=== PATIENT | male | born 1940 | race Caucasian/White ===

== ENCOUNTER → 2020-07-08 10:33 | Outpatient (BNVA) | payer MEDICARE, OTHER, SELFPAY | PROVIDERS: PCP Internal Medicine; Visit Provider Internal Medicine | DX: Z86.718 Personal history of other venous thrombosis and embolism (principal); Z51.81 Encounter for therapeutic drug level monitoring; Z79.01 Long term (current) use of anticoagulants | CPT/HCPCS: 85610 ==

== ENCOUNTER → 2020-08-05 10:26 | Outpatient (BNVA) | payer MEDICARE, OTHER, SELFPAY | PROVIDERS: PCP Internal Medicine; Visit Provider Internal Medicine | DX: Z86.718 Personal history of other venous thrombosis and embolism (principal); Z51.81 Encounter for therapeutic drug level monitoring; Z79.01 Long term (current) use of anticoagulants | CPT/HCPCS: 85610; 99211 ==

== ENCOUNTER → 2020-09-02 10:24 | Outpatient (BNVA) | payer MEDICARE, OTHER, SELFPAY | PROVIDERS: PCP Internal Medicine; Visit Provider Internal Medicine | DX: Z86.718 Personal history of other venous thrombosis and embolism (principal); Z51.81 Encounter for therapeutic drug level monitoring; Z79.01 Long term (current) use of anticoagulants | CPT/HCPCS: 85610; 99211 ==

== ENCOUNTER 2020-09-03 13:51 | Outpatient (REF) | payer SELFPAY ==
--- NOTE | 2020-09-03 16:05 | MHC.AU.P13 ---
Hearing Instrument Follow-Up- Binaural Date of Visit: 09/03/20 Right Ear: Us Marketing Director: Phonak Model: Williamseo V70-312 Serial Number: [id number] Warranty: 10/19/2017 Battery Size: 312 Agricultural Equipment Salesperson: 1xS Type of Dome: Blaine Large Occluded Dome Type of Wax Guard: CeruStop Dispensed By: [facility] Date of Fittin08/02/2014 Left Ear: Us Marketing Director: Phonak Model: Williamseo V70-312 Serial Number: [id number] Warranty: 10/19/2017 Battery Size: 312 Agricultural Equipment Salesperson: 1xS Type of Dome: Blaine Large Occluded Dome Type of Wax Guard: CeruStop Dispensed By: [facility] Date of Fittin08/02/2014 Follow-Up Summary: Patient brought in his right hearing aid. He reports that after wearing it for about an hour, he will hear the low battery chimes. The hearing aid will then turn itself off. This has been happening even with new batteries, and is only on the right instrument. Hearing aid was inspected. There was debris on the battery contacts. Cleaned debris off. Replaced wax trap and mold. The pitting machine operator was recently replaced on 02/26/2020. There does not seem to be intermittency in the sound. Hearing aid is amplifying clearly. The hearing aid did not turn off while in the office. Discussed with the patient that it is possible there could be an internal issue. We will see if there is improvement after cleaning the battery contacts. If not, patient will need to consider sending the hearing aid out for repair (over 5 years old- may need Blaine all-make) or thinking about new hearing aids. Recommendations: Patient will call if problems persist. Diagnosis Code(s): Primary Diagnosis: H90.3 Bilateral Sensorineural Hearing Loss Signature: Provider: Williams Bowman, ZEINA-A
== END 2020-09-03 13:52 | disposition home or self-care (01) ==
LOC: HO.HAP 13:51
PROVIDERS: Visit Provider Internal Medicine
DX: Z46.1 Encounter for fitting and adjustment of hearing aid (principal); H90.3 Sensorineural hearing loss, bilateral
CPT/HCPCS: 99499

== ENCOUNTER → 2020-09-16 11:24 | Outpatient (BNVA) | payer MEDICARE, OTHER, SELFPAY | PROVIDERS: PCP Internal Medicine; Visit Provider Internal Medicine | DX: Z86.718 Personal history of other venous thrombosis and embolism (principal); Z51.81 Encounter for therapeutic drug level monitoring; Z79.01 Long term (current) use of anticoagulants | CPT/HCPCS: 85610; 99211 ==

== ENCOUNTER → 2020-10-07 10:39 | Outpatient (BNVA) | payer MEDICARE, OTHER, SELFPAY | PROVIDERS: PCP Internal Medicine; Visit Provider Internal Medicine | DX: Z86.718 Personal history of other venous thrombosis and embolism (principal); Z51.81 Encounter for therapeutic drug level monitoring; Z79.01 Long term (current) use of anticoagulants | CPT/HCPCS: 85610; 99211 ==

== ENCOUNTER 2020-10-28 09:31 | Outpatient (REF) | payer MEDICARE, OTHER, SELFPAY ==
--- NOTE | 2020-10-28 13:46 | MHC.AU.P13 ---
Adult Audiological Evaluation Date of Visit: 10/28/20 Reason for Appointment: Audiological evaluation to monitor the status of Mr. Mehta's hearing loss. He denies any significant changes to his hearing. Change in medical history includes shoulder replacement in April 2020. Previous Hearing Test Results: [facility] [place]- Normal hearing at 250 Hz, sloping to a moderate to moderately severe sensorineural hearing loss bilaterally. Medical History: Medical History: Diabetes Medical History: renal insufficiency, DVT Hearing Instrument History- Right Ear: Community Artist: Phonak Model: Audeo V70-312 Serial Number: [id number] Battery Size: 312 Repair Warranty: 10/19/2017 Loss and Damage Warranty: 10/19/2017 Dispensed By: [facility] Date of Fittin08/02/2014 Hearing Instrument History- Left Ear: Community Artist: Phonak Model: Audeo V70-312 Serial Number: [id number] Battery Size: 312 Warranty: 10/19/2017 Loss and Damage Warranty: 10/19/2017 Dispensed By: [facility] Date of Fittin08/02/2014 Otoscopy: Right Ear: Unremarkable Left Ear: Unremarkable Tympanometry: Tympanometry performed due to: To assess integrity of the middle ear system Right Ear: Normal Middle Ear System (Type A) Left Ear: Normal Middle Ear System (Type A) Hearing Evaluation: Transducer(s) Used: Insert Earphones, Bone Conduction Method: Conventional Audiometry Stimuli Used: Pure Tones Right Ear: Description of Hearing: Normal hearing at 250 Hz, sloping to a moderate to moderately severe sensorineural hearing loss from 500-8000 Hz. Left Ear: Description of Hearing: Normal hearing at 250 Hz, sloping to a moderate to moderately severe sensorineural hearing loss from 500-8000 Hz. Speech Recognition Threshold (SRT): Method Used: Monitored Live Voice Stimuli Used: Spondee Words Right Ear: 40 dBHL Left Ear: 35 dBHL Word Discrimination: Method: Recorded Lists Word Lists Used: NU-6 Right Ear: 92% at 80 dBHL Left Ear: 92% at 80 dBHL Comparison: Compared to the most recent evaluation: Hearing is stable. Recommendations: Audiological re-evaluation in one year. Hearing aid maintenance performed today. Diagnosis: Primary Diagnosis: H90.3 Bilateral Sensorineural Hearing Loss Services Performed: Comprehensive Audiological Evaluation (CPT 11633) Tympanometry (CPT 34067) Signature: Provider: Williams Guillen, CCC-A
== END 2020-10-28 09:32 | disposition home or self-care (01) ==
LOC: HO.SH 09:31
PROVIDERS: Visit Provider Internal Medicine
DX: H90.3 Sensorineural hearing loss, bilateral (principal)
CPT/HCPCS: 92557; 92567

== ENCOUNTER → 2020-11-04 10:03 | Outpatient (BNVA) | payer MEDICARE, OTHER, SELFPAY | PROVIDERS: PCP Internal Medicine; Visit Provider Internal Medicine | DX: Z86.718 Personal history of other venous thrombosis and embolism (principal); Z51.81 Encounter for therapeutic drug level monitoring; Z79.01 Long term (current) use of anticoagulants | CPT/HCPCS: 85610; 99211 ==

== ENCOUNTER → 2020-11-28 10:04 | Outpatient (BNVA) | payer MEDICARE, OTHER, SELFPAY | PROVIDERS: PCP Internal Medicine; Visit Provider Internal Medicine | DX: Z86.718 Personal history of other venous thrombosis and embolism (principal); Z51.81 Encounter for therapeutic drug level monitoring; Z79.01 Long term (current) use of anticoagulants | CPT/HCPCS: 85610; 99211 ==

== ENCOUNTER → 2020-12-23 10:27 | Outpatient (BNVA) | payer MEDICARE, OTHER, SELFPAY | PROVIDERS: PCP Internal Medicine; Visit Provider Internal Medicine | DX: Z86.718 Personal history of other venous thrombosis and embolism (principal); Z51.81 Encounter for therapeutic drug level monitoring; Z79.01 Long term (current) use of anticoagulants | CPT/HCPCS: 85610; 99211 ==

== ENCOUNTER → 2021-01-20 10:09 | Outpatient (BNVA) | payer MEDICARE, OTHER, SELFPAY | PROVIDERS: PCP Internal Medicine; Visit Provider Internal Medicine | DX: Z86.718 Personal history of other venous thrombosis and embolism (principal); Z51.81 Encounter for therapeutic drug level monitoring; Z79.01 Long term (current) use of anticoagulants | CPT/HCPCS: 85610; 99211 ==

== ENCOUNTER → 2021-02-10 10:03 | Outpatient (BNVA) | payer MEDICARE, OTHER, SELFPAY | PROVIDERS: PCP Internal Medicine; Visit Provider Internal Medicine | DX: Z86.718 Personal history of other venous thrombosis and embolism (principal); Z51.81 Encounter for therapeutic drug level monitoring; Z79.01 Long term (current) use of anticoagulants | CPT/HCPCS: 85610; 99211 ==

== ENCOUNTER → 2021-03-03 09:51 | Outpatient (BNVA) | payer MEDICARE, OTHER, SELFPAY | PROVIDERS: PCP Internal Medicine; Visit Provider Internal Medicine | DX: Z86.718 Personal history of other venous thrombosis and embolism (principal); Z51.81 Encounter for therapeutic drug level monitoring; Z79.01 Long term (current) use of anticoagulants | CPT/HCPCS: 85610; 99211 ==

== ENCOUNTER → 2021-03-06 08:47 | Outpatient (BNVA) | payer MEDICARE, OTHER, SELFPAY | PROVIDERS: PCP Internal Medicine; Visit Provider Internal Medicine | DX: Z86.718 Personal history of other venous thrombosis and embolism (principal); Z51.81 Encounter for therapeutic drug level monitoring; Z79.01 Long term (current) use of anticoagulants | CPT/HCPCS: 85610; 99211 ==

== ENCOUNTER → 2021-03-13 09:32 | Outpatient (BNVA) | payer MEDICARE, OTHER, SELFPAY | PROVIDERS: PCP Internal Medicine; Visit Provider Internal Medicine | DX: Z86.718 Personal history of other venous thrombosis and embolism (principal); Z51.81 Encounter for therapeutic drug level monitoring; Z79.01 Long term (current) use of anticoagulants | CPT/HCPCS: 85610; 99211 ==

== ENCOUNTER → 2021-04-23 10:16 | Outpatient (BNVA) | payer MEDICARE, OTHER, SELFPAY | PROVIDERS: PCP Internal Medicine; Visit Provider Internal Medicine | DX: Z86.718 Personal history of other venous thrombosis and embolism (principal); Z51.81 Encounter for therapeutic drug level monitoring; Z79.01 Long term (current) use of anticoagulants | CPT/HCPCS: 85610; 99211 ==

== ENCOUNTER → 2021-05-21 10:12 | Outpatient (BNVA) | payer MEDICARE, OTHER, SELFPAY | PROVIDERS: PCP Internal Medicine; Visit Provider Internal Medicine | DX: Z86.718 Personal history of other venous thrombosis and embolism (principal); Z51.81 Encounter for therapeutic drug level monitoring; Z79.01 Long term (current) use of anticoagulants | CPT/HCPCS: 85610; 99211 ==

== ENCOUNTER → 2021-06-23 10:11 | Outpatient (BNVA) | payer MEDICARE, OTHER, SELFPAY | PROVIDERS: PCP Internal Medicine; Visit Provider Internal Medicine | DX: Z86.718 Personal history of other venous thrombosis and embolism (principal); Z51.81 Encounter for therapeutic drug level monitoring; Z79.01 Long term (current) use of anticoagulants | CPT/HCPCS: 85610; 99211 ==

== ENCOUNTER 2021-07-14 09:43 | Outpatient (REF) | payer MEDICARE, OTHER, SELFPAY ==
[2021-07-14 09:54] LABS: MANUAL DIFF FLAG NO
[2021-07-14 10:46] LABS: Basophils Absolute Auto 0.1 X10*3/uL (0.0-0.2); Basophils Percent Auto 0.9 % (0-2); Eosinophils Absolute Auto 0.2 X10*3/uL (0.0-0.4); Eosinophils Percent Auto 2.8 % (0-4); Hematocrit 42.7 % (42-52); Hemoglobin 13.7 g/dl (14.0-18.0); Imm Gran Abs Auto 0.02 X10*3/uL (0.00-0.03); Imm Gran Pct Auto 0.3 % (0.0-0.4); Lymphocytes Absolute Auto 2.9 X10*3/uL (1.2-4.9); Lymphocytes Percent Auto 37.5 % (20-40); Mean Corpuscular HGB Conc 32.1 g/dl (31.0-36.0); Mean Corpuscular Hemoglobin 29.2 pg (27.0-33.0); Mean Platelet Volume 9.4 fL (9.4-12.4); Monocytes Absolute Auto 0.8 X10*3/uL (0.1-1.2); Monocytes Percent Auto 9.7 % (2-11); Neutrophils Absolute Auto 3.8 X10*3/uL (2.0-8.3); Neutrophils Percent Auto 48.8 % (45-73); Platelet Count 215 X10*3/uL (160-400); Red Blood Count 4.69 X10*6/uL (4.60-5.80); Red Cell Distribution Width 13.2 % (11.0-16.0); White Blood Count 7.8 X10*3/uL (4.8-10.8)
[2021-07-14 10:48] LABS: Appearance Urine CLEAR; Color Urine YELLOW; Glucose Urine UA NEG (NEG); Leukocyte Esterase Urine NEG (NEG); Nitrite Urine NEG (NEG); Urine Blood TRACE (NEG); Urine Ketones NEG (NEG); Urine Protein NEG (NEG-TRACE)
[2021-07-14 11:04] LABS: RBC Urine 0-2 /HPF (0); Squamous Epithelial Cell Urine 1+ /LPF; WBC Urine 0 /HPF (0-4)
[2021-07-14 11:22] LABS: Anion Gap 9 (12-20); Blood Urea Nitrogen 40 mg/dL (9-16); Calcium 9.4 mg/dL (8.4-10.2); Carbon Dioxide 26 mmol/L (22-29); Chloride 109 mmol/L (96-108); Estimated Glomerular Filt Rate 39; Iron 74 mcg/dL (45-160); Magnesium 2.2 mg/dL (1.6-2.6); Percent Iron Saturation 24 % (15-50); Phosphorus 3.1 mg/dL (2.7-4.5); Potassium 5.1 mmol/L (3.3-5.1); Sodium 139 mmol/L (135-145); Total Iron Binding Capacity 308 mcg/dL (228-428); Unsaturated Iron Binding 234 ug/dL
[2021-07-14 11:39] LABS: Vitamin D 25-OH Total 37.9 ng/mL (>30)
[2021-07-14 11:41] LABS: Creatinine Urine 99.17 mg/dL; Microalbum/Creatinine Ratio Ur 12.1 ug/mg cr; Total Protein Urine Random < 7 mg/dL (<12)
[2021-07-14 13:19] LABS: Renal w Reflex Lab Use Only Order verified
[2021-07-14 13:52] LABS: Ferritin 74 ng/mL (20-250)
[2021-07-16 01:33] LABS: Calcium (PTHI) 9.2 mg/dL (8.6-10.3); PTHI 81 pg/mL (14-64)
== END 2021-07-14 09:44 | disposition home or self-care (01) ==
LOC: HO.LAB 09:43
PROVIDERS: PCP Internal Medicine; Referring Provider Internal Medicine; Visit Provider Internal Medicine Nephrology
DX: I12.9 Hypertensive chronic kidney disease with stage 1 through stage 4 chronic kidney disease, or unspecified chronic kidney disease (principal); N18.30 Chronic kidney disease, stage 3 unspecified; E11.22 Type 2 diabetes mellitus with diabetic chronic kidney disease; D64.9 Anemia, unspecified
CPT/HCPCS: 36415; 80051; 81001; 82040; 82043; 82306; 82310; 82565; 82728; 83540; 83735; 83970; 84100; 84156; 84520; 85025

== ENCOUNTER → 2021-07-21 10:21 | Outpatient (BNVA) | payer MEDICARE, OTHER, SELFPAY | PROVIDERS: PCP Internal Medicine; Visit Provider Internal Medicine | DX: Z86.718 Personal history of other venous thrombosis and embolism (principal); Z51.81 Encounter for therapeutic drug level monitoring; Z79.01 Long term (current) use of anticoagulants | CPT/HCPCS: 85610; 99211 ==

== ENCOUNTER → 2021-08-18 10:29 | Outpatient (BNVA) | payer MEDICARE, OTHER, SELFPAY | PROVIDERS: PCP Internal Medicine; Visit Provider Internal Medicine | DX: Z86.718 Personal history of other venous thrombosis and embolism (principal); Z51.81 Encounter for therapeutic drug level monitoring; Z79.01 Long term (current) use of anticoagulants | CPT/HCPCS: 85610; 99211 ==

== ENCOUNTER → 2021-09-15 09:31 | Outpatient (BNVA) | payer MEDICARE, OTHER, SELFPAY | PROVIDERS: PCP Internal Medicine; Visit Provider Internal Medicine | DX: Z86.718 Personal history of other venous thrombosis and embolism (principal); Z51.81 Encounter for therapeutic drug level monitoring; Z79.01 Long term (current) use of anticoagulants | CPT/HCPCS: 85610; 99211 ==

== ENCOUNTER → 2021-10-15 09:58 | Outpatient (BNVA) | payer MEDICARE, OTHER, SELFPAY | PROVIDERS: PCP Internal Medicine; Visit Provider Internal Medicine | DX: Z86.718 Personal history of other venous thrombosis and embolism (principal); Z51.81 Encounter for therapeutic drug level monitoring; Z79.01 Long term (current) use of anticoagulants | CPT/HCPCS: 85610; 99211 ==

== ENCOUNTER → 2021-12-18 11:55 | Outpatient (BNVA) | payer MEDICARE, OTHER, SELFPAY | PROVIDERS: PCP Internal Medicine; Visit Provider Internal Medicine | DX: Z13.89 Encounter for screening for other disorder (principal) ==

== ENCOUNTER → 2022-01-13 10:37 | Outpatient (BNVA) | payer MEDICARE, OTHER, SELFPAY | PROVIDERS: PCP Internal Medicine; Visit Provider Internal Medicine | DX: Z86.718 Personal history of other venous thrombosis and embolism (principal); Z79.01 Long term (current) use of anticoagulants; Z51.81 Encounter for therapeutic drug level monitoring | CPT/HCPCS: 85610; 99211 ==

== ENCOUNTER → 2022-02-09 10:04 | Outpatient (BNVA) | payer MEDICARE, OTHER, SELFPAY | PROVIDERS: PCP Internal Medicine; Visit Provider Internal Medicine | DX: Z86.718 Personal history of other venous thrombosis and embolism (principal); Z79.01 Long term (current) use of anticoagulants; Z51.81 Encounter for therapeutic drug level monitoring | CPT/HCPCS: 85610; 99211 ==

== ENCOUNTER → 2022-03-16 13:03 | Outpatient (BNVA) | payer MEDICARE, OTHER, SELFPAY | PROVIDERS: PCP Internal Medicine; Visit Provider Internal Medicine | DX: Z86.718 Personal history of other venous thrombosis and embolism (principal); Z79.01 Long term (current) use of anticoagulants; Z51.81 Encounter for therapeutic drug level monitoring | CPT/HCPCS: 85610; 99211 ==

== ENCOUNTER → 2022-04-14 14:47 | Outpatient (BNVA) | payer MEDICARE, OTHER, SELFPAY | PROVIDERS: PCP Internal Medicine; Visit Provider Internal Medicine | DX: Z86.718 Personal history of other venous thrombosis and embolism (principal); Z79.01 Long term (current) use of anticoagulants; Z51.81 Encounter for therapeutic drug level monitoring | CPT/HCPCS: 85610; 99211 ==

== ENCOUNTER → 2022-05-13 09:50 | Outpatient (BNVA) | payer MEDICARE, OTHER, SELFPAY | PROVIDERS: PCP Internal Medicine; Visit Provider Internal Medicine | DX: Z86.718 Personal history of other venous thrombosis and embolism (principal); Z79.01 Long term (current) use of anticoagulants; Z51.81 Encounter for therapeutic drug level monitoring | CPT/HCPCS: 85610; 99211 ==

== ENCOUNTER → 2022-06-15 10:04 | Outpatient (BNVA) | payer MEDICARE, OTHER, SELFPAY | PROVIDERS: PCP Internal Medicine; Visit Provider Internal Medicine | DX: Z86.718 Personal history of other venous thrombosis and embolism (principal); Z79.01 Long term (current) use of anticoagulants; Z51.81 Encounter for therapeutic drug level monitoring | CPT/HCPCS: 85610; 99211 ==

== ENCOUNTER → 2022-07-13 09:46 | Outpatient (BNVA) | payer MEDICARE, OTHER, SELFPAY | PROVIDERS: PCP Internal Medicine; Visit Provider Internal Medicine | DX: Z86.718 Personal history of other venous thrombosis and embolism (principal); Z79.01 Long term (current) use of anticoagulants; Z51.81 Encounter for therapeutic drug level monitoring | CPT/HCPCS: 85610; 99211 ==

== ENCOUNTER → 2022-08-10 10:05 | Outpatient (BNVA) | payer MEDICARE, OTHER, SELFPAY | PROVIDERS: PCP Internal Medicine; Visit Provider Internal Medicine | DX: Z86.718 Personal history of other venous thrombosis and embolism (principal); Z79.01 Long term (current) use of anticoagulants; Z51.81 Encounter for therapeutic drug level monitoring | CPT/HCPCS: 85610; 99211 ==

== ENCOUNTER → 2022-09-07 09:58 | Outpatient (BNVA) | payer MEDICARE, OTHER, SELFPAY | PROVIDERS: PCP Internal Medicine; Visit Provider Internal Medicine | DX: Z86.718 Personal history of other venous thrombosis and embolism (principal); Z79.01 Long term (current) use of anticoagulants; Z51.81 Encounter for therapeutic drug level monitoring | CPT/HCPCS: 85610; 99211 ==

== ENCOUNTER → 2022-10-12 10:00 | Outpatient (BNVA) | payer MEDICARE, OTHER, SELFPAY | PROVIDERS: PCP Internal Medicine; Visit Provider Internal Medicine | DX: Z86.718 Personal history of other venous thrombosis and embolism (principal); Z79.01 Long term (current) use of anticoagulants; Z51.81 Encounter for therapeutic drug level monitoring | CPT/HCPCS: 85610; 99211 ==

== ENCOUNTER → 2022-11-12 10:11 | Outpatient (BNVA) | payer MEDICARE, OTHER, SELFPAY | PROVIDERS: PCP Internal Medicine; Visit Provider Internal Medicine | DX: Z79.01 Long term (current) use of anticoagulants (principal) ==

== ENCOUNTER → 2022-12-20 12:57 | Outpatient (BNVA) | payer MEDICARE, OTHER, SELFPAY | PROVIDERS: PCP Internal Medicine; Visit Provider Internal Medicine | DX: Z79.01 Long term (current) use of anticoagulants (principal) ==

== ENCOUNTER 2023-01-18 10:00 | Outpatient (REF) | payer MEDICARE, OTHER, SELFPAY ==
--- NOTE | ~2023-01-18 | XR_ITS ---
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 COMPARISON: Chest 07/05/2019 TECHNIQUE: 2 views of the chest were obtained. FINDINGS: The lungs are well-expanded with focal elevated right hemidiaphragm. The heart size and pulmonary vascularity is normal. There are bilateral shoulder prosthesis. No other bony lesion seen. There is moderate spondylosis of dorsal spine. XR/XR chest 2V IMPRESSION: 1. No acute cardiopulmonary process seen. 2. Moderate spondylosis dorsal spine. 3. Bilateral shoulder prosthesis.
== END 2023-01-18 10:01 | disposition home or self-care (01) ==
LOC: HO.LAB 10:00
PROVIDERS: Absent Provider Internal Medicine; PCP Internal Medicine; Visit Provider Internal Medicine
DX: R06.09 Other forms of dyspnea (principal); Z86.718 Personal history of other venous thrombosis and embolism; Z51.81 Encounter for therapeutic drug level monitoring; Z79.01 Long term (current) use of anticoagulants
CPT/HCPCS: 71046; 85610; 99211

== ENCOUNTER → 2023-02-15 10:14 | Outpatient (BNVA) | payer MEDICARE, OTHER, SELFPAY | PROVIDERS: PCP Internal Medicine; Visit Provider Internal Medicine | DX: I82.501 Chronic embolism and thrombosis of unspecified deep veins of right lower extremity (principal); Z79.01 Long term (current) use of anticoagulants; Z51.81 Encounter for therapeutic drug level monitoring | CPT/HCPCS: 85610; 99211 ==

== ENCOUNTER → 2023-03-15 10:17 | Outpatient (BNVA) | payer MEDICARE, OTHER, SELFPAY | PROVIDERS: PCP Internal Medicine; Visit Provider Internal Medicine | DX: Z86.718 Personal history of other venous thrombosis and embolism (principal); Z51.81 Encounter for therapeutic drug level monitoring; Z79.01 Long term (current) use of anticoagulants | CPT/HCPCS: 85610; 99211 ==

== ENCOUNTER 2023-04-12 10:17 | Outpatient (AMB) | payer MEDICARE, OTHER, SELFPAY ==
[2023-04-12 10:28] LABS: Prothrombin Time Whole Bld POC 29.3 sec (11.1-13.5); ~PT, ~INR - Anti Coag Clinic 2.4 (0.9-1.1)
--- NOTE | 2023-04-12 10:31 | MHC.OFFVISCO ---
Intake Intake Visit Reasons: Anticoagulation Allergies No Known Allergies Allergy (Mild, Verified 04/12/23 10:20) NOT APPLICABLE Medication List - Last Reconciled 04/12/23 by Zainab Cheung RN amoxicillin 2,000 mg PO coenzyme Q10 (CoQ-10) 200 mg PO DAILY magnesium 200 mg PO DAILY shmjxnkjlhrc-limqggsf-yewqfp 1 tab PO DAILY omega-3 fatty acids (Fish Oil Concentrate) 1,000 mg PO DAILY sildenafil 50 mg PO DAILY PRN simvastatin 20 mg PO BEDTIME sitagliptin phosphate 25 mg PO DAILY warfarin 5 mg See Protocol PO DAILY Nursing Note Amb to [facility] feeling well Medications and supplements reviewed No changes in health, diet, medications, or supplements Denies any unusual signs and symptoms of bruising, bleeding Denies any new Chest pain, SOB, or clotting INR: 2.4 in therapeutic range Nutritional guidance given: balance greens and reds in diet, be consistent Dose: continue usual dosing; 7.5mg x 2 days and 5mg x 5 days F/U INR: 4 weeks Patient verbalizes understanding of instructions given with accurate read back/ teach back of dosing Coding Level of Care Code Est Patient Level 1 Diagnoses Current use of anticoagulant therapy Z79.01 Time Spent (min) 15 Assessment & Plan Assessment & Plan (1) Current use of anticoagulant therapy: Code(s): Z79.01 - disc 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
== END 2023-04-12 10:43 | disposition home or self-care (01) ==
LOC: HO.ACS 10:17
PROVIDERS: PCP Internal Medicine; Visit Provider Internal Medicine
DX: Z79.01 Long term (current) use of anticoagulants (principal)

== ENCOUNTER → 2023-04-12 10:17 | Outpatient (BNVA) | payer MEDICARE, OTHER, SELFPAY | PROVIDERS: PCP Internal Medicine; Visit Provider Internal Medicine | DX: I82.4Z1 Acute embolism and thrombosis of unspecified deep veins of right distal lower extremity (principal); Z51.81 Encounter for therapeutic drug level monitoring; Z79.01 Long term (current) use of anticoagulants | CPT/HCPCS: 85610; 99211 ==

== ENCOUNTER 2023-05-12 10:03 | Outpatient (AMB) | payer MEDICARE, OTHER, SELFPAY ==
--- NOTE | 2023-05-12 10:10 | MHC.OFFVISCO ---
Intake Intake Visit Reasons: Anticoagulation Allergies No Known Allergies Allergy (Mild, Verified 05/12/23 10:05) NOT APPLICABLE Medication List - Last Reconciled 05/12/23 by Anay Rodriguez RN amoxicillin 2,000 mg PO coenzyme Q10 (CoQ-10) 200 mg PO DAILY magnesium 200 mg PO DAILY xqnsogilvbdg-xwpkuwmq-halnim 1 tab PO DAILY omega-3 fatty acids (Fish Oil Concentrate) 1,000 mg PO DAILY sildenafil 50 mg PO DAILY PRN simvastatin 20 mg PO BEDTIME sitagliptin phosphate 25 mg PO DAILY warfarin 5 mg See Protocol PO DAILY Nursing Note INR 3.2-? out of therapeutic range Medications and supplements reviewed Patient status: recent vacation in [place] Medications or supplements: no changes Diet: same Denies any signs and symptoms of bleeding or clotting or unusual bruising Bleeding, bruising, clotting discussed Nutritional guidance given: eat greens for 2 days to lower, no reds for 2 days Dose: same 7.5mg x 2, 5mg x 5 F/U INR Date : pt req 4 weeks?? Patient verbalizing understanding of instructions given. 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
[2023-05-12 10:20] LABS: Prothrombin Time Whole Bld POC 37.9 sec (11.1-13.5); ~PT, ~INR - Anti Coag Clinic 3.2 (0.9-1.1)
== END 2023-05-12 10:16 | disposition home or self-care (01) ==
LOC: HO.ACS 10:03
PROVIDERS: PCP Internal Medicine; Visit Provider Internal Medicine
DX: Z79.01 Long term (current) use of anticoagulants (principal)

== ENCOUNTER → 2023-05-12 10:03 | Outpatient (BNVA) | payer MEDICARE, OTHER, SELFPAY | PROVIDERS: PCP Internal Medicine; Visit Provider Internal Medicine | DX: Z86.718 Personal history of other venous thrombosis and embolism (principal); Z79.01 Long term (current) use of anticoagulants; Z51.81 Encounter for therapeutic drug level monitoring | CPT/HCPCS: 85610; 99211 ==

== ENCOUNTER 2023-06-07 10:10 | Outpatient (AMB) | payer MEDICARE, OTHER, SELFPAY ==
[2023-06-07 10:20] LABS: Prothrombin Time Whole Bld POC 29.6 sec (11.1-13.5); ~PT, ~INR - Anti Coag Clinic 2.5 (0.9-1.1)
--- NOTE | 2023-06-07 10:25 | MHC.OFFVISCO ---
Intake Intake Visit Reasons: Anticoagulation Allergies No Known Allergies Allergy (Mild, Verified 06/07/23 10:12) NOT APPLICABLE Medication List - Last Reconciled 06/07/23 by Zainab Cheung RN amoxicillin 2,000 mg PO coenzyme Q10 (CoQ-10) 200 mg PO DAILY magnesium 200 mg PO DAILY dpojbljiqken-wcejeucn-qolcpy 1 tab PO DAILY omega-3 fatty acids (Fish Oil Concentrate) 1,000 mg PO DAILY sildenafil 50 mg PO DAILY PRN simvastatin 20 mg PO BEDTIME sitagliptin phosphate 25 mg PO DAILY warfarin 5 mg See Protocol PO DAILY Nursing Note Amb to [facility] feeling well Medications and supplements reviewed No changes in health, diet, medications, or supplements Denies any unusual signs and symptoms of bruising, bleeding Denies any new Chest pain, SOB, or clotting INR: 2.5 in therapeutic range Nutritional guidance given: balance greens and reds in diet Dose: continue usual dosing; 7.5mg x 2 days and 5mg x 5 days F/U INR: 1 month, pt going to [facility] 07/14 INR F/U booked for 07/12 Patient verbalizes understanding of instructions given with accurate read back/ teach back of dosing Coding Level of Care Code Est Patient Level 1 Diagnoses Current use of anticoagulant therapy Z79.01 Time Spent (min) 15 Assessment & Plan Assessment & Plan (1) Current use of anticoagulant therapy: Code(s): 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
== END 2023-06-07 10:30 | disposition home or self-care (01) ==
LOC: HO.ACS 10:10
PROVIDERS: PCP Internal Medicine; Visit Provider Internal Medicine
DX: Z79.01 Long term (current) use of anticoagulants (principal)

== ENCOUNTER → 2023-06-07 10:10 | Outpatient (BNVA) | payer MEDICARE, OTHER, SELFPAY | PROVIDERS: PCP Internal Medicine; Visit Provider Internal Medicine | DX: Z86.718 Personal history of other venous thrombosis and embolism (principal); Z79.01 Long term (current) use of anticoagulants; Z51.81 Encounter for therapeutic drug level monitoring | CPT/HCPCS: 85610; 99211 ==

== ENCOUNTER 2023-07-12 10:02 | Outpatient (AMB) | payer MEDICARE, OTHER, SELFPAY ==
[2023-07-12 10:09] LABS: Prothrombin Time Whole Bld POC 35.2 sec (11.1-13.5); ~PT, ~INR - Anti Coag Clinic 2.9 (0.9-1.1)
--- NOTE | 2023-07-12 10:14 | MHC.OFFVISCO ---
Intake Intake Visit Reasons: Anticoagulation Allergies No Known Allergies Allergy (Mild, Verified 07/12/23 10:03) NOT APPLICABLE Medication List - Last Reconciled 07/12/23 by Roshni Honeycutt RN amoxicillin 2,000 mg PO coenzyme Q10 (CoQ-10) 200 mg PO DAILY magnesium 200 mg PO DAILY acrsphbhohzs-brbyzdpz-exopjn 1 tab PO DAILY omega-3 fatty acids (Fish Oil Concentrate) 1,000 mg PO DAILY sildenafil 50 mg PO DAILY PRN simvastatin 20 mg PO BEDTIME sitagliptin phosphate 25 mg PO DAILY warfarin 5 mg See Protocol PO DAILY Nursing Note Pt not going to [place] due to war INR: 2.9 in therapeutic range Medications and supplements reviewed No changes in health, diet, medications, or supplements, Denies any signs and symptoms of bleeding or bruising or clotting. Bleeding, bruising, clotting discussed Nutritional guidance given - EAT AMIX OF FRUITS AND VEGETABLES Dose: KEEP SAME 7.5MG X 2 DAYS/ 5MG X 5 DAYS F/U INR: 1 MONTH Patient verbalizes understanding of instructions given Coding Level of Care Code Est Patient Level 1 Diagnoses Current use of anticoagulant therapy Z79.01 Assessment & Plan Assessment & Plan (1) Current use of anticoagulant therapy: Code(s): Z79.01 - long term acute care registered nurse (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
== END 2023-07-12 10:19 | disposition home or self-care (01) ==
LOC: HO.ACS 10:02
PROVIDERS: PCP Internal Medicine; Visit Provider Internal Medicine
DX: Z79.01 Long term (current) use of anticoagulants (principal)

== ENCOUNTER → 2023-07-12 10:02 | Outpatient (BNVA) | payer MEDICARE, OTHER, SELFPAY | PROVIDERS: PCP Internal Medicine; Visit Provider Internal Medicine | DX: Z86.718 Personal history of other venous thrombosis and embolism (principal); Z79.01 Long term (current) use of anticoagulants; Z51.81 Encounter for therapeutic drug level monitoring | CPT/HCPCS: 85610; 99211 ==

== ENCOUNTER 2023-08-09 09:55 | Outpatient (AMB) | payer MEDICARE, OTHER, SELFPAY ==
[2023-08-09 10:10] LABS: Prothrombin Time Whole Bld POC 29.3 sec (11.1-13.5); ~PT, ~INR - Anti Coag Clinic 2.4 (0.9-1.1)
--- NOTE | 2023-08-09 10:16 | MHC.OFFVISCO ---
Intake Intake Visit Reasons: Anticoagulation Allergies No Known Allergies Allergy (Mild, Verified 08/09/23 10:02) NOT APPLICABLE Medication List - Last Reconciled 08/09/23 by Roshni Honeycutt RN amoxicillin 2,000 mg PO coenzyme Q10 (CoQ-10) 200 mg PO DAILY magnesium 200 mg PO DAILY dmhcjfpviiby-covrmydz-byciit 1 tab PO DAILY omega-3 fatty acids (Fish Oil Concentrate) 1,000 mg PO DAILY sildenafil 50 mg PO DAILY PRN simvastatin 20 mg PO BEDTIME sitagliptin phosphate 25 mg PO DAILY warfarin 5 mg See Protocol PO DAILY Nursing Note INR: 2.4 in therapeutic range Medications and supplements reviewed No changes in health, diet, medications, or supplements, Denies any signs and symptoms of bleeding or bruising or clotting. Bleeding, bruising, clotting discussed Nutritional guidance given Dose: 7.5MG X 2 DAYS/ 5MG X 5 DAYS F/U INR: 1 MONTH Patient verbalizes understanding of instructions given Coding Level of Care Code Est Patient Level 1
== END 2023-08-09 10:53 | disposition home or self-care (01) ==
LOC: HO.ACS 09:55
PROVIDERS: PCP Internal Medicine; Visit Provider Internal Medicine
DX: Z79.01 Long term (current) use of anticoagulants (principal)

== ENCOUNTER → 2023-08-09 09:55 | Outpatient (BNVA) | payer MEDICARE, OTHER, SELFPAY | PROVIDERS: PCP Internal Medicine; Visit Provider Internal Medicine | DX: Z86.718 Personal history of other venous thrombosis and embolism (principal); Z79.01 Long term (current) use of anticoagulants; Z51.81 Encounter for therapeutic drug level monitoring | CPT/HCPCS: 85610; 99211 ==

== ENCOUNTER 2023-09-06 10:01 | Outpatient (AMB) | payer MEDICARE, OTHER, SELFPAY ==
[2023-09-06 10:11] LABS: ~PT, ~INR - Anti Coag Clinic 3.1 (0.9-1.1)
--- NOTE | 2023-09-06 10:18 | MHC.OFFVISCO ---
Intake Intake Visit Reasons: Anticoagulation Allergies No Known Allergies Allergy (Mild, Verified 09/06/23 10:04) NOT APPLICABLE Medication List - Last Reconciled 09/06/23 by Roshni Honeycutt RN amoxicillin 2,000 mg PO coenzyme Q10 (CoQ-10) 200 mg PO DAILY magnesium 200 mg PO DAILY igzqibvbzzwf-prtsynly-wgspir 1 tab PO DAILY omega-3 fatty acids (Fish Oil Concentrate) 1,000 mg PO DAILY sildenafil 50 mg PO DAILY PRN simvastatin 20 mg PO BEDTIME sitagliptin phosphate 25 mg PO DAILY warfarin 5 mg See Protocol PO DAILY Nursing Note INR: 3.1 ALMOST IN therapeutic range Medications and supplements reviewed RECOVERING FROM URI TOOK MUSINEX AND TYELNOL FOR A FEW DAYS- AND IS BETTER NOW -TYELNOL MAY HAVE RAUSE THE INR Denies any signs and symptoms of bleeding or bruising or clotting. 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
== END 2023-09-06 10:26 | disposition home or self-care (01) ==
LOC: HO.ACS 10:01
PROVIDERS: PCP Internal Medicine; Visit Provider Internal Medicine
DX: Z79.01 Long term (current) use of anticoagulants (principal)

== ENCOUNTER → 2023-09-06 10:01 | Outpatient (BNVA) | payer MEDICARE, OTHER, SELFPAY | PROVIDERS: PCP Internal Medicine; Visit Provider Internal Medicine | DX: Z86.718 Personal history of other venous thrombosis and embolism (principal); Z79.01 Long term (current) use of anticoagulants; Z51.81 Encounter for therapeutic drug level monitoring | CPT/HCPCS: 85610; 99211 ==

== ENCOUNTER 2023-10-10 09:51 | Outpatient (AMB) | payer MEDICARE, OTHER, SELFPAY ==
[2023-10-10 09:58] LABS: Prothrombin Time Whole Bld POC 27.7 sec (11.1-13.5); ~PT, ~INR - Anti Coag Clinic 2.3 (0.9-1.1)
--- NOTE | 2023-10-10 10:08 | MHC.OFFVISCO ---
Intake Intake Visit Reasons: Anticoagulation Allergies No Known Allergies Allergy (Mild, Verified 10/10/23 09:51) NOT APPLICABLE Medication List - Last Reconciled 10/10/23 by Zainab Alaniz RN amoxicillin 2,000 mg PO coenzyme Q10 (CoQ-10) 200 mg PO DAILY magnesium 200 mg PO DAILY djfpgsulilrp-ukeblnbn-rpevgt 1 tab PO DAILY omega-3 fatty acids (Fish Oil Concentrate) 1,000 mg PO DAILY sildenafil 50 mg PO DAILY PRN simvastatin 20 mg PO BEDTIME sitagliptin phosphate 25 mg PO DAILY warfarin 5 mg See Protocol PO DAILY Nursing Note INR 2.3. IN RANGE. MEDICATIONS REVIEWED, NO CHANGES. DENIES S/S OF BLEEDING, BRUISING, CLOTTING, CHEST PAINS. TO CONTINUE SAME DOSING, 7.5MG X 2 DAYS AND 5MG X 5 DAYS. BALANCE GREENS AND REDS IN DIET. PLANNING [place] TRIP IN NOVEMBER FOR 1 MONTH. VERBALIZES UNDERSTANDING OF INSTRUCTIONS. Questionnaires HAS-BLED Does the patient had uncontrolled Hypertension?: No Does the patient have renal disease?: No Does the patient have liver disease?: No Does the patient have a history of stroke?: No Has the patient had major bleeding or predisposition to bleeding?: No Does the patient have labile INRs?: No Is the patient over 65 years of age?: Yes Is the patient on medications that gives them a predisposition to bleeding?: Yes Does the patient use alcohol?: Yes HAS-BLED Score: 3 CHADSVASC Age: 75 or over Gender: Male Does the patient have a history of CHF?: No Does the patient have a history of Hypertension?: No Does the patient have a history of Stroke/TIA/Thromboembolism?: Yes Does the patient have a history of Vascular Disease (prior [place], PAD or aortic plaque)?: No Does the patient have a history of Diabetes?: No CHADS VACS Score: 4 Shari Prediction Score Rsk VTE Active Cancer: No Previous VTE, excluding superficial vein thrombosis: Yes Reduced mobility: No Already known Thrombophilic Condition: Yes With-in last month Trauma and/or Surgery: No Elderly 70 year or older: Yes Heart and/or Respiratory Failure: No Acute Myocardial infarction and/or Ischemic Stroke: No Acute Infection and/or Rheumatologic Disorder: No Obesity (BMI 30 or greater): No Ongoing Hormonal Treatment: No Score: 7 Shari Score less than 4; Low Risk of VTE Shari Score 4 or greater; High Risk of VTE Coding Level of Care Code Est Patient Level 1 Diagnoses Current use of anticoagulant therapy Z79.01 Time Spent (min) 15 Assessment & Plan Assessment & Plan (1) Current use of anticoagulant therapy: Code(s): 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
== END 2023-10-10 10:20 | disposition home or self-care (01) ==
LOC: HO.ACS 09:51
PROVIDERS: PCP Internal Medicine; Visit Provider Internal Medicine
DX: Z79.01 Long term (current) use of anticoagulants (principal)

== ENCOUNTER → 2023-10-10 09:51 | Outpatient (BNVA) | payer MEDICARE, OTHER, SELFPAY | PROVIDERS: PCP Internal Medicine; Visit Provider Internal Medicine | DX: Z86.718 Personal history of other venous thrombosis and embolism (principal); Z79.01 Long term (current) use of anticoagulants; Z51.81 Encounter for therapeutic drug level monitoring | CPT/HCPCS: 85610; 99211 ==

== ENCOUNTER 2023-11-08 09:49 | Outpatient (AMB) | payer MEDICARE, OTHER, SELFPAY ==
[2023-11-08 09:56] LABS: Prothrombin Time Whole Bld POC 46.4 sec (11.1-13.5); ~PT, ~INR - Anti Coag Clinic 3.9 (0.9-1.1)
--- NOTE | 2023-11-08 10:03 | MHC.OFFVISCO ---
Intake Intake Visit Reasons: Anticoagulation Allergies No Known Allergies Allergy (Mild, Verified 11/08/23 09:50) NOT APPLICABLE Medication List - Last Reconciled 11/08/23 by Anay Rodriguez RN amoxicillin 2,000 mg PO coenzyme Q10 (CoQ-10) 200 mg PO DAILY magnesium 200 mg PO DAILY nolqkhlscoud-vuawgzmv-vcwtpb 1 tab PO DAILY omega-3 fatty acids (Fish Oil Concentrate) 1,000 mg PO DAILY sildenafil 50 mg PO DAILY PRN simvastatin 20 mg PO BEDTIME sitagliptin phosphate 25 mg PO DAILY warfarin 5 mg See Protocol PO DAILY Questionnaires HAS-BLED Does the patient had uncontrolled Hypertension?: No Does the patient have renal disease?: Yes Does the patient have liver disease?: No Does the patient have a history of stroke?: No Has the patient had major bleeding or predisposition to bleeding?: No Does the patient have labile INRs?: No Is the patient over 65 years of age?: Yes Is the patient on medications that gives them a predisposition to bleeding?: Yes Does the patient use alcohol?: Yes HAS-BLED Score: 4 CHADSVASC Age: 75 or over Gender: Male Does the patient have a history of CHF?: No Does the patient have a history of Hypertension?: No Does the patient have a history of Stroke/TIA/Thromboembolism?: Yes Does the patient have a history of Vascular Disease (prior [place], PAD or aortic plaque)?: No Does the patient have a history of Diabetes?: Yes CHADS VACS Score: 5 Shari Prediction Score Rsk VTE Active Cancer: No Previous VTE, excluding superficial vein thrombosis: Yes Reduced mobility: No Already known Thrombophilic Condition: No With-in last month Trauma and/or Surgery: No Elderly 70 year or older: Yes Heart and/or Respiratory Failure: No Acute Myocardial infarction and/or Ischemic Stroke: No Acute Infection and/or Rheumatologic Disorder: No Obesity (BMI 30 or greater): No Ongoing Hormonal Treatment: No Score: 4 Shari Score less than 4; Low Risk of VTE Shari Score 4 or greater; High Risk of VTE Coding Diagnoses Current use of anticoagulant therapy Z79.01 Results AMB INR Fingerstick AMB INR Fingerstick 3.9 Last Edit by Anay Rodriguez RN on 11/08/23 09:59 Assessment & Plan Assessment & Plan (1) Current use of anticoagulant therapy: Code(s): Z79.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
--- NOTE | 2023-11-08 15:04 | MHC.OFFVISCO ---
Intake Intake Visit Reasons: Anticoagulation Allergies No Known Allergies Allergy (Mild, Verified 11/08/23 09:50) NOT APPLICABLE Medication List - Last Reconciled 11/08/23 by Anay Rodriguez RN amoxicillin 2,000 mg PO coenzyme Q10 (CoQ-10) 200 mg PO DAILY magnesium 200 mg PO DAILY xwujmzhnimdy-djpynarn-fynlgz 1 tab PO DAILY omega-3 fatty acids (Fish Oil Concentrate) 1,000 mg PO DAILY sildenafil 50 mg PO DAILY PRN simvastatin 20 mg PO BEDTIME sitagliptin phosphate 25 mg PO DAILY warfarin 5 mg See Protocol PO DAILY Nursing Note INR 3.9-? out of therapeutic range of 2-3 pt denies change in diet, tylenol, etoh or change in medications- did have a vaccine last week Medications and supplements reviewed Patient status: no c.o Medications or supplements: no changes, had rsv vaccine last week Diet: same Denies any signs and symptoms of bleeding or clotting or unusual bruising Bleeding, bruising, clotting discussed Nutritional guidance given: eat greens to lower Dose: hold dose today then cont reg dosing- 5mg x 5, 7.5mg x 2 F/U INR Date : pt req 2 weeks? Patient verbalizing understanding of instructions given. Questionnaires HAS-BLED Does the patient had uncontrolled Hypertension?: No Does the patient have renal disease?: Yes Does the patient have liver disease?: No Does the patient have a history of stroke?: No Has the patient had major bleeding or predisposition to bleeding?: No Does the patient have labile INRs?: No Is the patient over 65 years of age?: Yes Is the patient on medications that gives them a predisposition to bleeding?: Yes Does the patient use alcohol?: Yes HAS-BLED Score: 4 CHADSVASC Age: 75 or over Gender: Male Does the patient have a history of CHF?: No Does the patient have a history of Hypertension?: No Does the patient have a history of Stroke/TIA/Thromboembolism?: Yes Does the patient have a history of Vascular Disease (prior [place], PAD or aortic plaque)?: No Does the patient have a history of Diabetes?: Yes CHADS VACS Score: 5 Shari Prediction Score Rsk VTE Active Cancer: No Previous VTE, excluding superficial vein thrombosis: Yes Reduced mobility: No Already known Thrombophilic Condition: No With-in last month Trauma and/or Surgery: No Elderly 70 year or older: Yes Heart and/or Respiratory Failure: No Acute Myocardial infarction and/or Ischemic Stroke: No Acute Infection and/or Rheumatologic Disorder: Yes (IBS) Obesity (BMI 30 or greater): No Ongoing Hormonal Treatment: No Score: 5 Shari Score less than 4; Low Risk of VTE Shari Score 4 or greater; High Risk of VTE Coding Level of Care Code Est Patient Level 1 Diagnoses Current use of anticoagulant therapy Z79.01 Results AMB INR Fingerstick AMB INR Fingerstick 3.9 Last Edit by Anay Rodriguez RN on 11/08/23 09:59 Assessment & Plan Assessment & Plan (1) Current use of anticoagulant therapy: Code(s): 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
== END 2023-11-08 10:07 | disposition home or self-care (01) ==
LOC: HO.ACS 09:49
PROVIDERS: PCP Internal Medicine; Visit Provider Internal Medicine
DX: Z79.01 Long term (current) use of anticoagulants (principal)

== ENCOUNTER → 2023-11-08 09:49 | Outpatient (BNVA) | payer MEDICARE, OTHER, SELFPAY | PROVIDERS: PCP Internal Medicine; Visit Provider Internal Medicine | DX: Z86.718 Personal history of other venous thrombosis and embolism (principal); Z79.01 Long term (current) use of anticoagulants; Z51.81 Encounter for therapeutic drug level monitoring | CPT/HCPCS: 85610; 99211 ==

== ENCOUNTER 2023-11-22 09:54 | Outpatient (AMB) | payer MEDICARE, OTHER, SELFPAY ==
--- NOTE | 2023-11-22 10:06 | MHC.OFFVISCO ---
Intake Intake Visit Reasons: Anticoagulation Allergies No Known Allergies Allergy (Mild, Verified 11/22/23 10:03) NOT APPLICABLE Medication List - Last Reconciled 11/22/23 by Anay Rodriguez RN amoxicillin 2,000 mg PO coenzyme Q10 (CoQ-10) 200 mg PO DAILY magnesium 200 mg PO DAILY nqmpcxiwtmyz-xwhrsltx-imoklg 1 tab PO DAILY omega-3 fatty acids (Fish Oil Concentrate) 1,000 mg PO DAILY sildenafil 50 mg PO DAILY PRN simvastatin 20 mg PO BEDTIME sitagliptin phosphate 25 mg PO DAILY warfarin 5 mg See Protocol PO DAILY Nursing Note INR: 2.3-in therapeutic range of 2-3 Medications and supplements reviewed No changes in health, diet, medications, or supplements, Denies any signs and symptoms of bleeding or bruising or clotting. 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
[2023-11-22 10:07] LABS: Prothrombin Time Whole Bld POC 27.7 sec (11.1-13.5); ~PT, ~INR - Anti Coag Clinic 2.3 (0.9-1.1)
== END 2023-11-22 10:16 | disposition home or self-care (01) ==
LOC: HO.ACS 09:54
PROVIDERS: PCP Internal Medicine; Visit Provider Internal Medicine
DX: Z79.01 Long term (current) use of anticoagulants (principal)

== ENCOUNTER → 2023-11-22 09:54 | Outpatient (BNVA) | payer MEDICARE, OTHER, SELFPAY | PROVIDERS: PCP Internal Medicine; Visit Provider Internal Medicine | DX: Z86.718 Personal history of other venous thrombosis and embolism (principal); Z79.01 Long term (current) use of anticoagulants; Z51.81 Encounter for therapeutic drug level monitoring | CPT/HCPCS: 85610; 99211 ==

== ENCOUNTER 2023-12-05 10:11 | Outpatient (AMB) | payer MEDICARE, OTHER, SELFPAY ==
--- NOTE | 2023-12-05 10:21 | MHC.OFFVISCO ---
Intake Intake Visit Reasons: Anticoagulation Allergies No Known Allergies Allergy (Mild, Verified 12/05/23 10:14) NOT APPLICABLE Medication List - Last Reconciled 12/05/23 by Anay Rodriguez RN amoxicillin 2,000 mg PO coenzyme Q10 (CoQ-10) 200 mg PO DAILY magnesium 200 mg PO DAILY wbcwbdhcszpm-hlfdpnnm-jaurhz 1 tab PO DAILY omega-3 fatty acids (Fish Oil Concentrate) 1,000 mg PO DAILY sildenafil 50 mg PO DAILY PRN simvastatin 20 mg PO BEDTIME sitagliptin phosphate 25 mg PO DAILY warfarin 5 mg See Protocol PO DAILY Nursing Note INR: 2.8- in therapeutic range of 2-3 Medications and supplements reviewed No changes in health, diet, medications, or supplements, Denies any signs and symptoms of bleeding or bruising or clotting. Bleeding, bruising, clotting discussed Nutritional guidance given Dose: 5mg x 5, 7.5mg x 2 F/U INR: 4 weeks Patient verbalizes understanding of instructions given pt to [place] for approx 4 weeks- leaving 12/06/23 Coding Level of Care Code Est Patient Level 1 Diagnoses Current use of anticoagulant therapy Z79.01 Assessment & Plan Assessment & Plan (1) Current use of anticoagulant therapy: Code(s): Z79.01 - retirement (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
[2023-12-05 10:22] LABS: Prothrombin Time Whole Bld POC 34.1 sec (11.1-13.5); ~PT, ~INR - Anti Coag Clinic 2.8 (0.9-1.1)
== END 2023-12-05 10:28 | disposition home or self-care (01) ==
LOC: HO.ACS 10:11
PROVIDERS: PCP Internal Medicine; Visit Provider Internal Medicine
DX: Z79.01 Long term (current) use of anticoagulants (principal)

== ENCOUNTER → 2023-12-05 10:11 | Outpatient (BNVA) | payer MEDICARE, OTHER, SELFPAY | PROVIDERS: PCP Internal Medicine; Visit Provider Internal Medicine | DX: Z86.718 Personal history of other venous thrombosis and embolism (principal); Z79.01 Long term (current) use of anticoagulants; Z51.81 Encounter for therapeutic drug level monitoring | CPT/HCPCS: 85610; 99211 ==

== ENCOUNTER 2024-01-03 09:57 | Outpatient (AMB) | payer MEDICARE, OTHER, SELFPAY ==
[2024-01-03 10:14] LABS: ~PT, ~INR - Anti Coag Clinic 3.6 (0.9-1.1)
--- NOTE | 2024-01-03 10:27 | MHC.OFFVISCO ---
Intake Intake Visit Reasons: Anticoagulation Allergies No Known Allergies Allergy (Mild, Verified 01/03/24 10:08) NOT APPLICABLE Medication List - Last Reconciled 01/03/24 by Zainab Alaniz RN amoxicillin 2,000 mg PO coenzyme Q10 (CoQ-10) 200 mg PO DAILY magnesium 200 mg PO DAILY oemvpfijmfvg-sljqfijm-ggfbiv 1 tab PO DAILY omega-3 fatty acids (Fish Oil Concentrate) 1,000 mg PO DAILY sildenafil 50 mg PO DAILY PRN simvastatin 20 mg PO BEDTIME sitagliptin phosphate 25 mg PO DAILY warfarin 5 mg See Protocol PO DAILY Nursing Note INR 3.6?out of therapeutic rangeof 2-3 Medications and supplements reviewed: no changes Patient status: feels well, just returned from a 1 month trip to [place]. Had plantar fasciatis while there and has taken tylenol daily but improved now. Medications or supplements: no changes Diet: no changes Denies any signs and symptoms of bleeding or clotting or unusual bruising Bleeding, bruising, clotting discussed Nutritional guidance given: to have greens today and tomorrow Dose: hold todays dose and then balance reds and greens F/U INR Date : 1 month at pt request?? Patient verbalizing understanding of instructions given. 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
== END 2024-01-03 10:33 | disposition home or self-care (01) ==
LOC: HO.ACS 09:57
PROVIDERS: PCP Internal Medicine; Visit Provider Internal Medicine
DX: Z79.01 Long term (current) use of anticoagulants (principal)

== ENCOUNTER → 2024-01-03 09:57 | Outpatient (BNVA) | payer MEDICARE, OTHER, SELFPAY | PROVIDERS: PCP Internal Medicine; Visit Provider Internal Medicine | DX: I82.401 Acute embolism and thrombosis of unspecified deep veins of right lower extremity (principal); Z79.01 Long term (current) use of anticoagulants; Z51.81 Encounter for therapeutic drug level monitoring | CPT/HCPCS: 85610; 99211 ==

== ENCOUNTER 2024-01-31 09:59 | Outpatient (AMB) | payer MEDICARE, OTHER, SELFPAY ==
[2024-01-31 10:08] LABS: Prothrombin Time Whole Bld POC 25.4 sec (11.1-13.5); ~PT, ~INR - Anti Coag Clinic 2.1 (0.9-1.1)
--- NOTE | 2024-01-31 10:14 | MHC.OFFVISCO ---
Intake Intake Visit Reasons: Anticoagulation Allergies No Known Allergies Allergy (Mild, Verified 01/31/24 10:00) NOT APPLICABLE Medication List - Last Reconciled 01/31/24 by Roshni Honeycutt RN amoxicillin 2,000 mg PO coenzyme Q10 (CoQ-10) 200 mg PO DAILY magnesium 200 mg PO DAILY dbbkjytyzowq-lrqgqvqn-cnpqpq 1 tab PO DAILY omega-3 fatty acids (Fish Oil Concentrate) 1,000 mg PO DAILY sildenafil 50 mg PO DAILY PRN simvastatin 20 mg PO BEDTIME sitagliptin phosphate 25 mg PO DAILY warfarin 5 mg See Protocol PO DAILY Nursing Note INR: 2.1 in therapeutic range Medications and supplements reviewed No changes in health, diet, medications, or supplements, Denies any signs and symptoms of bleeding or bruising or clotting. 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
== END 2024-01-31 10:18 | disposition home or self-care (01) ==
LOC: HO.ACS 09:59
PROVIDERS: PCP Internal Medicine; Visit Provider Internal Medicine
DX: Z79.01 Long term (current) use of anticoagulants (principal)

== ENCOUNTER → 2024-01-31 09:59 | Outpatient (BNVA) | payer MEDICARE, OTHER, SELFPAY | PROVIDERS: PCP Internal Medicine; Visit Provider Internal Medicine | DX: Z86.718 Personal history of other venous thrombosis and embolism (principal); Z51.81 Encounter for therapeutic drug level monitoring; Z79.01 Long term (current) use of anticoagulants | CPT/HCPCS: 85610; 99211 ==

== ENCOUNTER 2024-03-06 09:58 | Outpatient (AMB) | payer MEDICARE, OTHER, SELFPAY ==
[2024-03-06 10:10] LABS: Prothrombin Time Whole Bld POC 36.2 sec (11.1-13.5)
--- NOTE | 2024-03-06 10:12 | MHC.OFFVISCO ---
Intake Intake Visit Reasons: Anticoagulation Allergies No Known Allergies Allergy (Mild, Verified 03/06/24 10:00) NOT APPLICABLE Medication List - Last Reconciled 03/06/24 by Zainab Alaniz RN amoxicillin 2,000 mg PO coenzyme Q10 (CoQ-10) 200 mg PO DAILY magnesium 200 mg PO DAILY xztherfyzlqn-toebwptd-npxilb 1 tab PO DAILY omega-3 fatty acids (Fish Oil Concentrate) 1,000 mg PO DAILY sildenafil 50 mg PO DAILY PRN sitagliptin phosphate 25 mg PO DAILY warfarin 5 mg See Protocol PO DAILY Nursing Note INR: 3.0 in therapeutic range of 2-3 Medications and supplements reviewed: per pt, simvastatin was d/c'd on 01/19/24 and atorvastatin early February. Pt informed he needs to call [facility] when starting or stopping any meds. No changes in health, diet, medications, or supplements, Denies any signs and symptoms of bleeding or bruising or clotting. Bleeding, bruising, clotting discussed: no unusual bruising or s/s of bleeding Nutritional guidance given: to have a serving of greens today Dose: 5mg X 4days and 7.5mg X 2 days F/U INR: 4 weeks Patient verbalizes understanding of instructions given Coding Level of Care Code Est Patient Level 1 Diagnoses Current use of anticoagulant therapy Z79.01 Assessment & Plan Assessment & Plan (1) Current use of anticoagulant therapy: Code(s): Z79.01 - [facility] (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
== END 2024-03-06 10:17 | disposition home or self-care (01) ==
LOC: HO.ACS 09:58
PROVIDERS: PCP Internal Medicine; Visit Provider Internal Medicine
DX: Z79.01 Long term (current) use of anticoagulants (principal)

== ENCOUNTER → 2024-03-06 09:58 | Outpatient (BNVA) | payer MEDICARE, OTHER, SELFPAY | PROVIDERS: PCP Internal Medicine; Visit Provider Internal Medicine | DX: Z86.718 Personal history of other venous thrombosis and embolism (principal); Z79.01 Long term (current) use of anticoagulants; Z51.81 Encounter for therapeutic drug level monitoring | CPT/HCPCS: 85610; 99211 ==

== ENCOUNTER 2024-04-03 09:57 | Outpatient (AMB) | payer MEDICARE, OTHER, SELFPAY ==
[2024-04-03 10:18] LABS: Prothrombin Time Whole Bld POC 31.1 sec (11.1-13.5); ~PT, ~INR - Anti Coag Clinic 2.6 (0.9-1.1)
--- NOTE | 2024-04-03 10:23 | MHC.OFFVISCO ---
Intake Intake Visit Reasons: Anticoagulation Allergies No Known Allergies Allergy (Mild, Verified 04/03/24 10:11) NOT APPLICABLE Medication List - Last Reconciled 04/03/24 by Roshni Honeycutt RN amoxicillin 2,000 mg PO atorvastatin 10 mg PO DAILY magnesium 200 mg PO DAILY zxvibcueqxqs-vikhhhtp-njsnms 1 tab PO DAILY omega-3 fatty acids (Fish Oil Concentrate) 1,000 mg PO DAILY sildenafil 50 mg PO DAILY PRN sitagliptin phosphate 25 mg PO DAILY warfarin 5 mg See Protocol PO DAILY Nursing Note INR: 2.6 in therapeutic range Medications and supplements reviewed No changes in health, diet, medications, or supplements, Denies any signs and symptoms of bleeding or bruising or clotting. 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
== END 2024-04-03 10:26 | disposition home or self-care (01) ==
LOC: HO.ACS 09:57
PROVIDERS: PCP Internal Medicine; Visit Provider Internal Medicine
DX: Z79.01 Long term (current) use of anticoagulants (principal)

== ENCOUNTER → 2024-04-03 09:57 | Outpatient (BNVA) | payer MEDICARE, OTHER, SELFPAY | PROVIDERS: PCP Internal Medicine; Visit Provider Internal Medicine | DX: Z86.718 Personal history of other venous thrombosis and embolism (principal); Z79.01 Long term (current) use of anticoagulants; Z51.81 Encounter for therapeutic drug level monitoring | CPT/HCPCS: 85610; 99211 ==

== ENCOUNTER 2024-05-07 10:21 | Outpatient (AMB) | payer MEDICARE, OTHER, SELFPAY ==
--- NOTE | 2024-05-07 10:31 | MHC.OFFVISCO ---
Intake Intake Visit Reasons: Anticoagulation Allergies No Known Allergies Allergy (Mild, Verified 05/07/24 10:25) NOT APPLICABLE Medication List - Last Reconciled 05/07/24 by Anay Rodriguez RN amoxicillin 2,000 mg PO atorvastatin 10 mg PO DAILY magnesium 200 mg PO DAILY iuugvmicvdnq-etbtagsc-zhywiv 1 tab PO DAILY omega-3 fatty acids (Fish Oil Concentrate) 1,000 mg PO DAILY sildenafil 50 mg PO DAILY PRN sitagliptin phosphate 25 mg PO DAILY warfarin 5 mg See Protocol PO DAILY Nursing Note INR 4.1-?? out of therapeutic range of 2-3 Medications and supplements reviewed Patient status: pt vacationed in [facility] [place] Medications or supplements: no changes Diet: appetite good Denies any signs and symptoms of bleeding or clotting or unusual bruising Bleeding, bruising, clotting discussed Nutritional guidance given: eat greens to lower Dose: no warfarin today, then cont 7.5mg x 2, 5mg x 5 F/U INR Date : 10 days? Patient verbalizing understanding of instructions given. 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
[2024-05-07 10:32] LABS: Prothrombin Time Whole Bld POC 49.2 sec (11.1-13.5); ~PT, ~INR - Anti Coag Clinic 4.1 (0.9-1.1)
== END 2024-05-07 10:38 | disposition home or self-care (01) ==
LOC: HO.ACS 10:21
PROVIDERS: PCP Internal Medicine; Visit Provider Internal Medicine
DX: Z79.01 Long term (current) use of anticoagulants (principal)

== ENCOUNTER → 2024-05-07 10:21 | Outpatient (BNVA) | payer MEDICARE, OTHER, SELFPAY | PROVIDERS: PCP Internal Medicine; Visit Provider Internal Medicine | DX: Z86.718 Personal history of other venous thrombosis and embolism (principal); Z79.01 Long term (current) use of anticoagulants; Z51.81 Encounter for therapeutic drug level monitoring | CPT/HCPCS: 85610; 99211 ==

== ENCOUNTER 2024-05-18 10:02 | Outpatient (AMB) | payer MEDICARE, OTHER, SELFPAY ==
[2024-05-18 10:27] LABS: Prothrombin Time Whole Bld POC 27.5 sec (11.1-13.5); ~PT, ~INR - Anti Coag Clinic 2.3 (0.9-1.1)
--- NOTE | 2024-05-18 10:32 | MHC.OFFVISCO ---
Intake Intake Visit Reasons: Anticoagulation Allergies No Known Allergies Allergy (Mild, Verified 05/18/24 10:21) NOT APPLICABLE Medication List - Last Reconciled 05/18/24 by Roshni Honeycutt RN amoxicillin 2,000 mg PO atorvastatin 10 mg PO DAILY magnesium 200 mg PO DAILY gevnyevmdxsf-vbdkbdle-iyfeky 1 tab PO DAILY omega-3 fatty acids (Fish Oil Concentrate) 1,000 mg PO DAILY sildenafil 50 mg PO DAILY PRN sitagliptin phosphate 25 mg PO DAILY warfarin 5 mg See Protocol PO DAILY Nursing Note INR: 2.3 in therapeutic range Medications and supplements reviewed No changes in health, diet, medications, or supplements, Denies any signs and symptoms of bleeding or bruising or clotting. Bleeding, bruising, clotting discussed Nutritional guidance given- REVIEW FOOD LIST WEEKLY, EAT A MIX OF FRUITS AND VEGETABLES Dose: RESUME USUAL DOSE 7.5MG X 2 DAYS/ 5MG X 5 DAYS F/U INR: 1 MONTH Patient verbalizes understanding of instructions given Coding Level of Care Code Est Patient Level 1 Diagnoses Current use of anticoagulant therapy Z79.01 Assessment & Plan Assessment & Plan (1) Current use of anticoagulant therapy: Code(s): Z79.01 - [facility] (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
== END 2024-05-18 10:33 | disposition home or self-care (01) ==
LOC: HO.ACS 10:02
PROVIDERS: PCP Internal Medicine; Visit Provider Internal Medicine
DX: Z79.01 Long term (current) use of anticoagulants (principal)

== ENCOUNTER → 2024-05-18 10:02 | Outpatient (BNVA) | payer MEDICARE, OTHER, SELFPAY | PROVIDERS: PCP Internal Medicine; Visit Provider Internal Medicine | DX: Z86.718 Personal history of other venous thrombosis and embolism (principal); Z79.01 Long term (current) use of anticoagulants; Z51.81 Encounter for therapeutic drug level monitoring | CPT/HCPCS: 85610; 99211 ==

== ENCOUNTER 2024-06-12 09:59 | Outpatient (AMB) | payer MEDICARE, OTHER, SELFPAY ==
--- NOTE | 2024-06-12 10:06 | MHC.OFFVISCO ---
Intake Intake Visit Reasons: Anticoagulation Allergies No Known Allergies Allergy (Mild, Verified 06/12/24 10:01) NOT APPLICABLE Medication List - Last Reconciled 06/12/24 by Anay Rodriguez RN amoxicillin 2,000 mg PO atorvastatin 10 mg PO DAILY magnesium 200 mg PO DAILY enykommcgvap-dwxikutg-mmjehz 1 tab PO DAILY omega-3 fatty acids (Fish Oil Concentrate) 1,000 mg PO DAILY sildenafil 50 mg PO DAILY PRN sitagliptin phosphate 25 mg PO DAILY warfarin 5 mg See Protocol PO DAILY Nursing Note INR: 2.9- in therapeutic range of 2-3 Medications and supplements reviewed No changes in health, diet, medications, or supplements, Denies any signs and symptoms of bleeding or bruising or clotting. Bleeding, bruising, clotting discussed Nutritional guidance given Dose: 5mg x 5, 7.5mg x 2 F/U INR: 4 weeks Patient verbalizes understanding of instructions given Coding Level of Care Code Est Patient Level 1 Diagnoses Current use of anticoagulant therapy Z79.01 Assessment & Plan Assessment & Plan (1) Current use of anticoagulant therapy: Code(s): Z79.01 - longterm (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
[2024-06-12 10:07] LABS: Prothrombin Time Whole Bld POC 35.4 sec (11.1-13.5); ~PT, ~INR - Anti Coag Clinic 2.9 (0.9-1.1)
== END 2024-06-12 10:13 | disposition home or self-care (01) ==
LOC: HO.ACS 09:59
PROVIDERS: PCP Internal Medicine; Visit Provider Internal Medicine
DX: Z79.01 Long term (current) use of anticoagulants (principal)

== ENCOUNTER → 2024-06-12 09:59 | Outpatient (BNVA) | payer MEDICARE, OTHER, SELFPAY | PROVIDERS: PCP Internal Medicine; Visit Provider Internal Medicine | DX: Z86.718 Personal history of other venous thrombosis and embolism (principal); Z79.01 Long term (current) use of anticoagulants; Z51.81 Encounter for therapeutic drug level monitoring | CPT/HCPCS: 85610; 99211 ==

== ENCOUNTER 2024-07-26 09:51 | Outpatient (AMB) | payer MEDICARE, OTHER, SELFPAY ==
[2024-07-26 10:02] LABS: Prothrombin Time Whole Bld POC 40.7 sec (11.1-13.5); ~PT, ~INR - Anti Coag Clinic 3.4 (0.9-1.1)
--- NOTE | 2024-07-26 10:13 | MHC.OFFVISCO ---
Intake Intake Visit Reasons: Anticoagulation Allergies No Known Allergies Allergy (Mild, Verified 07/26/24 09:57) NOT APPLICABLE Medication List - Last Reconciled 07/26/24 by Roshni Honeycutt RN amoxicillin 2,000 mg PO atorvastatin 10 mg PO DAILY magnesium 200 mg PO DAILY lnwcmehlkklq-rwymhbwm-nxejwy 1 tab PO DAILY omega-3 fatty acids (Fish Oil Concentrate) 1,000 mg PO DAILY sildenafil 50 mg PO DAILY PRN sitagliptin phosphate 25 mg PO DAILY warfarin 5 mg See Protocol PO DAILY Nursing Note INR: 3.4 NOT IN therapeutic range Medications and supplements reviewed Pt was had treatment for what sounds to be pertussis he was on antbx and cough med Denies any signs and symptoms of bleeding or bruising or clotting. Bleeding, bruising, clotting discussed Nutritional guidance given- GREENS TONIGHT and weekly Dose: 7.5mg x 2 days/ 5mg x 5 days F/U INR: 1 month Patient verbalizes understanding of instructions given Coding Level of Care Code Est Patient Level 1 Diagnoses Current use of anticoagulant therapy Z79.01 Results AMB INR Fingerstick AMB INR Fingerstick 3.4 Last Edit by Roshni Honeycutt RN on 07/26/24 10:02 MANUAL ENTRY Assessment & Plan Assessment & Plan (1) Current use of anticoagulant therapy: Code(s): Z79.01 - intermediate (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
== END 2024-07-26 10:26 | disposition home or self-care (01) ==
LOC: HO.ACS 09:51
PROVIDERS: PCP Internal Medicine; Visit Provider Internal Medicine
DX: Z79.01 Long term (current) use of anticoagulants (principal)

== ENCOUNTER → 2024-07-26 09:51 | Outpatient (BNVA) | payer MEDICARE, OTHER, SELFPAY | PROVIDERS: PCP Internal Medicine; Visit Provider Internal Medicine | DX: Z86.718 Personal history of other venous thrombosis and embolism (principal); Z79.01 Long term (current) use of anticoagulants; Z51.81 Encounter for therapeutic drug level monitoring | CPT/HCPCS: 85610; 99211 ==

== ENCOUNTER 2024-08-28 09:51 | Outpatient (AMB) | payer MEDICARE, OTHER, SELFPAY ==
[2024-08-28 10:03] LABS: Prothrombin Time Whole Bld POC 39.1 sec (11.1-13.5); ~PT, ~INR - Anti Coag Clinic 3.3 (0.9-1.1)
--- NOTE | 2024-08-28 10:10 | MHC.OFFVISCO ---
Intake Intake Visit Reasons: Anticoagulation Allergies No Known Allergies Allergy (Mild, Verified 08/28/24 09:58) NOT APPLICABLE Medication List - Last Reconciled 08/28/24 by Zainab Alaniz RN amoxicillin 2,000 mg PO atorvastatin 10 mg PO DAILY magnesium 200 mg PO DAILY aiebyqhkybfh-eriqtofq-bgdvdn 1 tab PO DAILY omega-3 fatty acids (Fish Oil Concentrate) 1,000 mg PO DAILY sildenafil 50 mg PO DAILY PRN sitagliptin phosphate 25 mg PO DAILY warfarin 5 mg See Protocol PO DAILY Nursing Note INR 3.4?out of therapeutic range of 2-3 Medications and supplements reviewed Patient status: well Medications or supplements: no changes Diet: usual diet for pt Denies any signs and symptoms of bleeding or clotting or unusual bruising Bleeding, bruising, clotting discussed Nutritional guidance given: to have a serving of greens today Dose: today's dose decreased to 2.5mg (5mg) and then resume usual dose of 5mg X 5 days and 7.5mg X 2 days F/U INR Date : 4 weeks?? Patient verbalizing understanding of instructions given. 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
== END 2024-08-28 10:13 | disposition home or self-care (01) ==
LOC: HO.ACS 09:51
PROVIDERS: PCP Internal Medicine; Visit Provider Internal Medicine
DX: Z79.01 Long term (current) use of anticoagulants (principal)

== ENCOUNTER → 2024-08-28 09:51 | Outpatient (BNVA) | payer MEDICARE, OTHER, SELFPAY | PROVIDERS: PCP Internal Medicine; Visit Provider Internal Medicine | DX: Z86.718 Personal history of other venous thrombosis and embolism (principal); Z79.01 Long term (current) use of anticoagulants; Z51.81 Encounter for therapeutic drug level monitoring | CPT/HCPCS: 85610; 99211 ==

== ENCOUNTER 2024-09-25 10:01 | Outpatient (AMB) | payer MEDICARE, OTHER, SELFPAY ==
[2024-09-25 10:09] LABS: Prothrombin Time Whole Bld POC 40.5 sec (11.1-13.5); ~PT, ~INR - Anti Coag Clinic 3.4 (0.9-1.1)
--- NOTE | 2024-09-25 10:17 | MHC.OFFVISCO ---
Intake Intake Visit Reasons: Anticoagulation Allergies No Known Allergies Allergy (Mild, Verified 09/25/24 10:01) NOT APPLICABLE Nursing Note INR: 3.4?out of therapeutic range of 2-3 Medications and supplements reviewed Patient status: well Medications or supplements: no changes Diet: usual diet for pt Denies any signs and symptoms of bleeding or clotting or unusual bruising Bleeding, bruising, clotting discussed Nutritional guidance given: to have a serving of greens today Dose: decrease today's dose to 2.5mg then decrease weekly dose to 5mg X 6 days and 7.5mg X 1 day (decrease of 2.5mg/week) F/U INR Date : 4 weeks Patient verbalizing understanding of instructions given. 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
== END 2024-09-25 10:21 | disposition home or self-care (01) ==
LOC: HO.ACS 10:01
PROVIDERS: PCP Internal Medicine; Visit Provider Internal Medicine
DX: Z79.01 Long term (current) use of anticoagulants (principal)

== ENCOUNTER → 2024-09-25 10:01 | Outpatient (BNVA) | payer MEDICARE, OTHER, SELFPAY | PROVIDERS: PCP Internal Medicine; Visit Provider Internal Medicine | DX: Z86.718 Personal history of other venous thrombosis and embolism (principal); Z79.01 Long term (current) use of anticoagulants; Z51.81 Encounter for therapeutic drug level monitoring | CPT/HCPCS: 85610; 99211 ==

== ENCOUNTER → 2024-10-24 10:01 | Outpatient (BNVA) | payer MEDICARE, OTHER, SELFPAY | PROVIDERS: PCP Internal Medicine; Visit Provider Internal Medicine | DX: Z86.718 Personal history of other venous thrombosis and embolism (principal); Z79.01 Long term (current) use of anticoagulants; Z51.81 Encounter for therapeutic drug level monitoring | CPT/HCPCS: 85610; 99211 ==

== ENCOUNTER 2024-11-13 10:18 | Outpatient (AMB) | payer MEDICARE, OTHER, SELFPAY ==
--- NOTE | 2024-11-13 10:40 | MHC.OFFVISCO ---
Intake Intake Visit Reasons: Anticoagulation Allergies No Known Allergies Allergy (Mild, Verified 11/13/24 10:30) NOT APPLICABLE Medication List - Last Reconciled 11/13/24 by Zainab Alaniz RN amoxicillin 2,000 mg PO atorvastatin 10 mg PO DAILY magnesium 200 mg PO DAILY fkiplxahuisg-bhzjmlxa-gmvagb 1 tab PO DAILY omega-3 fatty acids (Fish Oil Concentrate) 1,000 mg PO DAILY sildenafil 50 mg PO DAILY PRN sitagliptin phosphate 25 mg PO DAILY warfarin 5 mg See Protocol PO DAILY Nursing Note INR: 2.5 in therapeutic range of 2-3 Medications and supplements reviewed No changes in health, diet, medications, or supplements, Denies any signs and symptoms of bleeding or bruising or clotting. Bleeding, bruising, clotting discussed Nutritional guidance given Dose: 5mg X 6 days and 7.5mg X 1 day F/U INR: 4 weeks Patient verbalizes understanding of instructions given Coding Level of Care Code Est Patient Level 1 Diagnoses Current use of anticoagulant therapy Z79.01 Results AMB INR Fingerstick AMB INR Fingerstick 2.5 Last Edit by Zainab Alaniz RN on 11/13/24 10:37 interface delay Assessment & Plan Assessment & Plan (1) Current use of anticoagulant therapy: Code(s): Z79.01 - [facility] (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
[2024-11-13 10:43] LABS: Prothrombin Time Whole Bld POC 29.9 sec (11.1-13.5); ~PT, ~INR - Anti Coag Clinic 2.5 (0.9-1.1)
--- OUTSIDE RECORDS SUMMARY | 2024-11-13 12:07 | XMS_ITS | Clinical Summary ---
Author Organization [facility] Facility Address [address] [address] Care Team Providers Care Jewel Hole Gauger Name Role Phone Kennedy Monroy MD Primary Care Provider [phone] Allergies Active Allergy Reactions Criticality Noted Date Comments Amlodipine 03/29/2017 Other reaction(s): Cough Aspirin-Dipyridamole Er Other (see comments) 03/29/2017 Lisinopril 03/29/2017 Other reaction(s): Cough Metformin Diarrhea 10/10/2017 Valsartan 03/29/2017 Other reaction(s): Chest pain Medications warfarin (COUMADIN) 5 MG tablet as directed Active SITagliptin (JANUVIA) 25 MG tablet Take 1 tablet by mouth 1 (one) time each day Active simvastatin (ZOCOR) 20 MG tablet Take 1 tablet by mouth 1 (one) time each day 12/25/2019 Active omega-3 (FISH OIL) 1000 MG capsule Take 1 capsule by mouth every other day Active Magnesium Oxide 400 MG capsule Take 1 capsule by mouth 1 (one) time each day Active coenzyme Q-10 10 MG capsule Take 1 capsule by mouth 1 (one) time each day Active Active Problems Problem Noted Date Diagnosed Date Stage 3a chronic kidney disease 07/20/2022 Renal osteodystrophy 07/20/2022 Osteoarthritis of glenohumeral joint 07/19/2022 Stage 3b chronic kidney disease 07/21/2021 Type 2 diabetes mellitus wit h diabetic chronic kidney disease 07/21/2021 Anemia 07/20/2021 Hypertensive chronic kidney disease, unspecified, with chronic kidney disease stage I through stage IV, or unspecified 07/20/2021 Contusion of lower limb 03/30/2021 Bounding pulse 03/30/2021 Overview (07/19/2022): Last Assessment & Plan: 5-day history of right-sided postauricular pulse detection by the patient. If the patient feels thunderclap worsening of her headache and neck stiffness he is to call 911 I instructed him. But today I have no evidence that there is an aneurysm and 5-day history of it makes it seem unlikely. Nonetheless if this persists we should investigate the possibility. Primary osteoarthritis of left shoulder 04/21/20 Overview (07/20/2021): Last Assessment & Plan: From the standpoint of his exam his past medical history his social history and his family history the patient is a very good candidate for the upcoming shoulder surgery we do not anticipate any risks that would exclude him from this elective surgery. As such the patient is cleared for said surgery however he will have to be bridged with enoxaparin coming off the Coumadin and going back on Coumadin after the procedure. We will therefore obtain labs today CBC Chem-7 and INR and use the creatinine to determine the level of enoxaparin necessary to keep him anticoagulated. 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 A Chem-7 will be used to determine how much Lovenox to give the patient prior to the surgery to bridge him to the surgery. We are anticipating less than 75 mg every 12 hours given his creatinine clearance of about 40-45. We will therefore take the labs now and then call the pharmacy tomorrow to figure out the dosing. He should take the aspirin up until the and then stop it 7 days before the procedure. He should stop the Coumadin on 02 May and starting on the start the Lovenox at a determined dose. 7 days prior can stop the fish oil and the folic acid complex. At the night of the surgery he can restart the Coumadin at his usual scheduling dose and retake the enoxaparin with the INR to be done approximately 3 days after the surgery. We will give the patient 20 doses of enoxaparin to have enough for the surgery. On the day before the surgery the patient will only have 1 dose of enoxaparin and that will be around noon time given his history of chronic renal failure. Hyperlipidemia 10/11/2017 Mixed hyperlipidemia 10/11/2017 Nocturia 10/11/2017 Renal insufficiency 10/11/2017 Type 2 diabetes mellitus without complication Encounters Date Type Department Care Team Description 08/13/2024 2:45 PM EST Office Visit [facility] [address] [place] [address] Song Bloom MD Stage 3b chronic kidney disease (HCC) (Primary Dx); Type 2 diabetes mellitus without complication (HCC); Renal osteodystrophy from Last 3 Months Immunizations Name Administration Dates Next Due Influenza Split High Dose Pr eservative Free IM 05/26/2019,05/25/2018,06/26/2017,05/31,06/27/2015,06/07/2014,06/19/2013 Influenza TIV (IM) 07/26/2011 Influenza, Quadrivalent, Pre servative Free 06/11/2020 Influenza, Unspecified 05/27/2021,2019,07/02/2010,06/26 Pfizer SARS-COV-2 11/12/2020,10/21/2020 Pneumococcal Conjugate 13-Valent 08/23/2015 Pneumococcal Polysaccharide 08/31/2012, 1,07/20/2006 Shingrix 10/07/2021,06/22/2021 TD Preservative Free 10/25/2011 Zoster 09/15/2007 Family History Medical History Relation Comments Diabetes Father Hypertension Sibling 1 older brother Diabetes Sibling 2 older brother Relation Status Comments Father Mother Sibling 1 Sibling 2 Social History Tobacco Use Types Packs/Day Years Used Date Smoking Tobacco: Never Alcohol Use Standard Drinks/Week Comments Yes 0 (1 standard drink = 0.6 oz pure alcohol) Alcoholic Drinks/day: Occasional social drink Sex and Gender Information Value Date Recorded Sex Assigned at Not on file Legal Sex Male 5:12 PM EST Gender Identity Not on file Sexual Orientation Not on file Last Filed Vital Signs Vital Sign Reading Time Taken Comments Blood Pressure 120/74 08/13/2024 2:54 PM EST Pulse 100 08/13/2024 2:54 PM EST Temperature - - Respiratory Rate - - Oxygen Saturation 96% 08/13/2024 2:54 PM EST Inhaled Oxygen Concentration - - Weight 78 kg (172 lb) 08/13/2024 2:54 PM EST Height 167.6 cm (5' 6 ) 07/22/2020 12:00 PM EST Body Mass Index 27.76 07/22/2020 12:00 PM EST Plan of Treatment Upcoming Encounters Date Type Department Care Team (Late st Contact Info) Description 08/19/2025 1:15 PM EST Office Visit [facility] [address] [place] [address] Song Bloom MD [address] [facility] [address] [place] [address] Health Maintenance Due Date Last Done Comments Diabetes: Hemoglobin A1C 10/17/2020 06/26/2020, 04/2020 Diabetes: Ophthalmology Exam 10/17/2020 Diabetes: Pedal Pulse Checked 10/17/2020 Diabetes: Sensory Foot Exam 10/17/2020 Diabetes: Visual Foot Exam 10/17/2020 Pneumococcal Vaccine: 65+ Years Completed 08/23/2015, 08/31/2012, 04/02/2011, Additional history exists Influenza Vaccine Completed 06/23/2024, , 05/27/2021, Additional history exists Hepatitis B Vaccine Aged Out No longe r eligible based on patient's age to complete this topic Procedures Procedure Name Priority Date/Time Associated Diagnosis Comments BLOOD PANEL (HC) Routine 06/26/2020 12:0 0 AM EDT from Last 3 Months or Most Recently Relevant to Health Maintenance Results * (ABNORMAL) Blood Panel (06/26/2020 12:00 AM EDT) Creatinine 1.70(H) 0.70 - 1.30 mg/dl [facility] eGFR Non- 38(L) >60 ml/min [facility] Hgb 12.3(L) 13.0 - 16.5 g/dl [facility] Hemoglobin A1C 6.6(H) <5 % [facility] Potassium 5.1 3.5 - 5.1 mmol/L [facility] BUN 31(H) 9 - 20 mg/dl [facility] Calcium 9.5 8.4 - 10.2 mg/dl [facility] Platelets 244 140 - 440 k/uL [facility] Sodium 140 137 - 145 mmol/L [facility] Carbon Dioxide (CO2) 22 22 - 30 mmol/L [facility] Hematocrit 36.1(L) 38 - 50 % [facility] 06/26/2020 us [facility] [id number] LICITED RESULTS Final Result [facility] from Last 3 Months or Most Recently Relevant to Health Maintenance Insurance [facility] MEDICARE [facility] MEDICARE Care Teams Jewel Hole Gauger Relationship Specialty Start Date End Date Kennedy Monroy MD [address] [place] [address] PCP - General 09/29/20
--- OUTSIDE RECORDS SUMMARY | 2024-11-13 12:07 | XMS_ITS ---
Author Organization [facility] [place] Address [address] [place] [address] Care Team Providers Care Make Up Operator Helper Name Role Phone Kennedy Monroy MD Primary Care Provider Unavaila ble Black, Jodie Unavailable [phone] Allergies Allergen (clinical drug ingredient) Drug/Non Drug Allergy documented on EMR Reaction Allergy Type Onset Date Status ibuprofen Advil Unknown Drug Allergy Active naproxen aleve Unknown Drug Allergy Active aspirin aspirin Unknown Drug Allergy Active motrin Unknown Drug Allergy Active REASON FOR VISIT Toe Pain, Emergency Appointment, Same Day Appointment Medications Medication SIG (Take, Route, Frequency, Duration) Notes Start Date End Date Status Centrum Silver Activ e Aspirin Not-Taking Coenzyme Q-10 100 MG as directed Orally Active FaBB Not-Taking Cephalexin 500 MG 1 tablet Orally Twic e a day for 10 day(s) Not-Taking Januvia 25 MG as directed Orally Active Simvastatin 20 MG as directed Orally Active Fish Oil 1000 MG 1 capsule Orally Once a day Active Warfarin Sodium 5 MG as directed Orally Active Social History Tobacco Use: Social History Observation Description Date Details (start date - stop date) Never Smoker NA - NA Tobacco Use/Smoking Question Answer Notes Are you a: nonsmoker Alcohol Screen Question Answer Notes Did you have a drink contain ing alcohol in the past year? Yes How often did you have a dri nk containing alcohol in the past year? 2 to 3 times a week (3 points) Points 3 Interpretation Negative Tobacco use other than smoking: Question Answer Notes Are you an other tobacco user? No Problems Problem Type SNOMED Code ICD Code Onset Dates Problem Status W/U Status Risk Notes Problem Ulcer of toe of right foot (disorder) ([id number]) Skin ulcer of toe of right foot, limited to breakdown of skin (L97.511) Active confirmed Vital Signs Height 5 ft 6 in in 07/04/2023 Weight 165 lbs 07/04/2023 BMI 26.63 kg/m2 07/04/2023 Procedures Procedure Date Ordered Date Performed Result Body Sit e 99686- Debride <25 sq cm 07/04/2023 N/A Encounters Encounter Location Date Provider Diagnosis [facility] [address] [address] 07/04/2023 Jodie Black Other hammer toe(s) (acquired), right foot M20.41 ; Pain in right toe(s) M79.674 ; Hypertrophy of bone, right ankle and foot M89.371 ; Type 2 diabetes mellitus without complications E11.9 and Skin ulcer of toe of right foot, limited to breakdown of skin L97.511 Assessments Encounter Date Diagnosis (ICD Code) Assessment Notes Treatment Notes Treatment Clinical Notes Section Notes 07/04/2023 Other hammer toe(s) (acquired), right foot (ICD-10 - M20.41) 07/04/2023 Pain in right toe(s) (ICD-10 - M79.674) 07/04/2023 Hypertrophy of bone, right ankle and foot (ICD-10 - M89.371) 07/04/2023 Type 2 diabetes mellitus without complications (ICD-10 - E11.9) 07/04/2023 Skin ulcer of toe of right foot, limited to breakdown of skin (ICD-10 - L97.511) Plan Of Treatment Pending Test Test Name Order Date 32575- Debride <25 sq cm 07/04/2023 Next Appt Details Follow Up: prn, Reason: Procedure Notes * Category Sub-Category Detail Notes Debride skin< 25 sq cm Open wound Physician of record performed open wound selective debridement of first 25 sq cm or less, of devitilized necrotic/nonviable soft tissue, fibrin, and exudate extending from the epidermis through the dermis, utilizing sharp dissection with sterile 15 blade, and/or tissue nippers. Hemostasis was controlled through direct pressure. Sterile antibiotic dressing applied, ANESTHESIA was not required due to presence of NEUROPATHY. Post debridement measurements: 3mm x 3mm x 1-2mm. Character of the wound post debridement is stable (22509) Progress Notes * Margarito WHITE ADOB:[birth year] (82 yo M)Acc No.[id number]:07/04/2023 Progress Note Patient:Margarito Granda Provider:?Jodie Duran DPM :1940???Age:82 Y???Sex:Male Félix e:07/04/2023 Address:[address] [place] [id number] Pcp:Kennedy Monroy MD Subjective: * Chief Complaints: * ???Toe PainEmergency Appoint mentSame Day Appointment * HPI: ???Toe pain:?Location:?5th toe , Right foot.?Duration:?several weeks.?Course:?recurrent, worse.?Aggrevated by:?shoes, any pressure.?Treatments:?change in shoes and toe sleeves (however only when in pain).? * ROS:?General/Constitutional:?Nausea?denies, denies.?Vomiting?denies, denies.?Hunger Thirst?denies, denies.?Loss appetite?denies, denies.?Chills?denies, denies.?Fatigue?denies, denies.?Fever?denies, denies.?Night Sweats denies, denies.?Unexplained weight loss?denies, denies.?Unexplained weight gain?denies, denies.?HEENTM:?Dentures?denies, denies.?Dizziness?denies, denies.?Glasses/contacts?admits, admits.?Retinopathy?denies, denies.?Blurred/double vision?denies, denies.?TMJ?denies, denies.?Discharge/drainage?denies, denies.?Implants?denies, denies.?Sore throat?denies, denies.?Dental implants?admits, admits.?Hard of hearing ?admits, admits.?Difficulty chewing/swallowing/speaking?denies, denies.?Nose bleeds?denies, denies.?Sore mouth?denies, denies.?Respiratory:?On Oxygen?denies, denies.?Pneumonia/pleurisy?denies, denies.?Bronchitis?denies, denies.?Emphysema?denies, denies.?Coughing?denies, denies.?Cough blood?denies, denies.?Shortness of breath?denies, denies.?Wheezing?denies, denies.?Cardiovascular:?Pacemaker?denies, denies.?MVP?denies, denies.?WPW?denies, denies.?CHF?denies, denies.?Heart attack?denies, denies.?Septal defect?denies, denies.?Rapid beat?denies, denies.?Chest pain ?denies, denies.?Atrial Fib.?denies, denies.?Murmur/Palpitations?denies, denies.?Gastrointestinal:?Hemorrhoids?denies, denies.?Stomach/Abdominal pain?denies, denies.?Dark blood stool?denies, denies.?Irritable bowel ?admits, admits.?Constipation?denies, denies.?Diarrhea?denies, denies.?Hematology:?Swelling?denies, denies.?Clots?Admits, Admits.?Varicose Veins?denies, denies.?Bruising?denies, denies.?Bleeding problem?denies, denies.?Genitourinary:?Blood urine?denies, denies.?Frequent/Painfu/urination/bladder control?denies, denies.?Kidney stones?denies, denies.?Infection (UTI)?denies, denies.?Nephropathy?denies, denies.?sex trans dis (STD)?denies, denies.?Prostate?denies, denies.?Musculoskeletal:?Hammertoes?denies, denies.?Bunions?denies, denies.?Back Pain?denies, denies.?Muscle Cramps/ Resting?denies, denies.?Muscle cramps / walking?denies, denies.?Generalized aches and pains?denies, denies.?Weakness?denies, denies.?Integ.:?Armstrong?denies, denies.?Scars?denies, denies.?Corns/calluses?denies, denies.?Ingrown nails?admits, admits.?Painful nails?denies, denies.?Open Sores?denies, denies.?Rashes?denies, denies.?Neurologic:?Difficulty sleeping?denies, denies.?Brain disorder?denies, denies.?Numbness?denies, denies.?Balance trouble?denies, denies.?Confusion?denies, denies.?Fainting/blackouts?denies, denies.?Tingling?denies, denies.?Tremors?denies, denies.? * Medical History:? * Surgical History:?appendecto my 1960gall bladder 2000bowel resection 2002right shoulder surgery 1999left shoulder surgery 2019 * Hospitalization/Major Diagno stic Procedure:?Denies Past Hospitalization * Family History:?Mother: dece ased.?Father: , diagnosed with Diabetic - NIDDM.?Siblings: diagnosed with Diabetic - NIDDM.?Spouse: diagnosed with Diabetic - NIDDM, Other malignant neoplasm of unspecified site.? * Social History:?Tobacco Use:?Tobacco Use/Smoking?Are you a:?nonsmoker ?Tobacco use other than smoking?Are you an other tobacco user??No ???Drugs/Alcohol:?Drugs?Have you used drugs other than those for medical reasons in the past 12 months??No ?Alcohol Screen?Did you have a drink containing alcohol in the past year??Yes ?How often did you have a drink containing alcohol in the past year??2 to 3 times a week (3 points) ?Points?3 ?Interpretation?Negative * Medications:?TakingFish Oil 1000 MG Capsule 1 capsule Orally Once a dayJanuvia 25 MG Tablet as directed Orally Simvastatin 20 MG Tablet as directed Orally Warfarin Sodium 5 MG Tablet as directed Orally Coenzyme Q-10 100 MG Capsule as directed Orally Centrum Silver Taking Fish Oil 1000 MG Capsule 1 capsule Orally Once a dayTaking Januvia 25 MG Tablet as directed Orally Taking Simvastatin 20 MG Tablet as directed Orally Taking Warfarin Sodium 5 MG Tablet as directed Orally Taking Coenzyme Q- 10 100 MG Capsule as directed Orally Taking Centrum Silver Not-Taking/PRNAspirin FaBB Cephalexin 500 MG Tablet 1 tablet Orally Twice a dayMedication List reviewed and reconciled with the patientNot-Taking/PRN Aspirin Not-Taking/PRN FaBB Not- Taking/PRN Cephalexin 500 MG Tablet 1 tablet Orally Twice a dayMedication List reviewed and reconciled with the patient * Allergies:?aspirinAdvilaleve ben[Allergies Verified] Objective: * Vitals:?Ht: 5 ft 6 in, Wt: 1 65, BMI: 26.63, Shoe size: 7.5-8, BS: not taken, Ht- cm: 167.64 cm, Wt-k.84 kg. * ???Past Orders: ???Lab:HEMOGLOBIN A1C (GLYCO HEMOGLOBIN) (Order Date - 03/14/2023) (Collection Date - 01/17/2023) ? Value Reference Range ?HEMOGLOBIN A1C (HH) 6.1 * Examination: ???Ophthalmology Referral: ?DIABETES EYE EXAM?Orthopedic: ?GAIT ABNORMALITY:?Pronated.?DIGITAL DEFORMITIES:?Digital contracture, PIPJ,T9,T8, incompl-reducible to push-up test, no over, nor underlapping, Reveals swelling/redness/enlargement of PIPJ 4th? andD IPJ 5th right??with evidence of shoe producing skin irritation.?FOOTWEAR:?worn, non-supportive, shoe gear properties exacerbate patient's foot/toe deformity .?General Examination: ?GENERAL APPEARANCE:?Reveals a pleasant, alert, well nourished, well- developed, well hydrated individual, who demonstrates proper attention to hygiene/body habitus, and is in no acute distress.?Vascular: ?DP PULSES:?2/4, B/L.?PT PULSES:?2/4, B/L.?Neurological: ?SENSORY:?Neurological exam reveals intact sensorium, pain sensation normal, vibration sensation intact, pinprick sensation is normal in the lower extremities, Pt denies, anesthesia, burning, paresthesia, tingling, B/L.?Dermatologic: ?ULCER:?Medial DIPJ T9 , LOCATION, SIZE, 5mm X 5mm X 2mm, BASE, granular, RIM, hyperkeratotic, UNDERMINING, absent, TRACKING, Full thickness breakdown of skin, DRAINAGE, serosanguineous, mild, NECROTIC TISSUE, loosely-adherent, yellow slough, MALODOR, absent, CALOR, absent, ERYTHEMA, present PAIN ON PALPATION, present.? Assessment: * Assessment: 1.?Other hammer toe(s) (acqu ired), right foot - M20.41 (Primary)?2.?Pain in right toe(s) - M79.674?3.?Hypertrophy of bone, right ankle and foot - M89.371?4.?Type 2 diabetes mellitus without complications - E11.9?5.?Skin ulcer of toe of right foot, limited to breakdown of skin - L97.511? Plan: * Treatment: * Procedures:?Debride skin< 25 sq cm:?Open wound?Physician of record performed open wound selective debridement of first 25 sq cm or less, of devitilized necrotic/nonviable soft tissue, fibrin, and exudate extending from the epidermis through the dermis, utilizing sharp dissection with sterile 15 blade, and/or tissue nippers. Hemostasis was controlled through direct pressure. Sterile antibiotic dressing applied, ANESTHESIA was not required due to presence of NEUROPATHY. Post debridement measurements: 3mm x 3mm x 1-2mm. Character of the wound post debridement is stable (06198).? * Procedure Codes:?77045 ACTIV E WOUND CARE/20 CM OR <, Modifiers: XS * Preventive Medicine:? ??Counseling:?Discussion:?-13: Office or other outpatient visit for the evaluation and management of an established patient, which required a medically appropriate history and/or examination and LOW level of DECISION MAKING for: 1 STABLE ACUTE UNCOMPLICATED PROBLEM, 2 OR MORE MINOR PROBLEMS, OR 1 STABLE CHRONIC PROBLEM, THAT POSE(S) A LOW RISK FOR MORBIDITY/MORTALITY. The visit on the day of the encounter encompassed interpreting the data and educating the patient as to the nature of their condition, treatment options available according to their individual PMH, meds, allergies, and overall health/living conditions, as well as any potential risks or complications that may occur from a failure to adhere to, and participate in, the recommended course of therapy. The discussion included a complete verbal, and/or written explanation of the examination results, any x-rays taken, the proposed diagnosis, and outline of the treatment plan. A schedule for future care needs was also explained. The patient verbalized an understanding of the instructions at this time and agreed to be an active participant in their treatment. If the patient should think of any questions or concerns after the visit, I have encouraged the patient to call the office.?Digital Treatment:?HT- I explained to the patient the possible etiologies of Hammertoes, including genetics/foot type/shoegear/activity level/exercise routine and the risks/benefits of all the different treatment options for their pain including: No treatment at all, Rest, Ice, New/supportive/wider/deeper Shoegear, Digital Padding/Strapping/Taping/Bracing/Gel protective sleeves, Foot/Ankle AFO Bracing, Stretching exercises, Deep Tissue Massage, Arch support/shoe inserts with splay metatarsal padding, and Custom orthoses. I insisted that any digital devices be removed daily and not worn overnight for safety. The patient is to carefully examine the toes daily for any skin irritation while using any splinting or padding device. The advantages and disadvantages of each option were discussed and the patients questions re: shoegear, padding, custom vs prefabricated inserts, activity level, and consistency in home treatment regimens for optimal success were answered to their verbally confirmed satisfaction- Pt is footed with a different gel toe sleeve and it is recomm. that pt wear it all the time when shoes are on..?Ulcer:?A detailed plan of care was reviewed with the patient. We emphasized the fact that the patient takes on an active participating role in the treatment process and emphasized to them that they are an included, valued, and important member of the wound healing team in order to reach an expedient successful outcome. The patient agreed to follow their medically recommended diet while increasing their protein intake if safely able to do so, maintain proper bodily hydaration, abide by weight-bearing restrictions at all times, quit all current smoking habits if any, and diligently follow any/all dressing change instructions. It was clearly made known to the patient that if they fail to do their part, they will likely extend their course of treatment as well as possibly increase their risk of adverse events including amputation. The patient was instructed on importance of proper wound care consisting of pressure reduction, and proper maintainance of a moist wound environment. The patient is to cleanse the wound with warm soapy water/peroxide/saline, or betadine BID based on product availability. The patient is to apply ( _Triple ) Antibiotic to the wound and cover with a DSD as directed. The patient was instructed to change dressings according to orders, or PRN saturation, leaks. The patient was instructed to monitor and report any signs or symptoms of infection or any untoward reactions. Precautions Taken: Offloading/Pressure reduction via rest/ limited activity to essential to daily life only, cane/ crutches/ walker/ knee scooter/ wheel chair, shoe modification, accommodative padding, sharp debridement, and take/apply medication as directed, Debridement frequency as indicated, The patient is to cont the local wound care as directed till completely healed.? * Follow Up:?prn * Images: * Sign off status: Completed true * Provider:Sara Duran DPM Date:?2022 Generated for Robbin willett/Janis/Kj on:?11/13/2024 12:06 PM EST History and Physical Notes * HPI (History of Present Illness) Category Sub-Category Detail Notes Category Not es Toe pain Location: 5th toe , Right foot Duration: several weeks Course: recurrent, worse Aggravated by: shoes, any pressure Treatments: change in shoes and toe sleeves (however only when in pain) Examination Category Sub-Category Detail Notes Category Not es Neurological SENSORY: Neurological exa m reveals intact sensorium, pain sensation normal, vibration sensation intact, pinprick sensation is normal in the lower extremities, Pt denies, anesthesia, burning, paresthesia, tingling, B/L Dermatologic ULCER: Medial DIPJ T9 , LOCATION, SIZE, 5mm X 5mm X 2mm, BASE, granular, RIM, hyperkeratotic, UNDERMINING, absent, TRACKING, Full thickness breakdown of skin, DRAINAGE, serosanguineous, mild, NECROTIC TISSUE, loosely-adherent, yellow slough, MALODOR, absent, CALOR, absent, ERYTHEMA, present PAIN ON PALPATION, present Orthopedic GAIT ABNORMALITY: Pronated FOOTWEAR: worn, non-supportive , shoe gear properties exacerbate patient's foot/toe deformity DIGITAL DEFORMITIES: Digital contracture , PIPJ,T9,T8, incompl-reducible to push- up test, no over, nor underlapping, Reveals swelling/redness/enlargement of PIPJ 4th andD IPJ 5th right with evidence of shoe producing skin irritation General Examination GENERAL APPEARANCE: Reveals a pleasant, alert, well nourished, well-developed, well hydrated individual, who demonstrates proper attention to hygiene/body habitus, and is in no acute distress ORIENTED: Ophthalmology Referral DIABETES EYE EXAM Diabetic Retinopa thy Screening:: No Findings of Diabetic Eye Exam:: no retin opathy Vascular DP PULSES (B): 2/4, B/L PT PULSES (B): 2/4, B/L
--- OUTSIDE RECORDS SUMMARY | 2024-11-13 12:07 | XMS_ITS ---
Author Organization [facility] [place] Address [address] [facility] [place] [address] Care Team Providers Care Weaving Inspector Name Role Phone Kennedy Monroy MD Primary Care Provider Unavaila ble Black, Jodie Unavailable [phone] REASON FOR VISIT cx appt 10/17/23 Encounters Encounter Location Date Provider Diagnosis [facility] [address] [facility] [place] [address] 10/12/2023 Jodie Black Plan Of Treatment No Information Progress Notes * Margarito WHITE ADOB:[birth year] (83 yo M)Acc No.[id number]:10/12/2023 Patient:?Margarito White :1940???Age:83 Y???Sex:Male [facility] [address] [place], [address] * true * Date:? Generated for Soni tamie/Janis/eTransmitting on:?11/13/2024 12:07 PM EST
--- OUTSIDE RECORDS SUMMARY | 2024-11-13 12:07 | XMS_ITS | Encounter Summary ---
Author Organization [facility] Address [address] [facility] [address] [place] [address] Phone Care Team Providers Care Process Improvement Consultant Name Role Phone Kennedy Monroy MD Primary Care Provider [phone] Encounter Details Date Type Department Care Team (Late Contact Info) Description 07/12/2022 Telephone [facility] [address] [facility] [address] [place] [address] Song Bloom MD [address] [facility] [address] [place] [address] Social History Tobacco Use Types Packs/Day Years Used Date Smoking Tobacco: Never Alcohol Use Standard Drinks/Week Comments Yes 0 (1 standard drink = 0.6 oz pure alcohol) Alcoholic Drinks/day: Occasional social drink Sex and Gender Information Value Date Recorded Sex Assigned at Not on file Legal Sex Male 5:12 PM EST Gender Identity Not on file Sexual Orientation Not on file documented as of this encounter Miscellaneous Notes * Telephone Encounter - Latasha Tavera - 07/12/2022 2:07 PM EDT Pt called, he had his labs done at [facility] on 06/29/22. He is having trouble getting them to send us over the results because he has called them 3 times and we still haven't received them. Please advise Thank you documented in this encounter Plan of Treatment Upcoming Encounters Date Type Department Care Team (Late Contact Info) Description 08/19/2025 1:15 PM EST Office Visit [facility] [address] [place] [address] Song Bloom MD [address] [facility] [address] [place] [address] documented as of this encounter Visit Diagnoses Not on filedocumented in this encounter Care Teams Process Improvement Consultant Relationship Specialty Start Date End Date Kennedy Monroy MD [address] [place] [address] PCP - General 09/29/20 documented as of this encounter
--- OUTSIDE RECORDS SUMMARY | 2024-11-13 12:07 | XMS_ITS | Patient Health Record ---
Author Organization [facility] [place] Address [address] [facility] [place] [address] Care Team Providers Care Prototyper Name Role Phone Kennedy Monroy MD Primary Care Provider Unavaila Joey Ignaciomie Unavailable [phone] Allergies Allergen (clinical drug ingredient) Drug/Non Drug Allergy documented on EMR Reaction Allergy Type Onset Date Status ibuprofen Advil Unknown Drug Allergy Active naproxen aleve Unknown Drug Allergy Active aspirin aspirin Unknown Drug Allergy Active motrin Unknown Drug Allergy Active Reason For Referral No Information Medications Medication SIG (Take, Route, Frequency, Duration) Notes Start Date End Date Status Januvia 25 MG as directed Orally Active Simvastatin 20 MG as directed Orally Active Fish Oil 1000 MG 1 capsule Orally Once a day Active Centrum Silver Activ e Aspirin Not-Taking Warfarin Sodium 5 MG as directed Orally Active Coenzyme Q-10 100 MG as directed Orally Active FaBB Not-Taking Cephalexin 500 MG 1 tablet Orally Twic e a day for 10 day(s) Not-Taking Immunizations Vaccine Route Administration Date Status Comme nts Influenza Unknown 05/20/2022 Administered Social History Tobacco Use: Social History Observation [...] Problem Status W/U Status Risk Notes Problem Acquired hammer toe of right foot (662334216458385 5) Other hammer toe(s) (acquired), right foot (M20.41) Active confirmed Problem Acquired hammer toe of left foot (307748360871074 3) Other hammer toe(s) (acquired), left foot (M20.42) Active confirmed Problem Type II diabetes mellitus without complication (025009909) Type 2 diabetes mellitus without complications (E11.9) Active confirmed Problem Ulcer of toe of right foot (disorder) (413843493923689 01) Skin ulcer of toe of right foot, limited to breakdown of skin (L97.511) Active confirmed Plan Of Treatment Pending Test Test Name Order Date 70172-Azykohtd Plate 10/29/2015 60091- Debride <25 sq cm 07/04/2023 20366-YLLM SKIN LESION 03/14/2023 Insurance Providers Payer Name Payer Address Payer Phone Subscriber Number Group Number Insured Name Patient Relationship to Insured Coverage Start Date Coverage End Date [employer] [address] [facility] [place] [address] [id number] Margarito Mehta Self - patient is the insured [facility] [address] [place] [address] [id number] Margarito Mehta Self - patient is the insured Medical (General) History Medical History History ICD Code Diabetic Kidney disease Chicken pox Transfusions Diverticulitis Cholesterol Hx DVT Right Leg Cataracts Gall bladder problems Measles Joint implants/screws Surgical History Surgery Date(Month/Year) appendectomy 1960 gall bladder 2000 bowel resection 2001 right shoulder surgery 1999 left shoulder surgery 2019
--- OUTSIDE RECORDS SUMMARY | 2024-11-13 12:07 | XMS_ITS ---
Author Organization [facility] berenice Vega Address [address] [place] [address] Care Team Providers Care Community Health Advisor Name Role Phone Porfirio SALEEM, Kennedy Primary Care Provider UnavailJodie Smith [phone] Encounters Encounter Location Date Provider Diagnosis [facility] [address] [place] [address] 10/17/2023 Jodie Duran Plan Of Treatment No Information Progress Notes * Margarito WHITE ADOB:[birth year] (84 yo M)Acc No.[id number]:10/17/2023 Progress Note Patient:JoeMargarito WHITE Provider:?Jodie Duran DPM :1940???Age:83 Y???Sex:Male Félix e:10/17/2023 Address:[address] [place] [address] [place] Pcp:Kennedy Monroy MD Subjective: * Chief Complaints: * ??? * Medical History:? Objective: * Vitals:? Assessment: Plan: * Treatment: * Images: * The named appointment provid er may or may not be the originator of this progress note, and it is not deemed complete until electronically signed by the appointment provider. Sign off status: Pending * Provider:?Jodie Duran DPM Date:?2023 Generated for Robbin willett/Janis/eTransmitting on:?11/13/2024 12:07 PM EST
== END 2024-11-13 10:43 | disposition home or self-care (01) ==
LOC: HO.ACS 10:18
PROVIDERS: PCP Internal Medicine; Visit Provider Internal Medicine
DX: Z79.01 Long term (current) use of anticoagulants (principal)

== ENCOUNTER → 2024-11-13 10:18 | Outpatient (BNVA) | payer MEDICARE, OTHER, SELFPAY | PROVIDERS: PCP Internal Medicine; Visit Provider Internal Medicine | DX: Z86.718 Personal history of other venous thrombosis and embolism (principal); Z79.01 Long term (current) use of anticoagulants; Z51.81 Encounter for therapeutic drug level monitoring | CPT/HCPCS: 85610; 99211 ==

== ENCOUNTER → 2024-11-16 14:09 | Outpatient (BNVA) | payer MEDICARE, OTHER, SELFPAY | PROVIDERS: PCP Internal Medicine; Visit Provider Internal Medicine ==

== ENCOUNTER 2024-11-19 10:32 | Outpatient (AMB) | payer MEDICARE, OTHER, SELFPAY ==
--- NOTE | 2024-11-19 10:18 | MHC.OFFVISCO ---
Intake Intake Visit Reasons: Anticoagulation Allergies No Known Allergies Allergy (Mild, Verified 11/19/24 10:02) NOT APPLICABLE Medication List - Last Reconciled 11/19/24 by Roshni Honeycutt RN amoxicillin 2,000 mg PO atorvastatin 10 mg PO DAILY cefpodoxime 200 mg PO BID magnesium 200 mg PO DAILY sogeaxtzgjuz-webedrqv-ziqpyy 1 tab PO DAILY omega-3 fatty acids (Fish Oil Concentrate) 1,000 mg PO DAILY sildenafil 50 mg PO DAILY PRN sitagliptin phosphate 25 mg PO DAILY warfarin 5 mg See Protocol PO DAILY Nursing Note Has influenza A and onset pneumonia being treated with antbx Cefpodixine x 7 days by PCP - states started feeling better after taking just one dose of antbx Leaving for [place] tomorrow morning INR: 2.3 in therapeutic range Medications and supplements reviewed states just mild GI upset from antbx - feeling much better Denies any signs and symptoms of bleeding or bruising or clotting. Bleeding, bruising, clotting discussed Nutritional guidance given Dose: dose decreased last week by 2.5mg and pt ate an extra greens over the weekend , keep same dose this week 7.5mg x 1 day /5mg x 6 days 2.5mg this tuesday and f/u after return from [place] F/U INR: 12/18/2024 Patient verbalizes understanding of instructions given PCP called regarding pt status - left msg onn nurse triage line Questionnaires HAS-BLED Does the patient had uncontrolled Hypertension?: No Does the patient have renal disease?: Yes Does the patient have liver disease?: No Does the patient have a history of stroke?: No Has the patient had major bleeding or predisposition to bleeding?: No Does the patient have labile INRs?: No Is the patient over 65 years of age?: Yes Is the patient on medications that gives them a predisposition to bleeding?: Yes Does the patient use alcohol?: Yes HAS-BLED Score: 4 CHADSVASC Age: 75 or over Gender: Male Does the patient have a history of CHF?: No Does the patient have a history of Hypertension?: No Does the patient have a history of Stroke/TIA/Thromboembolism?: Yes Does the patient have a history of Vascular Disease (prior NE, PAD or aortic plaque)?: No Does the patient have a history of Diabetes?: Yes CHADS VACS Score: 5 Shari Prediction Score Rsk VTE Active Cancer: No Previous VTE, excluding superficial vein thrombosis: Yes Reduced mobility: No Already known Thrombophilic Condition: No With-in last month Trauma and/or Surgery: No Elderly 70 year or older: Yes Heart and/or Respiratory Failure: No Acute Myocardial infarction and/or Ischemic Stroke: No Acute Infection and/or Rheumatologic Disorder: Yes (IBS) Obesity (BMI 30 or greater): No Ongoing Hormonal Treatment: No Score: 5 Shari Score less than 4; Low Risk of VTE Shari Score 4 or greater; High Risk of VTE Coding Level of Care Code Est Patient Level 1 Diagnoses Current use of anticoagulant therapy Z79.01 Results AMB INR Fingerstick AMB INR Fingerstick 2.3 Last Edit by Roshni Honeycutt RN on 11/19/24 10:08 manual entry Assessment & Plan Assessment & Plan (1) Current use of anticoagulant therapy: Code(s): Z79.01 - rodent exterminator (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 Orders: Orders Prothrombin Time INR 11/29/24 Z79.01 - residential (current) use of anticoagulants
--- OUTSIDE RECORDS SUMMARY | 2024-11-19 12:15 | XMS_ITS | Encounter Summary ---
Author Organization [facility] Address [address] [facility] [address] [place] [address] Phone Care Team Providers Care Spinning Bath Person Name Role Phone Kennedy Monroy MD Primary Care Provider [phone] Encounter Details Date Type Department Care Team (Late Contact Info) Description 07/12/2022 Telephone [facility] [address] [facility] [address] [place] [address] Song Bloom MD [address] [facility] [address] [place] [address] Social History Tobacco Use Types [...] he had his labs done at [facility] on 06/29/22. He is having trouble getting them to send us over the results because he has called them 3 times and we still haven't received them. Please advise Thank you documented in this encounter Plan of Treatment Upcoming Encounters Date Type Department Care Team (Late Contact Info) Description 08/19/2025 1:15 PM EST Office Visit [facility] [address] [place] [address] Song Bloom MD [address] [facility] [address] [place] [address] documented as of this encounter Visit Diagnoses Not on filedocumented in this encounter Care Teams Spinning Bath Person Relationship Specialty Start Date End Date Kennedy Monroy MD [address] [place] [address] PCP - General 09/29/20 documented as of this encounter
--- OUTSIDE RECORDS SUMMARY | 2024-11-19 12:15 | XMS_ITS ---
Author Organization [facility] Nereida berenice Aime Address [address] [place] [address] Care Team Providers Care Manager Background Name Role Phone Kennedy Monroy MD Primary Care Provider Unavaila ble Black, Jodie Unavailable [phone] Allergies Allergen (clinical drug ingredient) Drug/Non Drug [...] Ulcer of toe of right foot (disorder) (58580785738 070517) Skin ulcer of toe of right foot, limited to breakdown of skin (L97.511) Active confirmed Vital Signs Height 5 ft 6 in in 07/04/2023 Weight 165 lbs 07/04/2023 BMI 26.63 kg/m2 07/04/2023 Procedures Procedure Date Ordered Date Performed Result Body Sit e 49417- Debride <25 sq cm 07/04/2023 N/A Encounters Encounter Location Date Provider Diagnosis [facility] [address] [address] 07/04/2023 Jodie Black Other hammer toe(s) (acquired), [...] Treatment Pending Test Test Name Order Date 58852- Debride <25 sq cm 07/04/2023 Next Appt [...] of the wound post debridement is stable (30094) Progress Notes * Margarito WHITE ADOB:[birth year] (82 yo M)Acc No.[id number]:07/04/2023 Progress Note Patient:Margarito Granda Provider:?Jodie Duran DPM :1940???Age:82 Y???Sex:Male Félix e:07/04/2023 Address:[address] [place] [address] Pcp:Kennedy Monroy MD Subjective: * Chief Complaints: [...] 6.1 * Examination: ???Ophthalmology Referral: ?DIABETES EYE EXAM?Diabetic Retinopathy Screening:?No ?Findings of Diabetic Eye Exam:?no retinopathy?Orthopedic: ?GAIT ABNORMALITY:?Pronated.?DIGITAL DEFORMITIES:?Digital contracture, PIPJ,T9,T8, incompl-reducible to [...] and is in no acute distress.?Vascular: ?DP PULSES:?2, B/L.?PT PULSES:?10/23, B/L.?Neurological: ?SENSORY:?Neurological exam reveals intact sensorium, pain [...] of the wound post debridement is stable (78034).? * Procedure Codes:?38806 ACTIV E WOUND CARE/20 CM OR <, [...] Provider:Sara Duran DPM Date:?2022 Generated for Robbin willett/Janis/Jenniferitting on:?11/19/2024 12:15 PM EST History and Physical Notes * [...]
--- OUTSIDE RECORDS SUMMARY | 2024-11-19 12:16 | XMS_ITS | Clinical Summary ---
Author Organization [facility] Facility Address [address] [address] Care Team Providers Care Folded Cloth Taper Name Role Phone Kennedy Monroy MD Primary Care Provider [phone] Allergies Active Allergy Reactions Criticality Noted Date [...] 10/11/2017 Type 2 diabetes mellitus without complication Immunizations Name Administration Dates Next Due Influenza [...] Visit [facility] [address] [place] [address] Song Bloom MD [address] [facility] [address] [place] [address] Health Maintenance Due Date Last Done Comments Diabetes: Hemoglobin A1C 10/17/2020 06/26/2020, 1004/2020 Diabetes: Ophthalmology Exam 10/17/2020 Diabetes: Pedal Pulse [...] % PVNMA 06/26/2020 us Rtama Conversion LAB [id number] LICITED RESULTS Final Result PVNMA from Last 3 Months or Most Recently Relevant to Health Maintenance Insurance [place] [address] MEDICARE [facility] MEDICARE Care Teams Folded Cloth Taper Relationship Specialty Start Date End Date Kennedy Monroy MD [address] [place] [address] PCP - General 09/29/20
--- OUTSIDE RECORDS SUMMARY | 2024-11-19 12:16 | XMS_ITS ---
Author Organization [facility] berenice [place] Address [address] [facility] [place] [address] Care Team Providers Care Band Saw Runner Name Role Phone Kennedy Monroy MD Primary Care Provider Unavaila ble Black, Jodie Unavailable [phone] REASON FOR VISIT cx appt 10/17/23 Encounters Encounter Location Date Provider Diagnosis [facility] [address] [place] [address] 10/12/2023 Jodie Black Plan Of Treatment No Information Progress Notes * Margarito WHITE ADOB:[birth year] (83 yo M)Acc No.[id number]:10/12/2023 Patient:?Margarito White :1940???Age:83 Y???Sex:Male [address] [place], [address] * true * Date:? Generated for Soni tamie/Janis/eTransmitting on:?11/19/2024 12:15 PM EST
--- OUTSIDE RECORDS SUMMARY | 2024-11-19 12:16 | XMS_ITS | Patient Health Record ---
Author Organization [facility] Nereida Salomon Address [address] [facility] [place] [address] Care Team Providers Care Production Assembler Name Role Phone Kennedy Monroy MD Primary Care Provider Unavaila Joey Ignaciomie Unavailable [phone] Allergies Allergen (clinical drug ingredient) Drug/Non Drug [...] Problem Acquired hammer toe of right foot (156652345055898 5) Other hammer toe(s) (acquired), right foot (M20.41) Active confirmed Problem Acquired hammer toe of left foot (934683747252490 3) Other hammer toe(s) (acquired), left foot (M20.42) Active confirmed Problem Type II diabetes mellitus without complication (504742380) Type 2 diabetes mellitus without complications (E11.9) Active confirmed Problem Ulcer of toe of right foot (disorder) (760009633052819 01) Skin ulcer of toe of right foot, limited to breakdown of skin (L97.511) Active confirmed Plan Of Treatment Pending Test Test Name Order Date 27332-Tqegsgda Plate 10/29/2015 19583- Debride <25 sq cm 07/04/2023 80560-AVKJ SKIN LESION 03/14/2023 Insurance Providers Payer Name Payer Address Payer Phone Subscriber Number Group Number Insured Name Patient Relationship to Insured Coverage Start Date Coverage End Date Medicare National Govt Sv[employer] [address] [facility] [address] [id number] Margarito Mehta Self - patient is the insured [facility] [address] [place] [address] [id number] Margarito Mehta Self - patient is the insured Medical (General) History Medical History History ICD Code Diabetic Kidney disease Chicken pox Transfusions Diverticulitis Cholesterol Hx DVT Right Leg Cataracts Gall bladder problems Measles Joint implants/screws Surgical History Surgery Date(Month/Year) appendectomy 1960 gall bladder 2000 bowel resection 2001 right shoulder surgery 1999 left shoulder surgery 2019
--- OUTSIDE RECORDS SUMMARY | 2024-11-19 12:16 | XMS_ITS ---
Author Organization [facility] berenice Marlin Address [address] [place] [address] Care Team Providers Care Healthcare Manager Name Role Phone Porfirio SALEEM, Kennedy Primary Care Provider UnavailJodie Smith [phone] Encounters Encounter Location Date Provider Diagnosis [facility] [address] [place] [address] 10/17/2023 Jodie Duran Plan Of Treatment No Information Progress Notes * Margarito WHITE ADOB:[birth year] (84 yo M)Acc No.[id number]:10/17/2023 Progress Note Patient:JoeMargarito WHITE Provider:?Jodie Duran DPM :1940???Age:83 Y???Sex:Male Félix e:10/17/2023 Address:[address] [place] [address] [place] Pcp:Kennedy Monroy MD Subjective: * Chief [...] Duran DPM Date:?2023 Generated for Robbin willett/Janis/eTransmitting on:?11/19/2024 12:16 PM EST
[2024-11-19 14:59] LABS: Prothrombin Time Whole Bld POC 27.4 sec (11.1-13.5); ~PT, ~INR - Anti Coag Clinic 2.3 (0.9-1.1)
== END 2024-11-19 11:05 | disposition home or self-care (01) ==
LOC: HO.ACS 10:32
PROVIDERS: PCP Internal Medicine; Visit Provider Internal Medicine
DX: Z79.01 Long term (current) use of anticoagulants (principal)

== ENCOUNTER → 2024-11-19 10:32 | Outpatient (BNVA) | payer MEDICARE, OTHER, SELFPAY | PROVIDERS: PCP Internal Medicine; Visit Provider Internal Medicine | DX: Z86.718 Personal history of other venous thrombosis and embolism (principal); Z79.01 Long term (current) use of anticoagulants; Z51.81 Encounter for therapeutic drug level monitoring | CPT/HCPCS: 85610; 99211 ==

== ENCOUNTER 2024-12-18 10:20 | Outpatient (AMB) | payer MEDICARE, OTHER, SELFPAY ==
--- NOTE | 2024-12-18 10:37 | MHC.OFFVISCO ---
Intake Intake Visit Reasons: Anticoagulation Allergies No Known Allergies Allergy (Mild, Verified 11/19/24 10:02) NOT APPLICABLE Nursing Note INR: 2.8 in therapeutic range Medications and supplements reviewed No changes in health, diet, medications, or supplements, Denies any signs and symptoms of bleeding or bruising or clotting. Bleeding, bruising, clotting discussed Nutritional guidance given Dose: 7.5mg x 1 day/ 5mg x 6 days F/U INR: 1 month Patient verbalizes understanding of instructions given with read back Coding Level of Care Code Est Patient Level 1 Diagnoses Current use of anticoagulant therapy Z79.01 Results AMB INR Fingerstick AMB INR Fingerstick 2.8 Last Edit by Roshni Honeycutt RN on 12/18/24 10:32 manual entry Assessment & Plan Assessment & Plan (1) Current use of anticoagulant therapy: Code(s): Z79.01 - half-way (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
[2024-12-18 11:21] LABS: Prothrombin Time Whole Bld POC 33.8 sec (11.1-13.5); ~PT, ~INR - Anti Coag Clinic 2.8 (0.9-1.1)
--- OUTSIDE RECORDS SUMMARY | 2024-12-18 12:06 | XMS_ITS ---
Author Organization [facility] berenice Walker Address [address] [place] [address] Care Team Providers Care Dairy Frozen Manager Name Role Phone Porfirio SALEEM, Kennedy Primary Care Provider UnavailJodie Smith [phone] Encounters Encounter Location Date Provider Diagnosis [facility] [address] [place] [address] 10/17/2023 Jodie Duran Plan Of Treatment No Information Progress Notes * Margarito WHITE ADOB:[birth year] (84 yo M)Acc No.[id number]:10/17/2023 Progress Note Patient:JoeMargarito WHITE Provider:?Jodie Duran DPM :1940???Age:83 Y???Sex:Male Félix e:10/17/2023 Address:[address] [place] [address] [address] [place] Pcp:Kennedy Monroy MD Subjective: * Chief [...] Duran DPM Date:?2023 Generated for Robbin willett/Janis/eTransmitting on:?12/18/2024 11:16 AM EDT
--- OUTSIDE RECORDS SUMMARY | 2024-12-18 12:06 | XMS_ITS | Patient Health Record ---
Author Organization [facility] Nereida Salomon Address [address] [facility] [place] [address] Care Team Providers Care Warehouse Shipping Associate Name Role Phone Kennedy Monroy MD Primary Care Provider Unavaila Joey Ignaciomie Unavailable [phone] Allergies Allergen (clinical drug ingredient) Drug/Non Drug [...] Problem Acquired hammer toe of right foot (082188359962950 5) Other hammer toe(s) (acquired), right foot (M20.41) Active confirmed Problem Acquired hammer toe of left foot (275453641285135 3) Other hammer toe(s) (acquired), left foot (M20.42) Active confirmed Problem Type II diabetes mellitus without complication (231324614) Type 2 diabetes mellitus without complications (E11.9) Active confirmed Problem Ulcer of toe of right foot (disorder) (296762898858129 01) Skin ulcer of toe of right foot, limited to breakdown of skin (L97.511) Active confirmed Plan Of Treatment Pending Test Test Name Order Date 85294-Fnlqowgm Plate 10/29/2015 71319- Debride <25 sq cm 07/04/2023 24025-BTEN SKIN LESION 03/14/2023 Insurance Providers Payer Name Payer Address Payer Phone Subscriber Number Group Number Insured Name Patient Relationship to Insured Coverage Start Date Coverage End Date Medicare National Govt Svcs Inc [address] [place] [address] [id number] Margarito Mehta Self - patient is the insured [facility] [address] [place] [address] [id number] Margarito Mehta Self - patient is the insured Medical (General) History Medical History History ICD Code Diabetic Kidney disease Chicken pox Transfusions Diverticulitis Cholesterol Hx DVT Right Leg Cataracts Gall bladder problems Measles Joint implants/screws Surgical History Surgery Date(Month/Year) appendectomy 1960 gall bladder 2000 bowel resection 2001 right shoulder surgery 1999 left shoulder surgery 2019
--- OUTSIDE RECORDS SUMMARY | 2024-12-18 12:06 | XMS_ITS | Encounter Summary ---
Author Organization [facility] Address [address] [facility] [address] [place] [address] Phone Care Team Providers Care Iron Miner Blasting Name Role Phone Kennedy Monroy MD Primary Care Provider [phone] Encounter Details Date Type Department Care Team (Late Contact Info) Description 07/12/2022 Telephone [facility] [address] [facility] [address] [place] [address] Song Bloom MD [address] [facility] [address] [place] [address] Social History Tobacco Use Types [...] he had his labs done at [facility] on 06/29/22. He is having trouble getting them to send us over the results because he has called them 3 times and we still haven't received them. Please advise Thank you documented in this encounter Plan of Treatment Upcoming Encounters Date Type Department Care Team (Late Contact Info) Description 08/19/2025 1:15 PM EST Office Visit [facility] [address] [place] [address] Song Bloom MD [address] [facility] [address] [place] [address] documented as of this encounter Visit Diagnoses Not on filedocumented in this encounter Care Teams Iron Miner Blasting Relationship Specialty Start Date End Date Kennedy Monroy MD [address] [place] [address] PCP - General 09/29/20 documented as of this encounter
--- OUTSIDE RECORDS SUMMARY | 2024-12-18 12:06 | XMS_ITS ---
Author Organization [facility] Address [address] [place] [address] Care Team Providers Care Pharmacy Informatics Manager Name Role Phone Kennedy Monroy MD Primary Care Provider Unavaila ble Black, Jodie Unavailable [phone] REASON FOR VISIT cx appt 10/17/23 Encounters Encounter Location Date Provider Diagnosis [facility] [address] [place] [address] 10/12/2023 Jodie Black Plan Of Treatment No Information Progress Notes * Margarito WHITE ADOB:[birth year] (83 yo M)Acc No.[id number]:10/12/2023 Patient:?Margarito White :1940???Age:83 Y???Sex:Male [facility] [place], [address] * true * Date:? Generated for Printi tamie/Janis/eTransmitting on:?12/18/2024 12:06 PM EDT
--- OUTSIDE RECORDS SUMMARY | 2024-12-18 12:06 | XMS_ITS | Clinical Summary ---
Author Organization [facility] Facility Address [address] [address] Care Team Providers Care Stave Mill Hand Name Role Phone Kennedy Monroy MD Primary Care Provider [phone] Allergies Active Allergy Reactions Criticality Noted Date [...] Visit [facility] [address] [place] [address] Song Bloom MD [address] [facility] [address] [place] [address] Health Maintenance Due Date Last [...] % PVNMA 06/26/2020 us Rtama Conversion LAB [id number] LICITED RESULTS Final Result PVNMA from Last 3 Months or Most Recently Relevant to Health Maintenance Insurance [address] [address] MEDICARE [facility] MEDICARE Care Teams Stave Mill Hand Relationship Specialty Start Date End Date Kennedy Monroy MD [address] [facility] [place] [address] PCP - General 09/29/20
--- OUTSIDE RECORDS SUMMARY | 2024-12-18 12:06 | XMS_ITS ---
Author Organization [facility] Nereida berenice Aime Address [address] [place] [address] Care Team Providers Care Housekeeping Assistant Name Role Phone Kennedy Monroy MD Primary Care Provider Unavaila ble Black, Jodie Unavailable [phone] Allergies Allergen (clinical drug ingredient) Drug/Non Drug [...] Ulcer of toe of right foot (disorder) (59814966424 539097) Skin ulcer of toe of right foot, limited to breakdown of skin (L97.511) Active confirmed Vital Signs Height 5 ft 6 in in 07/04/2023 Weight 165 lbs 07/04/2023 BMI 26.63 kg/m2 07/04/2023 Procedures Procedure Date Ordered Date Performed Result Body Sit e 81713- Debride <25 sq cm 07/04/2023 N/A Encounters Encounter Location Date Provider Diagnosis [facility] [address] [address] 07/04/2023 Jodie Black Other hammer toe(s) (acquired), [...] Treatment Pending Test Test Name Order Date 06237- Debride <25 sq cm 07/04/2023 Next Appt [...] of the wound post debridement is stable (89917) Progress Notes * Margarito WHITE ADOB:[birth year] (82 yo M)Acc No.[id number]:07/04/2023 Progress Note Patient:Margarito Granda Provider:?Jodie Duran DPM :1940???Age:82 Y???Sex:Male Félix e:07/04/2023 Address:[address] [place] [address] Pcp:Kennedy Monroy MD Subjective: * Chief Complaints: [...] of the wound post debridement is stable (44908).? * Procedure Codes:?31864 ACTIV E WOUND CARE/20 CM OR <, [...] Duran DPM Date:?2022 Generated for Robbin willett/Janis/Jenniferitting on:?12/18/2024 11:16 AM EDT History and Physical Notes * HPI (History [...] ON PALPATION, present Orthopedic GAIT ABNORMALITY: Pronated FOOTWEAR EVALUATION: worn, non-supportiv e, shoe gear properties exacerbate patient's foot/toe deformity [...]
== END 2024-12-18 10:40 | disposition home or self-care (01) ==
LOC: HO.ACS 10:20
PROVIDERS: PCP Internal Medicine; Visit Provider Internal Medicine Medical Oncology
DX: Z79.01 Long term (current) use of anticoagulants (principal)

== ENCOUNTER → 2024-12-18 10:20 | Outpatient (BNVA) | payer MEDICARE, OTHER, SELFPAY | PROVIDERS: PCP Internal Medicine; Visit Provider Internal Medicine Medical Oncology | DX: Z86.718 Personal history of other venous thrombosis and embolism (principal); Z79.01 Long term (current) use of anticoagulants; Z51.81 Encounter for therapeutic drug level monitoring | CPT/HCPCS: 85610; 99211 ==

== ENCOUNTER 2025-01-29 09:52 | Outpatient (AMB) | payer MEDICARE, OTHER, SELFPAY ==
[2025-01-29 09:59] LABS: ~PT, ~INR - Anti Coag Clinic 3.4 (0.9-1.1)
--- NOTE | 2025-01-29 10:19 | MHC.OFFVISCO ---
Intake Intake Visit Reasons: Anticoagulation Allergies No Known Allergies Allergy (Mild, Verified 01/29/25 09:53) NOT APPLICABLE Medication List - Last Reconciled 01/29/25 by Clarisse Dodge RN amoxicillin 2,000 mg PO atorvastatin 10 mg PO DAILY cefpodoxime 200 mg PO BID magnesium 200 mg PO DAILY urumkyosualh-bwmpavzz-zmvbte 1 tab PO DAILY omega-3 fatty acids (Fish Oil Concentrate) 1,000 mg PO DAILY sildenafil 50 mg PO DAILY PRN sitagliptin phosphate 25 mg PO DAILY warfarin 5 mg See Protocol PO DAILY Nursing Note NO CP,SOB,DIET/MED CHANGES,FALLS OR SX OF BLEEDING. CONTINUE PRESENT DOSE AND FOLLOW-UP IN 4 WEEKS. GOOD UNDERSTANDING OF DOSING INSTR. Coding Level of Care Code Est Patient Level 1 Diagnoses Current use of anticoagulant therapy Z79.01 Assessment & Plan Assessment & Plan (1) Current use of anticoagulant therapy: Code(s): Z79.01 - longterm (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
--- OUTSIDE RECORDS SUMMARY | 2025-01-29 10:41 | XMS_ITS | Patient Health Record ---
Author Organization [facility] Nereida [place]omon Address [address] [place] [address] Care Team Providers Care Plastic Printer Name Role Phone Kennedy Monroy MD Primary Care Provider Unavaila Joey Ignaciomie Unavailable [phone] Allergies Allergen (clinical drug ingredient) Drug/Non Drug [...] Problem Acquired hammer toe of right foot (343912640409740 5) Other hammer toe(s) (acquired), right foot (M20.41) Active confirmed Problem Acquired hammer toe of left foot (161501395857057 3) Other hammer toe(s) (acquired), left foot (M20.42) Active confirmed Problem Type II diabetes mellitus without complication (167521439) Type 2 diabetes mellitus without complications (E11.9) Active confirmed Problem Ulcer of toe of right foot (disorder) (710961176655342 01) Skin ulcer of toe of right foot, limited to breakdown of skin (L97.511) Active confirmed Plan Of Treatment Pending Test Test Name Order Date 29937-Ycdifxsd Plate 10/29/2015 53998- Debride <25 sq cm 07/04/2023 85184-LZFH SKIN LESION 03/14/2023 Insurance Providers Payer Name Payer Address Payer Phone Subscriber Number Group Number Insured Name Patient Relationship to Insured Coverage Start Date Coverage End Date Medicare National [employer] [address] [place] [address] [id number] Margarito Mehta Self - patient is the insured [facility] [address] [facility] [address] [place] [address] [id number] Margarito Mehta Self - patient is the insured Medical (General) History Medical History History ICD Code Diabetic Kidney disease Chicken pox Transfusions Diverticulitis Cholesterol Hx DVT Right Leg Cataracts Gall bladder problems Measles Joint implants/screws Surgical History Surgery Date(Month/Year) appendectomy 1960 gall bladder 2000 bowel resection 2001 right shoulder surgery 1999 left shoulder surgery 2019
--- OUTSIDE RECORDS SUMMARY | 2025-01-29 10:41 | XMS_ITS ---
Author Organization [facility] Address [address] [place] [address] Care Team Providers Care Panel Instrument Repairer Name Role Phone Kennedy Monroy MD Primary Care Provider Unavaila ble Black, Jodie Unavailable [phone] REASON FOR VISIT cx appt 10/17/23 Encounters Encounter Location Date Provider Diagnosis [facility] [address] [place] [address] 10/12/2023 Jodie Black Plan Of Treatment No Information Progress Notes * Margarito WHITE ADOB:[birth year] (83 yo M)Acc No.[id number]:10/12/2023 Patient:?Margarito White :1940???Age:83 Y???Sex:Male [facility] [place], [address] * true * Date:? Generated for Printi tamie/Janis/eTransmitting on:?01/29/2025 10:41 AM EDT
--- OUTSIDE RECORDS SUMMARY | 2025-01-29 10:41 | XMS_ITS | Clinical Summary ---
Author Organization [facility] Facility Address [address] [address] Care Team Providers Care Assembly Line Inspector Name Role Phone Kennedy Monroy MD Primary Care Provider [phone] Allergies Active Allergy Reactions Criticality Noted Date [...] Type 2 diabetes mellitus without complication Immunizations Immunization Administration Dates Next Due Influenza Split High [...] Visit [facility] [address] [place] [address] Song Bloom MD [address] [facility] [address] [place] [address] Health Maintenance Due Date Last Done Comments Diabetes: Hemoglobin A1C 10/17/2020 06/26/2020, 04/2020 Diabetes: Ophthalmology Exam 10/17/2020 Diabetes: Pedal Pulse Checked 10/17/2020 Diabetes: Sensory Foot Exam 10/17/2020 Diabetes: Visual Foot Exam 10/17/2020 Pneumococcal Vaccine: 50+ Years Completed 08/23/2015, 08/31/2012, 04/02/2011, Additional history exists Pneumococcal Vaccine: Peds (0 to 5 Years) and At-Risk Patients (6 to 49 Years) Discontinued 08/23/2015, 08/31/2012, 04/02/2011, Additional history exists Influenza [...] % PVNMA 06/26/2020 us Rtama Conversion LAB OBEFJOINOC-CUGSEKPSHBG-BUTI LICITED RESULTS Final Result PVNMA from Last 3 Months or Most Recently Relevant to Health Maintenance Insurance [facility] Medicare [facility] Medicare Care Teams Assembly Line Inspector Relationship Specialty Start Date End Date Kennedy Monroy MD [address] [place] [address] PCP - General 09/29/20
--- OUTSIDE RECORDS SUMMARY | 2025-01-29 10:41 | XMS_ITS | Encounter Summary ---
Author Organization [facility] Address [address] [facility] [address] [place] [address] Phone Care Team Providers Care Research Chef Name Role Phone Kennedy Monroy MD Primary Care Provider [phone] Encounter Details Date Type Department Care Team (Late Contact Info) Description 07/12/2022 Telephone [facility] [address] [facility] [address] [place] [address] Song Bloom MD [address] [facility] [address] [place] [address] Social History Tobacco Use Types [...] he had his labs done at [facility] on 06/29/22. He is having trouble getting them to send us over the results because he has called them 3 times and we still haven't received them. Please advise Thank you documented in this encounter Plan of Treatment Upcoming Encounters Date Type Department Care Team (Late Contact Info) Description 08/19/2025 1:15 PM EST Office Visit [facility] [address] [place] [address] Song Bloom MD [address] [facility] [address] [place] [address] documented as of this encounter Visit Diagnoses Not on filedocumented in this encounter Care Teams Research Chef Relationship Specialty Start Date End Date Kennedy Monroy MD [address] [place] [address] PCP - General 09/29/20 documented as of this encounter
--- OUTSIDE RECORDS SUMMARY | 2025-01-29 10:41 | XMS_ITS ---
Author Organization [facility] berenice Van Voorhis Address [address] [place] [address] Care Team Providers Care Memorial Adviser Name Role Phone Porfirio SALEEM, Kennedy Primary Care Provider UnavailJodie Smith [phone] Encounters Encounter Location Date Provider Diagnosis [facility] [address] [place] [address] 10/17/2023 Jodie Duran Plan Of Treatment No Information Progress Notes * Margarito WHITE ADOB:[birth year] (84 yo M)Acc No.[id number]:10/17/2023 Progress Note Patient:JoeMargarito WHITE Provider:?Jodie Duran DPM :1940???Age:83 Y???Sex:Male Félix e:10/17/2023 Address:[address] [place] [address] [address] [place], [place]-[phone] Pcp:Kennedy Monroy MD Subjective: * Chief Complaints: * ??? * Medical History:? Objective: * Vitals:? Assessment: Plan: * Treatment: * Images: * The named appointment provid er may or may not be the originator of this progress note, and it is not deemed complete until electronically signed by the appointment provider. Sign off status: Pending * Provider:?Jodie Duran DPM Date:?2023 Generated for oRbbin willett/Janis/eTransmitting on:?01/29/2025 10:41 AM EDT
== END 2025-01-29 10:21 | disposition home or self-care (01) ==
LOC: HO.ACS 09:52
PROVIDERS: PCP Internal Medicine; Visit Provider Internal Medicine Medical Oncology
DX: Z79.01 Long term (current) use of anticoagulants (principal)

== ENCOUNTER → 2025-01-29 09:52 | Outpatient (BNVA) | payer MEDICARE, OTHER, SELFPAY | PROVIDERS: PCP Internal Medicine; Visit Provider Internal Medicine Medical Oncology | DX: Z86.718 Personal history of other venous thrombosis and embolism (principal); Z79.01 Long term (current) use of anticoagulants; Z51.81 Encounter for therapeutic drug level monitoring | CPT/HCPCS: 85610; 99211 ==

== ENCOUNTER 2025-02-26 10:00 | Outpatient (AMB) | payer MEDICARE, OTHER, SELFPAY ==
[2025-02-26 10:14] LABS: ~PT, ~INR - Anti Coag Clinic 2.8 (0.9-1.1)
--- NOTE | 2025-02-26 10:20 | MHC.OFFVISCO ---
Intake Intake Visit Reasons: Anticoagulation Allergies No Known Allergies Allergy (Mild, Verified 02/26/25 10:07) NOT APPLICABLE Medication List - Last Reconciled 02/26/25 by Roshni Honeycutt RN amoxicillin 2,000 mg PO atorvastatin 10 mg PO DAILY magnesium 200 mg PO DAILY cqgfaslwehia-bvqbzisj-mslmgj 1 tab PO DAILY omega-3 fatty acids (Fish Oil Concentrate) 1,000 mg PO DAILY sildenafil 50 mg PO DAILY PRN sitagliptin phosphate 25 mg PO DAILY warfarin 5 mg See Protocol PO DAILY Nursing Note INR: 2.8 in therapeutic range Medications and supplements reviewed No changes in health, diet, medications, or supplements, Denies any signs and symptoms of bleeding or bruising or clotting. Bleeding, bruising, clotting discussed Nutritional guidance given Dose: 7.5MG X 1 DAY/ 5MG X 6 DAYS F/U INR: 1 MONTH Patient verbalizes understanding of instructions given Coding Level of Care Code Est Patient Level 1 Diagnoses Current use of anticoagulant therapy Z79.01 Assessment & Plan Assessment & Plan (1) Current use of anticoagulant therapy: Code(s): Z79.01 - nursing home (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
--- OUTSIDE RECORDS SUMMARY | 2025-02-26 11:25 | XMS_ITS | Encounter Summary ---
Author Organization [facility] Address [address] [facility] [address] [place] [address] Phone Care Team Providers Care Disposition Clerk Name Role Phone Kennedy Monroy MD Primary Care Provider [phone] Encounter Details Date Type Department Care Team (Late Contact Info) Description 07/12/2022 Telephone [facility] [address] [facility] [address] [place] [address] Song Bloom MD [address] [facility] [address] [place] [address] Social History Tobacco Use Types [...] he had his labs done at [facility] on 06/29/22. He is having trouble getting them to send us over the results because he has called them 3 times and we still haven't received them. Please advise Thank you documented in this encounter Plan of Treatment Upcoming Encounters Date Type Department Care Team (Late Contact Info) Description 08/19/2025 1:15 PM EST Office Visit [facility] [address] [place] [place] [address] Song Bloom MD [address] [facility] [address] [place] [address] documented as of this encounter Visit Diagnoses Not on filedocumented in this encounter Care Teams Disposition Clerk Relationship Specialty Start Date End Date Kennedy Monroy MD [address] [place] [id number] PCP - General 09/29/20 documented as of this encounter
== END 2025-02-26 10:25 | disposition home or self-care (01) ==
LOC: HO.ACS 10:00
PROVIDERS: PCP Internal Medicine; Visit Provider Internal Medicine Medical Oncology
DX: Z79.01 Long term (current) use of anticoagulants (principal)

== ENCOUNTER → 2025-02-26 10:00 | Outpatient (BNVA) | payer MEDICARE, OTHER, SELFPAY | PROVIDERS: PCP Internal Medicine; Visit Provider Internal Medicine Medical Oncology | DX: Z86.718 Personal history of other venous thrombosis and embolism (principal); Z79.01 Long term (current) use of anticoagulants; Z51.81 Encounter for therapeutic drug level monitoring | CPT/HCPCS: 85610; 99211 ==

== ENCOUNTER 2025-03-26 09:52 | Outpatient (AMB) | payer MEDICARE, OTHER, SELFPAY ==
--- NOTE | 2025-03-26 10:06 | MHC.OFFVISCO ---
Intake Intake Visit Reasons: Anticoagulation Allergies No Known Allergies Allergy (Mild, Verified 03/26/25 09:53) NOT APPLICABLE Medication List - Last Reconciled 03/26/25 by Roshni Honeycutt RN amoxicillin 2,000 mg PO atorvastatin 10 mg PO DAILY magnesium 200 mg PO DAILY mkaupvgtvpxg-svcwtieh-tgksoc 1 tab PO DAILY omega-3 fatty acids (Fish Oil Concentrate) 1,000 mg PO DAILY sildenafil 50 mg PO DAILY PRN sitagliptin phosphate 25 mg PO DAILY warfarin 5 mg See Protocol PO DAILY Nursing Note INR: 2.4 in therapeutic range Medications and supplements reviewed No changes in health, diet, medications, or supplements, Denies any signs and symptoms of bleeding or bruising or clotting. Bleeding, bruising, clotting discussed Nutritional guidance given Dose: 7.5MG X 1 DAY/ 5MG X 6 DAYS F/U INR: 1MONTH Patient verbalizes understanding of instructions given Coding Level of Care Code Est Patient Level 1 Diagnoses Current use of anticoagulant therapy Z79.01 Results AMB INR Fingerstick AMB INR Fingerstick 2.4 Last Edit by Roshni Honeycutt RN on 03/26/25 09:59 MANUAL ENTRY Assessment & Plan Assessment & Plan (1) Current use of anticoagulant therapy: Code(s): Z79.01 - custodial (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
--- OUTSIDE RECORDS SUMMARY | 2025-03-26 10:30 | XMS_ITS | Encounter Summary ---
Author Organization [facility] Address [address] [facility] [address] [place] [address] Phone Care Team Providers Care Semiconductor Packages Tester Name Role Phone Kennedy Monroy MD Primary Care Provider Encounter Details Date Type Department Care Team (Late Contact Info) Description 07/12/2022 Telephone [facility] [address] [facility] [address] [place] [address] Song Bloom MD [address] [facility] [address] [place] [address] Social History Tobacco Use Types [...] he had his labs done at [facility] on 06/29/22. He is having trouble getting them to send us over the results because he has called them 3 times and we still haven't received them. Please advise Thank you documented in this encounter Plan of Treatment Upcoming Encounters Date Type Department Care Team (Late Contact Info) Description 08/19/2025 1:15 PM EST Office Visit [facility] [address] [place] [address] Song Bloom MD [address] [facility] [address] [place] [address] documented as of this encounter Visit Diagnoses Not on filedocumented in this encounter Care Teams Semiconductor Packages Tester Relationship Specialty Start Date End Date Kennedy Monroy MD [address] [place] [address] PCP - General 09/29/20 documented as of this encounter
--- OUTSIDE RECORDS SUMMARY | 2025-03-26 10:30 | XMS_ITS | Patient Health Record ---
Author Organization [facility] Nereida [place] Address [address] [place] [address] Care Team Providers Care Logistics Operations Director Name Role Phone Kennedy Monroy MD Primary Care Provider Unavaila Jodie Ignacio Unavailable [phone] Allergies Allergen (clinical drug ingredient) Drug/Non Drug [...] MG 1 tablet Orally Twic e a day; Duration: 10 day(s) Not-Boni ing Immunizations Vaccine Route Administration Date Status Comme [...] Problem Acquired hammer toe of right foot (860695467698559 5) Other hammer toe(s) (acquired), right foot (M20.41) Active confirmed Problem Acquired hammer toe of left foot (170891864496338 3) Other hammer toe(s) (acquired), left foot (M20.42) Active confirmed Problem Type II diabetes mellitus without complication (984950602) Type 2 diabetes mellitus without complications (E11.9) Active confirmed Problem Ulcer of toe of right foot (disorder) (677675796758491 01) Skin ulcer of toe of right foot, limited to breakdown of skin (L97.511) Active confirmed Plan Of Treatment Pending Test Test Name Order Date 24700-Aeizvhqt Plate 10/29/2015 62315- Debride <25 sq cm 07/04/2023 52592-YOTZ SKIN LESION 03/14/2023 Insurance Providers Payer Name Payer Address Payer Phone Subscriber Number Group Number Insured Name Patient Relationship to Insured Coverage Start Date Coverage End Date Medicare National Govt Svcs Inc [address] [facility] [place] [address] [id number] Margarito Mehta Self - patient is the insured [employer] [address] [place] [address] [phone] [id number] Margarito Mehta Self - patient is the insured Medical (General) History Medical History History ICD Code Diabetic Kidney disease Chicken pox Transfusions Diverticulitis Cholesterol Hx DVT Right Leg Cataracts Gall bladder problems Measles Joint implants/screws Surgical History Surgery Date(Month/Year) appendectomy 1960 gall bladder 2000 bowel resection 2001 right shoulder surgery 1999 left shoulder surgery 2019
--- OUTSIDE RECORDS SUMMARY | 2025-03-26 10:30 | XMS_ITS | Patient Health Record ---
Author Organization [facility] Address [address] [place] [address] Care Team Providers Care Flavorings Compounder Name Role Phone Daniel Jackson Unavailable [phone] Reason For Referral No Information Plan Of Treatment No Information
[2025-03-26 10:38] LABS: Prothrombin Time Whole Bld POC 29.1 sec (11.1-13.5); ~PT, ~INR - Anti Coag Clinic 2.4 (0.9-1.1)
== END 2025-03-26 10:08 | disposition home or self-care (01) ==
LOC: HO.ACS 09:52
PROVIDERS: PCP Internal Medicine; Visit Provider Internal Medicine Medical Oncology
DX: Z79.01 Long term (current) use of anticoagulants (principal)

== ENCOUNTER → 2025-03-26 09:52 | Outpatient (BNVA) | payer MEDICARE, OTHER, SELFPAY | PROVIDERS: PCP Internal Medicine; Visit Provider Internal Medicine Medical Oncology | DX: Z86.718 Personal history of other venous thrombosis and embolism (principal); Z79.01 Long term (current) use of anticoagulants; Z51.81 Encounter for therapeutic drug level monitoring | CPT/HCPCS: 85610; 99211 ==

== ENCOUNTER 2025-04-23 09:55 | Outpatient (AMB) | payer MEDICARE, OTHER, SELFPAY ==
--- OUTSIDE RECORDS SUMMARY | 2025-04-21 17:00 | XMS_ITS | Encounter Summary ---
Author Organization [facility] Address [address] [place] [address] Phone Care Team Providers Care Cds Sales Advisor Name Role Phone Kennedy Monroy MD Primary Care Provider Kennedy Monroy MD Unavailable Yury Whyte MD Unavailable [phone] Song Bloom MD Unavailable [phone] Kumar Nunez MD Unavailable [phone] Reason for Visit * Reason Comments After Hours Call Virtual Visit - Poison Mallory Encounter Details Date Type Department Care Team (Late st Contact Info) Description 04/21/2025 5:00 PM EDT Telemedicine [facility] [address] [place] [address] [address] [place] [address] Poison mallory dermatitis (Primary Dx) Social History Tobacco Use Types Packs/Day Years Used Date Smoking Tobacco: Never Smokeless Tobacco: Never Alcohol Use Standard Drinks/Week Comments Yes 0 (1 standard drink = 0.6 oz pur e alcohol) beer, wine and Rum Child or Family Care Answer Date Record ed Do you have problems with on e of the following making it difficult for you to work, study, or receive health care? No 02/23/2021 Education Answer Date Recorded Are you interested in more education? Not on ramos e 03/01/2023 Are you concerned about learning? Not on file 03/01/2023 No 03/01/2023 No 03/01/2023 Food Answer Date Recorded Within the past 6 months we worried whether our food would run out before we got money to buy more. Never True 02/23/2021 Within the past 6 months the food we bought just didn't last and we didn't have enough money to get more. Never True Residential Stability Answer Date Recor ded What is your housing situation today? I have lex[employer] levin 02/23/2021 How many times have you move d in the past 12 months? Zero (I did not move) 02/23/2021 06 Are you worried that in t he next 2 months, you may not have your own housing to live in? No 02/23/2021 Paying for Meds Answer Date Recorded Do you have trouble paying for medicines? No 02/23/2021 Paying Utility Bills Answer Date Record ed Do you have trouble paying your heating or elect ricity bill? No 02/23/2021 Transportation Answer Date Recorded Has the lack of transportati on kept you from medical appointments or from getting medications? No 02/23/2021 Unemployment Answer Date Recorded Are you currently unemployed or working on a part-time or temporary basis, and looking for work? No 02/23/2021 Digital Access Answer Date Recorded No 02/08/2023 No 02/08/2023 Reliable internet access at home? Not on file 02/08/2023 Device with a working camera? Not on file Intimate Partner Violence Answer Date R ecorded Denied Basic Needs Not on file 09/04/2024 In the past 12 months have y ou been in a relationship with a person who hurts, threatens, or tries to control you? No 09/04/2024 Worried food would run out Not on file 09/04 In the past 12 months have y ou been in a relationship with a person who hurts, threatens, or tries to control you? No 09/04/2024 Sex and Gender Information Value Date Recorded Sex Assigned at Not on file Legal Sex Male 10:12 PM EDT Gender Identity Not on file Sexual Orientation Not on file documented as of this encounter Patient Instructions * Patient Instructions* Lashaun Holly NP - 04/21/2025 5:00 PM EDT Baldev Angel! As we discussed please remember: -magnesium can decrease the concentration of prednisone. Do not take within at least 2 hours of each other or you could consider decreasing magnesium dose while on prednisone. (Given the dose of prednisone you're on, you can likely take it in 1 dose after breakfast, or in 2 divided doses-one with breakfast and one with lunch. -prednisone can increase the effects of warfarin. We recommend increased INR monitoring and you mayneed to reduce your warfarin dose. I recommend you keep INR appt on 04/23/25, and that you do a repeat check on Tuesday04/26/25, and the day after you finish the prednisone. -prednisone will make januvia less effective which has the potential to increase you glucose levels. I strongly encouraged sticking to protein and vegetable intake, good hydration, and increased exercise while on prednisone. Prednisone can be activating-do not take before bed. Prednisone can irritate the stomach, please take with a full meal. A rare and serious potential adverse effect is that prednisone can cause bone . If you developjoint pain, please call the office. * Attachments The following attachments cannot be sent through Care Everywhere. * Prednisone (Ugandan) * Corticosteroids: Oral (Ugandan) * Poison Mallory Alma and Sumac (Ugandan) * Poison Mallory Alma or Sumac: What to Do First: Video (Ugandan) * Poison Mallory (PCOI) documented in this encounter Progress Notes * Lashaun Holly NP - 04/21/2025 5:00 PM EDT Date of Visit: 04/21/2025 Reason for Visit (Summary/Chief Complaint): Poison Mallory x 1 week 84 y.o. male presents for VIRTUAL VIDEO VISIT for the following medical conditions. History, Assessment, and Plans by Problem: Pt reports worsening poison mallory rash x1 week. Rash has spread to arms, legs, and torso. He has beenusing oct calamine and hydrocortisone creams without improvement. Denies fevers or purulent drainage. Would use [facility] in [place]. Pt has used prednisone in the past with good effect, queries Rx. Pt confirms that he is on warfarin, januvia, and magnesium. Pt reports he is scheduled to check INR on 04/23/25, he goes once monthly, and has a standing order for testing. 1. Poison mallory dermatitis (Primary) Other orders - predniSONE (DELTASONE) 10 MG tablet Dispense: 26 tablet; Refill: 0 E-Prescribing Status: Receipt confirmed by pharmacy (04/21/2025 5:28 PM EDT) Informed pt of potential medication interactions: -magnesium can decrease the concentration of prednisone-do not take within at least 2 hours of eachother or could consider decreasing magnesium dose while on prednisone. -prednisone can increase the effects of warfarin, recommend increased INR monitoring and you may need to reduce warfarin dose. Recommend keep appt 04/23/25, and do repeat check on Tuesday, on 04/26/25 andwhen finished with prednisone. -prednisone will make januvia less effective. Strongly encouraged sticking to protein and vegetableintake, good hydration, and increased exercise while on prednisone. Informed pt that prednisone can be activating-do not take before bed. It can irritate the stomach, please take with a full meal. Prednisone can cause bone . If develop joint pain, please call the office. Pt indicates understanding and agreement with the plan. Review of Systems: ROS was obtained as per above and HPI and all other systems reviewed otherwise negative. Reported vitals: There were no vitals taken for this visit. Visual Exam: [Const]: No acute distress. [HENT]: Normal appearance and symmetry. [Eyes]: Extraocular movements intact, sclerae anicteric without injection. [Resp]: Respiratory rate is regular, speaking in full sentences. No observed coughing, wheezing or distress. [Neuro]: Awake and oriented, grossly normal and symmetric motor function and coordination, normal speech. [Psych]: Behavior appropriate. Normal mood, affect, thought and cognition. Some aspects of the physical examination were deferred due to the nature of the virtual visit, which was completed during the [address] emergency. See care plans and review of systems above for further history details. See associated Encounter Report for reported vitals, allergies, medications, and orders that were reviewed and associated with this visit. Relevant past medical and surgical history, social history, family history were reviewedand updated as a part of today's visit. Recent relevant labs and past chart notes were reviewed. Virtual Visit Attestation Modality: video Provider Location, state disclosed to patient: home / other Patient Location: home Patient State or Country: [place] NSP AFTER HOURS ON-CALL PROVIDER documented in this encounter Plan of Treatment Upcoming Encounters Date Type Department Care Team (Late st Contact Info) Description 09/06/2025 1:30 PM EST Office Visit [facility] Internal Medicine [address] [place] [address] Kennedy Monroy MD [address] [place] [address] [email or web address] documented as of this encounter Visit Diagnoses Diagnosis Poison mallory dermatitis- Primary documented in this encounter Additional Health Concerns Assessment Noted Time PHQ-2 Depression Total Score: 0 09/04/20 24 1:00 PM EST documented as of this encounter Care Teams Cds Sales Advisor Relationship Specialty Start Date End Date Kennedy Monroy MD [address] [place] [address] [email or web address] PCP - General 07/07/17 Kennedy Monroy MD [address] [place] [address] [email or web address] Insurance Assigned Provider 12/24/23 Yury Whyte MD [address] [facility] [address] [place] [address] Orthopedic Surgery 06/30/20 Song Bloom MD [address] [place] [address] [email or web address] Air Defense Specialist Nephrology 09/20/23 Kumar Nunez MD [address] [place] [address], [address] [place], [place] [id number] [email or web address] Ophthalmology 07/11/24 documented as of this encounter Additional Source Comments The information contained in this document represents components of the legal health record. It is not the complete legal health record.[facility]
[2025-04-23 10:05] LABS: Prothrombin Time Whole Bld POC 42.5 sec (11.1-13.5); ~PT, ~INR - Anti Coag Clinic 3.5 (0.9-1.1)
--- NOTE | 2025-04-23 10:20 | MHC.OFFVISCO ---
Intake Intake Visit Reasons: Anticoagulation Allergies No Known Allergies Allergy (Mild, Verified 04/23/25 09:57) NOT APPLICABLE Medication List - Last Reconciled 04/23/25 by Roshni Honeycutt RN amoxicillin 2,000 mg PO atorvastatin 10 mg PO DAILY magnesium 200 mg PO DAILY jtwiujjzfaij-iiyhxfas-gbrmfb 1 tab PO DAILY omega-3 fatty acids (Fish Oil Concentrate) 1,000 mg PO DAILY prednisone mg PO sildenafil 50 mg PO DAILY PRN sitagliptin phosphate 25 mg PO DAILY warfarin 5 mg See Protocol PO DAILY Nursing Note INR 3.5 out of therapeutic range Medications and supplements reviewed Patient status: being treated for topical dermatitis of some kind - possible poison KALANI Medications or supplements: prednisone oral and cortisone topical Diet: good Denies any signs and symptoms of bleeding or clotting or unusual bruising Bleeding, bruising, clotting discussed Nutritional guidance given: greens today Dose: decrease to 2.5mg today then resume usual dose and eat greens today F/U INR Date : 1 week ?? Patient verbalizing understanding of instructions given. 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
--- OUTSIDE RECORDS SUMMARY | 2025-04-23 10:23 | XMS_ITS | Patient Health Record ---
Author Organization [facility] Address [address] [place] [address] Care Team Providers Care Legal Support Specialist Name Role Phone Daniel Jackson Unavailable [phone] Reason For Referral No Information Plan Of Treatment No Information
--- OUTSIDE RECORDS SUMMARY | 2025-04-23 10:23 | XMS_ITS | Patient Health Record ---
Author Organization [facility] [place] Address [address] [place] [address] Care Team Providers Care Metallurgical Specialist Name Role Phone Kennedy Monroy MD Primary Care Provider Unavaila Joey Ignaciomie Unavailable [phone] Allergies Allergen (clinical drug ingredient) Drug/Non Drug Allergy documented on EMR Reaction Allergy Type Onset Date Status ibuprofen Advil Unknown Drug Allergy Active naproxen aleve Unknown Drug Allergy Active aspirin Unknown Drug Allergy Active motrin Unknown [...] Problem Acquired hammer toe of right foot (112066232289718 5) Other hammer toe(s) (acquired), right foot (M20.41) Active confirmed Problem Acquired hammer toe of left foot (626276898732582 3) Other hammer toe(s) (acquired), left foot (M20.42) Active confirmed Problem Type II diabetes mellitus without complication (275567633) Type 2 diabetes mellitus without complications (E11.9) Active confirmed Problem Ulcer of toe of right foot (disorder) (067426064529839 01) Skin ulcer of toe of right foot, limited to breakdown of skin (L97.511) Active confirmed Plan Of Treatment Pending Test Test Name Order Date 56793-Avgkvbci Plate 10/29/2015 32283- Debride <25 sq cm 07/04/2023 45191-VCWH SKIN LESION 03/14/2023 Insurance Providers Payer Name Payer Address Payer Phone Subscriber Number Group Number Insured Name Patient Relationship to Insured Coverage Start Date Coverage End Date Medicare National Govt Svcs Inc [address] [place] [address] [id number] Margarito Mehta Self - patient is the insured [facility] [employer] [facility] [address] [place] [address] [phone] [id number] Margarito Mehta Self - patient is the insured Medical (General) History Medical History History ICD Code Diabetic Kidney disease Chicken pox Transfusions Diverticulitis Cholesterol Hx DVT Right Leg Cataracts Gall bladder problems Measles Joint implants/screws Surgical History Surgery Date(Month/Year) appendectomy 1960 gall bladder 2000 bowel resection 2001 right shoulder surgery 1999 left shoulder surgery 2019
--- OUTSIDE RECORDS SUMMARY | 2025-04-23 10:23 | XMS_ITS | Encounter Summary ---
Author Organization [facility] Address [address] [facility] [facility] 200 [place] [address] Phone Care Team Providers Care Garment Sewer Hand Name Role Phone Kennedy Monroy MD Primary Care Provider [phone] Encounter Details Date Type Department Care Team (Late Contact Info) Description 07/12/2022 Telephone [facility] [address] [facility] 200 [place] [address] Song Bloom MD [address] [facility] [address] [place] [address] Social History Tobacco Use Types [...] he had his labs done at [facility] on 06/29/22. He is having trouble getting them to send us over the results because he has called them 3 times and we still haven't received them. Please advise Thank you documented in this encounter Plan of Treatment Upcoming Encounters Date Type Department Care Team (Late Contact Info) Description 08/19/2025 1:15 PM EST Office Visit [facility] [address] [place] [address] Song Bloom MD [address] [facility] [address] [place] [address] documented as of this encounter Visit Diagnoses Not on filedocumented in this encounter Care Teams Garment Sewer Hand Relationship Specialty Start Date End Date Kennedy Monroy MD [address] [place] [address] PCP - General 09/29/20 documented as of this encounter
== END 2025-04-23 10:23 | disposition home or self-care (01) ==
LOC: HO.ACS 09:55
PROVIDERS: PCP Internal Medicine; Visit Provider Student in an Organized Health Care Education/Training Program
DX: Z79.01 Long term (current) use of anticoagulants (principal)

== ENCOUNTER → 2025-04-23 09:55 | Outpatient (BNVA) | payer MEDICARE, OTHER, SELFPAY | PROVIDERS: PCP Internal Medicine; Visit Provider Student in an Organized Health Care Education/Training Program | DX: Z51.81 Encounter for therapeutic drug level monitoring (principal); Z79.01 Long term (current) use of anticoagulants | CPT/HCPCS: 85610; 99211 ==

== ENCOUNTER 2025-04-30 10:08 | Outpatient (AMB) | payer MEDICARE, OTHER, SELFPAY ==
[2025-04-30 10:19] LABS: Prothrombin Time Whole Bld POC 43.3 sec (11.1-13.5); ~PT, ~INR - Anti Coag Clinic 3.6 (0.9-1.1)
--- NOTE | 2025-04-30 10:30 | MHC.OFFVISCO ---
Intake Intake Visit Reasons: Anticoagulation Allergies No Known Allergies Allergy (Mild, Verified 04/30/25 10:14) NOT APPLICABLE Medication List - Last Reconciled 04/30/25 by Roshni Honeycutt RN amoxicillin 2,000 mg PO atorvastatin 10 mg PO DAILY magnesium 200 mg PO DAILY ofnsgozdxgay-hmroesze-fzmysa 1 tab PO DAILY omega-3 fatty acids (Fish Oil Concentrate) 1,000 mg PO DAILY sildenafil 50 mg PO DAILY PRN sitagliptin phosphate 25 mg PO DAILY warfarin 5 mg See Protocol PO DAILY Nursing Note INR 3.6 out of therapeutic range Medications and supplements reviewed Patient status: Recovering from bad case of poison KALANI completing prednisone today , had 2 ETOH over the weekend Medications or supplements: no other changes Diet: good Denies any signs and symptoms of bleeding or clotting or unusual bruising Bleeding, bruising, clotting discussed Nutritional guidance given: eat greens today and tomorrow , avoid the reds today and tomorrow Dose: decrease today's dose to 2.5mg today - greens today and tomorrow, then resume usual dose 7.5mg tuesday/ 5mg x 6 days F/U INR Date: 4 weeks per pt request ?? Patient verbalizing understanding of instructions given. Coding Level of Care Code Est Patient Level 1 Diagnoses Current use of anticoagulant therapy Z79.01 Results AMB INR Fingerstick AMB INR Fingerstick 3.6 Last Edit by Roshni Honeycutt RN on 04/30/25 10:23 MANUAL ENTRY Assessment & Plan Assessment & Plan (1) Current use of anticoagulant therapy: Code(s): Z79.01 - retirement (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
--- OUTSIDE RECORDS SUMMARY | 2025-04-30 11:08 | XMS_ITS | Patient Health Record ---
Author Organization [facility] Address [address] [place] [address] Care Team Providers Care Architecture Instructor Name Role Phone Daniel Jackson Unavailable [phone] Reason For Referral No Information Plan Of Treatment No Information
--- OUTSIDE RECORDS SUMMARY | 2025-04-30 11:08 | XMS_ITS | Patient Health Record ---
Author Organization [facility] [place] Address [address] [place] [address] Care Team Providers Care Emerging Technologies Director Name Role Phone Kennedy Monroy MD Primary Care Provider Unavaila Jodie Ignacio Unavailable [phone] Allergies Allergen (clinical drug ingredient) Drug/Non Drug [...] Problem Acquired hammer toe of right foot (249398890473 9105) Other hammer toe(s) (acquired), right foot (M20.41) Active confirmed Problem Acquired hammer toe of left foot (300369495634 9103) Other hammer toe(s) (acquired), left foot (M20.42) Active confirmed Problem Type 2 diabetes mellitus without complications (E11.9) Active confirmed Problem Ulcer of toe of right foot (disorder) (174922122545 46978) Skin ulcer of toe of right foot, limited to breakdown of skin (L97.511) Active confirmed Plan Of Treatment Pending Test Test Name Order Date [id number]-Dchjzmpy Plate 10/29/2015 24676- Debride <25 sq cm 07/04/2023 46385-ARNE SKIN LESION 03/14/2023 Insurance Providers Payer Name Payer Address Payer Phone Subscriber Number Group Number Insured Name Patient Relationship to Insured Coverage Start Date Coverage End Date Medicare National Govt Svcs Inc [address] [place] [address] [id number] Margarito Mehta Self - patient is the insured [email or web address]) [address] [place] [address] [id number] Margarito Mehta Self - patient is the insured Medical (General) History Medical History History ICD Code Diabetic Kidney disease Chicken pox Transfusions Diverticulitis Cholesterol Hx DVT Right Leg Cataracts Gall bladder problems Measles Joint implants/screws Surgical History Surgery Date(Month/Year) appendectomy 1960 gall bladder 1999 bowel resection 2001 right shoulder surgery 1999 left shoulder surgery 2019
--- OUTSIDE RECORDS SUMMARY | 2025-04-30 11:08 | XMS_ITS | Encounter Summary ---
Author Organization [facility] Address [address] [facility] [address] [place] [address] Phone Care Team Providers Care Design Supervisor Name Role Phone Kennedy Monroy MD Primary Care Provider Encounter Details Date Type Department Care Team (Late Contact Info) Description 07/12/2022 Telephone [facility] [address] [facility] 200 [place] [address] Song Bloom MD [address] [facility] [address] [place] [address] Social History Tobacco Use Types [...] he had his labs done at [facility] on 06/29/22. He is having trouble getting them to send us over the results because he has called them 3 times and we still haven't received them. Please advise Thank you documented in this encounter Plan of Treatment Upcoming Encounters Date Type Department Care Team (Late Contact Info) Description 08/19/2025 1:15 PM EST Office Visit [facility] [address] [place] [address] Song Bloom MD [address] [facility] [address] [place] [address] documented as of this encounter Visit Diagnoses Not on filedocumented in this encounter Care Teams Design Supervisor Relationship Specialty Start Date End Date Kennedy Monroy MD [address] [place] [address] PCP - General 09/29/20 documented as of this encounter
--- OUTSIDE RECORDS SUMMARY | 2025-04-30 11:08 | XMS_ITS | Encounter Summary ---
Author Organization [facility] Address [address] [place] [address] Phone Care Team Providers Care Sow Farm Technician Name Role Phone Kennedy Monroy MD Primary Care Provider Kennedy Monroy MD Unavailable [phone] Kennedy Monroy MD Unavailable [phone] Yury Whyte MD Unavailable [phone] Song Bloom MD Unavailable [phone] Kumar Nunez MD Unavailable [phone] Encounter Details Date Type Department Care Team (Late st Contact Info) Description 02/21/2024 Procedure [facility], Ct Scan - [address] [address] Social History Tobacco Use Types Packs/Day Years Used Date Smoking Tobacco: Never Smokeless Tobacco: Never Alcohol Use Standard Drinks/Week Comments Yes 4 (1 standard drink = 0.6 oz pur [...] ecorded Denied Basic Needs Not on file 08/19/2023 In the past 12 months have y ou been in a relationship with a person who hurts, threatens, or tries to control you? No 08/19/2023 Worried food would run out Not on file 08/19 In the past 12 months have y ou been in a relationship with a person who hurts, threatens, or tries to control you? No 08/19/2023 Sex and Gender Information Value Date Recorded Sex Assigned at Not on file Legal Sex Male 10:12 PM EDT Gender Identity Not on file Sexual Orientation Not on file documented as of this encounter Plan of Treatment Upcoming Encounters Date Type Department Care Team (Late st Contact Info) Description 09/06/2025 1:30 PM EST Office Visit [facility] Internal Medicine [address] [facility] [address] Kennedy Monroy MD [address] [place] [address] [email or web address] documented as of this encounter Visit Diagnoses Not on filedocumented in this encounter Additional Health Concerns Infection Onset Date Last Indicated Resolved Time CoV-Risk 07/11/2024 07/11/2024 07/22/2024 1:22 AM EDT CoV-Risk 11/15/2024 11/15/2024 11/26/2024 1:22 AM EDT Influenza A 11/15/2024 11/15/2024 11/22/2024 1:22 AM EST Assessment Noted Time PHQ-2 Depression Total Score: 0 08/19/20 12:55 PM EST documented as of this encounter Care Teams Sow Farm Technician Relationship Specialty Start Date End Date Kennedy Monroy MD [address] [place] [address] [email or web address] PCP - General 07/07/17 Kennedy Monroy MD [address] [place] [address] [email or web address] Historical LMR Provider 07/09/17 07/10/24 Kennedy Monroy MD [address] [place] [address] [email or web address] Insurance Assigned Provider 12/24/23 Yury Whyte MD [address] [place] [address] Orthopedic Surgery 06/30/20 Song Bloom MD [address] [place] [address] [email or web address] Pharmacist Helper Nephrology 09/20/23 Kumar Nunez MD [address] [place] [address], [address] [place], [place] [id number] [email or web address] Ophthalmology 07/11/24 documented as of this encounter Additional Source Comments The information contained in this document represents components of the legal health record. It is not the complete legal health record.[facility]
== END 2025-04-30 10:33 | disposition home or self-care (01) ==
LOC: HO.ACS 10:08
PROVIDERS: PCP Internal Medicine; Visit Provider Internal Medicine Medical Oncology
DX: Z79.01 Long term (current) use of anticoagulants (principal)

== ENCOUNTER → 2025-04-30 10:08 | Outpatient (BNVA) | payer MEDICARE, OTHER, SELFPAY | PROVIDERS: PCP Internal Medicine; Visit Provider Internal Medicine Medical Oncology | DX: Z51.81 Encounter for therapeutic drug level monitoring (principal); Z79.01 Long term (current) use of anticoagulants | CPT/HCPCS: 85610; 99211 ==

== ENCOUNTER 2025-05-28 09:53 | Outpatient (AMB) | payer MEDICARE, OTHER, SELFPAY ==
[2025-05-28 10:03] LABS: Prothrombin Time Whole Bld POC 33.2 sec (11.1-13.5); ~PT, ~INR - Anti Coag Clinic 2.8 (0.9-1.1)
--- NOTE | 2025-05-28 10:13 | MHC.OFFVISCO ---
Intake Intake Visit Reasons: Anticoagulation Allergies No Known Allergies Allergy (Mild, Verified 05/28/25 09:55) NOT APPLICABLE Medication List - Last Reconciled 05/28/25 by Roshni Honeycutt RN amoxicillin 2,000 mg PO atorvastatin 10 mg PO DAILY magnesium 200 mg PO DAILY [id number] 1 tab PO DAILY omega-3 fatty acids (Fish Oil Concentrate) 1,000 mg PO DAILY sildenafil 50 mg PO DAILY PRN sitagliptin phosphate 25 mg PO DAILY warfarin 5 mg See Protocol PO DAILY Nursing Note INR: 2.8 in therapeutic range Medications and supplements reviewed No changes in health, diet, medications, or supplements, Denies any signs and symptoms of bleeding or bruising or clotting. Bleeding, bruising, clotting discussed Nutritional guidance given Dose: 7.5MG X 1 DAY/ 5MG X 6 DAYS F/U INR: 1 MONTH Patient verbalizes understanding of instructions given Coding Level of Care Code Est Patient Level 1 Diagnoses Current use of anticoagulant therapy Z79.01 Results AMB INR Fingerstick AMB INR Fingerstick 2.8 Last Edit by Roshni Honeycutt RN on 05/28/25 10:04 MANUAL ENTRY Assessment & Plan Assessment & Plan (1) Current use of anticoagulant therapy: Code(s): Z79.01 - intermediate accountant (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
--- OUTSIDE RECORDS SUMMARY | 2025-05-28 11:37 | XMS_ITS | Clinical Summary ---
Author Organization [facility] Address [address] [place] [address] Phone Care Team Providers Care Client Technical Specialist Name Role Phone Kennedy Monroy MD Primary Care Provider [phone] Kennedy Monroy MD Unavailable [phone] Yury Whyte MD Unavailable Song Bloom MD Unavailable Kumar Nunez MD Unavailable [phone] Allergies Active Allergy Reactions Criticality Noted Date Comments Amlodipine 03/29/2017 Other reaction(s): Cough Aspirin-Dipyridamole Headaches 03/29/2017 Lisinopril 03/29/2017 Other reaction(s): Cough Metformin Diarrhea 10/10/2017 Valsartan 03/29/2017 Other reaction(s): Chest pain Medications magnesium oxide (MAG-OX) 400 mg (240 mg elemental) tablet Take 400 mg by mouth every other day. Active amoxicillin (AMOXIL) 500 MG capsule TAKE 4 CAPSULES BY MOUTH 1 HOUR PRIOR TO DENTAL PROCEDURE 07/07/20 20 Active mv-min/folic/K1 /lycopen/lutein (CENTRUM SILVER MEN ORAL) Take 1 capsule by mouth daily. Active warfarin (COUMADIN) 5 MG tabletIndicatio ns:History of DVT (deep vein thrombosis) TAKE 1-2 TABLETS BY MOUTH DAILY DIRECTED 180 tablet 3 09/26/19 25 Active atorvastatin (LIPITOR) 10 MG tabletIndicatio ns:Type 2 diabetes mellitus with stage 3b chronic kidney disease, without long-term current use of insulin TAKE 1 TABLET BY MOUTH EVERY DAY 90 tablet 3 02/06/20 25 Active JANUVIA 25 mg tabletIndicatio ns:Type 2 diabetes mellitus with stage 3 chronic kidney disease, without long-term current use of insulin, unspecified whether stage 3a or 3b CKD TAKE 1 TABLET BY MOUTH EVERY DAY 90 tablet 3 04/30/20 25 Active sildenafiL (VIAGRA) 100 mg tabletIndicatio ns:Erectile dysfunction, unspecified erectile dysfunction type Take 1 tablet (100 mg total) by mouth daily as needed. 6 tablet 4 02/17/20 22 025 Discontinued(No longer taking) JANUVIA 25 mg tabletIndicatio ns:Type 2 diabetes mellitus with stage 3 chronic kidney disease, without long-term current use of insulin, unspecified whether stage 3a or 3b CKD take 1 tablet by mouth every day 90 tablet 3 04/25/20 24 025 Discontinued predniSONE (DELTASONE) 10 MG tablet Take 4 tablets (40 mg total) by mouth daily for 5 days, THEN 3 tablets (30 mg total) daily for 1 day, THEN 2 tablets (20 mg total) daily for 1 day, THEN 1 tablet (10 mg total) daily for 1 day. 26 tablet 04/21/20 25 025 Active Problems Problem Noted Date Diagnosed Date Acute cough 07/11/2024 Assessment & Plan (07/11/2024 4:33 PM EDT): Abrupt cough, nasal discharge, and sore throat that started on Tuesday after he ended a golf tournament on Tuesday. 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 Primary osteoarthritis of left shoulder 04/21/20 Assessment & Plan (04/21/2020 2:33 PM EDT): From the standpoint of his exam his [...] anticoagulated. Stage 3 chronic kidney disease 06/15/2018 Exposure to asbestos 10/11/2017 Benign non-nodular prostatic hyperplasia with lower urinary tract symptoms 10/11/2017 History of asbestos exposure 10/11/2017 History of thromboembolism of vein 10/11/2017 Assessment & Plan (03/30/2021 4:16 PM EDT): With the presence of the spontaneous contusion 1 would like to believe that there is a connection with the abductor muscle tear presumed from the golf incident. But the whole history does not seem to fit together from the standpoint of when the accident occurred 10 days ago and this morning waking up with the contusion. Certainly want rule out any Coumadin toxicity so today we will obtain an INR. Either way I want him to hold the Coumadin just in case and then tomorrow he can restart it if the INR comes back low or normal. Since is not a hematoma there is not much to do and even if it were hematoma we will put perhaps ice on it but I have him draw the border of the contusion and then will see if it widens out beyond it. It seems to be an incident that happened and now has ceased. 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, without long-term current use of insulin 10/11/2017 Encounters Date Type Department Care Team Description 05/16/2025 9:54 AM EDT - 05/16/2025 11:59 PM EDT Hospital Encounter [facility] [address] [place] [address] Kennedy Monroy MD Discharge Disposition: Home or Self Care 05/15/2025 3:20 PM EDT Office Visit [facility] [address] [place] [address] Ollie Escobedo PA-C Abdominal pain, RLQ (Primary Dx) 05/15/2025 Telephone [facility] [address] [place] [address] Ivania Lobo RN Abdominal Pain 04/30/2025 Refill [facility] [address] [place] [address] Kennedy Monroy MD Medication Refill 04/21/2025 5:00 PM EDT Telemedicine [facility] [address] [address] Poison mallory dermatitis (Primary Dx) 04/21/2025 Nurse Triage [address] [address] Ranjana Barnett PA-C Poison Mallory (After hours call) 02/28/2025 1:00 PM EDT Office Visit [facility] [address] [place] [address] Kennedy Monroy MD Type 2 diabetes mellitus with stage 3b chronic kidney disease, without long-term current use of insulin (Primary Dx); Chronic renal failure, stage 3b; Nocturia 02/25/2025 10:20 AM EDT - 02/25/2025 11:59 PM EDT Hospital Encounter [facility] [address] [place] [address] Kennedy Monroy MD Discharge Disposition: Home or Self Care from Last 3 Months Immunizations Immunization Administration Dates Next Due COVID-19 (Pre-07/11) Pfizer Vaccine, mRNA, PF 11/12/2020,10/21/2020 INFLUENZA, SPLIT VIRUS, TRIV ALENT W/ PRESERVATIVE IM 07/26/2011 Influenza High-Dose Quadriva lent Preservative Free IM 06/21/2022,05/27/2021 Influenza High-Dose Trivalen t Preservative Free IM 06/23/2024,05/26/2019,05/25/2018,06/26,05/31/2016,06/27/2015,06/07/2014 ,06/19/2013 Influenza Quadrivalent Adjuv anted Preservative Free IM 06/01/2023,06/10/2020 Influenza Quadrivalent Prese rvative Free IM 06/11/2020 Influenza, Unspecified Formulation 05/27/2021,,06/26/2009 Pneumococcal conjugate PCV13 08/23/2015 Pneumococcal polysaccharide PPSV23 08/31/2012,,07/20/2006 RSV Vaccine (bivalent) 10/31/2023 Td (adult) 5 Lf Tetanus Toxo id, PF, Adsorbed 10/25/2011 Tdap 06/23/2024 Zoster live 09/15/2007 Zoster recombinant 10/07/2021,06/22/2021 Family History Medical History Relation Comments Diabetes Father Relation Status Comments Brother 1 Alive Brother 2 Alive Father 84 Mother (Age 103) 103 Social History Tobacco Use Types Packs/Day Years Used Date Smoking Tobacco: Never Smokeless Tobacco: Never Tobacco Cessation:Counseling Given: Not Answered Alcohol Use Standard Drinks/Week Comments Yes 0 [...] your housing situation today? I have lexus sing 02/23/2021 How many times have you move [...] Sign Reading Time Taken Comments Blood Pressure 118/66 05/15/2025 3:20 PM EDT Pulse 99 05/15/2025 3:20 PM EDT Temperature 36.7 C (98 F) 02/28/2025 12:57 PM EDT Respiratory Rate 20 05/15/2025 3:20 PM EDT Oxygen Saturation 96% 05/15/2025 3:20 PM EDT Inhaled Oxygen Concentration - - Weight 77 kg (169 lb 12.8 oz) 05/15/2025 3:20 PM EDT Height 164.8 cm (5' 4.88 ) 05/15/2025 3:20 PM ED T Body Mass Index 28.36 05/15/2025 3:20 PM EDT Plan of Treatment Upcoming Encounters Date Type Department Care Team (Late st Contact Info) Description 05/15/2025 Procedure Pass [facility] Scan - [address] [address] 05/29/2025 3:00 PM EDT Appointment [facility] - [address] [address] Ollie Escobedo PA-C [address] [place], [place] [phone] [email or web address] 09/06/2025 1:30 PM EST [facility] [address] [place], [place] [phone] Kennedy Monroy MD [address] [place] [address] [email or web address] Health Maintenance Due Date Last Done Comments DIABETIC EYE EXAM 11/14/2024 11/14/2023, , 04/09/2021, Additional history exists INFLUENZA VACCINE (#1) 2025 , 06/02/2023, 06/01/2023, Additional history exists COVID-19 VACCINE ( season) 2025 06/17/2023, 06/21/2022, 07/09/2021, Additional history exists DEPRESSION SCREENING 09/04/2025 09/04/2024 BLOOD PRESSURE 11/15/2025 05/15/2025 HEMOGLOBIN A1C 11/16/2025 05/16/2025, 05/2025, 08/31/2024, Additional history exists Adult Td,Tdap Booster 06/23/2034 06/23/2024, 012 PNEUMOCOCCAL VACCINES (50+ years) Completed 08/23/2015, 08/31/2012, 04/02/2011, Additional history exists ZOSTER VACCINES Completed 10/07/2021, 12/2020, 09/15/2007 RSV VACCINE Completed 10/31/2023 HEPATITIS A VACCINES Aged Out No long er eligible based on patient's age to complete this topic HIB VACCINES Aged Out No longer eligi ble based on patient's age to complete this topic MENINGOCOCCAL VACCINES (ACWY) Aged Out No longer eligible based on patient's age to complete this topic MENINGOCOCCAL VACCINES (B) Aged Out N o longer eligible based on patient's age to complete this topic Medical Devices Not on file Procedures Procedure Name Priority Date/Time Associated Diagnosis Comments HEMOGLOBIN A1C Routine 05/16/2025 9:59 AM EDT Type 2 diabetes mellitus with stage 3b chronic kidney disease, without long-term current use of insulin MAGNESIUM Routine 05/16/2025 9:59 AM EDT Type 2 diabetes mellitus with stage 3b chronic kidney disease, without long-term current use of insulin Chronic renal failure, stage 3b BASIC METABOLIC PANEL Routine 05/16/2025 9:59 AM EDT Type 2 diabetes mellitus with stage 3b chronic kidney disease, without long-term current use of insulin Chronic renal failure, stage 3b MICROALBUMIN/CREATI NINE RATIO, RANDOM URINE Routine 02/28/2025 1:42 PM EDT Type 2 diabetes mellitus with stage 3b chronic kidney disease, without long-term current use of insulin URINALYSIS W/REFLEX URINE CULTURE Routine 02/28/2025 1:42 PM EDT Nocturia HEMOGLOBIN A1C Routine 02/25/2025 10:38 AM EDT Type 2 diabetes mellitus with stage 3b chronic kidney disease, without long-term current use of insulin TSH Routine 02/25/2025 10:38 AM EDT Type 2 diabetes mellitus with stage 3b chronic kidney disease, without long-term current use of insulin Chronic renal failure, stage 3b LIPID PANEL Routine 02/25/2025 10:38 AM EDT Pure hypercholesterolemia CBC AND DIFFERENTIAL Routine 02/25/2025 10:38 AM EDT Type 2 diabetes mellitus with stage 3b chronic kidney disease, without long-term current use of insulin Chronic renal failure, stage 3b COMPREHENSIVE METABOLIC PANEL Routine 02/25/2025 10:38 AM EDT Pure hypercholesterolemia Type 2 diabetes mellitus with stage 3b chronic kidney disease, without long-term current use of insulin Nocturia Chronic renal failure, stage 3b HM DIABETES EYE EXAM FOR RESULT ENTRY ONLY Routine 11/14/2023 12:50 PM EST from Last 3 Months or Most Recently Relevant to Health Maintenance Results * Magnesium (05/16/2025 9:59 AM EDT) MAGNESIUM 2.2 1.6 - 2.6 mg/dL [facility] Blood 05/16/2025 9:59 AM EDT 05/16/2025 10:06 AM EDT us Kennedy Monroy MD LAB BLOOD ORDERABLES Final Re sult Performing Organization Address [facility]/ZIP Co de Phone Number [address] [address] * (ABNORMAL) Hemoglobin A1c (05/16/2025 9:59 AM EDT) Only the most recent of2 resultswithin the time period is included. Pathologist [facility] HEMOGLOBIN A1C 6.8(H) 4.3 - 5.8 % [facility] Blood 05/16/2025 9:59 AM EDT 05/16/2025 10:07 AM EDT us Kennedy Monroy MD LAB BLOOD ORDERABLES Final Re sult Performing Organization Address [facility] Co de Phone Number [address] [address] * (ABNORMAL) Basic metabolic panel (05/16/2025 9:59 AM EDT) Pathologist [facility] SODIUM 140 133 - 146 mmol/L [facility] CHLORIDE 108 96 - 108 mmol/L [facility] POTASSIUM 5.5(H) 3.3 - 5.1 mmol/L [facility] CO2 21 21 - 35 mmol/L [facility] BUN 36(H) 6 - 19 mg/dL [facility] CREATININE 1.60(H) 0.5 - 1.5 mg/dL [facility] GLUCOSE 132(H) 70 - 99 mg/dL [facility] CALCIUM 9.6 8.4 - 10.3 mg/dL [facility] EGFR 42(L) >59 mL/min/1.7 3m2 [facility] Comment:Estimated glomerular filtration rate calculated using the CKD-EPI refit equation. ANION GAP 17 10 - 20 mmol/L [facility] Blood 05/16/2025 9:59 AM EDT 05/16/2025 10:06 AM EDT us Kennedy Monroy MD LAB BLOOD ORDERABLES Final Re sult Performing Organization Address [facility] Co de Phone Number [address] [address] * (ABNORMAL) Urinalysis w/reflex Urine Culture (02/28/2025 1:42 PM EDT) COLOR Yellow Yellow [facility] CLARITY Clear [facility] GLUCOSE Negative Negative [facility] BILI Negative Negative [facility] KETONES Negative Negative [facility] SPECIFIC GRAVITY 1.025 1.005 - 1.030 [facility] BLOOD Trace(A) Negative [facility] PH 6.0 5.0 - 8.0 [facility] Protein-UA Negative Negative [facility] NITRITE Negative Negative [facility] Leukocyte esterase, ur Negative Negative [facility] Urine (Urine) 02/28/2025 1:4 2 PM EDT 02/28/2025 8:16 PM EDT us Kennedy Monroy MD URINE ORDERABLES Final Result Performing Organization Address [facility] Co de Phone Number [address] [address] * Microalbumin/creatinine ratio, random urine (02/28/2025 1:42 PM EDT) URINE MICROALBUMIN 1.7 0 - 2.3 mg/dL [facility] URINE CREATININE 116 mg/dL [employer]ICKING [employer]ACHINE [employer]PER[employer] [facility] MICROALB/CRE RATIO 14.7 0 - 20 mg/g Cre [facility] Urine (Urine) 02/28/2025 1:4 2 PM EDT 02/28/2025 9:00 PM EDT us Kennedy Monroy MD URINE ORDERABLES Final Result [address] [address] * (ABNORMAL) Comprehensive metabolic panel (02/25/2025 10:38 AM EDT) SODIUM 138 133 - 146 mmol/L [facility] POTASSIUM 5.1 3.3 - 5.1 mmol/L [facility] CHLORIDE 106 96 - 108 mmol/L [facility] CO2 20(L) 21 - 35 mmol/L [facility] BUN 40(H) 6 - 19 mg/dL [facility] CREATININE 1.70(H) 0.5 - 1.5 mg/dL [facility] GLUCOSE 134(H) 70 - 99 mg/dL [facility] ALBUMIN 4.1 3.9 - 4.8 g/dL [facility] TOTAL PROTEIN 7.7 6.5 - 8.0 g/dL [facility] CALCIUM 9.5 8.4 - 10.3 mg/dL [facility] ALKALINE PHOSPHATASE 58 39 - 117 U/L [facility] TOTAL BILIRUBIN 0.6 0.0 - 1.2 mg/dL [facility] AST 20 0 - 37 U/L [facility] ALT 16 0 - 40 U/L [facility] GLOBULIN 3.6 1 - 4.8 g/dL [facility] EGFR 39(L) >59 mL/min/1.7 3m2 [facility] Comment:Estimated glomerular filtration rate calculated using the CKD-EPI refit equation. ANION GAP 17 10 - 20 mmol/L [facility] Blood 02/25/2025 10:3 8 AM EDT 02/25/2025 10:45 AM EDT us Kennedy Monroy MD LAB BLOOD ORDERABLES Final Re sult Performing Organization Address City/[facility]/ZIP Co de Phone Number [address] [address] * (ABNORMAL) CBC and differential (02/25/2025 10:38 AM EDT) WBC 7.46 4.00 - 11.00 K/uL [facility] RBC 4.43(L) 4.50 - 5.90 M/uL [facility] HGB 13.5 13.5 - 17.5 g/dL [facility] HCT 41.3 41.0 - 53.0 % [facility] PLT 240 150 - 450 K/uL [facility] MCV 93.2 80.0 - 100.0 fL [facility] MCH 30.5 27.0 - 31.0 pg [facility] MCHC 32.7 32.0 - 36.0 g/dL [facility] RDW 12.9 11.5 - 14.5 % [facility] MPV 9.8 8.4 - 12.0 fL [facility] NRBC 0.00 0.00 /100 WBCs [facility] ABSOLUTE NRBC 0.00 0.00 K/uL [facility] DIFF METHOD Auto [facility] NEUTS 55.9 48.0 - 76.0 % [facility] LYMPHS 31.2 18.0 - 41.0 % [facility] MONOS 9.8 4.0 - 11.0 % [facility] EOS 1.9 0.0 - 5.0 % [facility] BASOS 0.8 0.0 - 1.5 % [facility] Granulocytes, immature (%) 0.4 0.0 - 0.9 % [facility] ABSOLUTE NEUTS 4.17 1.92 - 7.60 K/uL [facility] ABSOLUTE LYMPHS 2.33 0.72 - 4.10 K/uL [facility] ABSOLUTE MONOS 0.73 0.16 - 1.10 K/uL [facility] ABSOLUTE EOS 0.14 0.00 - 0.50 K/uL [facility] ABSOLUTE BASOS 0.06 0.00 - 0.15 K/uL [facility] Granulocytes, immature 0.03 0.00 - 0.09 K/uL [facility] Blood 02/25/2025 10:3 8 AM EDT 02/25/2025 10:45 AM EDT us Kennedy Monroy MD LAB BLOOD ORDERABLES Final Re sult [facility] [address] [place] [address] * TSH (02/25/2025 10:38 AM EDT) TSH 2.53 0.27 - 4.20 uIU/mL [facility] Blood 02/25/2025 10:3 8 AM EDT 02/25/2025 10:45 AM EDT us Kennedy Monroy MD LAB BLOOD ORDERABLES Final Re sult [facility] [address] [place] [address] * (ABNORMAL) Lipid panel (02/25/2025 10:38 AM EDT) HDL 43 mg/dL [facility] Comment: Interpretation <40 mg/dL: Low HDL cholesterol (major risk factor for CHD) Greater than or equal to 60 mg/dL: High HDL cholesterol ( negative risk factor for CHD) HDL - cholesterol is affected by a number of factors, e.g. smoking, excerise, hormones, sex and age. CHOLESTEROL 160 0 - 240 mg/dL [facility] TRIGLYCERIDES 188(H) 30 - 160 mg/dL [facility] LDL 79 50 - 129 mg/dL [facility] Comment: LDL levels in terms of risk for coronary heart disease: <100 mg/dL: Optimal 100-129 mg/dL: Near or above optimal 130-159 mg/dL: Borderline high 160-189 mg/dL: High >190 mg/dL: Very High CARDIAC RISK RATIO 3.7 3.4 - 5.0 [facility] Blood 02/25/2025 10:3 8 AM EDT 02/25/2025 10:45 AM EDT us Kennedy Monroy MD LAB BLOOD ORDERABLES Final Re sult [facility] [address] [place] [address] * DIABETES EYE EXAM FOR RESULT ENTRY ONLY (11/14/2023 12:50 PM EST) us Historical Provider HEALTH MAINTENANCE Final Result from Last 3 Months or Most Recently Relevant to Health Maintenance Insurance MEDICARE PART A & B [employer] MEDICARE SUPPLEMENT MEDICARE PART A & B [employer] MEDICARE SUPPLEMENT MEDICARE PART A & B [facility] MEDICARE SUPPLEMENT MEDICARE PART A & B [facility] [employer] MEDICARE SUPPLEMENT MEDICARE PART A & B [facility] [employer] MEDICARE SUPPLEMENT MEDICARE PART A & B Member Subscriber Plan / Payer (Ef fective 2005-Present) Name:Margarito Mehta Member ID:[id number] Relation to Subscriber:Self Name:Margarito Mehta Subscriber ID:[id number] Payer ID:[id number] Group ID:Not on file Type:Medicare Address: [employer] [address] [place] [id number] [place] [address] [employer] MEDICARE SUPPLEMENT MEDICARE PART A & B [facility] [employer] MEDICARE SUPPLEMENT MEDICARE PART A & B Member Subscriber Plan / Payer ( fective 2005-Present) Name:Margarito Mehta Member ID:[id number] Relation to Subscriber:Self Name:Margarito Mehta Subscriber ID:[id number] Payer ID:[id number] Group ID:Not on file Type:Medicare Address: [employer] [address] [place] [id number] [employer] MEDICARE SUPPLEMENT MEDICARE PART A & B [employer] MEDICARE SUPPLEMENT Care Teams Client Technical Specialist Relationship Specialty Start Date End Date Kennedy Monroy MD [address] [place] [address] [email or web address] PCP - General 07/07/17 Kennedy Monroy MD [address] [place] [address] Insurance Assigned Provider 12/24/23 Yury Whyte MD [address] [place] [address] Orthopedic Surgery 06/30/20 Song Bloom MD [address] [place] [address] [email or web address] Nephrology 09/20/23 Kumar Nunez MD [address] [place] [address], [address] [place] [address] [email or web address] 07/11/24 Additional Source Comments The information contained in this document represents components of the legal health record. It is not the complete legal health record.[facility]
--- OUTSIDE RECORDS SUMMARY | 2025-05-28 11:37 | XMS_ITS | Clinical Summary ---
Author Organization [facility] Facility Address [address] [address] Care Team Providers Care Livestock Laborer Name Role Phone Kennedy Monroy MD Primary Care Provider [phone] Allergies Active Allergy Reactions Criticality Noted Date [...] Visit [facility] [address] [place] [address] Song Bloom MD [address] [facility] [address] [place] [address] Health Maintenance Due Date Last Done Comments Diabetes: Hemoglobin A1C 10/17/2020 06/26/2020, 04/2020 Diabetes: Ophthalmology Exam 10/17/2020 Diabetes: Pedal Pulse Checked 10/17/2020 Diabetes: Sensory Foot Exam 10/17/2020 Diabetes: Visual Foot Exam 10/17/2020 Influenza Vaccine (#1) 2025 4, 06/01/2023, 05/27/2021, Additional history exists Pneumococcal Vaccine: 50+ Years Completed 08/23/2015, 08/31/2012, 04/02/2011, Additional history exists Pneumococcal Vaccine: Peds (0 to 5 Years) and At-Risk Patients (6 to 49 Years) Discontinued 08/23/2015, 08/31/2012, 04/02/2011, Additional history exists Hepatitis B Vaccine Aged [...] % PVNMA 06/26/2020 us [facility] [id number] LICITED RESULTS Final Result PVNMA from Last 3 Months or Most Recently Relevant to Health Maintenance Insurance [facility] Medicare [facility] Medicare Care Teams Livestock Laborer Relationship Specialty Start Date End Date Kennedy Monroy MD [address] [place] [id number] PCP - General 09/29/20
--- OUTSIDE RECORDS SUMMARY | 2025-05-28 11:37 | XMS_ITS | Patient Health Record ---
Author Organization [facility] Nereida Salomon Address [address] [facility] [place] [address] Care Team Providers Care Data Analyst Etl Developer Name Role Phone Kennedy Monroy MD Primary Care Provider Unavaila Jodie Ignacio Unavailable [phone] Allergies Allergen (clinical drug ingredient) Drug/Non Drug [...] Problem Acquired hammer toe of right foot (170965149773259 5) Other hammer toe(s) (acquired), right foot (M20.41) Active confirmed Problem Acquired hammer toe of left foot (101098413495761 3) Other hammer toe(s) (acquired), left foot (M20.42) Active confirmed Problem Type II diabetes mellitus without complication (925711152) Type 2 diabetes mellitus without complications (E11.9) Active confirmed Problem Ulcer of toe of right foot (disorder) (125400143996592 01) Skin ulcer of toe of right foot, limited to breakdown of skin (L97.511) Active confirmed Plan Of Treatment Pending Test Test Name Order Date 26453-Arzpjmmd Plate 10/29/2015 67229- Debride <25 sq cm 07/04/2023 63721-IUNC SKIN LESION 03/14/2023 Insurance Providers Payer Name Payer Address Payer Phone Subscriber Number Group Number Insured Name Patient Relationship to Insured Coverage Start Date Coverage End Date Medicare National Govt Sv[employer] [address] [place] [address] [id number] Margarito Mehta Self - patient is the insured [employer] ([employer]) [address] [place] [address] [phone] [id number] Margarito Mehta Self - patient is the insured Medical (General) History Medical History History ICD Code Diabetic Kidney disease Chicken pox Transfusions Diverticulitis Cholesterol Hx DVT Right Leg Cataracts Gall bladder problems Measles Joint implants/screws Surgical History Surgery Date(Month/Year) appendectomy 1960 gall bladder 2000 bowel resection 2001 right shoulder surgery 1999 left shoulder surgery 2019
--- OUTSIDE RECORDS SUMMARY | 2025-05-28 11:37 | XMS_ITS | Encounter Summary ---
Author Organization [facility] Address [address] [facility] [address] [place] [address] Phone Care Team Providers Care Health Unit Clerk Name Role Phone Kennedy Monroy MD Primary Care Provider [phone] Encounter Details Date Type Department Care Team (Late Contact Info) Description 07/12/2022 Telephone [facility] [address] [facility] [address] [place] [address] Song Bloom MD [address] [facility] [address] [place] [address] Social History Tobacco Use Types [...] he had his labs done at [facility] on 06/29/22. He is having trouble getting them to send us over the results because he has called them 3 times and we still haven't received them. Please advise Thank you documented in this encounter Plan of Treatment Upcoming Encounters Date Type Department Care Team (Late Contact Info) Description 08/19/2025 1:15 PM EST Office Visit [facility] [address] [place] [address] Song Bloom MD [address] [facility] [address] [place] [address] documented as of this encounter Visit Diagnoses Not on filedocumented in this encounter Care Teams Health Unit Clerk Relationship Specialty Start Date End Date Kennedy Monroy MD [address] [place] [address] PCP - General 09/29/20 documented as of this encounter
--- OUTSIDE RECORDS SUMMARY | 2025-05-28 11:37 | XMS_ITS | Encounter Summary ---
Author Organization [facility] Address [address] [place] [address] [place] [address] Phone Care Team Providers Care Engineering Aide Name Role Phone Kennedy Monroy MD Primary Care Provider Kennedy Monroy MD Unavailable [phone] Kennedy Monroy MD Unavailable [phone] Yury Whyte MD Unavailable [phone] Song Bloom MD Unavailable [phone] Kumar Nunez MD Unavailable [phone] Encounter Details Date Type Department Care Team (Late st Contact Info) Description 02/21/2024 Procedure [facility], Ct Scan - [address] [address] Social History Tobacco Use Types Packs/Day Years [...] st Contact Info) Description 05/15/2025 Procedure [facility] Scan - [address] [address] 05/29/2025 3:00 PM EDT Appointment [facility], [facility] Scan - [facility] [address] [place] [address] Ollie Escobedo PA-C [address] [place], [place] [phone] 09/06/2025 1:30 PM EST Office Visit [facility] Internal Medicine [address] [place], [place] [phone] Kennedy Monroy MD [address] [place] [address] documented as of this encounter Visit Diagnoses [...] documented as of this encounter Care Teams Engineering Aide Relationship Specialty Start Date End Date Kennedy Monroy MD [address] [place], [place] PCP - General 07/07/17 Kennedy Monroy MD [address] [place] [address] Historical LMR Provider 07/09/17 07/10/24 Kennedy Monroy MD [address] [place] [address] [email or web address] Insurance Assigned Provider 12/24/23 Yury Whyte MD [address] [place] [address] Orthopedic Surgery 06/30/20 Song Bloom MD [address] [place] [address] [email or web address] [email or web address] Molder Nephrology 09/20/23 Kumar Nunez MD [address] [place] [address], [address] [place], [place] [id number] [email or web address] Ophthalmology 07/11/24 documented as of this encounter Additional Source Comments The information contained in this document represents components of the legal health record. It is not the complete legal health record.[facility]
--- OUTSIDE RECORDS SUMMARY | 2025-05-28 11:37 | XMS_ITS | Patient Health Record ---
Author Organization [facility] Address [address] [place] [address] Care Team Providers Care Industrial Furnace Fabricator Name Role Phone Daniel Jackson Unavailable [phone] Reason For Referral No Information Plan Of Treatment No Information
== END 2025-05-28 10:15 | disposition home or self-care (01) ==
LOC: HO.ACS 09:53
PROVIDERS: PCP Internal Medicine; Visit Provider Internal Medicine Medical Oncology
DX: Z79.01 Long term (current) use of anticoagulants (principal)

== ENCOUNTER → 2025-05-28 09:53 | Outpatient (BNVA) | payer MEDICARE, OTHER, SELFPAY | PROVIDERS: PCP Internal Medicine; Visit Provider Internal Medicine Medical Oncology | DX: Z51.81 Encounter for therapeutic drug level monitoring (principal); Z79.01 Long term (current) use of anticoagulants | CPT/HCPCS: 85610; 99211 ==

== ENCOUNTER 2025-06-25 09:55 | Outpatient (AMB) | payer MEDICARE, OTHER, SELFPAY ==
[2025-06-25 10:04] LABS: Prothrombin Time Whole Bld POC 30.4 sec (11.1-13.5); ~PT, ~INR - Anti Coag Clinic 2.5 (0.9-1.1)
--- NOTE | 2025-06-25 10:15 | MHC.OFFVISCO ---
Intake Intake Visit Reasons: Anticoagulation Allergies No Known Allergies Allergy (Mild, Verified 06/25/25 10:00) NOT APPLICABLE Medication List - Last Reconciled 06/25/25 by Zainab Alaniz RN amoxicillin 2,000 mg PO atorvastatin 10 mg PO DAILY magnesium 200 mg PO DAILY yimdypeihqgd-cutbgvqk-lajzqz 1 tab PO DAILY omega-3 fatty acids (Fish Oil Concentrate) 1,000 mg PO DAILY sildenafil 50 mg PO DAILY PRN sitagliptin phosphate 25 mg PO DAILY warfarin 5 mg See Protocol PO DAILY Nursing Note INR: 2.5 in therapeutic range of 2-3 Medications and supplements reviewed No changes in health, diet, medications, or supplements, Denies any signs and symptoms of bleeding or bruising or clotting. Bleeding, bruising, clotting discussed Nutritional guidance given Dose: 5mg X 6 days and 7.5mg X 1 day (Mon) F/U INR: 1 month Patient verbalizes understanding of instructions given Coding Level of Care Code Est Patient Level 1 Diagnoses Current use of anticoagulant therapy Z79.01 Assessment & Plan Assessment & Plan (1) Current use of anticoagulant therapy: Code(s): Z79.01 - oil heaterman (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
--- OUTSIDE RECORDS SUMMARY | 2025-06-25 11:31 | XMS_ITS | Encounter Summary ---
Author Organization [facility] Address [address] [place] [address] Phone Care Team Providers Care Stage Rigger Name Role Phone Kennedy Monroy MD Primary Care Provider [phone] Kennedy Monroy MD Unavailable [phone] Yury Whyte MD Unavailable [phone] Song Bloom MD Unavailable [phone] Kumar Nunez MD Unavailable [phone] Reason for Referral * MRI/CAT Scan - Closed Specialty Diagnoses / Procedures Referred By Xenia edwards Referred To Contact Radiology Diagnoses Abnormal finding on imaging Procedures MRI Cholangiopancreatography (MRCP) MRI Abdomen Ollie Escobedo PA-C [address] [place] [address] Phone: tel: fax: [email or web address] Referral ID Status Reason Start Date Expiration Date Visits Re quested Visits Authorized [id number] Closed 05/29/2025 05/29/2026 1 1 Encounter Details Date Type Department Care Team (Late st Contact Info) Description 05/29/2025 Orders Only [facility] Internal Medicine [address] [place] [address] Ollie Escobedo PA-C [address] [place] [address] [email or web address] Abnormal finding on imaging (Primary Dx) Social History Tobacco Use Types [...] with a working camera? Not on file 05 / Intimate Partner Violence Answer Date R ecorded [...] Description 09/06/2025 1:30 PM EST Office Visit [facility] Internal Medicine [address] [place] [address] Kennedy Monroy MD [address] [place] [address] [email or web address] documented as of this encounter Results * MRI CHOLANGIOPANCREATOGRAPHY (MRCP) WITH AND WITHOUT CONTRAST (06/13/2025 6:03 PM EDT) Anatomical Region Laterality Modality Pancreas, Biliary Magnetic Reson ance 06/15/2025 2:03 PM EDT Impressions 06/15/2025 2:32 PM EDT 1. The indeterminate lesion identified within the left kidney, corresponds to a hemorrhagic and/or proteinaceous cyst. There are additional hemorrhagic and/or proteinaceous cysts identified within the left kidney. 2. Multiple cystic lesions are identified within the pancreas, likely to represent intraductal papillary mucinous neoplasms. No nodular enhancement. Consider 12 month follow-up. 3. Hepatic cysts. 4. Cholecystectomy. 5. Colonic diverticulosis. Narrative 06/15/2025 2:32 PM EDT MRI CHOLANGIOPANCREATOGRAPHY (MRCP) WITH AND WITHOUT CONTRAST Referring clinician's provided indication for this examination in [facility]: *Abnormal imaging TECHNIQUE: Multiplanar MR imaging of the abdomen was performed using T1, T2, fat saturated, and diffusion weighted techniques. 2D and 3D MRCP sequences were performed. Dynamic multiphase imaging was also performed after administration of an intravenous gadolinium contrast agent. COMPARISON: CT abdomen/pelvis dated May 29, 2025. FINDINGS: Devices/Tubes/Lines: None. Lower thorax: The heart size is normal without pericardial effusion. No esophageal or paraspinal abnormality. Dependent areas of atelectasis are identified within both lungs. Liver: Normal size liver with smooth surface contour. Cerebral hepatic cysts are present, nonenhancing, including a prominent cyst involving the left hepatic lobe measuring 39 x 45 mm (image 21, series 4). No solid masses. No loss of signal is identified on opposed phase images. No intrahepatic biliary ductal dilatation. Biliary: Surgically absent gallbladder. No extrahepatic biliary ductal dilatation. Spleen: No splenomegaly or focal splenic lesions. Pancreas: Classic pancreas ductal morphology. No main duct dilatation is present. There are multiple cystic lesions identified within the pancreatic parenchyma. One within the uncinate process measures 6 x 9 mm (image 28, series 4), nonenhancing. There is a mid body cysts, abutting the main pancreas duct measuring 5 x 8 mm (image 23, series 4), nonenhancing. There are adjacent small cyst measuring 3 x 5 mm and 2 mm respectively within the mid body (image 23, series 4). There is a cyst involving the pancreas tail measuring 5 x 9 mm (image 19, series 4). Several additional 2 and 3 mm cyst involving the tail are present. Cannot demonstrate nodularity or significant intrinsic enhancement. No peripancreatic inflammatory changes. Adrenal Glands: No nodules or thickening. Kidneys/Ureters: No hydronephrosis, masses or perinephric collections. Multiple renal cysts. Many of the cysts are simple. There is however a T2 hypointense, T1 hyperintense nonenhancing hemorrhagic and/or proteinaceous cyst present within the posterior interpolar region on the left measuring 11 x 13 mm (image 81, series 1000). This corresponds to the indeterminate lesion on prior CT. An additional hemorrhagic and/or proteinaceous cyst is identified within the lower left renal pole measuring 10 x 13 mm (image 38, series 4). No ureteral dilation or focal lesion. Bowel: No mechanical bowel obstruction is present. No acute gastric or small bowel abnormality. Colonic diverticulosis. No adjacent inflammatory changes are present. The terminal ileum is normal. The appendix is nonvisualized. Peritoneum/Retroperitoneum: No masses, pneumoperitoneum, or fluid. Lymph Nodes: No lymphadenopathy. Vessels: No abdominal aortic aneurysm. Bones/Soft Tissues: No abdominal wall hernia. No masses or collections. Minor degenerative changes, no suspicious lesions. Procedure Note Nine, Osiel Ocampo MD - 06/15/2025 MRI CHOLANGIOPANCREATOGRAPHY (MRCP) WITH AND WITHOUT CONTRAST Referring clinician's provided indication for this examination in Epic:*Abnormal imaging TECHNIQUE: Multiplanar MR imaging of the abdomen was performed using T1,T2, fat saturated, and diffusion weighted techniques. 2D and 3D MRCPsequences were performed. Dynamic multiphase imaging was also performedafter administration of an intravenous gadolinium contrast agent. COMPARISON: CT abdomen/pelvis dated May 29, 2025. FINDINGS: Devices/Tubes/Lines: None. Lower thorax: The heart size is normal without pericardial effusion. Noesophageal or paraspinal abnormality. Dependent areas of atelectasis areidentified within both lungs. Liver: Normal size liver with smooth surface contour. Cerebral hepaticcysts are present, nonenhancing, including a prominent cyst involving theleft hepatic lobe measuring 39 x 45 mm (image 21, series 4). No solidmasses. No loss of signal is identified on opposed phase images. Nointrahepatic biliary ductal dilatation. Biliary: Surgically absent gallbladder. No extrahepatic biliary ductaldilatation. Spleen: No splenomegaly or focal splenic lesions. Pancreas: Classic pancreas ductal morphology. No main duct dilatation ispresent. There are multiple cystic lesions identified within thepancreatic parenchyma. One within the uncinate process measures 6 x 9 mm(image 28, series 4), nonenhancing. There is a mid body cysts, abuttingthe main pancreas duct measuring 5 x 8 mm (image 23, series 4),nonenhancing. There are adjacent small cyst measuring 3 x 5 mm and 2 mmrespectively within the mid body (image 23, series 4). There is a cystinvolving the pancreas tail measuring 5 x 9 mm (image 19, series 4).Several additional 2 and 3 mm cyst involving the tail are present. Cannotdemonstrate nodularity or significant intrinsic enhancement. Noperipancreatic inflammatory changes. Adrenal Glands: No nodules or thickening. Kidneys/Ureters: No hydronephrosis, masses or perinephric collections.Multiple renal cysts. Many of the cysts are simple. There is however a S9rwovhlstepz, T1 hyperintense nonenhancing hemorrhagic and/or proteinaceouscyst present within the posterior interpolar region on the left tammswksb52 x 13 mm (image 81, series 1000). This corresponds to the indeterminatelesion on prior CT. An additional hemorrhagic and/or proteinaceous cyst isidentified within the lower left renal pole measuring 10 x 13 mm (image38, series 4). No ureteral dilation or focal lesion. Bowel: No mechanical bowel obstruction is present. No acute gastric orsmall bowel abnormality. Colonic diverticulosis. No adjacent inflammatorychanges are present. The terminal ileum is normal. The appendix isnonvisualized. Peritoneum/Retroperitoneum: No masses, pneumoperitoneum, or fluid. Lymph Nodes: No lymphadenopathy. Vessels: No abdominal aortic aneurysm. Bones/Soft Tissues: No abdominal wall hernia. No masses or collections.Minor degenerative changes, no suspicious lesions. IMPRESSION: 1. The indeterminate lesion identified within the left kidney,corresponds to a hemorrhagic and/or proteinaceous cyst. There areadditional hemorrhagic and/or proteinaceous cysts identified within theleft kidney. 2. Multiple cystic lesions are identified within the pancreas, likely torepresent intraductal papillary mucinous neoplasms. No nodularenhancement. Consider 12 month follow-up. 3. Hepatic cysts. 4. Cholecystectomy. 5. Colonic diverticulosis. Ollie Escobedo PA-C IMG MR ABDOMEN Final Result documented in this encounter Visit Diagnoses Diagnosis Abnormal finding on imaging- Primary Other nonspecific (abnormal) findings on radiological and other examinations of body structure Abnormal finding on imaging Other nonspecific (abnormal) findings on radiological and other examinations of body structure documented in this encounter Additional Health Concerns Assessment Noted Time PHQ-2 Depression Total Score: 0 09/04/20 24 1:00 PM EST documented as of this encounter Care Teams Stage Rigger Relationship Specialty Start Date End Date Kennedy Monroy MD [address] [place] [address] PCP - General 07/07/17 Kennedy Monroy MD [address] [place] [address] [email or web address] Insurance Assigned Provider 12/24/23 Yury Whyte MD [address] [place] [address] Orthopedic Surgery 06/30/20 Song Bloom MD [address] [place] [address] [email or web address] Scagliola Mechanic Nephrology 09/20/23 Kumar Nunez MD [address] [place] [address], [address] [place] [address] [email or web address] Ophthalmology 07/11/24 documented as of this encounter Additional Source Comments The information contained in this document represents components of the legal health record. It is not the complete legal health record.[facility]
--- OUTSIDE RECORDS SUMMARY | 2025-06-25 11:31 | XMS_ITS | Patient Health Record ---
Author Organization [facility] Address [address] [place] [address] Care Team Providers Care Group Therapist Name Role Phone Daniel Jackson Unavailable [phone] Reason For Referral No Information Plan Of Treatment No Information
--- OUTSIDE RECORDS SUMMARY | 2025-06-25 11:31 | XMS_ITS | Clinical Summary ---
Author Organization [facility] Address [address] [place] [address] Phone Care Team Providers Care Ticket Worker Name Role Phone Kennedy Monroy MD Primary Care Provider Kennedy Monroy MD Unavailable Yury Whyte MD Unavailable Song Bloom MD Unavailable [phone] Kumar Nunez MD Unavailable [phone] Allergies Active Allergy Reactions Criticality Noted [...] MOUTH 1 HOUR PRIOR TO DENTAL PROCEDURE 0 Active mv-min/folic/K1/ lycopen/lutein (CENTRUM SILVER MEN ORAL) Take 1 capsule by mouth daily. Active warfarin (COUMADIN) 5 MG tabletIndication s:History of DVT (deep vein thrombosis) TAKE 1-2 TABLETS BY MOUTH DAILY DIRECTED 180 tablet 3 5 Active atorvastatin (LIPITOR) 10 MG tabletIndication s:Type 2 diabetes mellitus with stage 3b chronic kidney disease, without long-term current use of insulin TAKE 1 TABLET BY MOUTH EVERY DAY 90 tablet 3 5 Active JANUVIA 25 mg tabletIndication s:Type 2 diabetes mellitus with stage 3 chronic kidney disease, without long-term current use of insulin, unspecified whether stage 3a or 3b CKD TAKE 1 TABLET BY MOUTH EVERY DAY 90 tablet 3 5 Active Active Problems Problem Noted Date Diagnosed [...] Encounters Date Type Department Care Team Description 06/13/2025 4:25 PM EDT - 06/13/2025 11:59 PM EDT Hospital Encounter [address] [address] Ollie Escobedo PA-C Discharge Disposition: Home or Self Care 05/29/2025 2:04 PM EDT - 05/29/2025 11:59 PM EDT Hospital Encounter [address] [address] Ollie Escobedo PA-C Discharge Disposition: Home or Self Care 05/29/2025 Procedure Pass [address] [address] 05/29/2025 Orders Only [facility] [address] [place] [address] Ollie Escobedo PA-C Abnormal finding on imaging (Primary Dx) 05/16/2025 9:54 AM EDT - 05/16/2025 11:59 PM EDT Hospital Encounter [facility] [address] [place] [address] Kennedy Monroy MD Discharge Disposition: Home or Self Care 05/15/2025 3:20 PM EDT Office Visit [facility] [address] [place] [address] Ollie Escobedo PA-C Abdominal pain, RLQ (Primary Dx) 05/15/2025 Procedure Pass [address] [address] 05/15/2025 Telephone [facility] 40 [facility] [place] [address] Ivania Lobo RN Abdominal Pain 04/30/2025 Refill [facility] [address] [place] [address] Kennedy Monroy MD Medication Refill 04/21/2025 5:00 PM EDT Telemedicine [facility] 2 [facility] [address] [place] [address] Poison mallory dermatitis (Primary Dx) 04/21/2025 Nurse Triage [address] [place] [address] Ranjana Barnett, RISHI Poison Mallory (After hours call) from Last 3 Months Immunizations Immunization Administration [...] EDT Inhaled Oxygen Concentration - - Weight 74.8 kg (165 lb) 06/07/2025 12:49 PM EDT Height 167.6 cm (5' 6 ) 06/07/2025 12:49 PM EDT Body Mass Index 26.63 06/07/2025 12:49 PM EDT Plan of Treatment Upcoming Encounters Date Type Department Care Team (Late st Contact Info) Description 09/06/2025 1:30 PM EST Office Visit [facility] [address] [place] [address] Kennedy Monroy MD [address] [place] [address] [email or web address] Health Maintenance Due Date Last Done Comments [...] Procedure Name Priority Date/Time Associated Diagnosis Comments MRI CHOLANGIOPANCREATOGRAPHY (MRCP) WITH AND WITHOUT CONTRAST Routine 06/13/2025 6:03 PM EDT Abnormal finding on imaging CT ABDOMEN/PELVIS WITH CONTRAST Urgent/patien t waiting 05/29/2025 2:54 PM EDT Abdominal pain, RLQ HEMOGLOBIN A1C Routine 05/16/2025 9:59 AM EDT [...] of insulin Chronic renal failure, stage 3b HM DIABETES EYE EXAM FOR RESULT ENTRY ONLY Routine 11/14/2023 12:50 PM EST from Last 3 Months or Most Recently Relevant to Health Maintenance Results * MRI CHOLANGIOPANCREATOGRAPHY (MRCP) WITH AND [...] clinician's provided indication for this examination in Epic: *Abnormal imaging TECHNIQUE: Multiplanar MR imaging of [...] cysts are simple. There is however a V1tadtaxkmcbm, T1 hyperintense nonenhancing hemorrhagic and/or proteinaceouscyst present within the posterior interpolar region on the left x 13 mm (image 81, series 1000). [...] Escobedo PA-C IMG MR ABDOMEN Final Result * CT ABDOMEN/PELVIS WITH CONTRAST (05/29/2025 2:54 PM EDT) [facility] [place]OMMENDATION COMMENT Postsurgical changes; ventral hernias; mild dilation small bowel proximal; small bowel proximal ventral hernia; Differential: small bowel element of incomplete obstruction; Fat-containing left lateral abdominal wall hernia; Indeterminate density left renal lesion; Peripherally calcified hypoattenuating lesion proximal transverse duodenum [facility] IMG RECOMMENDATION COMMENT Postsurgical changes; ventral hernias; mild dilation small bowel proximal; small bowel proximal ventral hernia; Differential: small bowel element of incomplete obstruction; Fat-containing left lateral abdominal wall hernia; Indeterminate density left renal lesion; Peripherally calcified hypoattenuating lesion proximal transverse duodenum [facility] Anatomical Region Laterality Modality Abdomen, Pelvis Computed Tomogra phy 05/29/2025 2:56 PM EDT Impressions 05/29/2025 3:08 PM EDT 1. Postsurgical changes status post ventral hernia repair. There are 3 ventral hernias, 2 of which contain small bowel with no evidence of acute complication. There is mild dilation of small bowel proximal to a ventral hernia which may suggest an element of incomplete obstruction. 2. Fat-containing left lateral abdominal wall hernia. 3. Indeterminate density left renal lesion and probable sidebranch I PMN. Abdomen MRI is advised. 4. Peripherally calcified hypoattenuating lesion within the proximal transverse duodenum. Correlation with endoscopy should be considered. Narrative 05/29/2025 3:[address] ABDOMEN/PELVIS WITH CONTRAST Referring clinician's provided indication for this examination in Epic: * Abdominal pain, hernia suspected TECHNIQUE: Multidetector-row CT of the abdomen and pelvis was performed after administration of intravenous contrast using tailored dose modulation techniques. Images were reconstructed in the axial, coronal, and sagittal planes. COMPARISON: Chest CT 03/02/2024 FINDINGS: Lower Chest: Bilateral calcified pleural plaques. Linear opacities, favored to represent atelectasis versus scarring. No focal consolidation or pleural effusion. Liver: Well-circumscribed cyst within the anterior left hepatic lobe measuring 3.6 x 3.9 cm (series 5, image 89). There is a venous venous shunt within the posterior right hepatic lobe with additional shots within segments 5 and 6. Scattered subcentimeter hypoattenuating foci, too small to accurately characterize and statistically representing cysts. Biliary: No biliary ductal dilatation. The gallbladder is surgically absent. Spleen: No splenomegaly or focal lesions. Pancreas: No main pancreatic ductal dilation or peripancreatic inflammatory change. There is a hypodense lesion within the uncinate process of the pancreas measuring 1.1 x 0.4 cm (series 5, image 154), statistically a 5 Kuwaiti recommended. Adrenal Glands: No nodules. Kidneys/Ureters: No hydronephrosis or nephrolithiasis. Bilateral renal cysts and subcentimeter hypoattenuating foci, too small to accurately characterize and statistically representing cysts. Indeterminate density exophytic lesion from the left posterior mid kidney measuring 1.3 cm (series 5, image 149). Bowel: There is no evidence of intestinal obstruction. There is a peripherally calcified hypoattenuating lesion in the proximal transverse duodenum measuring 1.1 x 0.9 cm (series 5, image 181). Mild small bowel dilation proximal to a ventral hernia. Patent anastomosis status post left hemicolectomy. Colonic diverticulosis. No diverticulitis. Peritoneum/Retroperitoneum: No masses, pneumoperitoneum, or fluid. Lymph Nodes: Scattered abdominopelvic lymph nodes which do not meet pathologic criteria by size. Pelvic Organs/Bladder: No mass. Vessels: Negative moderate atherosclerotic vascular calcification. Patent main portal vein. Bones/Soft Tissues: Heterogeneous appearance the osseous structures. Multilevel degenerative changes of the thoracolumbar spine. Degenerative changes of the hips and symphysis pubis. No destructive bony lytic or blastic lesions. There is a fat-containing left lateral abdominal wall hernia with the aperture measuring 3.9 cm. Postsurgical changes of the anterior abdominal wall. Just lateral to the mesh, there is a 1.6 cm defect (series 5, image 195) containing small bowel with no evidence of complication. Inferior and to the right of the mesh, there are 2 adjacent defects, the more superior defect measuring 0.9 cm (series 5, image 253) and the more inferior defect measuring 1.2 cm (image 265), containing small bowel with no evidence of complication. Prominent fat along the left spermatic cord. Procedure Note Ingrid Pena MD - 05/29/2025 CT ABDOMEN/PELVIS WITH CONTRAST Referring clinician's provided indication for this examination in Epic: *Abdominal pain, hernia suspected TECHNIQUE: Multidetector-row CT of the abdomen and pelvis was performedafter administration of intravenous contrast using tailored dosemodulation techniques. Images were reconstructed in the axial, coronal,and sagittal planes. COMPARISON: Chest CT 03/02/2024 FINDINGS: Lower Chest: Bilateral calcified pleural plaques. Linear opacities,favored to represent atelectasis versus scarring. No focal consolidationor pleural effusion. Liver: Well-circumscribed cyst within the anterior left hepatic lobemeasuring 3.6 x 3.9 cm (series 5, image 89). There is a venous venousshunt within the posterior right hepatic lobe with additional shots withinsegments 5 and 6. Scattered subcentimeter hypoattenuating foci, too smallto accurately characterize and statistically representing cysts. Biliary: No biliary ductal dilatation. The gallbladder is surgicallyabsent. Spleen: No splenomegaly or focal lesions. Pancreas: No main pancreatic ductal dilation or peripancreaticinflammatory change. There is a hypodense lesion within the uncinateprocess of the pancreas measuring 1.1 x 0.4 cm (series 5, image 154),statistically a 5 Kuwaiti recommended. Adrenal Glands: No nodules. Kidneys/Ureters: No hydronephrosis or nephrolithiasis. Bilateral renalcysts and subcentimeter hypoattenuating foci, too small to accuratelycharacterize and statistically representing cysts. Indeterminate densityexophytic lesion from the left posterior mid kidney measuring 1.3 cm(series 5, image 149). Bowel: There is no evidence of intestinal obstruction. There is aperipherally calcified hypoattenuating lesion in the proximal transverseduodenum measuring 1.1 x 0.9 cm (series 5, image 181). Mild small boweldilation proximal to a ventral hernia. Patent anastomosis status post lefthemicolectomy. Colonic diverticulosis. No diverticulitis. Peritoneum/Retroperitoneum: No masses, pneumoperitoneum, or fluid. Lymph Nodes: Scattered abdominopelvic lymph nodes which do not meetpathologic criteria by size. Pelvic Organs/Bladder: No mass. Vessels: Negative moderate atherosclerotic vascular calcification. Patentmain portal vein. Bones/Soft Tissues: Heterogeneous appearance the osseous structures.Multilevel degenerative changes of the thoracolumbar spine. Degenerativechanges of the hips and symphysis pubis. No destructive bony lytic orblastic lesions. There is a fat-containing left lateral abdominal wallhernia with the aperture measuring 3.9 cm. Postsurgical changes of theanterior abdominal wall. Just lateral to the mesh, there is a 1.6 cmdefect (series 5, image 195) containing small bowel with no evidence ofcomplication. Inferior and to the right of the mesh, there are 2 adjacentdefects, the more superior defect measuring 0.9 cm (series 5, image 253)and the more inferior defect measuring 1.2 cm (image 265), containingsmall bowel with no evidence of complication. Prominent fat along the leftspermatic cord. IMPRESSION: 1. Postsurgical changes status post ventral hernia repair. There are 3ventral hernias, 2 of which contain small bowel with no evidence of acutecomplication. There is mild dilation of small bowel proximal to a ventralhernia which may suggest an element of incomplete obstruction. 2. Fat-containing left lateral abdominal wall hernia. 3. Indeterminate density left renal lesion and probable sidebranch I PMN.Abdomen MRI is advised. 4. Peripherally calcified hypoattenuating lesion within the proximaltransverse duodenum. Correlation with endoscopy should be considered. us Ollie Escobedo PA-C IMG CT ABD/PELVIS Final Resul t * Magnesium (05/16/2025 9:59 AM EDT) MAGNESIUM 2.2 1.6 - 2.6 mg/dL [facility] Blood 05/16/2025 9:59 AM EDT 05/16/2025 10:06 AM EDT us Kennedy Monroy MD LAB BLOOD ORDERABLES Final Re sult Performing Organization Address City/[facility]/ZIP Co de Phone Number [address] [address] * (ABNORMAL) Hemoglobin A1c (05/16/2025 9:59 AM EDT) HEMOGLOBIN A1C 6.8(H) 4.3 - 5.8 % [facility] Blood 05/16/2025 9:59 AM EDT 05/16/2025 10:07 AM EDT us Kennedy Monroy MD LAB BLOOD ORDERABLES Final Re sult Performing Organization Address [facility] de Phone Number [address] [address] * (ABNORMAL) Basic metabolic panel (05/16/2025 9:59 AM EDT) SODIUM 140 133 - 146 mmol/L [facility] CHLORIDE 108 96 - 108 mmol/L [facility] POTASSIUM 5.5(H) 3.3 - 5.1 mmol/L [facility] CO2 21 21 - 35 mmol/L [facility] BUN 36(H) 6 - 19 mg/dL [facility] CREATININE 1.60(H) 0.5 - 1.5 mg/dL [facility] GLUCOSE 132(H) 70 - 99 mg/dL [facility] CALCIUM 9.6 8.4 - 10.3 mg/dL [facility] EGFR 42(L) >59 mL/min/1.7 3m2 [facility] Comment:Estimated glomerular filtration rate calculated using the CKD-EPI refit equation. ANION GAP 17 10 - 20 mmol/L [facility] Blood 05/16/2025 9:59 AM EDT 05/16/2025 10:06 AM EDT us Kennedy Monroy MD LAB BLOOD ORDERABLES Final Re sult [facility] [address] [place] [address] * DIABETES EYE EXAM FOR RESULT ENTRY ONLY (11/14/2023 12:50 PM EST) us Historical Provider HEALTH MAINTENANCE Final Result from Last 3 Months or Most Recently Relevant to Health Maintenance Insurance MEDICARE PART A & B [facility] MEDICARE SUPPLEMENT MEDICARE PART A & B [facility] [employer] MEDICARE SUPPLEMENT MEDICARE PART A & B [facility] [employer] MEDICARE SUPPLEMENT MEDICARE PART A & B Member Subscriber Plan / Payer (Ef fective 2005-Present) Name:Margarito Mehta Member ID:[id number] Relation to Subscriber:Self Name:Margarito Mehta Subscriber ID:[id number] Payer ID:[id number] Group ID:Not on file Type:Medicare Address: [employer] [address] [place] [phone] [place] [address] EXTENSION MEDICARE SUPPLEMENT MEDICARE PART A & B [facility] EXTENSION MEDICARE SUPPLEMENT MEDICARE PART A & B Member Subscriber Plan / Payer ( fective 2005-Present) Name:Margarito Mehta Member ID:[id number] Relation to Subscriber:Self Name:Margarito Mehta Subscriber ID:[id number] Payer ID:[id number] Group ID:Not on file Type:Medicare Address: [employer] [address] [place] [phone] [employer] MEDICARE SUPPLEMENT MEDICARE PART A & B [employer] MEDICARE SUPPLEMENT MEDICARE PART A & B [facility] [employer]ION MEDICARE SUPPLEMENT MEDICARE PART A & B [facility] MEDICARE SUPPLEMENT Care Teams Ticket Worker Relationship Specialty Start Date End Date Kennedy Monroy MD [address] [place] [address] PCP - General 07/07/17 Kennedy Monroy MD [address] [place] [address] Insurance Assigned Provider 12/24/23 Yury Whyte MD [address] [facility] [address] [place] [address] Orthopedic Surgery 06/30/20 Song Bloom MD [address] [facility] 200 [place] [address] [email or web address] Librarian Nephrology 09/20/23 Kumar Nunez MD [address] [place] [address], [address] [place] [address] [email or web address] Ophthalmology 07/11/24 Additional Source Comments The information contained in this document represents components of the legal health record. It is not the complete legal health record.[facility]
--- OUTSIDE RECORDS SUMMARY | 2025-06-25 11:31 | XMS_ITS | Encounter Summary ---
Author Organization [facility] Address [address] [place] [address] Phone Care Team Providers Care Dry Food Products Mixer Name Role Phone Kennedy Monroy MD Primary Care Provider [phone] Kennedy Monroy MD Unavailable [phone] Yury Whyte MD Unavailable [phone] Song Bloom MD Unavailable [phone] Kumar Nunez MD Unavailable [phone] Encounter Details Date Type Department Care Team (Late st Contact Info) Description 05/29/2025 Procedure Pass [facility], [address] [address] Social History Tobacco Use Types Packs/Day Years [...] 1:30 PM EST Office Visit [facility] [address] [place] [address] Kennedy Monroy MD [address] [place] [address] documented as of this encounter Visit Diagnoses Not on filedocumented in this encounter Additional Health Concerns Assessment Noted Time PHQ-2 Depression Total Score: 0 09/04/20 24 1:00 PM EST documented as of this encounter Care Teams Dry Food Products Mixer Relationship Specialty Start Date End Date Kennedy Monroy MD [address] [place] [address] PCP - General 07/07/17 Kennedy Monroy MD [address] [place] [address] Insurance Assigned Provider 12/24/23 Yury Whyte MD [address] [place] [place] [address] Orthopedic Surgery 06/30/20 Song Bloom MD [address] [place] [address] [email or web address] 09/20/23 Kumar Nunez MD [address] [place] [address], [address] [place] [address] [email or web address] Ophthalmology 07/11/24 documented as of this encounter Additional Source Comments The information contained in this document represents components of the legal health record. It is not the complete legal health record.[facility]
--- OUTSIDE RECORDS SUMMARY | 2025-06-25 11:31 | XMS_ITS | Encounter Summary ---
Author Organization [facility] Address [address] [facility] [address] [place] [address] Phone Care Team Providers Care Pipe Joints Supervisor Name Role Phone Kennedy Monroy MD Primary Care Provider [phone] Encounter Details Date Type Department Care Team (Late Contact Info) Description 07/12/2022 Telephone [facility] [address] [facility] [address] [place] [address] Song Bloom MD [address] [facility] [address] [place] [address] Social History Tobacco Use Types [...] he had his labs done at [facility] on 06/29/22. He is having trouble getting them to send us over the results because he has called them 3 times and we still haven't received them. Please advise Thank you documented in this encounter Plan of Treatment Upcoming Encounters Date Type Department Care Team (Late Contact Info) Description 08/19/2025 1:15 PM EST Office [facility] [address] [place] [address] Song Bloom MD [address] [facility] [address] [place] [address] documented as of this encounter Visit Diagnoses Not on filedocumented in this encounter Care Teams Pipe Joints Supervisor Relationship Specialty Start Date End Date Kennedy Monroy MD [address] [place] [address] PCP - General 09/29/20 documented as of this encounter
--- OUTSIDE RECORDS SUMMARY | 2025-06-25 11:31 | XMS_ITS | Patient Health Record ---
Author Organization [facility] [place] Address [address] [place] [address] Care Team Providers Care Case Work Aide Name Role Phone Kennedy Monroy MD Primary Care Provider Unavaila Jodie Ignacio Unavailable [phone] Allergies Allergen (clinical drug ingredient) Drug/Non Drug [...] Problem Acquired hammer toe of right foot (296974747578362 5) Other hammer toe(s) (acquired), right foot (M20.41) Active confirmed Problem Acquired hammer toe of left foot (948982720032440 3) Other hammer toe(s) (acquired), left foot (M20.42) Active confirmed Problem Type II diabetes mellitus without complication (802256623) Type 2 diabetes mellitus without complications (E11.9) Active confirmed Problem Ulcer of toe of right foot (disorder) (462805409822852 01) Skin ulcer of toe of right foot, limited to breakdown of skin (L97.511) Active confirmed Plan Of Treatment Pending Test Test Name Order Date 03055-Thpxnqjl Plate 10/29/2015 14640- Debride <25 sq cm 07/04/2023 47665-VSOZ SKIN LESION 03/14/2023 Insurance Providers Payer Name Payer Address Payer Phone Subscriber Number Group Number Insured Name Patient Relationship to Insured Coverage Start Date Coverage End Date Medicare National [employer] [address] [facility] [place] [address] [id number] Margarito Mehta Self - patient is the insured [employer] [address] [place] [address] [id number] Margarito Mehta Self - patient is the insured Medical (General) History Medical History History ICD Code Diabetic Kidney disease Chicken pox Transfusions Diverticulitis Cholesterol Hx DVT Right Leg Cataracts Gall bladder problems Measles Joint implants/screws Surgical History Surgery Date(Month/Year) appendectomy 1960 gall bladder 2000 bowel resection 2001 right shoulder surgery 1999 left shoulder surgery 2019
--- OUTSIDE RECORDS SUMMARY | 2025-06-25 11:31 | XMS_ITS | Clinical Summary ---
Author Organization [facility] Address [address] [address] Care Team Providers Care Filter Press Tender Head Name Role Phone Kennedy Monroy MD Primary Care Provider [phone] Allergies Active Allergy Reactions Criticality Noted Date [...] Visit [facility] [address] [place] [address] Song Bloom MD [address] [facility] 204 [place] [address] Health Maintenance Due Date Last Done Comments Diabetes: Hemoglobin A1C 10/17/2020 06/26/2020, 04/2020 Diabetes: Ophthalmology Exam 10/17/2020 Diabetes: Pedal Pulse Checked 10/17/2020 Diabetes: Sensory Foot Exam 10/17/2020 Diabetes: Visual Foot Exam 10/17/2020 Influenza Vaccine (#1) 2025 4, 06/01/2023, 05/20/2022, Additional history exists Pneumococcal Vaccine: 50+ Years [...] % PVNMA 06/26/2020 us Rtama Conversion LAB [id number] LICITED RESULTS Final Result PVNMA from Last 3 Months or Most Recently Relevant to Health Maintenance Insurance [facility] Medicare [facility] Medicare Care Teams Filter Press Tender Head Relationship Specialty Start Date End Date Kennedy Monroy MD [address] [place] [address] PCP - General 09/29/20
--- OUTSIDE RECORDS SUMMARY | 2025-06-25 11:31 | XMS_ITS | Encounter Summary ---
Author Organization [facility] Address [address] [place] [address] [place] [address] Phone Care Team Providers Care Hot Mill Shearer Name Role Phone Kennedy Monroy MD Primary Care Provider [phone] Kennedy Monroy MD Unavailable [phone] Yruy Whyte MD Unavailable [phone] Song Bloom MD Unavailable [phone] Kumar Nunez MD Unavailable [phone] Encounter Details Date Type Department Care Team (Late st Contact Info) Description 05/15/2025 Procedure Pass [facility], Ct Scan - [address] [address] Social History Tobacco Use Types Packs/Day Years [...] EST Office Visit [facility] [address] [place] [address] Kenneyd Monroy MD [address] [place] [address] documented as of this encounter Visit Diagnoses Not on filedocumented in this encounter Additional Health Concerns Assessment Noted Time PHQ-2 Depression Total Score: 0 09/04/20 24 1:00 PM EST documented as of this encounter Care Teams Hot Mill Shearer Relationship Specialty Start Date End Date Kennedy Monroy MD [address] [place] [address] PCP - General 07/07/17 Kennedy Monroy MD [address] [place] [address] Insurance Assigned Provider 12/24/23 Yury Whyte MD [address] [place] [address] Orthopedic Surgery 06/30/20 Song Bloom MD [address] [place] [address] [email or web address] Authorizer Nephrology 09/20/23 Kumar Nunez MD [address] [place] [address], [address] [place] [address] [email or web address] Ophthalmology 07/11/24 documented as of this encounter Additional Source Comments The information contained in this document represents components of the legal health record. It is not the complete legal health record.[facility]
== END 2025-06-25 10:19 | disposition home or self-care (01) ==
LOC: HO.ACS 09:55
PROVIDERS: PCP Internal Medicine; Visit Provider Internal Medicine Medical Oncology
DX: Z79.01 Long term (current) use of anticoagulants (principal)

== ENCOUNTER → 2025-06-25 09:55 | Outpatient (BNVA) | payer MEDICARE, OTHER, SELFPAY | PROVIDERS: PCP Internal Medicine; Visit Provider Internal Medicine Medical Oncology | DX: Z51.81 Encounter for therapeutic drug level monitoring (principal); Z79.01 Long term (current) use of anticoagulants | CPT/HCPCS: 85610; 99211 ==

== ENCOUNTER 2025-07-29 10:03 | Outpatient (AMB) | payer MEDICARE, OTHER, SELFPAY ==
[2025-07-29 10:17] LABS: Prothrombin Time Whole Bld POC 22.2 sec (11.1-13.5); ~PT, ~INR - Anti Coag Clinic 1.8 (0.9-1.1)
--- NOTE | 2025-07-29 10:30 | MHC.OFFVISCO ---
Intake Intake Visit Reasons: Anticoagulation Allergies No Known Allergies Allergy (Mild, Verified 07/29/25 10:06) NOT APPLICABLE Medication List - Last Reconciled 07/29/25 by Roshni Honeycutt RN amoxicillin 2,000 mg PO atorvastatin 10 mg PO DAILY magnesium 200 mg PO DAILY olaoxnpdsukj-ooeypkrh-iabayr 1 tab PO DAILY sildenafil 50 mg PO DAILY PRN sitagliptin phosphate 25 mg PO DAILY warfarin 5 mg See Protocol PO DAILY Nursing Note INR: 1.8 out therapeutic range- has had a cold for 2 weeks - may have affected INR Medications and supplements reviewed- has taken zyrtec few days for itching (post cold) hands + feet and only at night ? r/t to medication - takes atorvastatin at night or related to recent cold or other health condiiton- has f/u with renal and PCP in near future- enc to mention to MDs No changes in diet, medications, or supplements, Denies any signs and symptoms of bleeding or bruising or clotting. 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
--- OUTSIDE RECORDS SUMMARY | 2025-07-29 11:40 | XMS_ITS | Encounter Summary ---
Author Organization [facility] Address [address] [place] [address] [place] [address] Phone Care Team Providers Care Solar Photovoltaic Designer Name Role Phone Kennedy Monroy MD Primary Care Provider [phone] Kennedy Monroy MD Unavailable [phone] Kennedy Monroy MD Unavailable [phone] Yury Whyte MD Unavailable [phone] Song Bloom MD Unavailable [phone] Kumar Nunez MD Unavailable [phone] Encounter Details Date Type Department Care Team (Late st Contact Info) Description 02/21/2024 Procedure Pass [facility], Ct Scan - [address] [address] Social History Tobacco Use Types Packs/Day Years [...] 1:30 PM EST Office Visit [facility] Internal [facility] 40 [facility] [place] [address] Kennedy Monroy MD [address] [place] [address] [email or web address] documented as of this encounter Visit Diagnoses [...] documented as of this encounter Care Teams Solar Photovoltaic Designer Relationship Specialty Start Date End Date Kennedy Monroy MD [address] [place] [address] [email or web address] PCP - General 07/07/17 Kennedy Monroy MD [address] [place] [address] Historical LMR Provider 07/09/17 07/10/24 Kennedy Monroy MD [address] [place] [address] [email or web address] Insurance Assigned Provider 12/24/23 Yury Whyte MD [address] [place] [address] Orthopedic Surgery 06/30/20 Song Bloom MD [address] [place] [address] [email or web address] Layer Nephrology 09/20/23 Kumar Nunez MD [address] [place] [address], [address] [place] [address] [email or web address] Ophthalmology 07/11/24 documented as of this encounter Additional Source Comments The information contained in this document represents components of the legal health record. It is not the complete legal health record.[facility]
--- OUTSIDE RECORDS SUMMARY | 2025-07-29 11:40 | XMS_ITS | Clinical Summary ---
Author Organization [facility] Address [address] [address] Care Team Providers Care Farmworker Pullet Farm Name Role Phone Kennedy Monroy MD Primary Care Provider [phone] Allergies Active Allergy Reactions Criticality Noted Date [...] Visit [facility] [address] [place] [address] Song Bloom MD [address] [facility] 204 [place] [address] Health Maintenance Due Date Last [...] % PVNMA 06/26/2020 us Rtama Conversion LAB [id number] LICITED RESULTS Final Result PVNMA from Last 3 Months or Most Recently Relevant to Health Maintenance Insurance [facility] Medicare [facility] Medicare Care Teams Farmworker Pullet Farm Relationship Specialty Start Date End Date Kennedy Monroy MD [address] [place] [address] PCP - General 09/29/20
--- OUTSIDE RECORDS SUMMARY | 2025-07-29 11:40 | XMS_ITS | Encounter Summary ---
Author Organization [facility] Address [address] [place] [address] Phone Care Team Providers Care Innersole Maker Name Role Phone Kennedy Monroy MD Primary Care Provider [phone] Kennedy Monroy MD Unavailable [phone] Yury Whyte MD Unavailable [phone] Song Bloom MD Unavailable [phone] Kumar Nunez MD Unavailable [phone] Encounter Details Date Type Department Care Team (Late st Contact Info) Description 05/29/2025 Procedure Pass [facility], [address] [address] Social History Tobacco Use Types Packs/Day Years [...] EST Office Visit [facility] [place] [facility] 40 [place] [address] Kennedy Monroy MD 40 [place] [address] documented as of this encounter Visit Diagnoses Not on filedocumented in this encounter Additional Health Concerns Assessment Noted Time PHQ-2 Depression Total Score: 0 09/04/20 24 1:00 PM EST documented as of this encounter Care Teams Innersole Maker Relationship Specialty Start Date End Date Kennedy Monroy MD 40 [place] [address] PCP - General 07/07/17 Kennedy Monroy MD [address] [place] [address] Insurance Assigned Provider 12/24/23 Yury Whyte MD [address] [place] [address] Orthopedic Surgery 06/30/20 Song Bloom MD [address] [place] [address] [email or web address] Supervisor Nephrology 09/20/23 Kumar Nunez MD [address] [place] [address], [address] [place] [address] [email or web address] Ophthalmology 07/11/24 documented as of this encounter Additional Source Comments The information contained in this document represents components of the legal health record. It is not the complete legal health record.[facility]
--- OUTSIDE RECORDS SUMMARY | 2025-07-29 11:40 | XMS_ITS | Encounter Summary ---
Author Organization [facility] Address [address] [facility] 200 [place] [address] Phone Care Team Providers Care Ob Gyn Name Role Phone Kennedy Monroy MD Primary Care Provider [phone] Encounter Details Date Type Department Care Team (Late Contact Info) Description 07/12/2022 Telephone [facility] [address] [facility] 200 [place] [address] Song Bloom MD [address] [facility] 204 [place] [address] Social History Tobacco Use Types [...] he had his labs done at [facility] on 06/29/22. He is having trouble getting them to send us over the results because he has called them 3 times and we still haven't received them. Please advise Thank you documented in this encounter Plan of Treatment Upcoming Encounters Date Type Department Care Team (Late Contact Info) Description 08/19/2025 1:15 PM EST Office Visit [facility] [address] [address] Song Bloom MD [address] [facility] 204 [place] [address] documented as of this encounter Visit Diagnoses Not on filedocumented in this encounter Care Teams Ob Gyn Relationship Specialty Start Date End Date Kennedy Monroy MD [address] [place] [address] PCP - General 09/29/20 documented as of this encounter
--- OUTSIDE RECORDS SUMMARY | 2025-07-29 11:40 | XMS_ITS | Encounter Summary ---
Author Organization [facility] Address [address] [place] [address] [place] [address] Phone Care Team Providers Care Hydrologic Modeler Name Role Phone Kennedy Monroy MD Primary Care Provider [phone] Kennedy Monroy MD Unavailable [phone] Yury Whyte MD Unavailable [phone] Song Bloom MD Unavailable [phone] Kumar Nunez MD Unavailable [phone] Encounter Details Date Type Department Care Team (Late st Contact Info) Description 05/15/2025 Procedure Pass [facility], Ct Scan - [address] [address] Social History Tobacco Use Types Packs/Day Years [...] EST Office Visit [facility] [place] [facility] 40 [place] [address] Kennedy Monroy MD 40 [place] [address] documented as of this encounter Visit Diagnoses Not on filedocumented in this encounter Additional Health Concerns Assessment Noted Time PHQ-2 Depression Total Score: 0 09/04/20 24 1:00 PM EST documented as of this encounter Care Teams Hydrologic Modeler Relationship Specialty Start Date End Date Kennedy Monroy MD 40 [place] [address] PCP - General 07/07/17 Kennedy Monroy MD 40 [place] [address] Insurance Assigned Provider 12/24/23 Yury Whyte MD [address] [place] [address] Orthopedic Surgery 06/30/20 Song Bloom MD [address] [place] [address] [email or web address] Fellow Nephrology 09/20/23 Kumar Nunez MD [address] [place] [address], [address] [place] [address] [email or web address] Ophthalmology 07/11/24 documented as of this encounter Additional Source Comments The information contained in this document represents components of the legal health record. It is not the complete legal health record.[facility]
--- OUTSIDE RECORDS SUMMARY | 2025-07-29 11:40 | XMS_ITS | Clinical Summary ---
Author Organization [facility] Address [address] [place] [address] Phone Care Team Providers Care Merchandise Pickup/Receiving Associate Name Role Phone Kennedy Monroy MD Primary Care Provider Kennedy Monroy MD Unavailable Yury Whyte MD Unavailable Song Bloom MD Unavailable [phone] Kumar Nunez MD Unavailable [phone] Allergies Active Allergy Reactions Criticality Noted [...] - 06/13/2025 11:59 PM EDT Hospital Encounter [address] [address] Ollie Escobedo PA-C Discharge Disposition: Home or Self Care 05/29/2025 2:04 PM EDT - 05/29/2025 11:59 PM EDT Hospital Encounter [address] [address] Ollie Escobedo PA-C Discharge Disposition: Home or Self Care 05/29/2025 Procedure Pass [address] [address] 05/29/2025 Orders Only [facility] [address] [place] [address] Ollie Escobedo PA-C Abnormal finding on imaging (Primary Dx) 05/16/2025 9:54 AM EDT - 05/16/2025 11:59 PM EDT Hospital Encounter [facility] [address] [place] [address] Kennedy Monroy MD Discharge Disposition: Home or Self Care 05/15/2025 3:20 PM EDT Office Visit [facility] [address] [place] [address] Ollie Escobedo PA-C Abdominal pain, RLQ (Primary Dx) 05/15/2025 Procedure Pass [address] [address] 05/15/2025 Telephone [facility] 40 [facility] [place] [address] Ivania Lobo RN Abdominal Pain 04/30/2025 Refill [facility] 40 [facility] [place] [address] Kennedy Monroy MD Medication Refill from Last 3 Months Immunizations Immunization Administration [...] is your housing situation today? I have lexusjanae levin 02/23/2021 How many times have you [...] Description 09/06/2025 1:30 PM EST Office Visit [facility] [address] [place] [address] Kennedy Monroy MD [address] [place] [address] [email or web address] Health Maintenance Due Date Last Done Comments DIABETIC EYE EXAM 11/14/2024 11/14/2023, , 04/09/2021, Additional history exists INFLUENZA VACCINE (#1) 2025 , 06/02/2023, 06/01/2023, Additional history exists COVID-19 VACCINE ( season) 2025 06/17/2023, 06/21/2022, 07/09/2021, Additional history exists DEPRESSION SCREENING 09/04/2025 09/04/2024 BLOOD PRESSURE 11/15/2025 05/15/2025 HEMOGLOBIN A1C 11/16/2025 05/16/2025, 06/0 05/2025, 08/31/2024, Additional history exists Adult Td,Tdap Booster 06/23/2034 06/23/2024, 012 PNEUMOCOCCAL VACCINES (50+ years) Completed 08/23/2015, 08/31/2012, 04/02/2011, Additional history exists ZOSTER VACCINES Completed 10/07/2021, 1012/2020, 09/15/2007 RSV VACCINE Completed 10/31/2023 HEPATITIS A [...] renal failure, stage 3b BASIC METABOLIC PANEL (BMP) Routine 04/20 9:59 AM EDT Type 2 diabetes mellitus [...] cysts are simple. There is however a J1icfgcyhdcts, T1 hyperintense nonenhancing hemorrhagic and/or proteinaceouscyst present within the posterior interpolar region on the left [id number] x 13 mm (image 81, series 1000). [...] Hepatic cysts. 4. Cholecystectomy. 5. Colonic diverticulosis. us Ollie Escobedo PA-C IMG MR ABDOMEN Final Result * CT ABDOMEN/PELVIS WITH CONTRAST (05/29/2025 2:54 PM EDT) Pathologist [facility] RECOMMENDATION COMMENT Postsurgical changes; ventral hernias; mild dilation small bowel proximal; small bowel proximal ventral hernia; Differential: small bowel element of incomplete obstruction; Fat-containing left lateral abdominal wall hernia; Indeterminate density left renal lesion; Peripherally calcified hypoattenuating lesion proximal transverse duodenum [facility] [place] IM RECOMMENDATION COMMENT Postsurgical changes; ventral hernias; mild dilation small bowel proximal; small bowel proximal ventral hernia; Differential: small bowel element of incomplete obstruction; Fat-containing left lateral abdominal wall hernia; Indeterminate density left renal lesion; Peripherally calcified hypoattenuating lesion proximal transverse duodenum [facility] Anatomical Region Laterality Modality Abdomen, Pelvis [...] (series 5, image 154), statistically a 5 Cymro recommended. Adrenal Glands: No nodules. Kidneys/Ureters: No [...] cm (series 5, image 154),statistically a 5 Cymro recommended. Adrenal Glands: No nodules. Kidneys/Ureters: No [...] duodenum. Correlation with endoscopy should be considered. Ollie Escobedo PA-C IMG CT ABD/PELVIS Final Resul t * Magnesium (05/16/2025 9:59 AM EDT) MAGNESIUM 2.2 1.6 - 2.6 mg/dL [facility] Blood 05/16/2025 9:59 AM EDT 05/16/2025 10:06 AM EDT us Kennedy Monroy MD LAB BLOOD BKR ORDERABLES Terri l Result [address] [address] * (ABNORMAL) Hemoglobin A1c (05/16/2025 9:59 AM EDT) HEMOGLOBIN A1C 6.8(H) 4.3 - 5.8 % [facility] Blood 05/16/2025 9:59 AM EDT 05/16/2025 10:07 AM EDT us Kennedy Monroy MD LAB BLOOD BKR ORDERABLES Terri l Result [address] [address] * (ABNORMAL) Basic metabolic panel (05/16/2025 9:59 AM EDT) SODIUM 140 133 - 146 mmol/L [facility] CHLORIDE 108 96 - 108 mmol/L [facility] POTASSIUM 5.5(H) 3.3 - 5.1 mmol/L [facility] CO2 21 21 - 35 mmol/L [facility] BUN 36(H) 6 - 19 mg/dL [facility] CREATININE 1.60(H) 0.5 - 1.5 mg/dL [facility] GLUCOSE 132(H) 70 - 99 mg/dL [facility] CALCIUM 9.6 8.4 - 10.3 mg/dL [facility] EGFR 42(L) >59 mL/min/1.7 3m2 [facility] Comment:Estimated glomerular filtration rate calculated using the CKD-EPI refit equation. ANION GAP 17 10 - 20 mmol/L [facility] Blood 05/16/2025 9:59 AM EDT 05/16/2025 10:06 AM EDT us Kennedy Monroy MD LAB BLOOD BKR ORDERABLES Terri l Result Performing Organization Address City/[facility]/ZIP Co de Phone Number [address] [address] * HM DIABETES EYE EXAM FOR RESULT ENTRY ONLY (11/14/2023 12:50 PM EST) us Historical Provider HEALTH MAINTENANCE Final Result from Last 3 Months or Most Recently Relevant to Health Maintenance Insurance MEDICARE PART A & B [employer] MEDICARE SUPPLEMENT MEDICARE PART A & B [employer] MEDICARE SUPPLEMENT MEDICARE PART A & B [facility] MEDICARE SUPPLEMENT MEDICARE PART A & B [facility] MEDICARE SUPPLEMENT MEDICARE PART A & B [facility] MEDICARE SUPPLEMENT MEDICARE PART A & B [facility] MEDICARE SUPPLEMENT MEDICARE PART A & B [facility] MEDICARE SUPPLEMENT MEDICARE PART A & B [employer] MEDICARE SUPPLEMENT MEDICARE PART A & B [email or web address] MEDICARE SUPPLEMENT [place] [phone] Care Teams Merchandise Pickup/Receiving Associate Relationship Specialty Start Date End Date Kennedy Monroy MD [address] [place] [address] PCP - General 07/07/17 Kennedy Monroy MD [address] [place] [address] Insurance Assigned Provider 12/24/23 Yury Whyte MD [address] [place] [address] Orthopedic Surgery 06/30/20 Song Bloom MD [address] [place] [address] [email or web address] Warehousing Engineer Nephrology 09/20/23 Kumar Nunez MD [address] [place] [address], [address] [place] [address] [email or web address] Ophthalmology 07/11/24 Additional Source Comments The information contained in this document represents components of the legal health record. It is not the complete legal health record.[facility]
== END 2025-07-29 10:28 | disposition home or self-care (01) ==
LOC: HO.ACS 10:03
PROVIDERS: PCP Internal Medicine; Visit Provider Internal Medicine Medical Oncology
DX: Z79.01 Long term (current) use of anticoagulants (principal)

== ENCOUNTER → 2025-07-29 10:03 | Outpatient (BNVA) | payer MEDICARE, OTHER, SELFPAY | PROVIDERS: PCP Internal Medicine; Visit Provider Internal Medicine Medical Oncology | DX: I82.4Z1 Acute embolism and thrombosis of unspecified deep veins of right distal lower extremity (principal); Z51.81 Encounter for therapeutic drug level monitoring; Z79.01 Long term (current) use of anticoagulants | CPT/HCPCS: 85610; 99211 ==

== ENCOUNTER 2025-08-13 10:08 | Outpatient (AMB) | payer MEDICARE, OTHER, SELFPAY ==
[2025-08-13 10:28] LABS: Prothrombin Time Whole Bld POC 36.6 sec (11.1-13.5); ~PT, ~INR - Anti Coag Clinic 3.1 (0.9-1.1)
--- NOTE | 2025-08-13 10:30 | MHC.OFFVISCO ---
Intake Intake Visit Reasons: Anticoagulation Allergies No Known Allergies Allergy (Mild, Verified 08/13/25 10:22) NOT APPLICABLE Medication List - Last Reconciled 08/13/25 by Zainab Alaniz RN amoxicillin 2,000 mg PO atorvastatin 10 mg PO DAILY cetirizine (Zyrtec) 5 mg PO DAILY PRN coenzyme Q10 (Co Q-10) PO magnesium 200 mg PO DAILY kuhykyviqspq-dbmoioyl-uasqva 1 tab PO DAILY sildenafil 50 mg PO DAILY PRN sitagliptin phosphate 25 mg PO DAILY warfarin 5 mg See Protocol PO DAILY Nursing Note INR: 3.1 out of therapeutic range 2-3 Medications and supplements reviewed Patient status: well Medications or supplements: no changes Diet: usual diet for pt Denies any signs and symptoms of bleeding or clotting or unusual bruising Bleeding, bruising, clotting discussed Nutritional guidance given: to have a serving of greens today Dose: 5mg X 6 days and 7.5mg X 1 day (Mon) F/U INR Date: 4 weeks?? Patient verbalizing understanding of instructions given. Coding Level of Care Code Est Patient Level 1 Diagnoses Current use of anticoagulant therapy Z79.01 Results AMB INR Fingerstick AMB INR Fingerstick 3.1 Last Edit by Zainab Alaniz RN on 08/13/25 10:29 interface delay Assessment & Plan Assessment & Plan (1) Current use of anticoagulant therapy: Code(s): Z79.01 - salvage determiner (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
--- OUTSIDE RECORDS SUMMARY | 2025-08-13 12:15 | XMS_ITS | Patient Health Record ---
Author Organization [facility]re[facility] [place] Address [address] [place] [address] Care Team Providers Care River Rat Name Role Phone eKnnedy Monroy MD Primary Care Provider Unavaila Jodie Ignacio Unavailable [phone] Allergies Allergen (clinical drug ingredient) Drug/Non Drug [...] Problem Acquired hammer toe of right foot (033325640435661 5) Other hammer toe(s) (acquired), right foot (M20.41) Active confirmed Problem Acquired hammer toe of left foot (519544797285633 3) Other hammer toe(s) (acquired), left foot (M20.42) Active confirmed Problem Type II diabetes mellitus without complication (814214186) Type 2 diabetes mellitus without complications (E11.9) Active confirmed Problem Ulcer of toe of right foot (disorder) (419595318486407 01) Skin ulcer of toe of right foot, limited to breakdown of skin (L97.511) Active confirmed Plan Of Treatment Pending Test Test Name Order Date [id number] Plate 10/29/2015 60007- Debride <25 sq cm 07/04/2023 [id number] SKIN LESION 03/14/2023 Insurance Providers Payer Name Payer Address Payer Phone Subscriber Number Group Number Insured Name Patient Relationship to Insured Coverage Start Date Coverage End Date Medicare National [employer]t [employer] [address] [facility] [place] [address] [id number] Margarito Mehta Self - patient is the insured [employer] [address] [place] [address] [id number] Margarito Mehta Self - patient is the insured Medical (General) History Medical History History ICD Code Diabetic Kidney disease Chicken pox Transfusions Diverticulitis Cholesterol Hx DVT Right Leg Cataracts Gall bladder problems Measles Joint implants/screws Surgical History Surgery Date(Month/Year) appendectomy 1960 gall bladder 2000 bowel resection 2001 right shoulder surgery 1999 left shoulder surgery 2019
--- OUTSIDE RECORDS SUMMARY | 2025-08-13 12:15 | XMS_ITS | Patient Health Record ---
Author Organization [facility] Address [address] [place] [address] Care Team Providers Care Aids Nurse Name Role Phone Daniel Jackson Unavailable [phone] Reason For Referral No Information Plan Of Treatment No Information
== END 2025-08-13 10:34 | disposition home or self-care (01) ==
LOC: HO.ACS 10:08
PROVIDERS: PCP Internal Medicine; Visit Provider Internal Medicine Medical Oncology
DX: Z79.01 Long term (current) use of anticoagulants (principal)

== ENCOUNTER → 2025-08-13 10:08 | Outpatient (BNVA) | payer MEDICARE, OTHER, SELFPAY | PROVIDERS: PCP Internal Medicine; Visit Provider Internal Medicine Medical Oncology | DX: I82.501 Chronic embolism and thrombosis of unspecified deep veins of right lower extremity (principal); Z51.81 Encounter for therapeutic drug level monitoring; Z79.01 Long term (current) use of anticoagulants | CPT/HCPCS: 85610; 99211 ==

== ENCOUNTER 2025-09-08 09:05 | Observation (INO) | payer MEDICARE, OTHER, SELFPAY ==
--- OUTSIDE RECORDS SUMMARY | 2025-09-06 13:30 | XMS_ITS | Encounter Summary ---
Author Organization [facility] Address [address] [place] [id number] Phone Care Team Providers Care Dried Fruit Washer Name Role Phone Kennedy Monroy MD Primary Care Provider [phone] Kennedy Monroy MD Unavailable Yury Whyte MD Unavailable [phone] Song Bloom MD Unavailable [phone] Kumar Nunez MD Unavailable [phone] Reason for Visit * Reason Comments Medicare Annual Wellness Visit Subsequen t Encounter Details Date Type Department Care Team (Late st Contact Info) Description 09/06/2025 1:30 PM EST Office Visit [facility] [address] [place], [place] [id number] Kennedy Monroy MD [address] [place] [address] [email or web address] Routine general medical examination at a health care facility (Primary Dx); Benign non-nodular prostatic hyperplasia with lower urinary tract symptoms; 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; Palpitations Social History Tobacco Use Types Packs/Day Years [...] ecorded Denied Basic Needs Not on file 09/06/2025 In the past 12 months have y ou been in a relationship with a person who hurts, threatens, or tries to control you? No 09/06/2025 Worried food would run out Not on file 09/06 In the past 12 months have y ou been in a relationship with a person who hurts, threatens, or tries to control you? No 09/06/2025 Sex and Gender Information Value Date Recorded Sex Assigned at Not on file Legal Sex Male 10:12 PM EDT Gender Identity Not on file Sexual Orientation Not on file documented as of this encounter Last Filed Vital Signs Vital Sign Reading Time Taken Comments Blood Pressure 125/64 09/06/2025 2:23 PM EST Pulse 87 09/06/2025 1:31 PM EST Temperature 36.1 C (97 F) 09/06/2025 1:31 PM EST Respiratory Rate 16 09/06/2025 1:31 PM EST Oxygen Saturation 97% 09/06/2025 1:31 PM EST Inhaled Oxygen Concentration - - Weight 76.2 kg (168 lb) 09/06/2025 1:31 PM EST Height 164.8 cm (5' 4.88 ) 09/06/2025 1:31 PM ES T Body Mass Index 28.06 09/06/2025 1:31 PM EST documented in this encounter Progress Notes * Kennedy Monroy MD - 09/06/2025 1:30 PM EST Subjective Margarito Mehta is a 84 y.o. male. History of Present Illness Margarito Angel is an 84 year old male who presents with nocturnal itching. He experiences itching primarily at night, affecting his hands, the tops of his feet, and his calves. There is no associated rash. He uses a generic form of Zyrtec, taking half a pill to alleviate the itching, which he finds effective but it causes drowsiness. He also applies cream to the affected areas. He has a history of diabetes, managed with Januvia. He also takes atorvastatin for cholesterol and warfarin. He drinks water, iced tea, and Snapple iced tea, ensuring they are sugar-free. He has a history of sleep apnea, which was tested a long time ago. He uses an adjustable bed to help with snoring, although it has not been effective. He drinks one or two beers a week, mostly avoiding alcohol while golfing. He ensures to stay hydrated with water and sugar-free beverages. He is retired and enjoys golfing. He has been retired for 26years and is planning to travel to [place] in November. No current pain, rash, or other symptoms during the day. No shortness of breath with exertion. He is up to date with his vaccinations, including flu and pneumonia shots. Current Outpatient Medications Ordered in [facility] Medication Sig atorvastatin (LIPITOR) 10 MG tablet TAKE 1 TABLET BY MOUTH EVERY DAY (Patient taking differently: Take 10 mg by mouth every evening.) JANUVIA 25 mg tablet TAKE 1 TABLET BY MOUTH EVERY DAY magnesium oxide (MAG-OX) 400 mg (240 mg elemental) tablet Take 400 mg by mouth every other day. mv-min/folic/K1/lycopen/lutein (CENTRUM SILVER MEN ORAL) Take 1 capsule by mouth daily. warfarin (COUMADIN) 5 MG tablet TAKE 1-2 TABLETS BY MOUTH DAILY DIRECTED amoxicillin (AMOXIL) 500 MG capsule TAKE 4 CAPSULES BY MOUTH 1 HOUR PRIOR TO DENTAL PROCEDURE Review of Systems Constitutional: Negative for unexpected weight change. HENT: Negative for changes in hearing. Eyes: Negative for unexpected vision change. Respiratory: Negative for cough and shortness of breath. Cardiovascular: Negative for chest pain and palpitations. Gastrointestinal: Negative for abdominal pain, blood in stool, constipation and diarrhea. Genitourinary: Negative for problems with urination, blood in urine and erectile dysfunction. Neurological: Negative for dizziness, headaches and changes in memory. Skin: Negative for persistent rash. Musculoskeletal: Negative for joint pain. Objective Physical Exam BP 125/64 (BP Location: Left arm, Patient Position: Sitting, Cuff Size: Medium) Pulse 87 Temp 36.1 ??C (97 ??F) (Oral) Resp 16 Ht 164.8 cm (5' 4.88 ) Wt 76.2 kg (168 lb) SpO2 97% BMI 28.06 kg/m?? CONSTITUTIONAL: Appears well- developed and well nourished. Cooperative, patient is alert. HEENT:PERRTL, EOM intact, fundi benign, TM's clear, throat clear. NECK: supple, no thyroid megaly, no adenopathy. LUNGS: clear to A&P,no wheezing/rhonichi/rales. HEART: RRR S1S2 without murmurs, rubs or gallops. ABDOMEN: bowel sounds: normal, soft non tender without masses. EXTREMITIES: without edema, clubbing or cyanosis. RECTAL: Prostate mildly enlarged, 1+ BPH. NEUROLOGICAL: Diminished vibration sense. EKG: NE 168 MS, QRS 90 MS, QTC 442 MS, QRS axis 33 degrees, HR 74 BPM. WN no acute change. Assessment & Plan Routine medical exam Type 2 diabetes mellitus with stage 3b chronic kidney disease Diabetes managed with Januvia. Discussed potential neuropathy symptoms related to diabetes. - Continue Januvia 25 mg oral daily. - Encouraged hydration and monitoring of blood glucose levels. Benign prostatic hyperplasia with lower urinary tract symptoms Mild BPH with nocturia, possibly related to fluid intake. - Continue to monitor urinary symptoms and fluid intake. Diabetic polyneuropathy Intermittent itching at night, possibly related to neuropathy. Zyrtec provides relief but causes drowsiness. - Continue Zyrtec as needed for itching, consider reducing dose to minimize drowsiness. - Consider liquid Zyrtec for easier dosing. Palpitations No current palpitations reported. No recent EKG available. - Ordered EKG to assess current cardiac status. Hyperlipidemia Managed with atorvastatin. - Continue atorvastatin 10 mg oral daily. General health maintenance Up to date with flu and pneumonia vaccinations. - Continue annual dermatology visits. - Ensure vaccinations are up to date. I obtained verbal consent from the patient or their proxy to record this visit for purposes of producing a draft of the encounter documentation. documented in this encounter Plan of Treatment Upcoming Encounters Date Type Department Care Team (Latest Contact Info) Description 09/10/2025 3:00 PM EST Office Visit [facility] G[facility] [address] [place] [id number] Jennifer Aleman PA-C [address] [place] [phone] [email or web address] 09/24/2025 1:00 PM EST Office Visit [facility] [address] [facility], [address] [place] [address] Song Nolan MD [address] [place] [id number] [email or web address] 09/25/[address] [facility] Endoscopy Admitting Dept Virtual Department [address] [place] [address] 09/25/2025 9:45 AM EST Hospital Encounter [facility] Endoscopy Admitting Dept Virtual Department [address] [place] [address] Elie Santacruz MD [address] [facility] [address] [place] [address] [email or web address] 09/25/2025 9:45 AM EST - 09/25/2025 10:00 AM EST Surgery [facility] Endoscopy Admitting Dept Virtual Department [address] [place] [address] Elie Santacruz MD [address] [facility] [address] [place] [address] [email or web address] ESOPHAGOGASTRODUODENOSCOPY 02/21/2026 2:00 PM EDT Office Visit [facility] [address] [place] [address] Kennedy Monroy MD [address] [place] [address] [email or web address] 09/08/2026 1:00 PM EST Office Visit [facility] [address] [place] [address] Ollie Escobedo PA-C [address] [place] [address] [email or web address] Scheduled Orders Name Type Priority Associated Diagnoses Orde r Schedule ECG 12-LEAD ECG Routine Palpitations Expected: 09/06/2025, Expires: 12/05/2025 Scheduled Procedures Name Priority Associated Diagnoses Date/Ti hi ESOPHAGOGASTRODUODENOSCOPY Abnormal finding on GI tract imaging 09/25/2025 9:45 AM EST documented as of this encounter Visit Diagnoses Diagnosis Routine general medical examination at a health care facility- Primary Benign non-nodular prostatic hyperplasia with lower urinary tract symptoms 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 Palpitations Abnormal finding on GI tract imaging documented in this encounter Additional Health Concerns Assessment Noted Time PHQ-2 Depression Total Score: 0 09/06/20 25 1:44 PM EST documented as of this encounter Care Teams Dried Fruit Washer Relationship Specialty Start Date End Date Kennedy Monroy MD [address] [place] [address] PCP - General 07/07/17 Kennedy Monroy MD [address] [place] [address] Insurance Assigned Provider 12/24/23 Yury Whyte MD [address] [place] [address] Orthopedic Surgery 06/30/20 Song Bloom MD [address] [place] [address] [email or web address] Senior Manufacturing Engineer Nephrology 09/20/23 Kumar Nunez MD [address] [place] [address], [address] [place] [address] Ophthalmology 07/11/24 documented as of this encounter Additional Source Comments The information contained in this document represents components of the legal health record. It is not the complete legal health record.[facility]
[2025-09-08] VITALS (11 sets, daily range): BP systolic 126–198; BP diastolic 72–108; PULSE 73–111; RESP 16–19; TEMP 36.4–36.8; O2SAT 94–98; BMI 26.2; BMI 25.6
--- NOTE | ~2025-09-08 | CT_ITS ---
CLINICAL HISTORY: fall, AC use CT of the head without intravenous contrast Comparison: None Findings: The ventricles and sulci are prominent, consistent with generalized cerebral parenchymal volume loss. The ventricles are symmetric and the basilar cisterns are intact. Mild periventricular, deep and subcortical white matter hypodensities are nonspecific but statistically reflect the sequela of chronic small vessel ischemic change. No intracranial hemorrhage, extra-axial fluid collection, midline shift or mass-effect is evident. No evidence of acute large vessel or territorial ischemia. Brainstem and cerebellum unremarkable. Vascular calcifications indicate intracranial atherosclerosis. The imaged portion of the paranasal sinuses are clear. No mastoid effusions are demonstrated. The orbital contents are unremarkable. Calvarium is intact. Impression: 1. No CT evidence of acute intracranial abnormality. 2. Cerebral volume loss, intracranial atherosclerotic disease and mild sequela of chronic small vessel ischemic disease. This document has been electronically signed by: Arias Harris MD on 09/08/2025 11:53:24
--- NOTE | ~2025-09-08 | CT_ITS ---
CLINICAL HISTORY: abd pain, syncope, AC use CT abdomen and pelvis with IV contrast Comparison: None Findings: Subsegmental dependent atelectasis. No dependent layering pleural effusions. The heart is not enlarged. Coronary artery calcifications: None. Liver normal size and contour. 5 cm probable cyst left lobe of the liver can be correlated with ultrasound. Patent hepatic and portal veins. Post cholecystectomy. Homogeneous enhancement of the pancreas. No splenomegaly. Normal adrenal glands. Symmetrical renal excretion with no segmental or diffuse renal parenchymal disease or evidence of obstructive uropathy/hydroureteronephrosis. Bilateral renal cortical cysts. Normal caliber abdominal aorta. Increased stool burden rectosigmoid colon. Evidence of sigmoid anastomosis. No significant diverticular disease. No free air. No evidence of bowel necrosis. No evidence of mechanical bowel obstruction.Appendix not visualized. Diverticulosis coli without CT evidence of acute diverticulitis. No intraperitoneal, retroperitoneal, pelvic or inguinal masses lymphadenopathy or abnormal fluid collections. Normal distention of the urinary bladder. Three small supraumbilical ventral abdominal wall hernias just to the right of midline containing loops of small bowel without obstruction. This is caudal to the level of the anterior abdominal wall mesh. No vertebral body compression fractures or spondylolisthesis. No bony destructive lesions. Impression: 1. Increased stool burden rectosigmoid colon. Evidence of left partial hemicolectomy. No evidence of mechanical bowel obstruction. A total of 3 small supraumbilical ventral abdominal wall hernias to the right of midline caudal to the abdominal wall mesh. No evidence of omental infarction or a site of mechanical bowel obstruction at these hernial levels. 2. Suspect renal and hepatic cysts can be correlated with ultrasound. Post cholecystectomy. No evidence of solid organ injury. 3. Osseous structures intact. This document has been electronically signed by: Arias Harris MD on 09/08/2025 11:58:53
--- NOTE | ~2025-09-08 | CT_ITS ---
CLINICAL HISTORY: syncope CT angiography chest using contrast. 3-D postprocessing Comparison: None Findings: There is good opacification of the main, right and left pulmonary arteries. No CT evidence of pulmonary embolism. Normal caliber thoracic aorta and great vessels. Heart size within normal limits. RV/LV ratio normal. Shotty mediastinal lymph nodes. No lymphadenopathy. Subsegmental dependent atelectasis. No pulmonary masses/nodules or infiltrates are noted. No pneumothorax or pleural effusions. Calcified pleural plaques lung bases. No thyroid nodules demonstrated. No chest wall masses.No axillary adenopathy. Probable hepatic and renal cortical cysts. Post cholecystectomy. No vertebral body compression fractures. Bilateral total shoulder arthroplasties. Subtle rib fractures may be obscured by motion Impression: 1. No CT evidence of pulmonary embolus. 2. Normal caliber thoracic aorta. 3. Subsegmental dependent atelectasis. Calcified pleural plaques lung bases. This document has been electronically signed by: Arias Harris MD on 09/08/2025 12:06:37
--- NOTE | 2025-09-08 09:12 | ED_ITS ---
HPI - General Adult General Chief complaint: Fall Stated complaint: ABD PAIN FALL YESTERDAY Time Seen by Provider: 09/08/25 09:11 Source: patient, family (patient's ) and EMS Mode of arrival: EMS Limitations: no limitations History of Present Illness ED Provider: Yazmin Castanon PA-C HPI narrative: Patient is an 84 year old male with a history of DVT on warfarin, several abdominal surgeries including a perforation repair after a colonoscopy and hemicolectomy, and asbestos lung plagues, presenting to the emergency department today with abdominal pain and a syncopal episode. Patient states that yesterday he had a normal day and then passed out. Patient states that he was moving some things around, standing up, when all of a sudden he passed out. Patient states that he hit his head with the incident. Patient states that he has been having intermittent abdominal pain and recently had an MRCP (06/15/2025) for which he is awaiting GI follow up and plans to see a Dr. Song Nolan at [facility] if he were to need any additional abdominal surgeries. Patient denies any other complaints at this time. Relieving factors: none Exacerbating factors: none Associated symptoms: syncope Treatments prior to arrival: none Related Data Home Medications ?Medication ?Instructions ?Recorded ?Confirmed sildenafil 50 mg tablet 50 mg PO DAILY PRN intercour se 09/02/20 08/13/25 sitagliptin phosphate 25 mg tablet 25 mg PO DAILY 08/1908/13/25 amoxicillin 500 mg capsule 2,000 mg PO 03/06/21 magnesium 200 mg tablet 200 mg PO DAILY 07/21/21 [id number]-ozvpghvf-mcnjlj tablet 1 tab PO DAILY 11/0908/13/25 atorvastatin 10 mg tablet 10 mg PO DAILY 04/03/2407/21 cetirizine 5 mg tablet (Zyrtec) 5 mg PO DAILY PRN 07/2008/13/25 coenzyme Q10 [Co Q-10] PO 07/29/25 08/13/25 Previous Rx's ?Medication ?Instructions ?Recorded warfarin 5 mg tablet 5 mg PO DAILY #90 tabs 07/08 Allergies Allergy/AdvReac Type Severity Reaction Status Date / Time No Known Allergies Allergy Mild NOT Verified 09/08/25 09:15 APPLICABLE Review of Systems 2 Constitutional: Constitutional: Reports as per HPI Eyes: Eyes: Reports as per HPI ENT: Reports as per HPI Cardiovascular: Cardiovascular: Reports as per HPI Respiratory: Respiratory: Reports as per HPI Gastrointestinal: Gastrointestinal: Reports as per HPI Genitourinary: Genitourinary: Reports as per HPI Musculoskeletal: Musculoskeletal: Reports as per HPI Integumentary/Breasts: Skin/Breast: Reports as per HPI Neurologic: Reports as per HPI Psychiatric: Psychiatric: Reports as per HPI Endocrine: Endocrine: Reports as per HPI Hematologic/Lymphatic: Hematologic/Lymphatic: Reports as per HPI Allergic/Immunologic: Allergic/Immunologic: Reports as per HPI [facility] Past Medical History Attestation statement: The following information was validated with the patient. (all information validated with the patient's ) Source: old records reviewed, obtained from family (patient's provided additional history and confirmed the history provided by the patient. ) and nursing notes reviewed Medical History DVT (deep venous thrombosis) Social History Social History Smoked in Last 30 Days: No Use of substances other than those prescribed or required for medical reasons: No Advance Directives: Yes Advance Directives Information Provided: No Advance Directives on File: No Do you have a plan to hurt others: No Plan Physical Exam ED Vital Signs: Vital Signs - 24 hr 09/08/25 09:12 09/08/25 09:17 09/08/25 09:17 Temperature 97.5 F 97.5 F 97.5 F Pulse Rate 80 80 80 Respiratory Rate 16 16 16 Blood Pressure 181/108 H 181/108 H 181/108 H Pulse Oximetry 98 98 98 Oxygen Delivery Method Room Air Room Air 09/08/25 12:08 Temperature 97.9 F Pulse Rate 73 Respiratory Rate 19 Blood Pressure 162/83 H Pulse Oximetry 98 Oxygen Delivery Method Room Air BMI result Body Mass Index 26.2 Const General: cooperative, no acute distress, alert and awake Nutritional Appearance: well nourished Orientation/consciousness: patient oriented x3 HENMT Head: Yes normal to inspection and Yes atraumatic Ears: hearing grossly normal bilaterally and external ears normal General nose exam: Normal external nose present, no nasal discharge noted and no epistaxis Face and sinus: Yes normal facial exam, No abrasion and No laceration Mouth: Normal oral and palatal mucosa present, no drooling and no muffled voice Eyes General: appearance normal, both eyes and all related structures Periorbital: periorbital findings normal Eyelids: Yes eyelids normal Conjunctivae: conjunctivae normal Pupils: Equal, round and reactive pupils present EOM: EOMs intact bilaterally Neck Neck: Yes normal visual inspection and Yes full ROM Resp Effort & Inspection: normal respiratory effort and able to speak in complete sentences GI Inspection: Yes distended Palpation (GI): Soft to palpation, not firm, nontender, no guarding and not rigid Neuro General: patient oriented x3, moves all extremities and CN's II-XI intact bilaterally Cranial nerves: Yes Equal, round and reactive pupils present Cognition (Neuro): normal cognition Extrem General: Yes normal to inspection, Yes full ROM and Yes capillary refill normal Psych Appearance: grossly normal Mental Status: mental status grossly normal Affect: normal affect Attitude: cooperative Thought process: Normal thought process present Thought content: Normal thought content present Insight: Good insight present (Psych) Course Course Course Narrative: Patient's provided the patient's MRCP report from 06/15/2025: Medications Administered Discontinued Medications Generic Name Dose Route Start Last Admin Trade Name Freq PRN Reason Stop Dose Admin Iohexol 100 ml 09/08/25 10:47 09/08/25 10:48 Iohexol 350 Mg/Ml 100 Ml Infus..Btl IV 09/08/25 10:48 65 ml ONCE ONE Administration Medical Decision Making Medical Decision Making [facility] Narrative: Patient is an 84 year old male with a history of DVT on warfarin, several abdominal surgeries including a perforation repair after a colonoscopy and hemicolectomy, and asbestos lung plagues, presenting to the emergency department today with abdominal pain and a syncopal episode. Patient's physical exam was as noted in the physical exam portion of this note. Patient's blood work showed a slightly elevated BUN at 35, CR of 1.65, and potassium of 5.3. Labs otherwise unremarkable. Patient's urine showed no acute process. Patient's EKG showed sinus rhythm with PVCs and no obvious evidence of ischemia or infarct. Patient's CT PE study showed no PE. CT head showed no acute process. Patient's CT abd/pelvis showed increased stool burden in the colon with no evidence of obstruction as well as renal and hepatic cysts and ventral wall hernias. Patient's previously performed MRCP from 05/2025 has been stickered and sent to medical records, pictures are in the course portion of this note and the patient already has GI follow up secured for it's findings. I staffed this patient with Dr. Dias who recommended medical admission for a continued syncopal work up. I spoke with the hospitalist team who agreed to admission. I explained my physical exam findings as well as all test results to the patient and the patient's . I answered all questions asked by the patient and the patient's . Patient and the patient's verbalized agreement and understanding with this treatment plan and admission. Differential Diagnosis Differential Diagnoses: The differential diagnosis associated with the presentation includes Syncope Arrhythmia PE Admission/Observation Consideration of admission/observation: Escalation of care including admission/observation considered Patient admitted as noted in the MDM Rationale portion of this note. Consult Healthcare Provider Management of the patient was discussed with: Hospitalist (agreed to admission as noted in the MDM Rationale portion of this note. ) Lab Data [facility] Lab Attestation statement: I reviewed the patient's lab results. My interpretation of these results are in the MDM Rationale portion of this note. 09/08/25 09:24 09/08/25 09:24 Labs: Lab Results 09/08/25 09/08/25 09/08/25 Range/Units 09:24 09:59 10:48 WBC 9.2 (4.8-10.8) X10*3/uL RBC 4.26 L (4.60-5.80) X10*6/uL Hgb 12.8 L (14.0-18.0) g/dl Hct 38.5 L (42.0-52.0) % MCV 90.4 (80.0-98.0) fL MCH 30.0 (27.0-33.0) pg MCHC 33.2 (31.0-36.0) g/dl RDW 13.2 (11.0-16.0) % Plt Count 165 (160-400) X10*3/uL MPV 9.3 L (9.4-12.4) fL Immature Gran % (Auto) 0.3 (0.0-0.4) % Neut % (Auto) 55.6 (45-73) % Lymph % (Auto) 31.1 (20-40) % [place] % (Auto) 10.2 (2-11) % Eos % (Auto) 2.1 (0-4) % Baso % (Auto) 0.7 (0-2) % Lymph # (Auto) 2.9 (1.2-4.9) X10*3/uL [place] # (Auto) 0.9 (0.1-1.2) X10*3/uL Eos # (Auto) 0.2 (0.0-0.4) X10*3/uL Baso # (Auto) 0.1 (0.0-0.2) X10*3/uL Abs Immat Gran (auto) 0.03 (0.00-0.03) X10*3/uL Absolute Neuts (auto) 5.1 (2.0-8.3) x10*3/uL Absolute Nucleated RBC 0.000 (0.0-0.012) X10*3/uL Nucleated RBC % (auto) 0.0 (0.0-0.2) /100WBC PT 30.3 H (11.2-13.5) SEC INR 2.5 H (0.9-1.1) Sodium 142 (135-145) mmol/L Potassium 5.3 H (3.3-5.1) mmol/L Chloride 115 H (96-108) mmol/L Carbon Dioxide 20 L (22-29) mmol/L Anion Gap 12 (12-20) BUN 35 H (9-16) mg/dL Creatinine 1.65 H (0.5-1.4) mg/dL Estim Creat Clear Calc 32.2 Estimated GFR 40 POC Glucose (60-115) mg/dL Random Glucose 136 H (60-115) mg/dL Calcium 9.1 (8.4-10.2) mg/dL Magnesium 2.2 (1.6-2.6) mg/dL Total Bilirubin 0.7 (0.0-1.0) mg/dL AST 31 (5-37) U/L ALT 20 (0-40) U/L Alkaline Phosphatase 49 (39-117) U/L Troponin I High Sens 4.5 (<3.5-35.0) ng/L Total Protein 7.3 (6.5-8.0) g/dL Albumin 4.0 (3.5-5.0) g/dL Urine Color Yellow Urine Appearance Clear Urine pH 5.5 (5.0-9.0) Ur Specific [place] 1.015 (1.005-1.025) Urine Protein 30 (1+) H (Neg-Trace) mg/dL Urine Glucose (UA) 100 H (Negative) mg/dL Urine Ketones Negative (Negative) mg/dL Urine Blood Trace H (Negative) Urine Nitrite Negative (Negative) Ur Leukocyte Esterase Negative (Negative) Urine RBC 0-2 (0-2) /HPF Urine WBC 0-5 (0-5) /HPF Ur Squamous Epith Cells 0-2 (0-2) /HPF Urine Bacteria None Seen (None Seen) Hyaline Casts 0-2 (0-2) /LPF Influenza Type A (PCR) NEGATIVE (Negative) Influenza Type B (PCR) NEGATIVE (Negative) RSV RNA Qual (PCR) NEGATIVE (Negative) SARS-CoV-2 RNA (RT-PCR) NEGATIVE (Negative) 09/08/25 Range/Units 12:14 WBC (4.8-10.8) X10*3/uL RBC (4.60-5.80) X10*6/uL Hgb (14.0-18.0) g/dl Hct (42.0-52.0) % MCV (80.0-98.0) fL MCH (27.0-33.0) pg MCHC (31.0-36.0) g/dl RDW (11.0-16.0) % Plt Count (160-400) X10*3/uL MPV (9.4-12.4) fL Immature Gran % (Auto) (0.0-0.4) % Neut % (Auto) (45-73) % Lymph % (Auto) (20-40) % [place] % (Auto) (2-11) % Eos % (Auto) (0-4) % Baso % (Auto) (0-2) % Lymph # (Auto) (1.2-4.9) X10*3/uL [place] # (Auto) (0.1-1.2) X10*3/uL Eos # (Auto) (0.0-0.4) X10*3/uL Baso # (Auto) (0.0-0.2) X10*3/uL Abs Immat Gran (auto) (0.00-0.03) X10*3/uL Absolute Neuts (auto) (2.0-8.3) x10*3/uL Absolute Nucleated RBC (0.0-0.012) X10*3/uL Nucleated RBC % (auto) (0.0-0.2) /100WBC PT (11.2-13.5) SEC INR (0.9-1.1) Sodium (135-145) mmol/L Potassium (3.3-5.1) mmol/L Chloride (96-108) mmol/L Carbon Dioxide (22-29) mmol/L Anion Gap (12-20) BUN (9-16) mg/dL Creatinine (0.5-1.4) mg/dL Estim Creat Clear Calc Estimated GFR POC Glucose 98 (60-115) mg/dL Random Glucose (60-115) mg/dL Calcium (8.4-10.2) mg/dL Magnesium (1.6-2.6) mg/dL Total Bilirubin (0.0-1.0) mg/dL AST (5-37) U/L ALT (0-40) U/L Alkaline Phosphatase (39-117) U/L Troponin I High Sens (<3.5-35.0) ng/L Total Protein (6.5-8.0) g/dL Albumin (3.5-5.0) g/dL Urine Color Urine Appearance Urine pH (5.0-9.0) Ur Specific [place] (1.005-1.025) Urine Protein (Neg-Trace) mg/dL Urine Glucose (UA) (Negative) mg/dL Urine Ketones (Negative) mg/dL Urine Blood (Negative) Urine Nitrite (Negative) Ur Leukocyte Esterase (Negative) Urine RBC (0-2) /HPF Urine WBC (0-5) /HPF Ur Squamous Epith Cells (0-2) /HPF Urine Bacteria (None Seen) Hyaline Casts (0-2) /LPF Influenza Type A (PCR) (Negative) Influenza Type B (PCR) (Negative) RSV RNA Qual (PCR) (Negative) SARS-CoV-2 RNA (RT-PCR) (Negative) Independent Interpretation I performed an independent interpretation of an: CT Scan Interpretation: My interpretation is in agreement with the radiologist's impression of these imaging studies as written below.. Report Number: [id number]: Total DLP = 517.00 mGy-cm Reason for Exam: syncope CLINICAL HISTORY: syncope CT angiography chest using contrast. 3-D postprocessing Comparison: None Findings: There is good opacification of the main, right and left pulmonary arteries. No CT evidence of pulmonary embolism. Normal caliber thoracic aorta and great vessels. Heart size within normal limits. RV/LV ratio normal. Shotty mediastinal lymph nodes. No lymphadenopathy. Subsegmental dependent atelectasis. No pulmonary masses/nodules or infiltrates are noted. No pneumothorax or pleural effusions. Calcified pleural plaques lung bases. No thyroid nodules demonstrated. No chest wall masses.No axillary adenopathy. Probable hepatic and renal cortical cysts. Post cholecystectomy. No vertebral body compression fractures. Bilateral total shoulder arthroplasties. Subtle rib fractures may be obscured by motion Impression: 1. No CT evidence of pulmonary embolus. 2. Normal caliber thoracic aorta. 3. Subsegmental dependent atelectasis. Calcified pleural plaques lung bases. This document has been electronically signed by: Arias Harris MD on 09/08/2025 12:06:37 Dictated By: Arias Harris MD Signed By: Electronically signed by Arias Harris MD 09/08/25 1208 Report Number: [id number]: Total DLP = 814.00 mGy-cm Reason for Exam: abd pain, syncope, AC use CLINICAL HISTORY: abd pain, syncope, AC use CT abdomen and pelvis with IV contrast Comparison: None Findings: Subsegmental dependent atelectasis. No dependent layering pleural effusions. The heart is not enlarged. Coronary artery calcifications: None. Liver normal size and contour. 5 cm probable cyst left lobe of the liver can be correlated with ultrasound. Patent hepatic and portal veins. Post cholecystectomy. Homogeneous enhancement of the pancreas. No splenomegaly. Normal adrenal glands. Symmetrical renal excretion with no segmental or diffuse renal parenchymal disease or evidence of obstructive uropathy/hydroureteronephrosis. Bilateral renal cortical cysts. Normal caliber abdominal aorta. Increased stool burden rectosigmoid colon. Evidence of sigmoid anastomosis. No significant diverticular disease. No free air. No evidence of bowel necrosis. No evidence of mechanical bowel obstruction.Appendix not visualized. Diverticulosis coli without CT evidence of acute diverticulitis. No intraperitoneal, retroperitoneal, pelvic or inguinal masses lymphadenopathy or abnormal fluid collections. Normal distention of the urinary bladder. Three small supraumbilical ventral abdominal wall hernias just to the right of midline containing loops of small bowel without obstruction. This is caudal to the level of the anterior abdominal wall mesh. No vertebral body compression fractures or spondylolisthesis. No bony destructive lesions. Impression: 1. Increased stool burden rectosigmoid colon. Evidence of left partial hemicolectomy. No evidence of mechanical bowel obstruction. A total of 3 small supraumbilical ventral abdominal wall hernias to the right of midline caudal to the abdominal wall mesh. No evidence of omental infarction or a site of mechanical bowel obstruction at these hernial levels. 2. Suspect renal and hepatic cysts can be correlated with ultrasound. Post cholecystectomy. No evidence of solid organ injury. 3. Osseous structures intact. This document has been electronically signed by: Arias Harris MD on 09/08/2025 11:58:53 Dictated By: Arias Harris MD Signed By: Electronically signed by Arias Harris MD 09/08/25 1159 Report Number: [id number]: Total DLP = 647.00 mGy-cm Reason for Exam: fall, AC use CLINICAL HISTORY: fall, AC use CT of the head without intravenous contrast Comparison: None Findings: The ventricles and sulci are prominent, consistent with generalized cerebral parenchymal volume loss. The ventricles are symmetric and the basilar cisterns are intact. Mild periventricular, deep and subcortical white matter hypodensities are nonspecific but statistically reflect the sequela of chronic small vessel ischemic change. No intracranial hemorrhage, extra-axial fluid collection, midline shift or mass-effect is evident. No evidence of acute large vessel or territorial ischemia. Brainstem and cerebellum unremarkable. Vascular calcifications indicate intracranial atherosclerosis. The imaged portion of the paranasal sinuses are clear. No mastoid effusions are demonstrated. The orbital contents are unremarkable. Calvarium is intact. Impression: 1. No CT evidence of acute intracranial abnormality. 2. Cerebral volume loss, intracranial atherosclerotic disease and mild sequela of chronic small vessel ischemic disease. This document has been electronically signed by: Arias Harris MD on 09/08/2025 11:53:24 Dictated By: Arias Harris MD Signed By: Electronically signed by Arias Harris MD 09/08/25 1154 I independently interpreted this EKG and am in agreement with the below findings: Vent. Rate: 72 BPM Atrial Rate: 72 BPM P-R Int: 160 ms QRS Dur: 88 ms QT Int: 408 ms P-R-T Axes: 64 16 64 degrees QTcB Int: 446 ms Sinus rhythm with occasional Premature ventricular complexes When compared with ECG of 04-Nov-2005 14:18, Premature ventricular complexes are now Present DD/ 0924 Radiology Impression Discussion of test interpretation with radiology: I have reviewed the radiologist's reading. Independent Historian Clinical information obtained from an independent historian. History obtained from or confirmed by: Spouse (patient's provided additional history and confirmed the history provided by the patient. ) and EMS (EMS provided additional history and confirmed the history provided by the patient. ) External Record Review External record reviewed: Other (MRCP result reviewed as noted in the MDM Rationale portion of this note. ) Critical Care Time Critical Care Time Critical Care Time: Yes Total Critical Care Time: 49 Attestation: I spent 49 minutes of Critical Care Time with this patient. This does not include time spent on separately reported billable procedures. Discharge Plan Discharge Clinical Impression: Syncope Patient Disposition: Admitted As Inpatient Interventions: Admission Worksheet (ED) Last Done: 09/08/25 13:07
--- NOTE | 2025-09-08 09:21 | ECG_ITS ---
Test Reason : SYNCOPY Blood Pressure : */* mmHG Vent. Rate : 72 BPM Atrial Rate : 72 BPM P-R Int : 160 ms QRS Dur : 88 ms QT Int : 408 ms P-R-T Axes : 64 16 64 degrees QTcB Int : 446 ms Sinus rhythm with occasional Premature ventricular complexes Otherwise normal ECG When compared with ECG of 04-Nov-2005 14:18, Premature ventricular complexes are now Present Referred By: Yazmin Castanon Electronically Signed By: AUGUSTA BRISENO MD
[2025-09-08 09:29] LABS: MANUAL DIFF FLAG NO
[2025-09-08 09:32] LABS: Hematocrit 38.5 % (42.0-52.0); Hemoglobin 12.8 g/dl (14.0-18.0); Imm Gran Abs Auto 0.03 X10*3/uL (0.00-0.03); Imm Gran Pct Auto 0.3 % (0.0-0.4); Lymphocytes Absolute Auto 2.9 X10*3/uL (1.2-4.9); Mean Corpuscular HGB Conc 33.2 g/dl (31.0-36.0); Mean Corpuscular Hemoglobin 30.0 pg (27.0-33.0); Mean Corpuscular Volume 90.4 fL (80.0-98.0); NRBC Abs Auto 0.000 X10*3/uL (0.0-0.012); NRBC Pct Auto 0.0 /100WBC (0.0-0.2); Platelet Count 165 X10*3/uL (160-400); Red Blood Count 4.26 X10*6/uL (4.60-5.80); White Blood Count 9.2 X10*3/uL (4.8-10.8)
[2025-09-08 09:38] LABS: INTERNATIONAL NORM RATIO 2.5 (0.9-1.1); Prothrombin Time 30.3 SEC (11.2-13.5)
--- NOTE | 2025-09-08 09:39 | PC.NURSE ---
A&O x 3 Patient presents to ED after having syncople episode Patient fell outside home +HS On warfarin Unknown downtime Patient went about his day until night time when he experienced pain in his ABD ABD noted to be rotund IV 20G LAC Patient hypertensive (see vitals) All other VSS and up to date Blood collected / sent on front desk monitor = NSR provider in to see patient Plan of care on going
[2025-09-08 09:46] LABS: Alanine Aminotransferase 20 U/L (0-40); Albumin Level 4.0 g/dL (3.5-5.0); Alkaline Phosphatase 49 U/L (39-117); Anion Gap 12 (12-20); Aspartate Amino Transferase 31 U/L (5-37); Blood Urea Nitrogen 35 mg/dL (9-16); Calcium 9.1 mg/dL (8.4-10.2); Carbon Dioxide 20 mmol/L (22-29); Chloride 115 mmol/L (96-108); Creatinine Clr Calc Pharmacy 32.2; Estimated Glomerular Filt Rate 40; Magnesium 2.2 mg/dL (1.6-2.6); Potassium 5.3 mmol/L (3.3-5.1); Sodium 142 mmol/L (135-145); Total Protein 7.3 g/dL (6.5-8.0)
[2025-09-08 09:52] LABS: Troponin-I High Sensitivity 4.5 ng/L (<3.5-35.0)
--- OUTSIDE RECORDS SUMMARY | 2025-09-08 09:53 | XMS_ITS | Encounter Summary ---
Author Organization [facility] Address [address] [place] [address] [place] [address] Phone Care Team Providers Care Chain Mortiser Operator Name Role Phone Kennedy Monroy MD Primary Care Provider [phone] Kennedy Monroy MD Unavailable [phone] Kennedy Monroy MD Unavailable [phone] Yury Whyte MD Unavailable [phone] Song Bloom MD Unavailable [phone] Kumar Nunez MD Unavailable [phone] Encounter Details Date Type Department Care Team (Late st Contact Info) Description 02/21/2024 Procedure Pass [facility], Ct Scan - [address] [address] Social History Tobacco Use Types Packs/Day Years [...] Description 09/10/2025 3:00 PM EST Office Visit [facility] [address] [place] [phone] Jennifer Aleman PA-C [address] [address] [email or web address] 09/24/2025 1:00 PM EST Office Visit [facility] [address] [facility], [address] [place] [address] Song Nolan MD [address] [place] [email or web address] 09/25/2025 Procedure Pass [facility]oscopy Admitting Dept Virtual Department [address] [place] [phone] 09/25/2025 9:45 AM EST Hospital Encounter [facility] Admitting [facility] Virtual Department [address] [place] [phone] Elie Santacruz MD [address] [address] [email or web address] 09/25/2025 9:45 AM EST - 09/25/2025 10:00 AM EST Surgery [facility] Endoscopy Admitting Dept Virtual Department [address] [place] [phone] Elie Santacruz MD [address] [address] [email or web address] ESOPHAGOGASTRODUODENOSCOPY 02/21/2026 2:00 PM EDT Office Visit [facility] [address] [place] [address] Kennedy Monroy MD [address] [place] [address] [email or web address] 09/08/2026 1:00 PM EST Office Visit [facility] [address] [place] [address] Ollie Escobedo PA-C [address] [place] [address] [email or web address] Scheduled Procedures Name Priority Associated Diagnoses Date/Ti mt ESOPHAGOGASTRODUODENOSCOPY Abnormal finding on GI tract imaging 09/25/2025 9:45 AM EST documented as of this encounter Visit Diagnoses Not on filedocumented in this encounter Additional Health Concerns Infection Onset Date Last Indicated Resolved Time CoV-Risk 07/11/2024 07/11/2024 07/22/2024 1:22 AM EDT CoV-Risk 11/15/2024 11/15/2024 11/26/2024 1:22 AM EDT Influenza A 11/15/2024 11/15/2024 11/22/2024 1:2 2 AM EST Assessment Noted Time PHQ-2 Depression Total Score: 0 08/19/20 12:55 PM EST documented as of this encounter Care Teams Chain Mortiser Operator Relationship Specialty Start Date End Date Kennedy Monroy MD [address] [place] [address] [email or web address] PCP - General 07/07/17 Kennedy Monroy MD [address] [place] [id number] [email or web address] Historical LMR Provider 07/09/17 07/10/24 Kennedy Monroy MD [address] [place] [address] [email or web address] Insurance Assigned Provider 12/24/23 Yury Whyte MD [address] [place], [place] [address]lilly Danielle [address] [address] Orthopedic Surgery 06/30/20 Song Bloom MD [facility] [address] [place] [address] [email or web address] Wel[employer] Machine Operator [employer] Nephrology 09/20/23 Kumar Nunez MD [address] [place] [address], [address] [place] [address] [email or web address] Ophthalmology 07/11/24 documented as of this encounter Additional Source Comments The information contained in this document represents components of the legal health record. It is not the complete legal health record.[facility]
--- OUTSIDE RECORDS SUMMARY | 2025-09-08 09:53 | XMS_ITS | Encounter Summary ---
Author Organization [facility] Address [address] [place] [address] Phone Care Team Providers Care Desizing Pad Operator Name Role Phone Kennedy Monroy MD Primary Care Provider [phone] Kennedy Monroy MD Unavailable [phone] Yury Whyte MD Unavailable [phone] Song Bloom MD Unavailable [phone] Kumar Nunez MD Unavailable [phone] Encounter Details Date Type Department Care Team (Late st Contact Info) Description 05/15/2025 Procedure Pass [facility], Ct Scan - [address] [address] Social History Tobacco Use Types Packs/Day Years [...] Description 09/10/2025 3:00 PM EST Office Visit [facility] [address] [place] [address] Jennifer Aleman PA-C [address] [place] [address] [email or web address] 09/24/2025 1:00 PM EST Office Visit [facility] [address], [address] [place] [address] Song Nolan MD [address] [place] [address] [email or web address] 09/25/2025 Procedure Pass [facility] Admitting [facility] Virtual Department [address] [place] [phone] 09/25/2025 9:45 AM EST Hospital Encounter [facility] Virtual Department [address] [place] [address] Elie Santacruz MD [address] [address] [email or web address] 09/25/2025 9:45 AM EST - 09/25/2025 10:00 AM EST Surgery [facility] Admitting [facility] Virtual Department [address] [place] [phone] Elie Santacruz MD [address] [address] [email or web address] ESOPHAGOGASTRODUODENOSCOPY 02/21/2026 2:00 PM EDT Office Visit [facility] [address] [place] [address] Kennedy Monroy MD [address] [place] [address] [email or web address] 09/08/2026 1:00 PM EST Office Visit [facility] [address] [place] [address] Ollie Escobedo PA-C [address] [place] [address] [email or web address] Scheduled Procedures Name Priority Associated Diagnoses Date/Ti me ESOPHAGOGASTRODUODENOSCOPY Abnormal finding on GI tract imaging 09/25/2025 9:45 AM EST documented as of this encounter Visit Diagnoses Not on filedocumented in this encounter Additional Health Concerns Assessment Noted Time PHQ-2 Depression Total Score: 0 09/04/20 1:00 PM EST documented as of this encounter Care Teams Desizing Pad Operator Relationship Specialty Start Date End Date Kennedy Monroy MD [address] [place] [address] PCP - General 07/07/17 Kennedy Monroy MD [address] [place] [address] Insurance Assigned Provider 12/24/23 Yury Whyte MD [address] [place] [address] Orthopedic Surgery 06/30/20 Song Bloom MD [address] [place] [address] [email or web address] 09/20/23 Kumar Nunez MD [address] [place] [address], [address] [place] [address] [email or web address] Ophthalmology 07/11/24 documented as of this encounter Additional Source Comments The information contained in this document represents components of the legal health record. It is not the complete legal health record.[facility]
--- OUTSIDE RECORDS SUMMARY | 2025-09-08 09:53 | XMS_ITS | Patient Health Record ---
Author Organization [facility] Address [address] [place] [phone] Care Team Providers Care Prototype Engineer Manager Name Role Phone Daniel Jackson Unavailable [phone] Reason For Referral No Information Plan Of Treatment No Information
--- OUTSIDE RECORDS SUMMARY | 2025-09-08 09:53 | XMS_ITS | Encounter Summary ---
Author Organization [facility] Address [address] [facility] [address] [place] [address] Phone Care Team Providers Care Floor Nurse Name Role Phone Kennedy Monroy MD Primary Care Provider [phone] Encounter Details Date Type Department Care Team (Late Contact Info) Description 07/12/2022 Telephone [facility] [address] [facility] [address] [place] [address] Song Bloom MD [address] [facility] [address] [place] [address] Social History Tobacco Use Types [...] he had his labs done at [facility] on 06/29/22. He is having trouble getting them to send us over the results because he has called them 3 times and we still haven't received them. Please advise Thank you documented in this encounter Plan of Treatment Upcoming Encounters Date Type Department Care Team (Late Contact Info) Description 08/25/2026 1:15 PM EST Office Visit [facility] [address] [place] [address] Song Bloom MD [address] [facility] [address] [place] [address] documented as of this encounter Visit Diagnoses Not on filedocumented in this encounter Care Teams Floor Nurse Relationship Specialty Start Date End Date Kennedy Monroy MD [address] [place] [phone] PCP - General 09/29/20 documented as of this encounter
--- OUTSIDE RECORDS SUMMARY | 2025-09-08 09:53 | XMS_ITS | Clinical Summary ---
Author Organization [facility] Address [address] [place] [address] Phone Care Team Providers Care Coupon And Bond Collection Clerk Name Role Phone Kennedy Monroy MD Primary Care Provider Kennedy Monroy MD Unavailable Yury Whyte MD Unavailable [phone] Song Bloom MD Unavailable Kumar Nunez MD Unavailable [phone] Allergies Active Allergy Reactions Criticality Noted [...] EVERY DAY 90 tablet 3 5 Active Additional Information Patient taking differently:10 mg OralEvery evening, Reported on 09/06/2025 JANUVIA 25 mg tabletIndication s:Type 2 diabetes [...] insufficiency 10/11/2017 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 Resolved Problems Problem Noted Date Diagnosed Date Resolved Date 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, without long-term current use of insulin 10/11/2017 09/06/2025 Encounters Date Type Department Care Team Description 09/06/2025 1:30 PM EST Office Visit [facility] [address] [facility] [place] [place] [address] Kennedy Monroy MD Routine general medical examination at a health care facility (Primary Dx); Benign non-nodular prostatic hyperplasia with lower urinary tract symptoms; 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; Palpitations 08/30/2025 Telephone [facility] [address] [place] [address] Elie Santacruz MD 08/17/2025 Orders Only [facility] [address] [place] [phone] Elie Santacruz MD Abnormal finding on GI tract imaging (Primary Dx) 08/14/2025 Telephone [facility] [address] [place] [address] Kennedy Monroy MD Referral 08/14/2025 Telephone [facility] [address] [place] [address] Kennedy Monroy MD GI appt 08/09/2025 3:30 PM EST Office Visit [facility] [address] [facility] [place] [place] [address] Kennedy Monroy MD Type 2 diabetes mellitus with stage 3b chronic kidney disease, without long-term current use of insulin (Primary Dx); Chronic renal failure, stage 3b; Pure hypercholesterolem ia; Anemia, unspecified type; History of recurrent deep vein thrombosis (DVT) 08/09/2025 Orders Only [facility] [address] [place] [address] ProviderSurinder MD 07/31/2025 Telephone [facility] [address] [place] [address] Kennedy Monroy MD Medical Question 06/13/2025 4:25 PM EDT - 06/13/2025 11:59 PM EDT Hospital Encounter [address] [address] Ollie Escobedo, PAShakeelC Discharge Disposition: Home or Self Care 05/29/2025 Procedure Pass [address] [address] from Last 3 Months Immunizations Immunization Administration Dates Next Due COVID-19 (Pre-07/11) [employer] Vaccine, mRNA, PF 11/12/2020,10/21/2020 INFLUENZA, SPLIT VIRUS, TRIV ALENT W/ PRESERVATIVE IM 07/26/2011 Influenza High-Dose Quadriva lent Preservative Free IM 06/21/2022,05/27/2021 Influenza High-Dose Trivalen t Preservative Free IM 07/31/2025,06/23/2024,05/26/2019,05/25,06/26/2017,05/31/2016,06/27/2015 ,06/07/2014,06/19/2013 Influenza Quadrivalent Adjuv anted Preservative Free IM 06/01/2023,06/10/2020 Influenza Quadrivalent Prese rvative Free IM 06/11/2020 Influenza, Unspecified Formulation 05/20,05/27/2021,07/02/2010,06/26 Pneumococcal conjugate PCV13 08/23/2015 Pneumococcal polysaccharide PPSV23 [...] Mass Index 28.06 09/06/2025 1:31 PM EST Plan of Treatment Upcoming Encounters Date Type Department Care Team (Latest Contact Info) Description 09/10/2025 3:00 PM EST Office Visit [facility] [address] [place] [address] Jennifer Aleman PA-C [address] [place] [address] [email or web address] 09/24/2025 1:00 PM EST Office Visit [facility] [address], [address] [place] [address] Song Nolan MD [address] [place] [address] [email or web address] 09/25/2025 Procedure Pass [facility]oscopy Admitting Dept Virtual Department [address] [place] [address] 09/25/2025 9:45 AM EST Hospital Encounter [facility] Admitting [facility] Virtual Department [address] [place] [address] Elie Santacruz MD [address] [address] [email or web address] 09/25/2025 9:45 AM EST - 09/25/2025 10:00 AM EST Surgery [facility] Endoscopy Admitting Dept Virtual Department [address] [place] [address] Elie Santacruz MD [address] [address] [email or web address] ESOPHAGOGASTRODUODENOSCOPY 02/21/2026 2:00 PM EDT Office Visit [facility] [address] [place], [place] [phone] Kennedy Monroy MD [address] [place] [address] [phone] [email or web address] 09/08/2026 1:00 PM EST Office Visit [facility] [address] [place] [address] Ollie Escobedo PA-C [address] [place], [place] [phone] [email or web address] Scheduled Procedures Name Priority Associated Diagnoses Date/Ti me ESOPHAGOGASTRODUODENOSCOPY Abnormal finding on GI tract imaging 09/25/2025 9:45 AM EST Health Maintenance Due Date Last Done Comments COVID-19 VACCINE ( season) 2025 06/17/2023, 06/21/2022, 07/09/2021, Additional history exists HEMOGLOBIN A1C 02/10/2026 08/13/2025, 0804/2025, 02/25/2025, Additional history exists BLOOD PRESSURE 03/07/2026 09/06/2025 DIABETIC EYE EXAM 08/09/2026 08/09/2025, , 07/23/2022, Additional history exists DEPRESSION SCREENING 09/06/2026 09/06/2025 Adult Td,Tdap Booster 06/23/2034 06/23/2024, 012 PNEUMOCOCCAL VACCINES (50+ years) Completed 08/23/2015, 08/31/2012, 04/02/2011, Additional history exists ZOSTER VACCINES Completed 10/07/2021, 12/2020, 09/15/2007 RSV VACCINE Completed 10/31/2023 INFLUENZA VACCINE Completed 07/31/2025, , 06/02/2023, Additional history exists HEPATITIS A VACCINES Aged Out No long [...] Procedure Name Priority Date/Time Associated Diagnosis Comments URINE SEDIMENT Routine 08/13/2025 9:15 AM EST History of recurrent deep vein thrombosis (DVT) TOTAL PROTEIN CREATININE RATIO, RANDOM URINE Routine 08/13/2025 9:15 AM EST Stage 3b chronic kidney disease Type 2 diabetes mellitus with stage 3b chronic kidney disease, 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 MICROALBUMIN/CREATININE RATIO, RANDOM URINE Routine 08/13/2025 9:15 AM EST History of recurrent deep vein thrombosis (DVT) URINALYSIS WITH REFLEX TO URINE CULTURE Routine 08/13/2025 9:15 AM EST History of recurrent deep vein thrombosis (DVT) CBC AND DIFFERENTIAL Routine 08/13/2025 9:10 AM EST Chronic renal failure, stage 3b Anemia, unspecified type History of recurrent deep vein thrombosis (DVT) 25-OH VITAMIN D Routine 08/13/2025 9:10 AM EST Stage 3b chronic kidney disease Type 2 diabetes mellitus with stage 3b chronic kidney disease, 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 MAGNESIUM Routine 08/13/2025 9:10 AM EST Stage 3b chronic kidney disease Type 2 diabetes mellitus with stage 3b chronic kidney disease, 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 PHOSPHORUS Routine 08/13/2025 9:10 AM EST Stage 3b chronic kidney disease Type 2 diabetes mellitus with stage 3b chronic kidney disease, 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 PARATHYROID HORMONE (PTH) Routine 2024 9:10 AM EST Stage 3b chronic kidney disease Type 2 diabetes mellitus with stage 3b chronic kidney disease, 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 IRON AND IRON BINDING CAPACITY Routine 08/13/2025 9:10 AM EST Anemia, unspecified type FERRITIN Routine 08/13/2025 9:10 AM EST Anemia, unspecified type LIPID PANEL Routine 08/13/2025 9:10 AM EST Type 2 diabetes mellitus with stage 3b chronic kidney disease, without long-term current use of insulin HEMOGLOBIN A1C Routine 08/13/2025 9:10 AM EST Type 2 diabetes mellitus with stage 3b chronic kidney disease, without long-term current use of insulin CBC AND DIFFERENTIAL Routine 08/13/2025 9:10 AM EST Chronic renal failure, stage 3b Anemia, unspecified type History of recurrent deep vein thrombosis (DVT) COMPREHENSIVE METABOLIC PANE L (CMP) Routine 08/13/2025 9:10 AM EST Chronic renal failure, stage 3b Anemia, unspecified type History of recurrent deep vein thrombosis (DVT) HM DIABETES EYE EXAM FOR RESULT ENTRY ONLY Routine 08/09/2025 9:54 AM EST MRI CHOLANGIOPANCREATOGRAPHY (MRCP) WITH AND WITHOUT CONTRAST Routine 06/13/2025 6:03 PM EDT Abnormal finding on imaging from Last 3 Months Results * (ABNORMAL) Urinalysis with Reflex to Urine Culture (08/13/2025 9:15 AM EST) Color Yellow Yellow 08/13/2025 11:32 AM [facility] Clarity Clear Clear 08/13/2025 11:32 AM [facility] Glucose Negative Negative 08/13/2025 11:32 AM [facility] Bilirubin Urine Negative Negative 11:32 AM [facility] Ketone Urine Negative Negative 08/13/2025 11:32 AM [facility] Specific Novinger 1.020 1.001 - 1.035 08/13/2025 11:32 AM [facility] Blood Trace(A) Negative 08/13/2025 11:32 AM [facility] pH 6.0 5.0 - 8.0 08/13/2025 11:32 AM [facility] Protein Negative Negative 08/13/2025 11:32 AM [facility] Nitrites Negative Negative 08/13/2025 11:32 AM [facility] Leukocyte Esterase Negative Negative 08/13/2025 11:32 AM [facility] Urobilinogen Negative Negative 08/13/2025 11:32 AM [facility] Urine (Urine, Voided) Non-Blood Collection / Unknown 08/13/2025 9:15 AM EST 08/13/2025 9:16 AM EST us Kennedy Monroy MD LAB URINE ORDERABLES Final Re sult [facility] [address] [place] [address] * Protein/Creatinine Ratio, Random Urine, Total (08/13/2025 9:15 AM EST) Total Protein/Creatinine Ratio, Urine 0.07 <0.15 08/13/2025 12:25 PM [facility] Comment:Ratios <0.2 reflect insignificant protein excretion. Total Protein, Urine 6.6 <=13.5 mg/dL 08/13/2025 12:25 PM [facility] Creatinine, Urine 97 mg/dL 025 12:25 PM [facility] Urine (Urine, Voided) Non-Blood Collection / Unknown 08/13/2025 9:15 AM EST 08/13/2025 9:16 AM EST [facility] - 08/13/2025 12:25 PM EST The reference interval(s) are unavailable for this specimen type. Comparison of this result with other laboratory results, such as the concentration in the blood, serum, or plasma, is recommended. The test result should be integrated into the clinical context for interpretation. Song Bloom MD LAB URINE ORDERABLES Final Re sult [address] [address] * (ABNORMAL) Urine Sediment (08/13/2025 9:15 AM EST) WBC 0-2 0 - 9 /hpf 08/13/2025 11:48 AM [facility] RBC 3-5(A) 0 - 2 /hpf 08/13/2025 11:48 AM [facility] Squamous Epithelial Cells 3-5(A) Not Present /hpf 08/13/2025 11:48 AM [facility] Urine (Urine, Voided) Non-Blood Collection / Unknown 08/13/2025 9:15 AM EST 08/13/2025 9:16 AM EST us Kennedy Monroy MD LAB URINE ORDERABLES Final Re sult Performing Organization Address City/[facility]/ZIP Co de Phone Number [address] [address] * Microalbumin/Creatinine Ratio, Random Urine (08/13/2025 9:15 AM EST) Creatinine, Urine 97 mg/dL 08/13/2025 12:25 PM [facility] Microalbumin, Urine 1.3 <2.0 mg/dL 08/13/2025 12:25 PM [facility] MALB/CRE 13.4 <30.0 mg/g Cre 08/13/2025 12:25 PM [facility] Urine (Urine, Voided) Non-Blood Collection / Unknown 08/13/2025 9:15 AM EST 08/13/2025 9:16 AM EST [facility] - 08/13/2025 12:25 PM EST The reference interval(s) are unavailable for this specimen type. Comparison of this result with other laboratory results, such as the concentration in the blood, serum, or plasma, is recommended. The test result should be integrated into the clinical context for interpretation. us Kennedy Monroy MD LAB URINE ORDERABLES Final Re [facility] [address] [place] [address] * (ABNORMAL) Comprehensive Metabolic Panel (CMP) (08/13/2025 9:10 AM EST) Sodium 142 136 - 145 mmol/L 08/13/2025 12:56 PM [facility] Potassium 5.2(H) 3.4 - 5.1 mmol/L 08/13/2025 12:56 PM [facility] Chloride 108(H) 98 - 107 mmol/L 08/13/2025 12:56 PM [facility] CO2 20 20 - 31 mmol/L 08/13/2025 12:56 PM [facility] Anion Gap 14 3 - 17 mmol/L 08/13/2025 12:56 PM [facility] BUN 38(H) 6 - 23 mg/dL 08/13/2025 12:56 PM [facility] Creatinine 1.50(H) 0.60 - 1.30 mg/dL 08/13/2025 12:56 PM [facility] eGFR 46(L) >59 mL/min/1.7 3m2 08/13/2025 12:56 PM [facility] Comment:Estimated glomerular filtration rate calculated using the CKD-EPI refit equation. Glucose 129(H) 70 - 99 mg/dL 08/13/2025 12:56 PM [facility] Calcium 9.5 8.5 - 10.5 mg/dL 08/13/2025 12:56 PM [facility] AST 18 <40 U/L 08/13/2025 12:56 PM [facility] ALT 15 <50 U/L 08/13/2025 12:56 PM [facility] Alkaline Phosphatase 52 40 - 130 U/L 08/13/2025 12:56 PM [facility] Bilirubin, Total 0.6 0.0 - 1.2 mg/dL 08/13/2025 12:56 PM [facility] Total Protein 6.9 6.4 - 8.3 g/dL 08/13/2025 12:56 PM [facility] Albumin 4.1 3.5 - 5.2 g/dL 08/13/2025 12:56 PM [facility] Globulin 2.8 1.9 - 4.1 g/dL 08/13/2025 12:56 PM [facility] Blood (Blood) Venipuncture / Unknown 08/13/2025 9:10 AM EST 08/13/2025 9:10 AM EST us Kennedy Monroy MD LAB BLOOD BKR ORDERABLES Terri gutierrez Result [facility] [address] [place] [address] * (ABNORMAL) CBC and Differential (08/13/2025 9:10 AM EST) WBC 8.29 4.00 - 11.00 K/uL 08/13/2025 10:47 AM [facility] RBC 4.36(L) 4.50 - 5.90 M/uL 08/13/2025 10:47 AM [facility] Hemoglobin 13.3(L) 13.5 - 17.5 g/dL 08/13/2025 10:47 AM [facility] Hematocrit 40.1(L) 41.0 - 53.0 % 08/13/2025 10:47 AM [facility] MCV 92.0 80.0 - 100.0 fL 08/13/2025 10:47 AM [facility] MCH 30.5 27.0 - 31.0 pg 08/13/2025 10:47 AM [facility] MCHC 33.2 32.0 - 36.0 g/dL 08/13/2025 10:47 AM [facility] MPV 9.8 8.4 - 12.0 fL 08/13/2025 10:47 AM [facility] RDW-CV 12.8 11.5 - 14.5 % 08/13/2025 10:47 AM [facility] PLT 187 150 - 450 K/uL 08/13/2025 10:47 AM [facility] Neutrophils 44.6 % 08/13/2025 10:47 AM [facility] Lymphocytes 40.3 % 08/13/2025 10:47 AM [facility] Monocytes 9.3 % 08/13/2025 10:47 AM [facility] Eosinophils 4.2 % 08/13/2025 10:47 AM [facility] Basophils 1.1 % 08/13/2025 10:47 AM [facility] Imm Grans 0.5 % 08/13/2025 10:47 AM [facility] NRBC 0.0 <=0.0 /100 WBCs 08/13/2025 10:47 AM [facility] Absolute Neutrophils 3.70 1.92 - 7.60 K/uL 08/13/2025 10:47 AM [facility] Absolute Lymphocytes 3.34 0.72 - 4.10 K/uL 08/13/2025 10:47 AM [facility] Absolute Monocytes 0.77 0.16 - 1.10 K/uL 08/13/2025 10:47 AM [facility] Absolute Eosinophils 0.35 0.00 - 0.50 K/uL 08/13/2025 10:47 AM [facility] Absolute Basophils 0.09 0.00 - 0.15 K/uL 08/13/2025 10:47 AM [facility] Absolute Imm Grans 0.04 0.00 - 0.09 K/uL 08/13/2025 10:47 AM [facility] Absolute NRBC 0.00 <=0.00 K cells/uL 08/13/2025 10:47 AM [facility] Absolute Neutrophils 3.70 1.92 - 7.60 K/uL 08/13/2025 10:47 AM [facility] Comment:Automated cell count . Manual ANC may differ if performed. Diff Type Auto 08/13/2025 10:47 AM [facility] Blood (Blood) Venipuncture / Unknown 08/13/2025 9:10 AM EST 08/13/2025 9:10 AM EST Kennedy Monroy MD LAB BLOOD BKR ORDERABLES Terri l Result [address] [address] * Iron and Total Iron Binding Capacity (Iron/TIBC) (08/13/2025 9:10 AM EST) [facility] Iron 88 45 - 182 ug/dL 08/13/2025 12:56 PM [facility] Total Iron-Binding Capacity (TIBC) 268 220 - 460 ug/dL 08/13/2025 12:56 PM [facility] Transferrin Saturation 33 14 - 50 % 08/13/2025 12:56 PM [facility] Blood (Blood) Venipuncture / Unknown 08/13/2025 9:10 AM EST 08/13/2025 9:10 AM EST Kennedy Monroy MD LAB BLOOD BKR ORDERABLES Terri l Result [address] [address] * 25-OH Vitamin D (08/13/2025 9:10 AM EST) 25-OH Vitamin D, Total 32 20 - 50 ng/mL 08/13/2025 12:28 PM [facility] Comment: Severe deficiency: <10 ng/mL Mild to moderate deficiency: 10-19 ng/mL Optimum levels: 20-50 ng/mL Increased risk of hypercalciuria: 51-80 ng/mL Possible toxicity: >80 ng/mL Blood (Blood) Venipuncture / Unknown 08/13/2025 9:10 AM EST 08/13/2025 9:10 AM EST us Song Bloom MD LAB BLOOD BKR ORDERABLES Terri l Result Performing Organization Address [facility] Co de Phone Number [address] [address] * Phosphorus (08/13/2025 9:10 AM EST) [facility] Phosphorus 3.2 2.5 - 4.5 mg/dL 08/13/2025 12:56 PM [facility] Blood (Blood) Venipuncture / Unknown 08/13/2025 9:10 AM EST 08/13/2025 9:10 AM EST us Song Bloom MD LAB BLOOD BKR ORDERABLES Terri l Result Performing Organization Address [facility] Co de Phone Number [address] [address] * Parathyroid Hormone (PTH) (08/13/2025 9:10 AM EST) Pathologist [facility] Parathyroid Hormone (PTH) 63 15 - 65 pg/mL 08/13/2025 12:28 PM [facility] Blood (Blood) Venipuncture / Unknown 08/13/2025 9:10 AM EST 08/13/2025 9:10 AM EST us Song Bloom MD LAB BLOOD BKR ORDERABLES Terri l Result [address] [address] * Magnesium (08/13/2025 9:10 AM EST) Magnesium 2.1 1.7 - 2.6 mg/dL 08/13/2025 12:56 PM [facility] Blood (Blood) Venipuncture / Unknown 08/13/2025 9:10 AM EST 08/13/2025 9:10 AM EST us Song Bloom MD LAB BLOOD BKR ORDERABLES Terri l Result Performing Organization Address [facility] Co de Phone Number [address] [address] * (ABNORMAL) Hemoglobin A1c (08/13/2025 9:10 AM EST) Pathologist [facility] Hemoglobin A1c 6.2(H) 4.3 - 5.6 % 08/13/2025 12:17 PM [facility] Calculated Mean Blood Glucose 131 mg/dL 08/13/2025 12:17 PM [facility] Comment:There is no establis hed normal range for the Estimated Average Glucose (EAG). However, a HbA1c of 5.6% (upper limit of normal) represents an EAG of 114 mg/dL. The diagnostic HbA1c level for diabetes is greater than or equal to 6.5%, which represents an EAG greater than or equal to 140 mg/dL. Blood (Blood) Venipuncture / Unknown 08/13/2025 9:10 AM EST 08/13/2025 9:10 AM EST us Kennedy Monroy MD LAB BLOOD BKR ORDERABLES Terri l Result Performing Organization Address [facility] Co de Phone Number [address] [address] * Ferritin (08/13/2025 9:10 AM EST) Ferritin 186 30 - 400 ug/L 08/13/2025 12:56 PM [facility] Blood (Blood) Venipuncture / Unknown 08/13/2025 9:10 AM EST 08/13/2025 9:10 AM EST Kennedy Monroy MD LAB BLOOD BKR ORDERABLES Terri l Result Performing Organization Address [facility]/ZIP Co de Phone Number [address] [address] * (ABNORMAL) Lipid Panel (08/13/2025 9:10 AM EST) [facility] Signature Cholesterol 159 <200 mg/dL 08/13/2025 12:56 PM [facility] HDL 42 >=40 mg/dL 08/13/2025 12:56 PM [facility] Calculated LDL 83 <130 mg/dL 08/13/2025 12:56 PM [facility] Comment:LDL is calculated us ing the Melendez-NIH equation (MURRAY Cardiol. 2019January 17;5(5):540-548). Non-HDL Cholesterol 117 mg/dL 08/13/2025 12:56 PM [facility] Comment:Guidelines suggest a non-HDL cholesterol goal 30 mg/dL higher than the patient-specific LDL cholesterol goal. Cardiac Risk Ratio 3.8 0.0 - 5.0 2024 12:56 PM [facility] Triglycerides 204(H) <=150 mg/dL 08/13/2025 12:56 PM [facility] Blood (Blood) Venipuncture / Unknown 08/13/2025 9:10 AM EST 08/13/2025 9:10 AM EST Kennedy Monroy MD LAB BLOOD BKR ORDERABLES Terri l Result Performing Organization Address [facility]/ZIP Co de Phone Number [address] [address] * HM DIABETES EYE EXAM FOR RESULT ENTRY ONLY (08/09/2025 9:54 AM EST) Historical Provider HEALTH MAINTENANCE Final Result * MRI CHOLANGIOPANCREATOGRAPHY (MRCP) WITH AND WITHOUT [...] cysts are simple. There is however a [id number], T1 hyperintense nonenhancing hemorrhagic and/or proteinaceouscyst present within the posterior interpolar region on the left [id number] x 13 mm (image 81, series 1000). [...] Escobedo PA-C IMG MR ABDOMEN Final Result from Last 3 Months Insurance MEDICARE PART A & B [facility] [employer]ENSION MEDICARE SUPPLEMENT MEDICARE PART A & B Member Subscriber Plan / Payer (Ef fective 2005-Present) Name:Margarito Mehta Member ID:[id number] Relation to Subscriber:Self Name:Margarito Mehta Subscriber ID:[id number] Payer ID:[id number] Group ID:Not on file Type:Medicare Address: [employer] [address] [place] [phone] [facility] [employer]ENSION MEDICARE SUPPLEMENT MEDICARE PART A & B [facility] [employer] MEDICARE SUPPLEMENT MEDICARE PART A & B Member Subscriber Plan / Payer (Ef fective 2005-Present) Name:Stanley Mehtaory Member ID:[id number] Relation to Subscriber:Self Name:Margarito Mehta Subscriber ID:[id number] Payer ID:[id number] Group ID:Not on file Type:Medicare Address: [employer] [address] [place] [id number] [place] [address] [place] [id number] MEDICARE PART A & B [facility] [place] [id number] MEDICARE PART A & B [email or web address] MEDICARE SUPPLEMENT MEDICARE PART A & B [email or web address] MEDICARE SUPPLEMENT MEDICARE PART A & B [facility] MEDICARE SUPPLEMENT MEDICARE PART A & B [facility] [employer] MEDICARE SUPPLEMENT Care Teams Coupon And Bond Collection Clerk Relationship Specialty Start Date End Date Kennedy Monroy MD [address] [place] [address] PCP - General 07/07/17 Kennedy Monroy MD [address] [place] [address] Insurance Assigned Provider 12/24/23 Yury Whyte MD [address] [place] [address] Orthopedic Surgery 06/30/20 Song Bloom MD [address] [place] [address] [email or web address] Assembly Machine Operator Nephrology 09/20/23 Kumar Nunez MD [address] [place] [address], [address] [place] [address] [email or web address] Ophthalmology 07/11/24 Additional Source Comments The information contained in this document represents components of the legal health record. It is not the complete legal health record.[facility]
--- OUTSIDE RECORDS SUMMARY | 2025-09-08 09:53 | XMS_ITS | Encounter Summary ---
Author Organization [facility] Address [address] [place] [address] Phone Care Team Providers Care Costumer Assistant Name Role Phone Kennedy Monroy MD Primary Care Provider [phone] Kennedy Monroy MD Unavailable [phone] Yury Whyte MD Unavailable [phone] Song Bloom MD Unavailable [phone] Kumar Nunez MD Unavailable [phone] Encounter Details Date Type Department Care Team (Late st Contact Info) Description 05/29/2025 Procedure Pass [facility], [address] [address] Social History Tobacco Use Types Packs/Day Years [...] Description 09/10/2025 3:00 PM EST Office Visit [facility] [address] [place] [address] Jennifer Aleman PA-C [address] [place] [address] [email or web address] 09/24/2025 1:00 PM EST Office Visit [facility] [address] [facility], [address] [place] [address] Song Nolan MD [address] [place] [address] [email or web address] 09/25/2025 Procedure Pass [facility]mitting [facility] Virtual Department [address] [place] [address] 09/25/2025 9:45 AM EST Hospital Encounter [facility] Virtual Department [address] [place] [address] Elie Santacruz MD [address] [address] [email or web address] 09/25/2025 9:45 AM EST - 09/25/2025 10:00 AM EST Surgery [facility] Admitting Dept Virtual Department [address] [place] [address] Elie Santacruz MD [address] [address] [email or web address] ESOPHAGOGASTRODUODENOSCOPY 02/21/2026 2:00 PM EDT Office Visit [facility] 40 [place] [address] Kennedy Monroy MD 40 [place] [address] [email or web address] 09/08/2026 1:00 PM EST Office Visit [facility] 40 [place] [address] Ollie Escobedo PA-C 40 [place] [address] [email or web address] Scheduled Procedures Name Priority Associated Diagnoses Date/Ti me ESOPHAGOGASTRODUODENOSCOPY Abnormal finding on GI tract imaging 09/25/2025 9:45 AM EST documented as of this encounter Visit Diagnoses Not on filedocumented in this encounter Additional Health Concerns Assessment Noted Time PHQ-2 Depression Total Score: 0 09/04/20 1:00 PM EST documented as of this encounter Care Teams Costumer Assistant Relationship Specialty Start Date End Date Kennedy Monroy MD 40 [place] [address] PCP - General 07/07/17 Kennedy Monroy MD 40 [place] [address] Insurance Assigned Provider 12/24/23 Yury Whyte MD [address] [place] [address] Orthopedic Surgery 06/30/20 Song Bloom MD [address] [place] [address] [email or web address] Rf Engineer Nephrology 09/20/23 Kumar Nunez MD [address] [place] [address], [address] [place] [address] [email or web address] Ophthalmology 07/11/24 documented as of this encounter Additional Source Comments The information contained in this document represents components of the legal health record. It is not the complete legal health record.[facility]
--- OUTSIDE RECORDS SUMMARY | 2025-09-08 09:53 | XMS_ITS | Clinical Summary ---
Author Organization [facility] Facility Address [address] [address] Care Team Providers Care Controller Operations And Hr Manager Name Role Phone Kennedy Monroy MD Primary Care Provider [phone] Allergies Active Allergy Reactions Criticality Noted Date Comments Amlodipine 03/29/2017 Other reaction(s): Cough Aspirin 08/12/2025 Other Reaction(s): Unknown Aspirin-Dipyridamole Er Other (see comments) 03/29/2017 Ibuprofen Other (see comments) 08/12/2025 Lisinopril 03/29/2017 Other reaction(s): Cough Metformin Diarrhea [...] wit h diabetic chronic kidney disease 07/21/2021 Hypertensive chronic kidney disease, unspecified, with chronic kidney disease stage I through stage IV, or unspecified 07/20/2021 Primary osteoarthritis of left shoulder 04/21/20 20 Overview (07/20/2021): Last Assessment & Plan: From [...] and (suspected) exposure to asbesto s 10/11/2017 Renal insufficiency 10/11/2017 Type 2 diabetes mellitus without complication Encounters Date Type Department Care Team Description 08/19/2025 1:15 PM EST Office Visit [facility] [address] [place] [address] Song Bloom MD Stage 3b chronic kidney disease (HCC) (Primary Dx); Type 2 diabetes mellitus with diabetic chronic kidney disease, not otherwise specified (HCC); Renal osteodystrophy from Last 3 Months Immunizations Immunization Administration Dates Next Due Influenza (IM) Preservative Free 05/20/2022 Influenza Split High Dose Pr eservative Free IM 07/31/2025,06/23/2024,05/26/2019,05/25,06/26/2017,05/31/2016,06/27/2015 ,06/07/2014,06/19/2013 Influenza TIV (IM) 07/26/2011 Influenza Vaccine, Quadrival ent, Adjuvanted 06/01/2023,06/10/2020 Influenza, Quadrivalent, Pre servative Free 06/11/2020 Influenza, Unspecified 05/20/2022,2020,06/10/2020,07/02,06/26/2009 Pfizer SARS-COV-2 11/12/2020,10/21/2020 Pneumococcal Conjugate 13-Valent 08/23/2015 Pneumococcal Polysaccharide 08/31/2012, 1,07/20/2006 Shingrix 10/07/2021,06/22/2021 TD Preservative Free 10/25/2011 Tdap 06/23/2024 Zoster 09/15/2007 Family History Medical History Relation [...] Sign Reading Time Taken Comments Blood Pressure 130/68 08/19/2025 1:08 PM EST Pulse 66 08/19/2025 1:08 PM EST Temperature - - Respiratory Rate - - Oxygen Saturation 98% 08/19/2025 1:08 PM EST Inhaled Oxygen Concentration - - Weight 78.3 kg (172 lb 9.6 oz) 08/19/2025 1:08 P M EST Height 167.6 cm (5' 6 ) 07/22/2020 12:00 PM EST Body Mass Index 27.86 07/22/2020 12:00 PM EST Plan of Treatment Upcoming Encounters Date Type Department Care Team (Late st Contact Info) Description 08/25/2026 1:15 PM EST Office Visit [facility] [address] [place] [address] [place] [address] Song Bloom MD [address] [facility] [address] [place] [phone] Health Maintenance Due Date Last Done Comments [...] 04/02/2011, Additional history exists Influenza Vaccine Completed 07/31/2025, , 06/01/2023, Additional history exists Hepatitis B Vaccine Aged [...] % PVNMA 06/26/2020 us [facility]version [facility] [id number] LICITED RESULTS Final Result PVNMA from Last 3 Months or Most Recently Relevant to Health Maintenance Insurance Un[employer] Medicare [employer] Medicare Care Teams Controller Operations And Hr Manager Relationship Specialty Start Date End Date Kennedy Monroy MD [address] [place] [address] PCP - General 09/29/20
--- OUTSIDE RECORDS SUMMARY | 2025-09-08 09:53 | XMS_ITS | Encounter Summary ---
Author Organization [facility] Address [address] [facility] [address] [place] [address] Phone Care Team Providers Care Sewer Cleaner Name Role Phone Kennedy Monroy MD Primary Care Provider [phone] Kennedy Monroy MD Unavailable Yury Whyte MD Unavailable Song Bloom MD Unavailable [phone] Kumar Nunez MD Unavailable [phone] Encounter Details Date Type Department Care Team (Late st Contact Info) Description 08/09/2025 Orders Only [facility] 40 [place] [address] Provider, MD Surinder [address] [place] [address] Social History Tobacco Use Types Packs/Day Years [...] Description 09/10/2025 3:00 PM EST Office Visit [facility] [address] [place] [address] Jennifer Aleman PA-C [address] [address] [email or web address] 09/24/2025 1:00 PM EST Office Visit [facility] [address] [facility], [address] [place] [address] Song Nolan MD [address] [place] [address] [email or web address] 09/25/2025 Procedure Pass [facility] Admitting [facility] Virtual Department [address] [place] [address] 09/25/2025 9:45 AM EST Hospital Encounter [facility] Admitting [facility] Virtual Department [address] [place] [address] Elie Santacruz MD [address] [address] [email or web address] 09/25/2025 9:45 AM EST - 09/25/2025 10:00 AM EST Surgery [facility] Admitting Dept Virtual Department [address] [place] [address] Elie Santacruz MD [address] [address] [email or web address] ESOPHAGOGASTRODUODENOSCOPY 02/21/2026 2:00 PM EDT Office Visit [address] [address] Kennedy Monroy MD 40 [place] [address] [email or web address] 09/08/2026 1:00 PM EST Office Visit [address] [place] [address] Ollie Escobedo PA-C 40 [place] [address] [email or web address] Scheduled Procedures Name Priority Associated Diagnoses Date/Ti me ESOPHAGOGASTRODUODENOSCOPY Abnormal finding on GI tract imaging 09/25/2025 9:45 AM EST documented as of this encounter Procedures Procedure Name Priority Date/Time Associated Diagnosis Comments DIABETES EYE EXAM FOR RESULT ENTRY ONLY Routine 08/09/2025 9:54 AM EST documented in this encounter Results * DIABETES EYE EXAM FOR RESULT ENTRY ONLY (08/09/2025 9:54 AM EST) us Historical Provider HEALTH MAINTENANCE Final Result documented in this encounter Visit Diagnoses Not on filedocumented in this encounter Additional Health Concerns Assessment Noted Time PHQ-2 Depression Total Score: 0 09/04/20 24 1:00 PM EST documented as of this encounter Care Teams Sewer Cleaner Relationship Specialty Start Date End Date Kennedy Monroy MD 40 [place] [address] [email or web address] PCP - General 07/07/17 Kennedy Monroy MD [address] [place] [address] [email or web address] Insurance Assigned Provider 12/24/23 Yury Whyte MD [address] [place] [address] Orthopedic Surgery 06/30/20 Song Bloom MD [address] [place] [address] [email or web address] [email or web address] Nephrology 09/20/23 Kumar Nunez MD [address] [place] [address], [address] [place], [place] [phone] [email or web address] Ophthalmology 07/11/24 documented as of this encounter Additional Source Comments The information contained in this document represents components of the legal health record. It is not the complete legal health record.[facility]
--- OUTSIDE RECORDS SUMMARY | 2025-09-08 09:53 | XMS_ITS | Patient Health Record ---
Author Organization [facility] Nereida [place] Address [address] [place] [address] Care Team Providers Care Strand Buncher Fine Wire Name Role Phone Kennedy Monroy MD Primary Care Provider Unavaila Jodie Ignacio Unavailable [phone] Allergies Allergen (clinical drug ingredient) Drug/Non Drug [...] Problem Acquired hammer toe of right foot (352604063585854 5) Other hammer toe(s) (acquired), right foot (M20.41) Active confirmed Problem Acquired hammer toe of left foot (568681144789250 3) Other hammer toe(s) (acquired), left foot (M20.42) Active confirmed Problem Type II diabetes mellitus without complication (274314405) Type 2 diabetes mellitus without complications (E11.9) Active confirmed Problem Ulcer of toe of right foot (disorder) (245159937889011 01) Skin ulcer of toe of right foot, limited to breakdown of skin (L97.511) Active confirmed Plan Of Treatment Pending Test Test Name Order Date 60793-Tdzsuteu Plate 10/29/2015 82031- Debride <25 sq cm 07/04/2023 05081-RJNN SKIN LESION 03/14/2023 Insurance Providers Payer Name Payer Address Payer Phone Subscriber Number Group Number Insured Name Patient Relationship to Insured Coverage Start Date Coverage End Date Medicare National Govt Sv[employer] [address] [place] [address] [id number] Margarito Mehta Self - patient is the insured jellyfish ([employer]) [address] [place] [address] [id number] Margarito Mehta Self - patient is the insured Medical (General) History Medical History History ICD Code Diabetic Kidney disease Chicken pox Transfusions Diverticulitis Cholesterol Hx DVT Right Leg Cataracts Gall bladder problems Measles Joint implants/screws Surgical History Surgery Date(Month/Year) appendectomy 1960 gall bladder 2000 bowel resection 2001 right shoulder surgery 1999 left shoulder surgery 2019
--- OUTSIDE RECORDS SUMMARY | 2025-09-08 09:53 | XMS_ITS | Encounter Summary ---
Author Organization [facility] Address [address] [facility] [address] [place] [address] Phone Care Team Providers Care Physician Scientist Name Role Phone Kennedy Monroy MD Primary Care Provider Kennedy Monroy MD Unavailable Yury Whyte MD Unavailable Song Bloom MD Unavailable Kumar Nunez MD Unavailable [phone] Encounter Details Date Type Department Care Team (Late st Contact Info) Description 08/30/2025 Telephone [facility] 10 [place] [address] Elie Santacruz MD [address] [place] [address] [email or web address] Social History Tobacco Use Types Packs/Day Years [...] on file documented as of this encounter Progress Notes * Bev Contreras - 08/30/2025 4:07 PM EST Pt's called again to schedule EGD * Bev Contreras - 08/30/2025 9:51 AM EST Pt's called to schedule EGD ordered by VB, please call documented in this encounter Plan of Treatment Upcoming Encounters Date Type Department Care Team (Latest Contact Info) Description 09/10/2025 3:00 PM EST Office Visit [facility] 10 [place] [address] Jennifer Aleman PA-C [address] [address] [email or web address] 09/24/2025 1:00 PM EST Office Visit [facility] [address] [facility], [address] [place] [address] Song Nolan MD [address] [place] [address] [email or web address] 09/25/2025 Procedure Pass [facility] Admitting Dept Virtual Department [address] [place] [address] 09/25/2025 9:45 AM EST Hospital Encounter [facility] Admitting Dept Virtual Department [address] [place] [address] Elie Santacruz MD [address] [address] [email or web address] 09/25/2025 9:45 AM EST - 09/25/2025 10:00 AM EST Surgery [facility]oscopy Admitting Dept Virtual Department [address] [place] [address] Elie Santacruz MD 10 [facility] 2 [place] [address] [email or web address] ESOPHAGOGASTRODUODENOSCOPY 02/21/2026 2:00 PM EDT Office Visit [facility] 40 [place], [place] [phone] Kennedy Monroy MD 40 [place], [place] [email or web address] 09/08/2026 1:00 PM EST Office Visit [facility] 40 [place], [place] [phone] Ollie Escobedo PA-C 40 [place], [place] [email or web address] Scheduled Procedures Name Priority Associated Diagnoses Date/Ti sd ESOPHAGOGASTRODUODENOSCOPY Abnormal finding on GI tract imaging 09/25/2025 9:45 AM EST documented as of this encounter Visit Diagnoses Not on filedocumented in this encounter Additional Health Concerns Assessment Noted Time PHQ-2 Depression Total Score: 0 09/04/20 1:00 PM EST documented as of this encounter Care Teams Physician Scientist Relationship Specialty Start Date End Date Kennedy Monroy MD 40 [place], [place] PCP - General 07/07/17 Kennedy Monroy MD 40 [place], [place] Insurance Assigned Provider 12/24/23 Yury Whyte MD [address] [place] [address] 201 [place] [address] Orthopedic Surgery 06/30/20 Song Bloom MD 100 [facility] 200 [place] [address] [email or web address] Youth Ministry Director Nephrology 09/20/23 Kumar Nunez MD [address] [place] [address], [address] [place] [address] [email or web address] Ophthalmology 07/11/24 documented as of this encounter Additional Source Comments The information contained in this document represents components of the legal health record. It is not the complete legal health record.[facility]
--- OUTSIDE RECORDS SUMMARY | 2025-09-08 09:54 | XMS_ITS | Encounter Summary ---
Author Organization [facility] Address [address] [place] [address] [place] [address] Phone Care Team Providers Care Forensic Materials Engineer Name Role Phone Kennedy Monroy MD Primary Care Provider [phone] Kennedy Monroy MD Unavailable Yury Whyte MD Unavailable [phone] Song Bloom MD Unavailable [phone] Kumar Nunez MD Unavailable [phone] Reason for Visit * Reason Onset Date Comments GI appt 08/14/2025 Encounter Details Date Type Department Care Team (Late st Contact Info) Description 08/14/2025 Telephone [facility] 40 [place], [place] [phone] Kennedy Monroy MD 40 [place], [place] [phone] [email or web address] GI appt Social History Tobacco Use Types Packs/Day Years [...] as of this encounter Progress Notes * Melecio Lopes - 09/05/2025 11:43 AM EST Scheduled for consult 09/10 * Melecio Lopes - 09/03/2025 12:23 PM EST Spoke to Dee at [facility] let her know we need this patient scheduled CHRISTIANO as Dr. Santacruz had put in order as URGENT back on 08/17 and the patient still has not been contacted. Dee said she will give message to men's and boys' clothing salesperson as she was on the phone with someone. * Melecio Lopes - 08/29/2025 11:34 AM EST Spoke with Kareen at [facility] Gastro checking status of urgent EGD as nothing is scheduled yet. She states she will send a teams message to the men's and boys' clothing salesperson to give the patient a call. I will continue to monitor * Kennedy Monroy MD - 08/19/2025 6:51 PM EST Thanks for reviewing this and ordering urgent endoscopy. Kennedy Monroy * Melecio Lopes - 08/16/2025 10:50 AM EST Spoke to Elana and let her know. * Kennedy Monroy MD - 08/14/2025 3:42 PM EST This patient has never seen you but his sees you. He would like to become your patient. He hadan episode of significant right-sided abdominal pain back in June that resolved in several hours. CAT scan was obtained at [facility]. He had several abdominal wall hernias. They also noted a peripherally calcified hypo-attenuating lesion within the proximal transverse duodenum. Radiology recommended an upper endoscopy. I am wondering if you would be able to see him soon so that you could look at this area during an endoscopy. Thank you for your assistance with this patient. Please seeCAT scan and MRI of the abdomen. * Melecio Lopes - 08/14/2025 10:32 AM EST Elana called stating they were told an appointment with Dr. Martin at [facility] would be in November. They wont be here so it would be December. I called to see if I could get it moved up but was told by Jeanne that he would be put on a wait list and they can call weekly to see if there are any cancellations. documented in this encounter Plan of Treatment Upcoming Encounters Date Type Department Care Team (Latest Contact Info) Description 09/10/2025 3:00 PM EST Office Visit [facility] [address] [place] [address] Jennifer Aleman PA-C [address] [place] [address] [email or web address] 09/24/2025 1:00 PM EST Office Visit [facility] [address] [place] [facility], [address] [place] [address] Song Nolan MD [address] [place] [address] [email or web address] 09/25/2025 Procedure Pass [facility] Admitting Dept Virtual Department 30 [place] [address] 09/25/2025 9:45 AM EST Hospital Encounter [facility] Admitting Dept Virtual Department 30 [place] [address] Elie Santacruz MD 10 [facility] 2 [place] [address] [email or web address] 09/25/2025 9:45 AM EST - 09/25/2025 10:00 AM EST Surgery [facility] Admitting Dept Virtual Department 30 [place] [address] Elie Santacruz MD [address] [address] [email or web address] ESOPHAGOGASTRODUODENOSCOPY 02/21/2026 2:00 PM EDT Office Visit [facility] Primary Care [facility] 40 [place] [address] Kennedy Monroy MD 40 [place] [address] [email or web address] 09/08/2026 1:00 PM EST Office Visit [facility] 40 [place] [address] Ollie Escobedo PA-C 40 [place] [address] [email or web address] Scheduled Procedures Name Priority Associated Diagnoses Date/Ti me ESOPHAGOGASTRODUODENOSCOPY Abnormal finding on GI tract imaging 09/25/2025 9:45 AM EST documented as of this encounter Visit Diagnoses Not on filedocumented in this encounter Additional Health Concerns Assessment Noted Time PHQ-2 Depression Total Score: 0 09/04/20 24 1:00 PM EST documented as of this encounter Care Teams Forensic Materials Engineer Relationship Specialty Start Date End Date Kennedy Monroy MD 40 [place] [address] [email or web address] PCP - General 07/07/17 Kennedy Monroy MD [address] [place] [address] [email or web address] Insurance Assigned Provider 12/24/23 Yury Whyte MD [address] [place] [address] Orthopedic Surgery 06/30/20 Song Bloom MD [address] [place] [address] [email or web address] Government Employee Nephrology 09/20/23 Kumar Nunez MD [address] [place] [address], [address] [place] [address] [email or web address] Ophthalmology 07/11/24 documented as of this encounter Additional Source Comments The information contained in this document represents components of the legal health record. It is not the complete legal health record.[facility]
--- OUTSIDE RECORDS SUMMARY | 2025-09-08 09:54 | XMS_ITS | Encounter Summary ---
Author Organization [facility] Address [address] [facility] [address] [place] [id number] Phone Care Team Providers Care Medical Aides Teacher Name Role Phone Kennedy Monroy MD Primary Care Provider Kennedy Monroy MD Unavailable [phone] Yury Whyte MD Unavailable Song Bloom MD Unavailable [phone] Kumar Nunez MD Unavailable [phone] Encounter Details Date Type Department Care Team (Latest Contact Info) Description 08/17/2025 Orders Only [facility] [address] [place] [address] Elie Santacruz MD [address] [address] [email or web address] Abnormal finding on GI tract imaging (Primary Dx) Social History Tobacco Use [...] Description 09/10/2025 3:00 PM EST Office Visit [facility] [address] [place] [address] Jennifer Aleman PA-C [address] [address] [email or web address] 09/24/2025 1:00 PM EST Office Visit [facility] Surgical [facility] [address] [facility], [address] [place] [address] Song Nolan MD [address] [place] [id number] [email or web address] 09/25/2025 Procedure Pass [facility] Endoscopy Admitting Dept Virtual Department [address] [place] [id number] 09/25/2025 9:45 AM EST Hospital Encounter [facility] Admitting [facility] Virtual Department [address] [place] [id number] Elie Santacruz MD [address] [address] [email or web address] 09/25/2025 9:45 AM EST - 09/25/2025 10:00 AM EST Surgery [facility] Endoscopy Admitting Dept Virtual Department [address] [place] [phone] Elie Santacruz MD [address] [address] [email or web address] ESOPHAGOGASTRODUODENOSCOPY 02/21/2026 2:00 PM EDT Office Visit [facility] Primary Care [facility] [address] [place] [address] Kennedy Monroy MD [address] [place] [address] [email or web address] 09/08/2026 1:00 PM EST Office Visit [facility] [address] [place] [address] Ollie Escobedo PA-C [address] [place] [address] [email or web address] Scheduled Procedures Name Priority Associated Diagnoses Date/Ti tx ESOPHAGOGASTRODUODENOSCOPY Abnormal finding on GI tract imaging 09/25/2025 9:45 AM EST documented as of this encounter Visit Diagnoses Diagnosis Abnormal finding on GI tract imaging- Primary Abnormal finding on GI tract imaging documented in this encounter Additional Health Concerns Assessment Noted Time PHQ-2 Depression Total Score: 0 09/04/20 1:00 PM EST documented as of this encounter Care Teams Medical Aides Teacher Relationship Specialty Start Date End Date Kennedy Monroy MD [address] [place] [address] PCP - General 07/07/17 Kennedy Monroy MD [address] [place] [phone] [email or web address] Insurance Assigned Provider 12/24/23 Yury Whyte MD [address] [place] [address] Orthopedic Surgery 06/30/20 Song Bloom MD [address] [place] [address] [email or web address] [employer] [facility] 09/20/23 Kumar Nunez MD [address] [place] [address], [address] [place] [address] Ophthalmology 07/11/24 documented as of this encounter Additional Source Comments The information contained in this document represents components of the legal health record. It is not the complete legal health record.[facility]
[2025-09-08 10:38] LABS: Resp Syncy Virus RNA Qual PCR NEGATIVE (Negative); SARS COV2 PCR INHOUSE NEGATIVE (Negative)
[2025-09-08] MEDS: iohexoL 350 MG/ML 100 ML INFUS..BTL IV (10:48)
[2025-09-08 10:54] LABS: Appearance Urine Clear; Glucose Urine UA 100 mg/dL (Negative); PH 5.5 (5.0-9.0); Specific Gravity - Urine 1.015 (1.005-1.025); UMIC TRIGGER UACC YES
[2025-09-08 12:17] LABS: Glucose, Whole Blood 98 mg/dL (60-115)
--- NOTE | 2025-09-08 13:46 | PM.IMHP ---
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 Pt reports yesterday he also experienced a syncopal episode. Pt reports in the morning he was in his normal state of health when he brought out some packages to place in the trunk of the car. Pt then went to place some paper in the recycling bin when he felt dizzy and then had a syncopal episode. The next thing pt remembers is waking up on the ground. Had slight headache and a bump and cut on the back of his head after striking the ground. Believes that he was on the ground for maybe a minute or 2. No postictal like state. No stroke-like symptoms. reports patient's BP was elevated above baseline when she brought him back into the house: 186/92. pt he is normally normotensive and not on any BP medications as he has been unable to tolerate them. Pt also denies chest pain or palpitations. Pt then went to visit his family and felt okay, but when he returned he began experiencing significant diffuse abdominal pain, most pronounced on the right side. Pain persisted overnight and in the morning, and given patient's significant abdominal hx decided to come to the ED for further evaluation. Patient's last bowel movement was 1 hour ago in the ED; reports that it was soft, but he normally goes 2-3 times every day and normally in the morning. Did not go earlier today. In the ED pt's vitals were significant for hypertension as high as 181/108, otherwise stable. Labs were significant for H&H 12.8/38.5, INR 2.5, potassium 5.3, and creatinine 1.65. UA negative for UTI. Tested negative for flu, COVID, RSV. CT?of head negative for acute intracranial abnormality, though showed cerebral volume loss and intracranial atherosclerotic disease. CTA of chest negative for PE, but showed subsegmental atelectasis as well as calcified pleural plaques at lung bases. CT of abdomen/pelvis showing increased stool burden and small supraumbilical ventral abdominal wall hernias, as well as suspected renal and hepatic cysts. Negative for acute abdomen. EKG demonstrated normal sinus rhythm with occasional PVCs. Pt is admitted to the hospital under observation for treatment and further workup for syncopal episode as well as for abdominal pain. Review of Systems Review of Systems: Negative except for that which is stated in the [facility] Medical History DVT (deep venous thrombosis) Social History Patient Tobacco Use Status: Never used Tobacco Smoked in Last 30 Days: No Use of substances other than those prescribed or required for medical reasons: No Advance Directives: Yes Advance Directives Information Provided: No Advance Directives on File: No Do you have a plan to hurt others: No Plan Nutrition Risks: No Nutritional Risk Meds Allergies Allergy/AdvReac Type Severity Reaction Status Date / Time No Known Allergies Allergy Mild NOT Verified 09/08/25 09:15 APPLICABLE Home Medications ?Medication ?Instructions ?Recorded ?Confirmed ?Last Taken ?Type sitagliptin phosphate 25 mg tablet 25 mg PO DAILY 09/02/20 09/08/25 09/07/25 History magnesium 200 mg tablet 200 mg PO DAILY 07/21/21 09/08/25 09/07/25 History ikjinkuwjuym-ibioybls-cnnlgr tablet 1 tab PO DAILY 07/21/21 09/08/25 09/08/25 History atorvastatin 10 mg tablet 10 mg PO DAILY 04/03/24 09/08/25 09/07/25 History cetirizine 5 mg tablet (Zyrtec) 5 mg PO DAILY PRN Allergies and 07/29/25 09/08/25 09/08/25 History Itching coenzyme Q10 100 mg capsule (Co 100 mg PO DAILY 09/08/25 09/08/25 09/07/25 History Q-10) warfarin 5 mg tablet 5 mg PO DAILY@1700 09/08/25 09/07/25 History warfarin 5 mg tablet 5 mg PO DAILY@1800 09/08/25 09/08/25 09/07/25 History Physical Exam Vital Signs and Narrative: Vital Signs: Last Vital Signs Temp 97.9 F 09/08/25 12:08 Pulse 73 09/08/25 12:08 Resp 19 09/08/25 12:08 BP 162/83 H 09/08/25 12:08 Pulse Ox 98 09/08/25 12:08 O2 Del Method Room Air 09/08/25 12:08 BMI result Body Mass Index 26.2 General: AOx3, no acute distress Resp: CTA bilaterally CVS: S1, S2, RRR GI: +BS, sofl, chronic distention. Mild right-sided tenderness. Skin: Warm, dry Neuro: Cranial nerves II-XII grossly intact bilaterally. Motor grossly intact bilaterally Extremities: No edema Psych: Appropriate affect Results Labs 09/08/25 09:24 09/08/25 09:24 Labs: Laboratory Results - last 24 hr 09/08/25 09/08/25 09/08/25 09:24 09:59 10:48 MCV 90.4 MCH 30.0 MCHC 33.2 RDW 13.2 Plt Count 165 MPV 9.3 L Immature Gran % (Auto) 0.3 Neut % (Auto) 55.6 Lymph % (Auto) 31.1 [place] % (Auto) 10.2 Eos % (Auto) 2.1 Baso % (Auto) 0.7 Lymph # (Auto) 2.9 [place] # (Auto) 0.9 Eos # (Auto) 0.2 Baso # (Auto) 0.1 Abs Immat Gran (auto) 0.03 Absolute Neuts (auto) 5.1 Absolute Nucleated RBC 0.000 Nucleated RBC % (auto) 0.0 PT 30.3 H INR 2.5 H Anion Gap 12 Estim Creat Clear Calc 32.2 Estimated GFR 40 POC Glucose Random Glucose 136 H Calcium 9.1 Magnesium 2.2 Total Bilirubin 0.7 AST 31 ALT 20 Alkaline Phosphatase 49 Troponin I High Sens 4.5 Total Protein 7.3 Albumin 4.0 Urine Color Yellow Urine Appearance Clear Urine pH 5.5 Ur Specific Minto 1.015 Urine Protein 30 (1+) H Urine Glucose (UA) 100 H Urine Ketones Negative Urine Blood Trace H Urine Nitrite Negative Ur Leukocyte Esterase Negative Urine RBC 0-2 Urine WBC 0-5 Ur Squamous Epith Cells 0-2 Urine Bacteria None Seen Hyaline Casts 0-2 Influenza Type A (PCR) NEGATIVE Influenza Type B (PCR) NEGATIVE RSV RNA Qual (PCR) NEGATIVE SARS-CoV-2 RNA (RT-PCR) NEGATIVE 09/08/25 12:14 MCV MCH MCHC RDW Plt Count MPV Immature Gran % (Auto) Neut % (Auto) Lymph % (Auto) [place] % (Auto) Eos % (Auto) Baso % (Auto) Lymph # (Auto) [place] # (Auto) Eos # (Auto) Baso # (Auto) Abs Immat Gran (auto) Absolute Neuts (auto) Absolute Nucleated RBC Nucleated RBC % (auto) PT INR Anion Gap Estim Creat Clear Calc Estimated GFR POC Glucose 98 Random Glucose Calcium Magnesium Total Bilirubin AST ALT Alkaline Phosphatase Troponin I High Sens Total Protein Albumin Urine Color Urine Appearance Urine pH Ur Specific Minto Urine Protein Urine Glucose (UA) Urine Ketones Urine Blood Urine Nitrite Ur Leukocyte Esterase Urine RBC Urine WBC Ur Squamous Epith Cells Urine Bacteria Hyaline Casts Influenza Type A (PCR) Influenza Type B (PCR) RSV RNA Qual (PCR) SARS-CoV-2 RNA (RT-PCR) Assessment and Plan (1) Syncope: Qualifiers: Syncope type: unspecified Qualified Code(s): R55 - Syncope and collapse Status: Acute (2) Abdominal pain: Status: Acute Plan Pt is an 84-year-old female with a PMH significant for?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 Pt is admitted to the hospital under observation for treatment and further workup for syncopal episode as well as for abdominal pain. Syncopal episode Unclear etiology: Differential includes vasovagal, cardiac, orthostatic Seizure or stroke unlikely has no postictal state or stroke-like symptoms Echocardiogram Check orthostatics Monitor on telemetry Abdominal pain Unclear etiology: CT negative for acute abd, possibly secondary to constipation? General surgery consult given patient's extensive abdominal surgical hx Constipation CT showing increased stool burden Colace, Miralax HTN Patient's BP elevated as high as 181/108 in the ED, currently 154/87 Not on home antihypertensives Monitor, we will consider adding p.r.n. medication if necessary Mild hyperkalemia Potassium 5.3 Likely from hemolysis Trend potassium Renal and hepatic cysts As noted on CT These are currently being worked up outpatient by GI Also noted on recent MRCP and abdominal MRI on 06/15/2025 Follow up outpatient Hx of DVT Approximately 30 years ago, question of hx of PE Continue Coumadin INR currently therapeutic at 2.5 Follow INR HLD Continue statin Full Code Attending:?Dr. Tillman DVT Prophylaxis: On warfarin Pt will be admitted to the hospital under observation for monitoring and additional workup for syncopal episode. pt will have continuous cardiac monitoring as well as echocardiogram. Pt is also being evaluated for abdominal pain. Quality Stroke Does the patient have a stroke diagnosis?: No VTE Prior VTE?: No VTE Risk Level:: Medical - moderate - high VTE Device Contraindication: Treatment Not Indicated VTE Drug Contraindication: N/A - Med Ordered
[2025-09-08 14:19] LABS: Troponin-I High Sensitivity 5.9 ng/L (<3.5-35.0)
--- NOTE | 2025-09-08 15:25 | PHA.MEDREC ---
Addendum entered by Jeannie Dent RPh 09/08/25 15:35: REVIEWED BY PHARMACIST Original Note: Pharmacy Consult ? Medication Reconciliation Pharmacy has completed the medication reconciliation. Confirmed medication list with patient and against pharmacy claims. Patient finished Amoxicillin regimen and is no longer taking Sildenafil. Patient takes 5 mg of Warfarin by mouth once daily every day at either 1600 or 1700. Patient last took Warfarin dose yesterday. Patient took his zyrtec and multivitamin this morning, all other medications were taken yesterday.
[2025-09-08 17:18] LABS: Glucose, Whole Blood 183 mg/dL (60-115)
[2025-09-08 20:55] LABS: Glucose, Whole Blood 116 mg/dL (60-115)
[2025-09-08] MEDS: 0.9 % Sodium Chloride Flush 3 ML SYRINGE IVFLUSH (23:29)
[2025-09-09 03:50] VITALS: BP 134/76; PULSE 86; RESP 16; TEMP 37; O2SAT 95
[2025-09-09 06:36] LABS: Hematocrit 39.5 % (42.0-52.0); Hemoglobin 12.9 g/dl (14.0-18.0); Mean Corpuscular HGB Conc 32.7 g/dl (31.0-36.0); Mean Corpuscular Hemoglobin 29.9 pg (27.0-33.0); Mean Corpuscular Volume 91.6 fL (80.0-98.0); NRBC Abs Auto 0.000 X10*3/uL (0.0-0.012); NRBC Pct Auto 0.0 /100WBC (0.0-0.2); Platelet Count 182 X10*3/uL (160-400); Red Blood Count 4.31 X10*6/uL (4.60-5.80); White Blood Count 9.0 X10*3/uL (4.8-10.8)
[2025-09-09 06:53] LABS: Anion Gap 12 (12-20); Blood Urea Nitrogen 27 mg/dL (9-16); Calcium 8.9 mg/dL (8.4-10.2); Carbon Dioxide 19 mmol/L (22-29); Chloride 115 mmol/L (96-108); Creatinine Clr Calc Pharmacy 35.0; Estimated Glomerular Filt Rate 45; Potassium 4.7 mmol/L (3.3-5.1); Sodium 141 mmol/L (135-145)
--- NOTE | 2025-09-09 07:00 | CA_ITS ---
Transthoracic Echocardiogram Patient (Last, First, Middle): Margarito Mehta A Gender: Male Date of : 1940 Age: 85 Procedure Date: 09/09/2025 Procedure Type: Transthoracic Echocardiogram Location: [facility] [place] Height: 172.72 cm Weight: 76.2 kg BSA: 1.90 m2 Heart Rate: 91 bpm BP: 162 / 74 mmHg Corn Grinder: DORINA Diaz MD: Chapito DOS SANTOS Commercial Insurance Underwriter: Kwan Oliveira MD Symptoms: Syncopal episode Study Quality: Adequate w/Contrast ECG Rhythm: Sinus Conclusions: - 1. Normal LV ejection fraction of 60-65% with grade 1 diastolic dysfunction 2. Trace aortic regurgitation early mild aortic stenosis noted 3. No gross pericardial effusion Findings Procedure Information Contrast agent, definity, is being given per protocol without apparent complications. Left Ventricle Normal left ventricular size, thickness, and systolic function. The visually estimated ejection fraction is between 60-65%. Spectral Doppler is indicative of an impaired relaxation filling pattern. E/E prime ratio is <8, consistent with normal filling pressures. Evidence suggests grade I (mild) diastolic dysfunction. Right Ventricle Normal right ventricular cavity size and systolic function. Atria The left atrium is normal in size. Interatrial shunt cannot be excluded. The right atrium was not well visualized. Aortic Valve There is mild calcification of the aortic valve. There is mild aortic valve stenosis. There is trace (trivial) aortic valve regurgitation. Mitral Valve There is mild anterior and posterior mitral leaflet thickening. There is mild mitral annular calcification. There is trace mitral valve regurgitation. There is no mitral valve stenosis. Pulmonic Valve The pulmonic valve was not well visualized. Tricuspid Valve Likely normal tricuspid valve structure and function. Tricuspid regurgitation envelope is inadequate for calculation of right ventricular systolic pressure. Normal right atrial pressure. Great Vessels All visible segments of the aorta are normal in size. The pulmonary artery was not well visualized. There is no dilatation of the ascending aorta measuring 3.30 cm. Venous The inferior vena cava is normal in size and collapses greater than 50% with inspiration. Pericardium/Pleural There is no evidence of pericardial effusion. Prior Study Comparison No prior study available for comparison. Measurements 2D Linear Measurements IVSd: 0.68 0.6-0.9/0.6-1.0 cm LVIDd: 4.80 3.9-5.3/4.2-5.9 cm LVIDd Index: 2.53 2.4-3.2/2.2-3.1 cm/m2 LVIDs: 3.44 2.0-3.6 cm LVPWd: 0.67 0.7-1.1 cm LA Diam: 3.40 2.7-3.8/3.0-4.0 cm LAIDs Index: 1.79 1.5-2.3 cm/m2 LV Mass: 126.78 67-162/88-224 g LV Mass Index: 66.73 43-95/49-115 g/m2 LVOT Diam: 2.10 3.0+(-)1.3 cm 2D Systolic Function EF 4C: 61.90 >55% EF 2C: 62.90 >55% EF BiP: 61.00 >55% Mitral Valve MV Pk E: 0.58 MV PK A: 0.89 MV Decel Time: 220.00 E/A: 0.70 E'Lateral: 7.72 E'Medial: 5.00 E/E' Med: 11.70 E/E' Lat: 7.60 PHT: 64.00 MVA PHT: 3.44 Decel [place]: 2.65 Aortic Valve AoV Pk Jass: 1.73 AoV Mn Jass: 1.19 AoV VTI: 0.32 AoV Pk Grad: 12.00 Aov Mn Grad: 7.00 OSVALDO Cont.VTI: 1.60 LVOT LVOT Pk Jass: 0.89 LVOT Mn Jass: 0.58 LVOT VTI: 0.15 LVOT Pk Grad: 3.00 LVOT Mn Grad: 2.00 LVOT Diam: 2.10 LVOT Area: 3.46 Diastolic Function MV Pk E: 0.58 MV Pk A: 0.89 E/A: 0.70 E'Medial: 5.00 E/E' Med: 11.70 E' Laterial: 7.72 E/E' Lat: 7.60 Right Ventricle TAPSE (mm): 18.90 TVS' Jass: 15.70 Tricuspid Valve RA Press: 3.00 Great Vessels Aorta Sinus of Valsalva: 3.50 2.0-3.5 cm Ao Asc: 3.30 2.1-3.4 cm Pulmonary Veins Pulm Vein S/D 1.40 Pulmonary Valve PV Pk Jass: 1.14 Peak PV Grad: 5.00 ME Pk Jass: 1.74 Updated in Other Vendor System with Status of Final Kwan Oliveira MD electronically signed on 09/09/2025 12:20:37 PM with status of Final
[2025-09-09 07:03] LABS: Glucose, Whole Blood 132 mg/dL (60-115)
[2025-09-09 07:05] LABS: INTERNATIONAL NORM RATIO 2.5 (0.9-1.1); Prothrombin Time 30.3 SEC (11.2-13.5)
[2025-09-09 07:14] VITALS: BP 162/74; PULSE 77; RESP 18; TEMP 36.8; O2SAT 93
--- NOTE | 2025-09-09 07:24 | P.PNIM_ITS ---
Subjective Subjective Date of Service: 09/09/25 Physical Exam 2 Vital Signs: Vital Signs: Last Vital Signs Temp 98.3 F 09/09/25 07:14 Pulse 77 09/09/25 07:14 Resp 18 09/09/25 07:14 BP 162/74 H 09/09/25 07:14 Pulse Ox 93 09/09/25 07:14 O2 Del Method Room Air 09/09/25 07:14 BMI result Body Mass Index 25.6 Objective Data Active Medications Acetaminophen (Acetaminophen 325 Mg Tablet) 650 mg PO Q6H PRN PRN Reason: Pain, Mild 1-3,fever,headache Atorvastatin Calcium (Atorvastatin Calcium 10 Mg Tablet) 10 mg PO DAILY [facility] Calcium Carbonate (Calcium Carbonate 750 Mg Tab.Chew) 750 mg PO Q4H PRN PRN Reason: Heartburn Loratadine (Loratadine 10 Mg Tablet) 10 mg PO DAILY PRN PRN Reason: Allergies and Itching Magnesium Hydroxide (Milk Of Magnesia 30 Ml Oral.Susp) 30 ml PO DAILY PRN PRN Reason: Constipation Magnesium Oxide (Magnesium Oxide 400 Mg Tablet) 200 mg PO DAILY [facility] Melatonin (Melatonin 3 Mg Tablet) 6 mg PO BEDTIME PRN PRN Reason: Insomnia Morphine Sulfate (Morphine Sulfate 4 Mg/Ml Cartridge) 2 mg IVPUSH Q4H PRN; Protocol PRN Reason: Pain, Severe (Pain Scale 7-10) Last Admin: 09/08/25 23:20 Dose: 2 mg Documented By: SOFIA Multivitamins/Vitamin C (Multivitamin Tablet) 1 tab PO DAILY [facility] Ondansetron HCl (Ondansetron Hcl 4 Mg/2 Ml Vial) 4 mg IVPUSH Q8H PRN PRN Reason: Nausea and Vomiting Polyethylene Glycol (Polyethylene Glycol 3350 17 Gm Powd.Pack) 17 gm PO DAILY PRN PRN Reason: Constipation Sitagliptin Phosphate (Sitagliptin Phosphate 25 Mg Tablet) 25 mg PO DAILY [facility] Sodium Chloride (0.9 % Sodium Chloride Flush 3 Ml Syringe) 3 ml IVFLUSH QSHIFT [facility] Last Admin: 09/08/25 23:29 Dose: 3 ml Documented By: SOFIA Warfarin Sodium (Warfarin Sodium 5 Mg Tablet) 5 mg PO DAILY@1800 [facility] Last Admin: 09/08/25 18:10 Dose: 5 mg Documented By: JAYME Cannon 09/09/25 05:52 09/09/25 05:52 Labs: Laboratory Results - last 24 hr 09/08/25 09/08/25 09/08/25 09:24 09:59 10:48 MCV 90.4 MCH 30.0 MCHC 33.2 RDW 13.2 Plt Count 165 MPV 9.3 L Immature Gran % (Auto) 0.3 Neut % (Auto) 55.6 Lymph % (Auto) 31.1 [place] % (Auto) 10.2 Eos % (Auto) 2.1 Baso % (Auto) 0.7 Lymph # (Auto) 2.9 [place] # (Auto) 0.9 Eos # (Auto) 0.2 Baso # (Auto) 0.1 Abs Immat Gran (auto) 0.03 Absolute Neuts (auto) 5.1 Absolute Nucleated RBC 0.000 Nucleated RBC % (auto) 0.0 PT 30.3 H INR 2.5 H Anion Gap 12 Estim Creat Clear Calc 32.2 Estimated GFR 40 POC Glucose Random Glucose 136 H Calcium 9.1 Magnesium 2.2 Total Bilirubin 0.7 AST 31 ALT 20 Alkaline Phosphatase 49 Troponin I High Sens 4.5 Total Protein 7.3 Albumin 4.0 Urine Color Yellow Urine Appearance Clear Urine pH 5.5 Ur Specific [place] 1.015 Urine Protein 30 (1+) H Urine Glucose (UA) 100 H Urine Ketones Negative Urine Blood Trace H Urine Nitrite Negative Ur Leukocyte Esterase Negative Urine RBC 0-2 Urine WBC 0-5 Ur Squamous Epith Cells 0-2 Urine Bacteria None Seen Hyaline Casts 0-2 Influenza Type A (PCR) NEGATIVE Influenza Type B (PCR) NEGATIVE RSV RNA Qual (PCR) NEGATIVE SARS-CoV-2 RNA (RT-PCR) NEGATIVE 09/08/25 09/08/25 09/08/25 12:14 13:50 17:07 MCV MCH MCHC RDW Plt Count MPV Immature Gran % (Auto) Neut % (Auto) Lymph % (Auto) [place] % (Auto) Eos % (Auto) Baso % (Auto) Lymph # (Auto) [place] # (Auto) Eos # (Auto) Baso # (Auto) Abs Immat Gran (auto) Absolute Neuts (auto) Absolute Nucleated RBC Nucleated RBC % (auto) PT INR Anion Gap Estim Creat Clear Calc Estimated GFR POC Glucose 98 183 H Random Glucose Calcium Magnesium Total Bilirubin AST ALT Alkaline Phosphatase Troponin I High Sens 5.9 Total Protein Albumin Urine Color Urine Appearance Urine pH Ur Specific [place] Urine Protein Urine Glucose (UA) Urine Ketones Urine Blood Urine Nitrite Ur Leukocyte Esterase Urine RBC Urine WBC Ur Squamous Epith Cells Urine Bacteria Hyaline Casts Influenza Type A (PCR) Influenza Type B (PCR) RSV RNA Qual (PCR) SARS-CoV-2 RNA (RT-PCR) 09/08/25 09/09/25 09/09/25 20:50 05:52 06:51 MCV 91.6 MCH 29.9 MCHC 32.7 RDW 13.1 Plt Count 182 MPV 9.3 L Immature Gran % (Auto) Neut % (Auto) Lymph % (Auto) [place] % (Auto) Eos % (Auto) Baso % (Auto) Lymph # (Auto) [place] # (Auto) Eos # (Auto) Baso # (Auto) Abs Immat Gran (auto) Absolute Neuts (auto) Absolute Nucleated RBC 0.000 Nucleated RBC % (auto) 0.0 PT 30.3 H INR 2.5 H Anion Gap 12 Estim Creat Clear Calc 35.0 Estimated GFR 45 POC Glucose 116 H 132 H Random Glucose 130 H Calcium 8.9 Magnesium Total Bilirubin AST ALT Alkaline Phosphatase Troponin I High Sens Total Protein Albumin Urine Color Urine Appearance Urine pH Ur Specific [place] Urine Protein Urine Glucose (UA) Urine Ketones Urine Blood Urine Nitrite Ur Leukocyte Esterase Urine RBC Urine WBC Ur Squamous Epith Cells Urine Bacteria Hyaline Casts Influenza Type A (PCR) Influenza Type B (PCR) RSV RNA Qual (PCR) SARS-CoV-2 RNA (RT-PCR) Quality Stroke Does the patient have a stroke diagnosis?: No VTE Prior VTE?: No VTE Risk Level:: Medical - moderate - high VTE Device Contraindication: Treatment Not Indicated VTE Drug Contraindication: N/A - Med Ordered
--- NOTE | 2025-09-09 09:25 | P.CONGS_ITS ---
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 So far workup has shown no acute abdominal process. He does have a large stool burden in the sigmoid colon. Reports some intermittent constipation. Most recently went to the bathroom this morning describes brown liquid stool. States the last bowel movement he remembers was Tuesday small and hard stool. Has been started on a light bowel regimen. He states he is passing gas, is feeling some movement in the lower abdomen which is somewhat painful, has been requiring IV narcotics. <Zion Toussaint PA-C - Last Filed: 09/09/25 10:21> Review of Systems 2 Review of Systems: Yes all other systems are reviewed and are negative < Zion Toussaint PA-C - Last Filed: 09/09/25 10:21> [facility] Past Medical History Medical History: Medical History DVT (deep venous thrombosis) <Zion Toussaint PA-C - Last Filed: 09/09/25 10:21> Social History Social History: Social History Household Members: Spouse Housing: [facility] Do you presently have visiting nurse or other home services: No Patient Tobacco Use Status: Never used Tobacco e-Cigarette/Vaping Use: Never Used Second Hand Smoke Exposure: No Advance Directives Date on File: 09/08/25 service: No <Zion Toussaint PA-C - Last Filed: 09/09/25 10:21> Meds Allergies/Adverse reactions: Allergies Allergy/AdvReac Type Severity Reaction Status Date / Time No Known Allergies Allergy Mild NOT Verified 09/08/25 09:15 APPLICABLE <RISHI Bee Last Filed: 09/09/25 10:21> Active Medications: Current Medications Acetaminophen (Acetaminophen 325 Mg Tablet) 650 mg PO Q6H PRN PRN Reason: Pain, Mild 1-3,fever,headache Atorvastatin Calcium (Atorvastatin Calcium 10 Mg Tablet) 10 mg PO DAILY [facility] Last Admin: 09/09/25 09:15 Dose: Not Given Calcium Carbonate (Calcium Carbonate 750 Mg Tab.Chew) 750 mg PO Q4H PRN PRN Reason: Heartburn Loratadine (Loratadine 10 Mg Tablet) 10 mg PO DAILY PRN PRN Reason: Allergies and Itching Magnesium Hydroxide (Milk Of Magnesia 30 Ml Oral.Susp) 30 ml PO DAILY PRN PRN Reason: Constipation Magnesium Oxide (Magnesium Oxide 400 Mg Tablet) 200 mg PO DAILY [facility] Last Admin: 09/09/25 09:14 Dose: 200 mg Melatonin (Melatonin 3 Mg Tablet) 6 mg PO BEDTIME PRN PRN Reason: Insomnia Morphine Sulfate (Morphine Sulfate 4 Mg/Ml Cartridge) 2 mg IVPUSH Q4H PRN; Protocol PRN Reason: Pain, Severe (Pain Scale 7-10) Last Admin: 09/08/25 23:20 Dose: 2 mg Multivitamins/Vitamin C (Multivitamin Tablet) 1 tab PO DAILY [facility] Last Admin: 09/09/25 09:14 Dose: 1 tab Ondansetron HCl (Ondansetron Hcl 4 Mg/2 Ml Vial) 4 mg IVPUSH Q8H PRN PRN Reason: Nausea and Vomiting Polyethylene Glycol (Polyethylene Glycol 3350 17 Gm Powd.Pack) 17 gm PO DAILY PRN PRN Reason: Constipation Sitagliptin Phosphate (Sitagliptin Phosphate 25 Mg Tablet) 25 mg PO DAILY [facility] Last Admin: 09/09/25 09:15 Dose: 25 mg Sodium Chloride (0.9 % Sodium Chloride Flush 3 Ml Syringe) 3 ml IVFLUSH QSHIFT [facility] Last Admin: 09/09/25 09:15 Dose: Not Given Warfarin Sodium (Warfarin Sodium 5 Mg Tablet) 5 mg PO DAILY@1800 [facility] Last Admin: 09/08/25 18:10 Dose: 5 mg <Zion Toussaint PA-C - Last Filed: 09/09/25 10:21> Home medications: Home Medications ?Medication ?Instructions ?Recorded ?Confirmed ?Last Taken ?Type sitagliptin phosphate 25 mg tablet 25 mg PO DAILY 08/1909/08/25 09/07/25 History magnesium 200 mg tablet 200 mg PO DAILY 07/21/2109/07/25 History edlkkbkgermi-[id number]-[id number] tablet 1 tab PO DAILY 11/0909/08/25 09/08/25 History atorvastatin 10 mg tablet 10 mg PO DAILY 04/03/24 12/10/1309/07/25 History cetirizine 5 mg tablet (Zyrtec) 5 mg PO DAILY PRN Donte rgies and 07/29/25 09/08/25 09/08/25 History Itching coenzyme Q10 100 mg capsule (Co 100 mg PO DAILY 09/08/25 09/07/25 History Q-10) warfarin 5 mg tablet 5 mg PO DAILY@1800 09/08/25 09/08/25 09/07/25 History <Zion Toussaint PA-C - Last Filed: 09/09/25 10:21> Physical Exam 2 Vital Signs: Vital Signs: Last Vital Signs Temp 98.3 F 09/09/25 07:14 Pulse 77 09/09/25 07:14 Resp 18 09/09/25 07:14 BP 162/74 H 09/09/25 07:14 Pulse Ox 93 09/09/25 07:14 O2 Del Method Room Air 09/09/25 07:14 BMI result Body Mass Index 25.6 <Zion Toussaint PA-C - Last Filed: 09/09/25 10:21> Const: General: comfortable and no acute distress <Zion Toussaint PA-C - Last Filed: 09/09/25 10:21> Orientation/consciousness: patient oriented x3 <Zion Toussaint PA-C - Last Filed: 09/09/25 10:21> Resp: Effort & Inspection: normal respiratory effort and able to speak in complete sentences <Zion Toussaint PA-C - Last Filed: 09/09/25 10:21> GI: Inspection: No distended and Yes scar (Open cholecystectomy, open appendectomy, laparotomy) <RISHI Bee Last Filed: 09/09/25 10:21> Palpation (GI): Soft to palpation and Tenderness to palpation present (GI) (Mild lower abdominal) <Zion Toussaint PA-C - Last Filed: 09/09/25 10:21> Neuro: General: patient oriented x3 <RISHI Bee Last Filed: 09/09/25 10:21> Results Labs Result diagrams: 09/09/25 05:52 09/09/25 05:52 <Zion Toussaint PA-C - Last Filed: 09/09/25 10:21> Labs: Abnormal lab results 09/08/25 09/08/25 09/08/25 Range/Units 09:24 10:48 17:07 RBC 4.26 L (4.60-5.80) X10*6/uL Hgb 12.8 L (14.0-18.0) g/dl Hct 38.5 L (42.0-52.0) % MPV 9.3 L (9.4-12.4) fL PT 30.3 H (11.2-13.5) SEC INR 2.5 H (0.9-1.1) Potassium 5.3 H (3.3-5.1) mmol/L Chloride 115 H (96-108) mmol/L Carbon Dioxide 20 L (22-29) mmol/L BUN 35 H (9-16) mg/dL Creatinine 1.65 H (0.5-1.4) mg/dL POC Glucose 183 H (60-115) mg/dL Random Glucose 136 H (60-115) mg/dL Urine Protein 30 (1+) H (Neg-Trace) mg/dL Urine Glucose (UA) 100 H (Negative) mg/dL Urine Blood Trace H (Negative) 09/08/25 09/09/25 09/09/25 Range/Units 20:50 05:52 06:51 RBC 4.31 L (4.60-5.80) X10*6/uL Hgb 12.9 L (14.0-18.0) g/dl Hct 39.5 L (42.0-52.0) % MPV 9.3 L (9.4-12.4) fL PT 30.3 H (11.2-13.5) SEC INR 2.5 H (0.9-1.1) Potassium (3.3-5.1) mmol/L Chloride 115 H (96-108) mmol/L Carbon Dioxide 19 L (22-29) mmol/L BUN 27 H (9-16) mg/dL Creatinine 1.49 H (0.5-1.4) mg/dL POC Glucose 116 H 132 H (60-115) mg/dL Random Glucose 130 H (60-115) mg/dL Urine Protein (Neg-Trace) mg/dL Urine Glucose (UA) (Negative) mg/dL Urine Blood (Negative) Short CBC 09/08/25 09/09/25 Range/Units 09:24 05:52 WBC 9.2 9.0 (4.8-10.8) X10*3/uL Hgb 12.8 L 12.9 L (14.0-18.0) g/dl Hct 38.5 L 39.5 L (42.0-52.0) % Plt Count 165 182 (160-400) X10*3/uL BMP 09/08/25 09/09/25 09:24 05:52 Sodium 142 141 Potassium 5.3 H 4.7 Chloride 115 H 115 H Carbon Dioxide 20 L 19 L BUN 35 H 27 H Creatinine 1.65 H 1.49 H Calcium 9.1 8.9 Liver Function 09/08/25 Range/Units 09:24 Total Bilirubin 0.7 (0.0-1.0) mg/dL AST 31 (5-37) U/L ALT 20 (0-40) U/L Alkaline Phosphatase 49 (39-117) U/L Albumin 4.0 (3.5-5.0) g/dL Urine 09/08/25 Range/Units 10:48 Urine Color Yellow Urine Appearance Clear Urine pH 5.5 (5.0-9.0) Ur Specific [place] 1.015 (1.005-1.025) Urine Protein 30 (1+) H (Neg-Trace) mg/dL Urine Glucose (UA) 100 H (Negative) mg/dL All other labs normal. <Zion Toussaint PA-C - Last Filed: 09/09/25 10:21> Assessment and Plan (1) Abdominal pain: Qualifiers: Abdominal location: lower abdomen, unspecified Qualified Code(s): R10.30 - Lower abdominal pain, unspecified <Zion Toussaint PA-C - Last Filed: 09/09/25 10:21> Status: Acute <Zion Toussaint PA-C - Last Filed: 09/09/25 10:21> 85M with multiple medical problems including CKD, DVTs, multiple abdominal surgeries, admitted for a syncopal episode complained of abdominal pain, diffuse, yesterday until last night no N/V CT done - no acute intraabdominal pathology, no inflammation, no obstruction did have high stool volume in the rectum and sigmoid passing flatus, good BMs current nontender, denies pain abd soft, benign continue of bowel regimen no surgical issues currently care as per hospitalist service seen and examined independently <Narayan Alexander MD - Last Filed: 09/09/25 19:21> 85-year-old male with a history significant for?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 Found to have large Stool burden on CT in the sigmoid colon. Given his complex surgical history general surgery was consulted. He was started on bowel regimen, Colace, Mag oxide. Has passed a bowel movement this morning, liquid stool. Continues to have some cramping abdominal pain in the lower abdomen. Abdomen is soft, some mild tenderness in the lower abdomen. Clinically now he is unobstructed. Passing gas, stool. It is possible some of this liquid stool is escaping around the stool burden in the sigmoid. For now would recommend continuing bowel regimen. Would recommend enema, possibly fleets, if not working would upgrade to glycerin enema. No plan for surgical intervention at this time. He is okay to have diet as tolerated. If possible would decrease narcotic load as tolerated. Bowel regimen, recommend add enema Serial abdominal exams Ambulation as tolerated Diet as tolerated <Zion Toussaint PA-C - Last Filed: 09/09/25 10:21> Procedures Date of Service Date of Service: 09/09/25 <Zion Toussaint PA-C - Last Filed: 09/09/25 10:21> 09/09/25 <Narayan Alexander MD - Last Filed: 09/09/25 19:21>
[2025-09-09 10:39] VITALS: BP 150/73; BP 152/74; BP 166/78; PULSE 103; PULSE 91; PULSE 93
[2025-09-09 10:54] LABS: Glucose, Whole Blood 200 mg/dL (60-115)
[2025-09-09 11:04] VITALS: BP 152/74; PULSE 91; RESP 18; TEMP 36.4; O2SAT 94
--- NOTE | 2025-09-09 11:20 | MHC.CM.PN ---
Karen 09/09/25, Pt. lives with his , Elana, who is his HCP. PCP confirmed: Kennedy Monroy MD. Pt. does not use home health services or DME, to transport home at [place], DCP: home, self care. CM to follow for DC needs.
[2025-09-09 12:07] LABS: CDiff Gene PCR NEGATIVE (Negative)
[2025-09-09 13:48] LABS: E. coli EAEC Not Detected (Not Detect.); E. coli EPEC Not Detected (Not Detect.); E. coli ETEC Not Detected (Not Detect.); E. coli STEC Not Detected (Not Detect.); Shigella sp./EIEC Not Detected (Not Detect.)
--- NOTE | 2025-09-09 14:03 | P.DS_ITS ---
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 Pt reports yesterday he also experienced a syncopal episode. Pt reports in the morning he was in his normal state of health when he brought out some packages to place in the trunk of the car. Pt then went to place some paper in the recycling bin when he felt dizzy and then had a syncopal episode. The next thing pt remembers is waking up on the ground. Had slight headache and a bump and cut on the back of his head after striking the ground. Believes that he was on the ground for maybe a minute or 2. No postictal like state. No stroke-like symptoms. reports patient's BP was elevated above baseline when she brought him back into the house: 186/92. pt he is normally normotensive and not on any BP medications as he has been unable to tolerate them. Pt also denies chest pain or palpitations. Pt then went to visit his family and felt okay, but when he returned he began experiencing significant diffuse abdominal pain, most pronounced on the right side. Pain persisted overnight and in the morning, and given patient's significant abdominal hx decided to come to the ED for further evaluation. Patient's last bowel movement was 1 hour ago in the ED; reports that it was soft, but he normally goes 2-3 times every day and normally in the morning. Did not go earlier today. In the ED pt's vitals were significant for hypertension as high as 181/108, otherwise stable. Labs were significant for H&H 12.8/38.5, INR 2.5, potassium 5.3, and creatinine 1.65. UA negative for UTI. Tested negative for flu, COVID, RSV. CT of head negative for acute intracranial abnormality, though showed cerebral volume loss and intracranial atherosclerotic disease. CTA of chest negative for PE, but showed subsegmental atelectasis as well as calcified pleural plaques at lung bases. CT of abdomen/pelvis showing increased stool burden and small supraumbilical ventral abdominal wall hernias, as well as suspected renal and hepatic cysts. Negative for acute abdomen. EKG demonstrated normal sinus rhythm with occasional PVCs. Pt is admitted to the hospital under observation for treatment and further workup for syncopal episode as well as for abdominal pain. Hospital Course: Syncope: The patient underwent telemetry monitoring, which did not demonstrate arrhythmias. There were no features concerning for seizure or acute cerebrovascular event, including absence of postictal state or focal neurologic deficits. Given the clinical presentation and unremarkable cardiac and neurologic evaluation, the syncopal episode was felt to be most consistent with vasovagal syncope. Abdominal Pain: CT scan of the abdomen and pelvis showed no acute intra?abdominal pathology. Imaging demonstrated increased stool burden. A GI panel and Clostridioides difficile testing were obtained and were negative. The patient?s abdominal pain improved during observation with bowel regimen, and no surgical intervention was indicated. Constipation: Managed with docusate and polyethylene glycol with symptomatic improvement. Hypertension: Blood pressure was intermittently elevated during the ED stay and observation period and improved with monitoring. No scheduled antihypertensive therapy was initiated. OP management. Laboratory Abnormalities: Mild hyperkalemia was noted and felt to be secondary to hemolysis, with no clinical sequelae. Renal and Hepatic Cysts: These were noted on CT imaging and had been previously identified on MRCP and abdominal MRI dated 06/15/2025. The patient is undergoing outpatient evaluation with Gastroenterology, and no inpatient intervention was required. Anticoagulation / History of DVT: The patient remained on chronic warfarin therapy with a therapeutic INR during hospitalization. The patient remained clinically stable throughout observation and was deemed appropriate for discharge home on the same day. Time spent discussing smoking cessation with patient: more than 10 minutes Time Attestation Discharge Coordination Time (in mins): 45 Quality: Safe Use of Opioids Does Pt have an Active Cancer Diagnosis on the Problem List?: No Quality: Stroke Does the patient have a stroke diagnosis?: No Physical Exam Vital Signs: Vital Signs: Last Vital Signs Temp 97.6 F 09/09/25 11:04 Pulse 91 09/09/25 11:04 Resp 18 09/09/25 11:04 BP 152/74 H 09/09/25 11:04 Pulse Ox 94 09/09/25 11:04 O2 Del Method Room Air 09/09/25 11:04 BMI result Body Mass Index 25.6 Const: General: comfortable and no acute distress Orientation/consciousness: patient oriented x3 Resp: Effort & Inspection: normal respiratory effort and able to speak in complete sentences GI: Inspection: No distended and Yes scar (Open cholecystectomy, open appendectomy, laparotomy) Palpation (GI): Soft to palpation and Tenderness to palpation present (GI) (Mild lower abdominal) Neuro: General: patient oriented x3 DS: Data Data Completed and Pending Labs on day of discharge: Laboratory Results - last 24 hr 09/08/25 09/08/25 09/08/25 13:50 17:07 20:50 WBC RBC Hgb Hct MCV MCH MCHC RDW Plt Count MPV Absolute Nucleated RBC Nucleated RBC % (auto) PT INR Sodium Potassium Chloride Carbon Dioxide Anion Gap BUN Creatinine Estim Creat Clear Calc Estimated GFR POC Glucose 183 H 116 H Random Glucose Calcium Troponin I High Sens 5.9 Stl C. cayetanensis PCR Stool Rotavirus A PCR Stl Adenov F 40/41 PCR Stool Astrovirus (PCR) Stool Campylobacter PCR Stool Cryptosporidium PCR Stl Sh Tox Pr E STEC PCR Stool E coli O157 PCR Stl Enterotoxigenic E PCR Stool EPEC (PCR) Stool EAEC (PCR) Stl E. histolytica PCR Stool Giardia Lamblia PCR Stl P. shigelloides PCR Stool Salmonella PCR Stool Sapovirus (PCR) Stl Shigella/EIEC PCR St Y.enterocolitica PCR Stool Vibrio (PCR) Stl Vibrio cholerae PCR Stl Norovirus GI/GII PCR C. diff Tox B Gene (PCR) 09/09/25 09/09/25 09/09/25 05:52 06:51 10:43 WBC 9.0 RBC 4.31 L Hgb 12.9 L Hct 39.5 L MCV 91.6 MCH 29.9 MCHC 32.7 RDW 13.1 Plt Count 182 MPV 9.3 L Absolute Nucleated RBC 0.000 Nucleated RBC % (auto) 0.0 PT 30.3 H INR 2.5 H Sodium 141 Potassium 4.7 Chloride 115 H Carbon Dioxide 19 L Anion Gap 12 BUN 27 H Creatinine 1.49 H Estim Creat Clear Calc 35.0 Estimated GFR 45 POC Glucose 132 H 200 H Random Glucose 130 H Calcium 8.9 Troponin I High Sens Stl C. cayetanensis PCR Stool Rotavirus A PCR Stl Adenov F PCR Stool Astrovirus (PCR) Stool Campylobacter PCR Stool Cryptosporidium PCR Stl Sh Tox Pr E STEC PCR Stool E coli O157 PCR Stl Enterotoxigenic E PCR Stool EPEC (PCR) Stool EAEC (PCR) Stl E. histolytica PCR Stool Giardia Lamblia PCR Stl P. shigelloides PCR Stool Salmonella PCR Stool Sapovirus (PCR) Stl Shigella/EIEC PCR St Y.enterocolitica PCR Stool Vibrio (PCR) Stl Vibrio cholerae PCR Stl Norovirus GI/GII PCR C. diff Tox B Gene (PCR) 09/09/25 Unknown WBC RBC Hgb Hct MCV MCH MCHC RDW Plt Count MPV Absolute Nucleated RBC Nucleated RBC % (auto) PT INR Sodium Potassium Chloride Carbon Dioxide Anion Gap BUN Creatinine Estim Creat Clear Calc Estimated GFR POC Glucose Random Glucose Calcium Troponin I High Sens Stl C. cayetanensis PCR Not Detected Stool Rotavirus A PCR Not Detected Stl Adenov F PCR Not Detected Stool Astrovirus (PCR) Not Detected Stool Campylobacter PCR Not Detected Stool Cryptosporidium PCR Not Detected Stl Sh Tox Pr E STEC PCR Not Detected Stool E coli O157 PCR Not applicable Stl Enterotoxigenic E PCR Not Detected Stool EPEC (PCR) Not Detected Stool EAEC (PCR) Not Detected Stl E. histolytica PCR Not Detected Stool Giardia Lamblia PCR Not Detected Stl P. shigelloides PCR Not Detected Stool Salmonella PCR Not Detected Stool Sapovirus (PCR) Not Detected Stl Shigella/EIEC PCR Not Detected St Y.enterocolitica PCR Not Detected Stool Vibrio (PCR) Not Detected Stl Vibrio cholerae PCR Not Detected Stl Norovirus GI/GII PCR Not Detected C. diff Tox B Gene (PCR) NEGATIVE Discharge Plan Discharge Anticipated Discharge Date/Time: 09/09/25 13:46 Patient Disposition: Home, Self-Care Discharge Diagnosis: Syncope likely due to vasovagal in etiology. Referrals: Kennedy Monroy MD [Primary Care Provider, Internal Medicine] - 1 Week Discharge Medications: New warfarin 7.5 mg tablet 7.5 mg PO QWEEK 45 Days Qty: 7 3RF Rx Instructions: take Qmonday Continued coenzyme Q10 [Co Q-10] 100 mg Capsule 100 mg PO DAILY warfarin 5 mg Tablet 5 mg PO DAILY@1800 sitagliptin phosphate 25 mg tablet 25 mg PO DAILY tzulthscwfac-tjkczhit-axjxiz Tablet 1 tab PO DAILY magnesium 200 mg tablet 200 mg PO DAILY cetirizine [Zyrtec] 5 mg tablet 5 mg PO DAILY PRN (Reason: Allergies and Itching) atorvastatin 10 mg tablet 10 mg PO DAILY Discontinued warfarin 5 mg tablet 5 mg PO DAILY@1700 Protocol: Dose Management Condition: Tuesday (Week One) Dose/Route: 5 mg Instruction: 1 x 5 mg tablet Condition: Tuesday Dose/Route: 7.5 mg Instruction: 1.5 x 5 mg tablets Condition: Tuesday Dose/Route: 5 mg Instruction: 1 x 5 mg tablet Condition: Tuesday Dose/Route: 5 mg Instruction: 1 x 5 mg tablet Condition: Dose/Route: 5 mg Instruction: 1 x 5 mg tablet Condition: Tuesday Dose/Route: 5 mg Instruction: 1 x 5 mg tablet Condition: Tuesday Dose/Route: 5 mg Instruction: 1 x 5 mg tablet Condition: Tuesday (Week Two) Dose/Route: 5 mg Instruction: 1 x 5 mg tablet Condition: Tuesday Dose/Route: 7.5 mg Instruction: 1.5 x 5 mg tablets Condition: Tuesday Dose/Route: 5 mg Instruction: 1 x 5 mg tablet Condition: Tuesday Dose/Route: 5 mg Instruction: 1 x 5 mg tablet Condition: Dose/Route: 5 mg Instruction: 1 x 5 mg tablet Condition: Tuesday Dose/Route: 5 mg Instruction: 1 x 5 mg tablet Condition: Tuesday Dose/Route: 5 mg Instruction: 1 x 5 mg tablet Protocol Text: Adjustment Start Date: Tuesday08/13/25 INR Value: 3.1 INR Date: 08/13/25 Recheck Date: 09/10/25 Discharge Orders: Discharge Order (Routine); Ordered 09/09/25 Ordered By: Lin West Diet: Low salt diet Activity on Discharge: As tolerated Stand Alone Forms: Patient Portal Discharge page Print Language: Nicaraguan Care Plan Goals: Follow up with PCP within a week after discharge Continue the same doses of warfarin-5 mg daily with a 7.5 mg every Tuesday- orders seemed like suplicate- hence adjusted it We checked orthostatics and head CT and did not find any obvious etiology hence we believe that syncope was due to exertion and vasovagal in etiology Health Concerns: Follow with PCP outpatient, if noting to have further issues, please come back to the ED Plan of Treatment: See above Assessment: See above Patient Instructions: Syncope in Older Adults (DC)
== END 2025-09-09 14:26 | disposition home or self-care (01) ==
LOC: HO.ED 12:29 → HO.EDOVER 12:48 → HO.IMC 15:12
PROVIDERS: Physician Assistant Medical; Admitting Provider Student in an Organized Health Care Education/Training Program; Emergency Provider Emergency Medicine Emergency Medical Services; PCP Internal Medicine; Visit Provider Student in an Organized Health Care Education/Training Program
DX: R10.30 Lower abdominal pain, unspecified (principal); R55 Syncope and collapse; R51.9 Headache, unspecified; I82.409 Acute embolism and thrombosis of unspecified deep veins of unspecified lower extremity; I12.9 Hypertensive chronic kidney disease with stage 1 through stage 4 chronic kidney disease, or unspecified chronic kidney disease; N18.30 Chronic kidney disease, stage 3 unspecified; K59.00 Constipation, unspecified; E87.5 Hyperkalemia; K76.89 Other specified diseases of liver; N28.1 Cyst of kidney, acquired; S09.90XA Unspecified injury of head, initial encounter; W19.XXXA Unspecified fall, initial encounter; Y93.9 Activity, unspecified; Y92.9 Unspecified place or not applicable; Y99.9 Unspecified external cause status; Z79.01 Long term (current) use of anticoagulants; Z79.899 Other long term (current) drug therapy; Z03.818 Encounter for observation for suspected exposure to other biological agents ruled out
CPT/HCPCS: 36415; 70450; 71275; 74177; 80048; 80053; 81001; 82947; 83735; 84484; 85025; 85027; 85610; 87493; 87507; 87637; 93005; 93306; 96374; 97161; 97165; 99222; 99285; J2270; Q9957; Q9967

== ENCOUNTER → 2025-09-08 09:21 | Outpatient (BNV) | payer MEDICARE, OTHER, SELFPAY | PROVIDERS: Admitting Provider Student in an Organized Health Care Education/Training Program; Emergency Provider Emergency Medicine Emergency Medical Services; PCP Internal Medicine; Visit Provider Internal Medicine Cardiovascular Disease | DX: R55 Syncope and collapse (principal) | CPT/HCPCS: 93010 ==

== ENCOUNTER 2025-09-08 12:44 | Outpatient (BNV) | payer MEDICARE, OTHER, SELFPAY | END 2025-09-09 07:00 | PROVIDERS: Admitting Provider Student in an Organized Health Care Education/Training Program; Emergency Provider Emergency Medicine Emergency Medical Services; PCP Internal Medicine; Visit Provider Internal Medicine Cardiovascular Disease | DX: I35.0 Nonrheumatic aortic (valve) stenosis (principal) | CPT/HCPCS: 93306 ==

== ENCOUNTER → 2025-09-08 12:44 | Outpatient (BNV) | payer MEDICARE, OTHER, SELFPAY | PROVIDERS: Admitting Provider Student in an Organized Health Care Education/Training Program; Emergency Provider Emergency Medicine Emergency Medical Services; PCP Internal Medicine; Visit Provider Student in an Organized Health Care Education/Training Program | DX: R55 Syncope and collapse (principal); R10.9 Unspecified abdominal pain | CPT/HCPCS: 99222; 99239 ==

== ENCOUNTER → 2025-09-08 12:44 | Outpatient (BNV) | payer MEDICARE, OTHER, SELFPAY | PROVIDERS: Admitting Provider Student in an Organized Health Care Education/Training Program; Emergency Provider Emergency Medicine Emergency Medical Services; PCP Internal Medicine | DX: R10.30 Lower abdominal pain, unspecified (principal) | CPT/HCPCS: 99222 ==

== ENCOUNTER 2025-09-16 12:00 | Outpatient (AMB) | payer MEDICARE, OTHER, SELFPAY ==
[2025-09-16 12:08] LABS: Prothrombin Time Whole Bld POC 35.0 sec (11.1-13.5); ~PT, ~INR - Anti Coag Clinic 2.9 (0.9-1.1)
--- NOTE | 2025-09-16 13:38 | MHC.OFFVISCO ---
Intake Intake Visit Reasons: Anticoagulation Allergies No Known Allergies Allergy (Mild, Verified 09/16/25 12:01) NOT APPLICABLE Medication List - Last Reconciled 09/16/25 by Roshni Honeycutt RN atorvastatin 10 mg PO DAILY cetirizine (Zyrtec) 5 mg PO DAILY PRN coenzyme Q10 (Co Q-10) 100 mg PO DAILY enoxaparin 80 mg subcut Q12H magnesium 200 mg PO DAILY hjjqzftczbyk-sblhdaey-ancraz 1 tab PO DAILY sitagliptin phosphate 25 mg PO DAILY warfarin 5 mg See Protocol PO DAILY@1800 warfarin 7.5 mg See Protocol PO QWEEK 45 days Nursing Note pt came to [facility] with instructions regarding his upper endoscopy scheduled for 09/25/25 He has instructions to stop warfarin x 5 days and to bridge with lovenox 3 days before and after procedure. Pt was instructed to ask the proceduralist when it is same for him to resume both warfarin and lovenox INR: 2.9 in therapeutic range Medications and supplements reviewed No changes in health, diet, medications, or supplements, Denies any signs and symptoms of bleeding or bruising or clotting. Bleeding, bruising, clotting discussed Nutritional guidance given - can have a serving of greens today Dose: cont usual dose then hold x 5 days per md orders and start lovenox 3 days prior procedure He will resume warfarin per md orders with 7.5mg x 1 day/ 5mg x 6 days and f/u INR 09/30/25 5 days post procedure and the weekend F/U INR: 09/30/25 Patient verbalizes understanding of instructions given Anti-Coag Initial Assessment Social Hx Patient Tobacco Use Status: Never used Tobacco Coding Level of Care Code Est Patient Level 1 Diagnoses Current use of anticoagulant therapy Z79.01 Comment complex with warfarin lovenox bridge Assessment & Plan Assessment & Plan (1) Current use of anticoagulant therapy: Code(s): Z79.01 - snf (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
--- OUTSIDE RECORDS SUMMARY | 2025-09-16 14:03 | XMS_ITS | Patient Health Record ---
Author Organization [facility] [place]re[place] Address [address] [place] [address] Care Team Providers Care Construction Sales Manager Name Role Phone Kennedy Monroy MD Primary Care Provider Unavaila Jodie Ignacio Unavailable [phone] Allergies Allergen (clinical drug ingredient) Drug/Non Drug [...] Problem Acquired hammer toe of right foot (860012450526866 5) Other hammer toe(s) (acquired), right foot (M20.41) Active confirmed Problem Acquired hammer toe of left foot (411577574169385 3) Other hammer toe(s) (acquired), left foot (M20.42) Active confirmed Problem Type II diabetes mellitus without complication (981557998) Type 2 diabetes mellitus without complications (E11.9) Active confirmed Problem Ulcer of toe of right foot (disorder) (517933694653500 01) Skin ulcer of toe of right foot, limited to breakdown of skin (L97.511) Active confirmed Plan Of Treatment Pending Test Test Name Order Date [id number]-Ihufcpud Plate 10/29/2015 16792- Debride <25 sq cm 07/04/2023 44800-GOSJ SKIN LESION 03/14/2023 Insurance Providers Payer Name Payer Address Payer Phone Subscriber Number Group Number Insured Name Patient Relationship to Insured Coverage Start Date Coverage End Date Medicare National Govt Sv[employer] [address] [facility] [place] [address] [id number] Margarito Mehta Self - patient is the insured [employer] ([employer]) [address] [place] [address] [phone] [id number] Margarito Mehta Self - patient is the insured Medical (General) History Medical History History ICD Code Diabetic Kidney disease Chicken pox Transfusions Diverticulitis Cholesterol Hx DVT Right Leg Cataracts Gall bladder problems Measles Joint implants/screws Surgical History Surgery Date(Month/Year) appendectomy 1960 gall bladder 2000 bowel resection 2001 right shoulder surgery 1999 left shoulder surgery 2019
--- OUTSIDE RECORDS SUMMARY | 2025-09-16 14:04 | XMS_ITS | Encounter Summary ---
Author Organization [facility] Address [address] [place] [address] Phone Care Team Providers Care Baseball Hand Sewer Name Role Phone Kennedy Monroy MD Primary Care Provider [phone] Kennedy Monroy MD Unavailable [phone] Yury Whyte MD Unavailable [phone] Song Bloom MD Unavailable [phone] Kumar Nunez MD Unavailable [phone] Encounter Details Date Type Department Care Team (Late st Contact Info) Description 05/29/2025 Procedure Pass [facility], [address] [address] Social History Tobacco Use Types Packs/Day Years [...] Department Care Team (Latest Contact Info) Description 09/18/2025 2:00 PM EST Office Visit [facility] [address] [place] [address] Kennedy Monroy MD [address] [place] [address] [email or web address] 09/24/2025 1:00 PM EST Office Visit [facility] [address] [facility], [address] [place] [address] Song Nolan MD [address] [place] [address] [email or web address] 09/25/2025 Procedure Pass [facility] Admitting Dept Virtual Department [address] [place] [address] 09/25/2025 9:45 AM EST Hospital Encounter [facility] Virtual Department [address] [place] [address] Elie Santacruz MD [address] [address] [email or web address] 09/25/2025 9:45 AM EST - 09/25/2025 10:00 AM EST Surgery [facility] Endoscopy Admitting Dept Virtual Department [address] [place] [address] Elie Santacruz MD [address] [address] [email or web address] ESOPHAGOGASTRODUODENOSCOPY 02/21/2026 2:00 PM EDT Office Visit [facility] [address] [place] [address] Kennedy Monroy MD [address] [place] [address] [email or web address] 09/08/2026 1:00 PM EST Office Visit [facility] [address] [place] [address] Ollie Escobedo PA-C [address] [place] [address] [email or web address] Scheduled Procedures Name Priority Associated Diagnoses Date/Ti me ESOPHAGOGASTRODUODENOSCOPY Abnormal finding on GI tract imaging 09/25/2025 9:45 AM EST documented as of this encounter Visit Diagnoses Not on filedocumented in this encounter Additional Health Concerns Assessment Noted Time PHQ-2 Depression Total Score: 0 09/04/20 1:00 PM EST documented as of this encounter Care Teams Baseball Hand Sewer Relationship Specialty Start Date End Date Kennedy Monroy MD [address] [place] [address] PCP - General 07/07/17 Kennedy Monroy MD [address] [place] [address] Insurance Assigned Provider 12/24/23 Yury Whyte MD [address] [place] [address] Orthopedic Surgery 06/30/20 Song Bloom MD [address] [place] [address] [email or web address] Nephrology 09/20/23 Kumar Nunez MD [address] [place] [address], [address] [place] [address] [email or web address] Ophthalmology 07/11/24 documented as of this encounter Additional Source Comments The information contained in this document represents components of the legal health record. It is not the complete legal health record.[facility]
--- OUTSIDE RECORDS SUMMARY | 2025-09-16 14:04 | XMS_ITS | Encounter Summary ---
Author Organization [facility] Address [address] [place] [address] [place] [address] Phone Care Team Providers Care Supervisor Fabrication Department Name Role Phone Kennedy Monroy MD Primary Care Provider Kennedy Monroy MD Unavailable [phone] Kennedy Monroy MD Unavailable [phone] Yury Whyte MD Unavailable [phone] Song Bloom MD Unavailable [phone] Kumar Nunez MD Unavailable [phone] Encounter Details Date Type Department Care Team (Late st Contact Info) Description 02/21/2024 Procedure Pass [facility], Ct Scan - [address] [address] Social History Tobacco Use Types Packs/Day Years [...] Description 09/18/2025 2:00 PM EST Office Visit [facility] [address] [place] [address] Kennedy Monroy MD [address] [place] [address] [email or web address] 09/24/2025 1:00 PM EST Office Visit [facility] [address] [facility], [address] [place] [address] Song Nolan MD [address] [place] [address] [email or web address] 09/25/2025 Procedure Pass [facility]oscopy Admitting Dept Virtual Department [address] [place] [address] 09/25/2025 9:45 AM EST Hospital Encounter [facility] Admitting [facility] Virtual Department [address] [place] [address] Elie Santacruz MD [address] [address] [email or web address] 09/25/2025 9:45 AM EST - 09/25/2025 10:00 AM EST Surgery [facility] Endoscopy Admitting Dept Virtual Department [address] [place] [address] Elie Santacruz MD [address] [place] [address] [email or web address] ESOPHAGOGASTRODUODENOSCOPY 02/21/2026 2:00 PM EDT Office Visit [facility] [address] [place] [address] Kennedy Monroy MD [address] [place] [address] [email or web address] 09/08/2026 1:00 PM EST Office Visit [facility] [address] [place] [address] Ollie Escobedo PA-C [address] [place], [place] [email or web address] Scheduled Procedures Name Priority Associated Diagnoses Date/Ti nh ESOPHAGOGASTRODUODENOSCOPY Abnormal finding on GI tract imaging [...] documented as of this encounter Care Teams Supervisor Fabrication Department Relationship Specialty Start Date End Date Kennedy Monroy MD [address] [place] [address] PCP - General 07/07/17 Kennedy Monroy MD [address] [place] [address] Historical LMR Provider 07/09/17 07/10/24 Kennedy Monroy MD [address] [place] [address] Insurance Assigned Provider 12/24/23 Yury Whyte MD [address] [place], [place] [address]lilly Danielle [address] [address] Orthopedic Surgery 06/30/20 Song Bloom MD [address] [facility] [address] [place] [address] [email or web address] 09/20/23 Kumar Nunez MD [address] [place] [address], [address] [place] [address] [email or web address] Ophthalmology 07/11/24 documented as of this encounter Additional Source Comments The information contained in this document represents components of the legal health record. It is not the complete legal health record.[facility]
--- OUTSIDE RECORDS SUMMARY | 2025-09-16 14:04 | XMS_ITS | Encounter Summary ---
Author Organization [facility] Address [address] [place] [address] Phone Care Team Providers Care Rolled Materials Worker Name Role Phone Kennedy Monroy MD Primary Care Provider [phone] Kennedy Monroy MD Unavailable [phone] Yury Whyte MD Unavailable [phone] Song Bloom MD Unavailable [phone] uKmar Nunez MD Unavailable [phone] Encounter Details Date Type Department Care Team (Late st Contact Info) Description 05/15/2025 Procedure Pass [facility], Ct Scan - [address] [address] Social History Tobacco Use Types Packs/Day Years [...] Description 09/18/2025 2:00 PM EST Office Visit [facility] Primary Care Clinic 40 [place] [address] Kennedy Monroy MD 40 [place] [address] [email or web address] 09/24/2025 1:00 PM EST Office Visit [facility] [address] [facility], [address] [place] [address] Song Nolan MD [address] [place] [address] [email or web address] 09/25/2025 Procedure Pass [facility] Endoscopy Admitting Dept Virtual Department [address] [place] [address] 09/25/2025 9:45 AM EST Hospital Encounter [facility] End[facility] Admitting Dept Virtual Department [address] [place] [address] Elie Santacruz MD [address] [address] [email or web address] 09/25/2025 9:45 AM EST - 09/25/2025 10:00 AM EST Surgery [facility] Endoscopy Admitting Dept Virtual Department [address] [place] [address] Elie Santacruz MD [address] [address] [email or web address] ESOPHAGOGASTRODUODENOSCOPY 02/21/2026 2:00 PM EDT Office Visit [facility] [address] [place] [address] Kennedy Monroy MD 40 [place] [address] [email or web address] 09/08/2026 1:00 PM EST Office Visit [facility] 40 [place] [address] Ollie Escobedo PA-C 40 [place] [address] [email or web address] Scheduled Procedures Name Priority Associated Diagnoses Date/Ti me ESOPHAGOGASTRODUODENOSCOPY Abnormal finding on GI tract imaging 09/25/2025 9:45 AM EST documented as of this encounter Visit Diagnoses Not on filedocumented in this encounter Additional Health Concerns Assessment Noted Time PHQ-2 Depression Total Score: 0 09/04/20 1:00 PM EST documented as of this encounter Care Teams Rolled Materials Worker Relationship Specialty Start Date End Date Kennedy Monroy MD 40 [place] [address] PCP - General 07/07/17 Kennedy Monroy MD 40 [place] [address] Insurance Assigned Provider 12/24/23 Yury Whyte MD [address] [place] [address] Orthopedic Surgery 06/30/20 Song Bloom MD [address] [place] [address] [email or web address] Operator Nephrology 09/20/23 Kumar Nunez MD [address] [place] [address], [address] [place] [address] [email or web address] Ophthalmology 07/11/24 documented as of this encounter Additional Source Comments The information contained in this document represents components of the legal health record. It is not the complete legal health record.[facility]
--- OUTSIDE RECORDS SUMMARY | 2025-09-16 14:04 | XMS_ITS | Encounter Summary ---
Author Organization [facility] Address [address] [facility] [address] [place] [address] Phone Care Team Providers Care Antisqueak Filler Name Role Phone Kennedy Monroy MD Primary Care Provider Kennedy Monroy MD Unavailable [phone] Yury Whyte MD Unavailable Song Bloom MD Unavailable [phone] Kumar Nunez MD Unavailable Encounter Details Date Type Department Care Team (Late st Contact Info) Description 09/13/2025 Orders Only [facility] 40 [place] [address] Provider, MD Surinder [address] [place] [address] Social History Tobacco Use Types Packs/Day [...] Description 09/18/2025 2:00 PM EST Office Visit [facility] 40 [facility] [place] [address] Kennedy Monroy MD 40 [place] [address] [email or web address] 09/24/2025 1:00 PM EST Office Visit [facility] 15 [facility], [address] [place] [address] Song Nolan MD [address] [place] [address] [email or web address] 09/25/2025 Procedure Pass [facility] Endoscopy Admitting Dept Virtual Department [address] [place] [address] 09/25/2025 9:45 AM EST Hospital Encounter [facility] Endoscopy Admitting Dept Virtual Department [address] [place] [address] Elie Santacruz MD [address] [place] [address] [email or web address] 09/25/2025 9:45 AM EST - 09/25/2025 10:00 AM EST Surgery [facility] Endoscopy Admitting Dept Virtual Department [address] [place] [address] Elie Santacruz MD [address] [place] [address] [email or web address] ESOPHAGOGASTRODUODENOSCOPY 02/21/2026 2:00 PM EDT Office Visit [address] [address] Kennedy Monroy MD 40 [place] [address] [email or web address] 09/08/2026 1:00 PM EST Office Visit [address] [place] [address] Ollie Escobedo PA-C 40 [place] [address] [email or web address] Scheduled Procedures Name Priority Associated Diagnoses Date/Ti me ESOPHAGOGASTRODUODENOSCOPY Abnormal finding on GI tract imaging 09/25/2025 9:45 AM EST documented as of this encounter Procedures Procedure Name Priority Date/Time Associated Diagnosis Comments OUTSIDE LAB Routine 09/13/2025 10:41 AM EST OUTSIDE IMAGING Routine 09/13/2025 10:39 AM EST OUTSIDE IMAGING Routine 09/13/2025 10:30 AM EST OUTSIDE IMAGING Routine 09/13/2025 10:26 AM EST documented in this encounter Results * Outside Lab (Non-[facility]) (09/13/2025 10:41 AM EST) Historical Provider LAB BLOOD BKR ORDERABLES Final Result * Outside Imaging Report Only (09/13/2025 10:39 AM EST) Historical Provider IMG XR CHEST Final Res ult * Outside Imaging Report Only (09/13/2025 10:30 AM EST) Historical Provider IMG XR CHEST Final Res ult * Outside Imaging Report Only (09/13/2025 10:26 AM EST) Historical Provider IMG XR CHEST Final Res ult documented in this encounter Visit Diagnoses Not on filedocumented in this encounter Additional Health Concerns Assessment Noted Time PHQ-2 Depression Total Score: 0 09/06/20 25 1:44 PM EST documented as of this encounter Care Teams Antisqueak Filler Relationship Specialty Start Date End Date Kennedy Monroy MD 40 [place] [address] [email or web address] PCP - General 07/07/17 Kennedy Monroy MD [address] [place] [address] [email or web address] Insurance Assigned Provider 12/24/23 Yury Whyte MD [address] [place] [address] Orthopedic Surgery 06/30/20 Song Bloom MD [address] [place] [address] [email or web address] Nurse Care Manager Nephrology 09/20/23 Kumar Nunez MD [address] [place] [address], [address] [place] [address] [email or web address] Ophthalmology 07/11/24 documented as of this encounter Additional Source Comments The information contained in this document represents components of the legal health record. It is not the complete legal health record.[facility]
--- OUTSIDE RECORDS SUMMARY | 2025-09-16 14:04 | XMS_ITS | Encounter Summary ---
Author Organization [facility] Address [address] [place] [address] [place] [address] Phone Care Team Providers Care Lawn And Garden Technician Name Role Phone Kennedy Monroy MD Primary Care Provider [phone] Kennedy Monroy MD Unavailable [phone] Yury Whyte MD Unavailable [phone] Song Bloom MD Unavailable [phone] Kumar Nunez MD Unavailable [phone] Reason for Referral * MRI/CAT Scan - Closed Specialty Diagnoses / Procedures Referred By Contac t Referred To Contact Radiology Procedures Outside CT Imaging Report Only [facility] [address] [place] [address] Phone: tel: fax: Referral ID Status Reason Start Date Expiration Date Visits Re quested Visits Authorized [id number] Closed 2025 1 1 * MRI/CAT Scan - Closed Specialty Diagnoses / Procedures Referred By Contac t Referred To Contact Radiology Procedures Outside CT Abd/pelvis Report Only [facility] [address] [place] [address] Phone: tel: fax: Referral ID Status Reason Start Date Expiration Date Visits Re quested Visits Authorized [id number] Closed 2025 1 1 * MRI/CAT Scan - Closed Specialty Diagnoses / Procedures Referred By Xenia edwards Referred To Contact Radiology Procedures Outside CT Abd/pelvis Report Only [facility] [address] [place] [address] Phone: tel: fax: Referral ID Status Reason Start Date Expiration Date Visits Re quested Visits Authorized [id number] Closed 2025 1 1 Encounter Details Date Type Department Care Team (Late st Contact Info) Description 2025 Orders Only [facility] [address] [place] [address] Surinder Grossman MD [facility] [place] [phone] Social History Tobacco Use Types Packs/Day Years [...] Description 09/18/2025 2:00 PM EST Office Visit [facility] Primary Care [facility] [address] [place] [address] Kennedy Monroy MD 40 [place] [address] [email or web address] 09/24/2025 1:00 PM EST Office Visit [facility] [address] [facility], [address] [place] [address] Song Noaln MD [address] [place] [address] [email or web address] 09/25/2025 Procedure Pass [facility] Endoscopy Admitting Dept Virtual Department [address] [place] [address] 09/25/2025 9:45 AM EST Hospital Encounter [facility] Endoscopy Admitting Dept Virtual Department [address] [place] [address] Elie Santacruz MD [address] [address] [email or web address] 09/25/2025 9:45 AM EST - 09/25/2025 10:00 AM EST Surgery [facility] Endoscopy Admitting Dept Virtual Department [address] [place] [address] Elie Santacruz MD [address] [address] [email or web address] ESOPHAGOGASTRODUODENOSCOPY 02/21/2026 2:00 PM EDT Office Visit [address] [address] Kennedy Monroy MD 40 [place] [address] [email or web address] 09/08/2026 1:00 PM EST Office Visit [facility] [address] [place] [address] Ollie Escobedo PA-C 40 [place] [address] [email or web address] Scheduled Procedures Name Priority Associated Diagnoses Date/Ti me ESOPHAGOGASTRODUODENOSCOPY Abnormal finding on GI tract imaging 09/25/2025 9:45 AM EST documented as of this encounter Procedures Procedure Name Priority Date/Time Associated Diagnosis Comments OUTSIDE CT IMAGING REPORT ONLY Routine 09/08/2025 8:[address] ABD/PELVIS REPORT ONLY Routine 09/08/2025 8:[address] ABD/PELVIS REPORT ONLY Routine 09/08/2025 8:38 AM EST documented in this encounter Results * Outside CT Imaging Report Only (09/08/2025 8:58 AM EST) Historical Provider MD CASTRO CT Final Res ult * Outside CT Abd/pelvis Report Only (09/08/2025 8:40 AM EST) Historical Provider MD CASTRO CT ABD/PELVIS Final R esult * Outside CT Abd/pelvis Report Only (09/08/2025 8:38 AM EST) [facility] Provider MD CASTRO CT ABD/PELVIS Final R esult documented in this encounter Visit Diagnoses Not on filedocumented in this encounter Additional Health Concerns Assessment Noted Time PHQ-2 Depression Total Score: 0 09/06/20 25 1:44 PM EST documented as of this encounter Care Teams Lawn And Garden Technician Relationship Specialty Start Date End Date Kennedy Monroy MD 40 [place] [address] [email or web address] PCP - General 07/07/17 Kennedy Monroy MD 40 [place] [address] [email or web address] Insurance Assigned Provider 12/24/23 Yury Whyte MD [address] [place] [address] Orthopedic Surgery 06/30/20 Song Bloom MD [address] [place] [address] [email or web address] Paving Block Cutter Nephrology 09/20/23 Kumar Nunez MD [address] [place] [address], [address] [place], [place] [address] [email or web address] Ophthalmology 07/11/24 documented as of this encounter Additional Source Comments The information contained in this document represents components of the legal health record. It is not the complete legal health record.[facility]
--- OUTSIDE RECORDS SUMMARY | 2025-09-16 14:04 | XMS_ITS | Clinical Summary ---
Author Organization [facility] Facility Address [address] [address] Care Team Providers Care Community Director Name Role Phone Kennedy Monroy MD Primary Care Provider [phone] Allergies Active Allergy Reactions Criticality Noted Date [...] [facility] [address] [place] [address] Song Bloom MD Stage 3b chronic kidney [...] [facility] [address] [place] [address] Song Bloom MD [address] [facility] 204 [place] [phone] Health Maintenance Due Date Last Done Comments [...] % PVNMA 06/26/2020 us [facility]version [facility] [id number] LICITED RESULTS Final Result PVNMA from Last 3 Months or Most Recently Relevant to Health Maintenance Insurance [employer] Medicare [facility] Medicare Care Teams Community Director Relationship Specialty Start Date End Date Kennedy Monroy MD [address] [place] [address] PCP - General 09/29/20
--- OUTSIDE RECORDS SUMMARY | 2025-09-16 14:04 | XMS_ITS | Patient Health Record ---
Author Organization [facility] Address [address] [place] [address] Care Team Providers Care Microarray Operations Vice President Name Role Phone Daniel Jackson Unavailable [phone] Reason For Referral No Information Plan Of Treatment No Information
--- OUTSIDE RECORDS SUMMARY | 2025-09-16 14:04 | XMS_ITS | Encounter Summary ---
Author Organization [facility] Address [address] [facility] [address] [place] [address] Phone Care Team Providers Care Patcher Wood Welder Name Role Phone Kennedy Monroy MD Primary Care Provider [phone] Kennedy Monroy MD Unavailable Yury Whyte MD Unavailable [phone] Song Bloom MD Unavailable [phone] Kumar Nunez MD Unavailable [phone] Reason for Visit * Reason Onset Date Comments [facility] 09/11/2025 Encounter Details Date Type Department Care Team (Late st Contact Info) Description 09/11/2025 Telephone [facility] 40 [place], [place] [phone] Kennedy Monroy MD 40 [place] [address] [email or web address] [facility] Social History Tobacco Use Types Packs/Day Years [...] as of this encounter Progress Notes * Kennedy Monroy MD - 09/13/2025 6:28 PM EST Spoke with patient. He was at [employer] so he called me back. He says he is feeling okay, little bit of lower abdominal pain nothing severe. He did fall and hit his head. He went to [facility] and was kept in observation, had multiple CT scans. * Melecio Lopes - 09/13/2025 11:07 AM EST Records scanned into chart. * Melecio Lopes - 09/11/2025 9:53 AM EST Patient was seen at [facility] on 09/08 d/c 09/09. He states he had severe abdominal pain. Was working out in the garage when he blacked out and hit head on concrete. He states they ran all sorts of tests but nothing showed up. He is supposed to be getting an upper endoscopy. Booked 09/18 with provider. Faxed to [facility] for notes. Patient would like to speak with provider. documented in this encounter Plan of Treatment Upcoming Encounters Date Type Department Care Team (Latest Contact Info) Description 09/18/2025 2:00 PM EST Office Visit [facility] [address] [place] [address] Kennedy Monroy MD 40 [place] [address] [email or web address] 09/24/2025 1:00 PM EST Office Visit [facility] [address] [facility], [address] [place] [address] Song Nolan MD [address] [place] [address] [email or web address] 09/25/2025 Procedure Pass [facility] Endoscopy Admitting Dept Virtual Department [address] [place] [address] 09/25/2025 9:45 AM EST Hospital Encounter [facility] Endoscopy Admitting Dept Virtual Department [address] [place] [address] Elie Santacruz MD 10 [facility] 2 [place] [address] [email or web address] 09/25/2025 9:45 AM EST - 09/25/2025 10:00 AM EST Surgery [facility] Endoscopy Admitting Dept Virtual Department [address] [place] [address] Elie Santacruz MD [address] [address] [email or web address] ESOPHAGOGASTRODUODENOSCOPY 02/21/2026 2:00 PM EDT Office Visit [facility] 40 [place] [address] Kennedy Monroy MD 40 [place] [address] [email or web address] 09/08/2026 1:00 PM EST Office Visit [facility] 40 [place] [address] Ollie Escobedo PA-C 40 [place], [place] [phone] [email or web address] Scheduled Procedures Name Priority Associated Diagnoses Date/Ti ny ESOPHAGOGASTRODUODENOSCOPY Abnormal finding on GI tract imaging 09/25/2025 9:45 AM EST documented as of this encounter Visit Diagnoses Not on filedocumented in this encounter Additional Health Concerns Assessment Noted Time PHQ-2 Depression Total Score: 0 09/06/20 25 1:44 PM EST documented as of this encounter Care Teams Patcher Wood Welder Relationship Specialty Start Date End Date Kennedy Monroy MD 40 [place] [address] PCP - General 07/07/17 Kennedy Monroy MD 40 [place] [address] Insurance Assigned Provider 12/24/23 Yury Whyte MD [address] [place] [address] Orthopedic Surgery 06/30/20 Song Bloom MD [address] [place] [address] [email or web address] Marine Cargo Specialist Nephrology 09/20/23 Kumar Nunez MD [address] [place] [address], [address] [place] [address] Ophthalmology 07/11/24 documented as of this encounter Additional Source Comments The information contained in this document represents components of the legal health record. It is not the complete legal health record.[facility]
--- OUTSIDE RECORDS SUMMARY | 2025-09-16 14:04 | XMS_ITS | Encounter Summary ---
Author Organization [facility] Address [address] [facility] 200 [place] [address] Phone Care Team Providers Care Waste Management Specialist Name Role Phone Kennedy Monroy MD Primary Care Provider [phone] Encounter Details Date Type Department Care Team (Late Contact Info) Description 07/12/2022 Telephone [facility] [address] [facility] [address] [place] [address] Song Bloom MD [address] [facility] [address] [place] [address] Social History Tobacco Use Types [...] he had his labs done at [facility] on 06/[facility]/22. He is having trouble getting them to send us over the results because he has called them 3 times and we still haven't received them. Please advise Thank you documented in this encounter Plan of Treatment Upcoming Encounters Date Type Department Care Team (Late Contact Info) Description 08/25/2026 1:15 PM EST Office Visit [facility] [address] [place] [address] Song lBoom MD [address] [facility] 204 [place] [address] documented as of this encounter Visit Diagnoses Not on filedocumented in this encounter Care Teams Waste Management Specialist Relationship Specialty Start Date End Date Kennedy Monroy MD [address] [place] [address] PCP - General 09/29/20 documented as of this encounter
--- OUTSIDE RECORDS SUMMARY | 2025-09-16 14:05 | XMS_ITS | Encounter Summary ---
Author Organization [facility] Address [address] [facility] [address] [place] [address] Phone Care Team Providers Care Phlebotomy Lab Assistant Name Role Phone Kennedy Monroy MD Primary Care Provider [phone] Kennedy Monroy MD Unavailable Yury Whyte MD Unavailable [phone] Song Bloom MD Unavailable Kumar Nunez MD Unavailable [phone] Encounter Details Date Type Department Care Team (Latest Contact Info) Description 08/17/2025 Orders Only [facility] Gastro[facility]ology Clinic 10 [place] [address] Elie Santacruz MD [address] [address] [email or web address] Abnormal finding on GI tract imaging [...] 09/18/2025 2:00 PM EST Office Visit [facility] 40 [place] [address] Kennedy Monroy MD 40 [place] [email or web address] 09/24/2025 1:00 PM EST Office Visit [facility] 15 [facility], [address] [place] [address] Song Nolan MD [address] [place] [address] [place] [address] [email or web address] 09/25/2025 Procedure Pass [facility] Endoscopy Admitting Dept Virtual Department [address] [place] [address] 09/25/2025 9:45 AM EST Hospital Encounter [facility] Endoscopy Admitting Dept Virtual Department [address] [place] [address] Elie Santacruz MD [address] [address] [email or web address] 09/25/2025 9:45 AM EST - 09/25/2025 10:00 AM EST Surgery [facility] Endoscopy Admitting Dept Virtual Department [address] [place] [address] Elie Santacruz MD [address] [address] [email or web address] ESOPHAGOGASTRODUODENOSCOPY 02/21/2026 2:00 PM EDT Office Visit [facility] [address] [facility] [place] [phone] Kennedy Monroy MD 40 [place], [place] [email or web address] 09/08/2026 1:00 PM EST Office Visit [facility] Clinic 40 [place] [address] Ollie Escobedo PA-C 40 [place] [address] [email or web address] Scheduled Procedures Name Priority Associated Diagnoses [...] documented as of this encounter Care Teams Phlebotomy Lab Assistant Relationship Specialty Start Date End Date Kennedy Monroy MD 40 [place] [address] PCP - General 07/07/17 Kennedy Monroy MD [address] [place] [address] [email or web address] Insurance Assigned Provider 12/24/23 Yury Whyte MD [address] [place] [address] Orthopedic Surgery 06/30/20 Song Bloom MD [address] [place] [address] [email or web address] Brush Maker Machine Nephrology 09/20/23 Kumar Nunez MD [address] [place] [address], [address] [place] [address] Ophthalmology 07/11/24 documented as of this encounter Additional Source Comments The information contained in this document represents components of the legal health record. It is not the complete legal health record.[facility]
--- OUTSIDE RECORDS SUMMARY | 2025-09-16 14:05 | XMS_ITS | Clinical Summary ---
Author Organization [facility] Address [address] [place] [address] Phone Care Team Providers Care Patient Transporter Name Role Phone Kennedy Monroy MD Primary Care Provider Kennedy Monroy MD Unavailable Yury Whyte MD Unavailable [phone] Song Bloom MD Unavailable [phone] Kumar Nunez MD Unavailable [phone] Allergies Active Allergy Reactions Criticality Noted [...] HOUR PRIOR TO DENTAL PROCEDURE 0 Active mv-min/folic/K1/lyc open/lutein (CENTRUM SILVER MEN ORAL) Take 1 capsule by mouth daily. Active warfarin (COUMADIN) 5 MG tabletIndications:H istory of DVT (deep vein thrombosis) TAKE 1-2 TABLETS BY MOUTH DAILY DIRECTED 180 tablet 3 5 Active atorvastatin (LIPITOR) 10 MG tabletIndications:T ype 2 diabetes mellitus with stage 3b chronic kidney disease, without long-term current use of insulin TAKE 1 TABLET BY MOUTH EVERY DAY 90 tablet 3 5 Active JANUVIA 25 mg tabletIndications:T ype 2 diabetes mellitus with stage 3 chronic kidney disease, without long-term current use of insulin, unspecified whether stage 3a or 3b CKD TAKE 1 TABLET BY MOUTH EVERY DAY 90 tablet 3 5 Active coenzyme Q10 30 mg capsule Take 30 mg by mouth 3 (three) times a day. Active enoxaparin (LOVENOX) 80 mg/0.8 mL Syrg subcutaneous injection syringeIndications: Current use of assisted anticoagulation Inject 0.8 mL (80 mg total) under the skin every 12 (twelve) hours for 7 days. 11.2 mL 5 025 Active Active Problems Problem Noted Date Diagnosed [...] Encounters Date Type Department Care Team Description 09/13/2025 Orders Only [facility] Care [facility] [address] [place] [address] Surinder Grossman MD 09/11/2025 Telephone [facility] [address] [place] [address] Kennedy Monroy MD [facility] 09/10/2025 3:00 PM EST Office Visit [facility] [address] [place] [phone] Jennifer Aleman PA-C Abnormal finding on GI tract imaging (Primary Dx); Right sided abdominal pain; Current use of assisted anticoagulation; IPMN (intraductal papillary mucinous neoplasm); Cyst of pancreas 2025 Orders Only [facility] [address] [facility] [place] [address] Surinder Grossman MD 09/06/2025 1:30 PM EST Office Visit [facility] [address] [facility] [place] [address] Kennedy Monroy MD Routine general medical examination at a health care facility (Primary Dx); Benign non-nodular prostatic hyperplasia with lower urinary tract symptoms; 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; Palpitations 08/30/2025 Telephone [facility] [address] [place] [address] Elie Santacruz MD 08/17/2025 Orders Only [facility] [address] [place] [address] Elie Santacruz MD Abnormal finding on GI tract imaging (Primary Dx) 08/14/2025 Telephone [facility] [address] [facility] [address] Kennedy Monroy MD Referral 08/14/2025 Telephone [facility] 40 [facility] [address] Kennedy Monroy MD GI appt 08/09/2025 3:30 PM EST Office Visit [facility] [address] [facility] [address] Kennedy Monroy MD Type 2 diabetes mellitus with stage 3b chronic kidney disease, without long-term current use of insulin (Primary Dx); Chronic renal failure, stage 3b; Pure hypercholesterolemi a; Anemia, unspecified type; History of recurrent deep vein thrombosis (DVT) 08/09/2025 Orders Only [facility] [address] [facility] [address] ProviderSurinder MD 07/31/2025 Telephone [facility] [address] [facility] [place] [address] Kennedy Monroy MD Medical Question from Last 3 Months Immunizations Immunization Administration [...] Sign Reading Time Taken Comments Blood Pressure 120/68 09/10/2025 2:58 PM EST Pulse 105 09/10/2025 2:58 PM EST Temperature 36.1 C (97 F) 09/06/2025 1:31 PM EST Respiratory Rate 16 09/06/2025 1:31 PM EST Oxygen Saturation 97% 09/06/2025 1:31 PM EST Inhaled Oxygen Concentration - - Weight 74.4 kg (164 lb) 09/10/2025 2:58 PM EST Height 167.6 cm (5' 6 ) 09/10/2025 2:58 PM EST Body Mass Index 26.47 09/10/2025 2:58 PM EST Plan of Treatment Upcoming Encounters Date Type Department Care Team (Latest Contact Info) Description 09/18/2025 2:00 PM EST Office Visit [facility] [address] [place] [address] Kennedy Monroy MD [address] [place] [address] [email or web address] 09/24/2025 1:00 PM EST Office Visit [facility] [address] [facility], [address] [place] [address] Song Nolan MD [address] [place] [id number] [email or web address] 09/25/2025 Procedure Pass [facility] Admitting [facility] Virtual Department [address] [place] [address] 09/25/2025 9:45 AM EST Hospital Encounter [facility] Virtual Department [address] [place] [address] Elie Santacruz MD [address] [address] [email or web address] 09/25/2025 9:45 AM EST - 09/25/2025 10:00 AM EST Surgery [facility]oscopy Admitting [facility] Virtual Department [address] [place] [address] Elie Santacruz MD [address] [address] [email or web address] ESOPHAGOGASTRODUODENOSCOPY 02/21/2026 2:00 PM EDT Office Visit [facility] [address] [facility] [place] [phone] Kennedy Monroy MD [address] [place], [place] [email or web address] 09/08/2026 1:00 PM EST Office Visit [facility] [address] [place], [place] [phone] Ollie Escobedo PA-C [address] [place] [address] [email or web address] Scheduled Procedures Name Priority Associated Diagnoses Date/Ti me ESOPHAGOGASTRODUODENOSCOPY Abnormal finding on GI tract imaging 09/25/2025 9:45 AM EST Health Maintenance Due Date Last Done Comments COVID-19 VACCINE ( season) 2025 06/17/2023, 06/21/2022, 07/09/2021, Additional history exists HEMOGLOBIN A1C 02/10/2026 08/13/2025, 04/20, 02/25/2025, Additional history exists BLOOD PRESSURE 03/11/2026 09/10/2025 DIABETIC EYE EXAM 08/09/2026 08/09/2025, , 07/23/2022, [...] OUTSIDE IMAGING Routine 09/13/2025 10:[address] IMAGING REPORT ONLY Routine 09/08/2025 8:[address] ABD/PELVIS REPORT ONLY Routine 09/08/2025 8:[address] ABD/PELVIS REPORT ONLY Routine 09/08/2025 8:38 AM EST URINE SEDIMENT Routine 08/13/2025 9:15 AM EST History of recurrent deep vein thrombosis (DVT) TOTAL PROTEIN CREATININE RATIO, RANDOM URINE Routine 08/13/2025 9:15 AM EST Stage 3b chronic kidney disease Type 2 diabetes mellitus with stage 3b chronic kidney disease, 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 MICROALBUMIN/CREATINI NE RATIO, RANDOM URINE Routine 08/13/2025 9:15 AM [...] insulin Renal osteodystrophy PARATHYROID HORMONE (PTH) Routine 08/13/2025 9:10 AM EST Stage 3b [...] recurrent deep vein thrombosis (DVT) COMPREHENSIVE METABOLIC PANEL (CMP) Routine 08/13/2025 9:10 AM EST Chronic renal failure, stage 3b Anemia, unspecified type History of recurrent deep vein thrombosis (DVT) HM DIABETES EYE EXAM FOR RESULT ENTRY ONLY Routine 08/09/2025 9:54 AM EST from Last 3 Months Results * Outside Lab (Non-[facility]GB) (09/13/2025 10:41 AM EST) us Historical Provider LAB BLOOD BKR ORDERABLES Final Result * Outside Imaging Report Only (09/13/2025 10:39 AM EST) us Historical Provider IMG XR CHEST Final Res ult * Outside Imaging Report Only (09/13/2025 10:30 AM EST) us Historical Provider IMG XR CHEST Final Res ult * Outside Imaging Report Only (09/13/2025 10:26 AM EST) us Historical Provider MD CASTRO XR CHEST Final Res ult * Outside CT Imaging Report Only (09/08/2025 8:58 AM EST) Historical Provider MD CASTRO CT Final Res ult * Outside CT Abd/pelvis Report Only (09/08/2025 8:40 AM EST) Historical Provider MD CASTRO CT ABD/PELVIS Final R esult * Outside CT Abd/pelvis Report Only (09/08/2025 8:38 AM EST) Historical Provider MD CASTRO CT ABD/PELVIS Final R esult * (ABNORMAL) Urinalysis with Reflex to Urine Culture (08/13/2025 9:15 AM EST) Color Yellow Yellow 08/13/2025 11:32 AM [facility] Clarity Clear Clear 08/13/2025 11:32 AM [facility] Glucose Negative Negative 08/13/2025 11:32 AM [facility] Bilirubin Urine Negative Negative 11:32 AM [facility] Ketone Urine Negative Negative 08/13/2025 11:32 AM [facility] Specific [place] 1.020 1.001 - 1.035 08/13/2025 11:32 AM [facility] Blood Trace(A) Negative 08/13/2025 11:32 AM [facility] pH 6.0 5.0 - 8.0 08/13/2025 11:32 AM [facility] Protein Negative Negative 08/13/2025 11:32 AM [facility] Nitrites Negative Negative 08/13/2025 11:32 AM [facility] Leukocyte Esterase Negative Negative 08/13/2025 11:32 AM [facility] Urobilinogen Negative Negative 08/13/2025 11:32 AM [facility] Urine (Urine, Voided) Non-Blood Collection / Unknown 08/13/2025 9:15 AM EST 08/13/2025 9:16 AM EST us Kennedy Monroy MD LAB URINE ORDERABLES Final Re [facility] Performing Organization Address City/[facility] Co de Phone Number [address] [address] * Protein/Creatinine Ratio, Random Urine, Total (08/13/2025 9:15 AM EST) Total Protein/Creatinine Ratio, Urine 0.07 <0.15 08/13/2025 12:25 PM [facility] Comment:Ratios <0.2 reflect insignificant protein excretion. Total Protein, Urine 6.6 <=13.5 mg/dL 08/13/2025 12:25 PM [facility] Creatinine, Urine 97 mg/dL 025 12:25 PM [facility] Urine (Urine, Voided) Non-Blood Collection / Unknown 08/13/2025 9:15 AM EST 08/13/2025 9:16 AM EST Narrative [facility] - 08/13/2025 12:25 PM EST The reference interval(s) are unavailable for this specimen type. Comparison of this result with other laboratory results, such as the concentration in the blood, serum, or plasma, is recommended. The test result should be integrated into the clinical context for interpretation. us Song Bloom MD LAB URINE ORDERABLES Final [facility] Performing Organization Address City/[facility] Co de Phone Number [address] [address] * (ABNORMAL) Urine Sediment (08/13/2025 9:15 AM EST) WBC 0-2 0 - 9 /hpf 08/13/2025 11:48 AM [facility] RBC 3-5(A) 0 - 2 /hpf 08/13/2025 11:48 AM EST [facility] Squamous Epithelial Cells 3-5(A) Not Present /hpf 08/13/2025 11:48 AM [facility] Urine (Urine, Voided) Non-Blood Collection / Unknown 08/13/2025 9:15 AM EST 08/13/2025 9:16 AM EST Kennedy Mornoy MD LAB URINE ORDERABLES Final [facility] Performing Organization Address [facility] Co de Phone Number [address] [address] * Microalbumin/Creatinine Ratio, Random Urine (08/13/2025 9:15 AM EST) Creatinine, Urine 97 mg/dL 08/13/2025 12:25 PM EST [facility] Microalbumin, Urine 1.3 <2.0 mg/dL 08/13/2025 12:25 PM [facility] MALB/CRE 13.4 <30.0 mg/g Cre 08/13/2025 12:25 PM [facility] Urine (Urine, Voided) Non-Blood Collection / Unknown 08/13/2025 9:15 AM EST 08/13/2025 9:16 AM EST Narrative [facility] - 08/13/2025 12:25 PM EST The reference interval(s) are unavailable for this specimen type. Comparison of this result with other laboratory results, such as the concentration in the blood, serum, or plasma, is recommended. The test result should be integrated into the clinical context for interpretation. Kennedy Monroy MD LAB URINE ORDERABLES Final Re sult Performing Organization Address [facility]/ZIP Co de Phone Number [address] [address] * (ABNORMAL) Comprehensive Metabolic Panel (CMP) (08/13/2025 9:10 AM EST) Sodium 142 136 - 145 mmol/L 08/13/2025 12:56 PM [facility] Potassium 5.2(H) 3.4 - 5.1 mmol/L 08/13/2025 12:56 PM EST [facility] Chloride 108(H) 98 - 107 mmol/L 08/13/2025 12:56 PM [facility] CO2 20 20 - 31 mmol/L 08/13/2025 12:56 PM [facility] Anion Gap 14 3 - 17 mmol/L 08/13/2025 12:56 PM [facility] BUN 38(H) 6 - 23 mg/dL 08/13/2025 12:56 PM [facility] Creatinine 1.50(H) 0.60 - 1.30 mg/dL 08/13/2025 12:56 PM [facility] eGFR 46(L) >59 mL/min/1.7 3m2 08/13/2025 12:56 PM [facility] Comment:Estimated glomerular filtration rate calculated using the CKD-EPI refit equation. Glucose 129(H) 70 - 99 mg/dL 08/13/2025 12:56 PM [facility] Calcium 9.5 8.5 - 10.5 mg/dL 08/13/2025 12:56 PM [facility] AST 18 <40 U/L 08/13/2025 12:56 PM [facility] ALT 15 <50 U/L 08/13/2025 12:56 PM [facility] Alkaline Phosphatase 52 40 - 130 U/L 08/13/2025 12:56 PM [facility] Bilirubin, Total 0.6 0.0 - 1.2 mg/dL 08/13/2025 12:56 PM [facility] Total Protein 6.9 6.4 - 8.3 g/dL 08/13/2025 12:56 PM [facility] Albumin 4.1 3.5 - 5.2 g/dL 08/13/2025 12:56 PM [facility] Globulin 2.8 1.9 - 4.1 g/dL 08/13/2025 12:56 PM [facility] Blood (Blood) Venipuncture / Unknown 08/13/2025 9:10 AM EST 08/13/2025 9:10 AM EST us Kennedy Monroy MD LAB BLOOD BKR ORDERABLES Terri gutierrez Result [facility] [address] [place] [address] * (ABNORMAL) CBC and Differential (08/13/2025 9:10 AM [facility]) WBC 8.29 4.00 - 11.00 K/uL 08/13/2025 10:47 AM [facility] RBC 4.36(L) 4.50 - 5.90 M/uL 08/13/2025 10:47 AM [facility] Hemoglobin 13.3(L) 13.5 - 17.5 g/dL 08/13/2025 10:47 AM [facility] Hematocrit 40.1(L) 41.0 - 53.0 % 08/13/2025 10:47 AM [facility] MCV 92.0 80.0 - 100.0 fL 08/13/2025 10:47 AM [facility] MCH 30.5 27.0 - 31.0 pg 08/13/2025 10:47 AM [facility] MCHC 33.2 32.0 - 36.0 g/dL 08/13/2025 10:47 AM [facility] MPV 9.8 8.4 - 12.0 fL 08/13/2025 10:47 AM [facility] RDW-CV 12.8 11.5 - 14.5 % 08/13/2025 10:47 AM [facility] PLT 187 150 - 450 K/uL 08/13/2025 10:47 AM [facility] Neutrophils 44.6 % 08/13/2025 10:47 AM [facility] Lymphocytes 40.3 % 08/13/2025 10:47 AM [facility] Monocytes 9.3 % 08/13/2025 10:47 AM [facility] Eosinophils 4.2 % 08/13/2025 10:47 AM [facility] Basophils 1.1 % 08/13/2025 10:47 AM [facility] Imm Grans 0.5 % 08/13/2025 10:47 AM [facility] NRBC 0.0 <=0.0 /100 WBCs 08/13/2025 10:47 AM [facility] Absolute Neutrophils 3.70 1.92 - 7.60 K/uL 08/13/2025 10:47 AM [facility] Absolute Lymphocytes 3.34 0.72 - 4.10 K/uL 08/13/2025 10:47 AM [facility] Absolute Monocytes 0.77 0.16 - 1.10 K/uL 08/13/2025 10:47 AM [facility] Absolute Eosinophils 0.35 0.00 - 0.50 K/uL 08/13/2025 10:47 AM [facility] Absolute Basophils 0.09 0.00 - 0.15 K/uL 08/13/2025 10:47 AM [facility] Absolute Imm Grans 0.04 0.00 - 0.09 K/uL 08/13/2025 10:47 AM [facility] Absolute NRBC 0.00 <=0.00 K cells/uL 08/13/2025 10:47 AM [facility] Absolute Neutrophils 3.70 1.92 - 7.60 K/uL 08/13/2025 10:47 AM [facility] Comment:Automated cell count . Manual ANC may differ if performed. Diff Type Auto 08/13/2025 10:47 AM [facility] Blood (Blood) Venipuncture / Unknown 08/13/2025 9:10 AM EST 08/13/2025 9:10 AM EST us Kennedy Monroy MD LAB BLOOD BKR ORDERABLES Terri gutierrez Result [address] [address] * Iron and Total Iron Binding Capacity (Iron/TIBC) (08/13/2025 9:10 AM EST) Iron 88 45 - 182 ug/dL 08/13/2025 12:56 PM [facility] Total Iron-Binding Capacity (TIBC) 268 220 - 460 ug/dL 08/13/2025 12:56 PM [facility] Transferrin Saturation 33 14 - 50 % 08/13/2025 12:56 PM [facility] Blood (Blood) Venipuncture / Unknown 08/13/2025 9:10 AM EST 08/13/2025 9:10 AM EST Kennedy Monroy MD LAB BLOOD BKR ORDERABLES Terri l Result Performing Organization Address [facility]/ZIP Co de Phone Number [address] [address] * 25-OH Vitamin D (08/13/2025 9:10 AM EST) 25-OH Vitamin D, Total 32 20 - 50 ng/mL 08/13/2025 12:28 PM EST [facility] Comment: Severe deficiency: <10 ng/mL Mild to moderate deficiency: 10-19 ng/mL Optimum levels: 20-50 ng/mL Increased risk of hypercalciuria: 51-80 ng/mL Possible toxicity: >80 ng/mL Blood (Blood) Venipuncture / Unknown 08/13/2025 9:10 AM EST 08/13/2025 9:10 AM EST Song Bloom MD LAB BLOOD BKR ORDERABLES Terri l Result Performing Organization Address [facility] Co de Phone Number [address] [address] * Phosphorus (08/13/2025 9:10 AM EST) Pathologist [facility] Phosphorus 3.2 2.5 - 4.5 mg/dL 08/13/2025 12:56 PM EST [facility] Blood (Blood) Venipuncture / Unknown 08/13/2025 9:10 AM EST 08/13/2025 9:10 AM EST Song Bloom MD LAB BLOOD BKR ORDERABLES Terri l Result Performing Organization Address City/[facility]/ZIP Co de Phone Number [address] [address] * Parathyroid Hormone (PTH) (08/13/2025 9:10 AM EST) Parathyroid Hormone (PTH) 63 15 - 65 pg/mL 08/13/2025 12:28 PM [facility] Blood (Blood) Venipuncture / Unknown 08/13/2025 9:10 AM EST 08/13/2025 9:10 AM EST Song Bloom MD LAB BLOOD BKR ORDERABLES Terri l Result Performing Organization Address City/[facility]/ZIP Co de Phone Number [address] [address] * Magnesium (08/13/2025 9:10 AM EST) Magnesium 2.1 1.7 - 2.6 mg/dL 08/13/2025 12:56 PM [facility] Blood (Blood) Venipuncture / Unknown 08/13/2025 9:10 AM EST 08/13/2025 9:10 AM EST Result [facility] Song Bloom MD LAB BLOOD BKR ORDERABLES Terri l Result Performing Organization Address City/[facility]/ZIP Co de Phone Number [address] [address] * (ABNORMAL) Hemoglobin A1c (08/13/2025 9:10 AM EST) Hemoglobin A1c 6.2(H) 4.3 - 5.6 % 08/13/2025 12:17 PM [facility] Calculated Mean Blood Glucose 131 mg/dL 08/13/2025 12:17 PM [facility] Comment:There is no [facility] normal range for the Estimated Average Glucose (EAG). However, a HbA1c of 5.6% (upper limit of normal) represents an EAG of 114 mg/dL. The diagnostic HbA1c level for diabetes is greater than or equal to 6.5%, which represents an EAG greater than or equal to 140 mg/dL. Blood (Blood) Venipuncture / Unknown 08/13/2025 9:10 AM EST 08/13/2025 9:10 AM EST Result [facility] Kennedy Monroy MD LAB BLOOD BKR ORDERABLES Terri l Result [address] [address] * Ferritin (08/13/2025 9:10 AM EST) Ferritin 186 30 - 400 ug/L 08/13/2025 12:56 PM [facility] Blood (Blood) Venipuncture / Unknown 08/13/2025 9:10 AM EST 08/13/2025 9:10 AM EST us Kennedy Monroy MD LAB BLOOD BKR ORDERABLES Terri l Result Performing Organization Address City/[facility]/ZIP Co de Phone Number [address] [address] * (ABNORMAL) Lipid Panel (08/13/2025 9:10 AM EST) Cholesterol 159 <200 mg/dL 08/13/2025 12:56 PM [facility] HDL 42 >=40 mg/dL 08/13/2025 12:56 PM [facility] Calculated LDL 83 <130 mg/dL 08/13/2025 12:56 PM [facility] Comment:LDL is calculated us ing the Melendez-NIH equation (MURRAY Cardiol. 2019January 17;5(5):540-548). Non-HDL Cholesterol 117 mg/dL 08/13/2025 12:56 PM [facility] Comment:Guidelines suggest a non-HDL cholesterol goal 30 mg/dL higher than the patient-specific LDL cholesterol goal. Cardiac Risk Ratio 3.8 0.0 - 5.0 2024 12:56 PM [facility] Triglycerides 204(H) <=150 mg/dL 08/13/2025 12:56 PM [facility] Blood (Blood) Venipuncture / Unknown 08/13/2025 9:10 AM EST 08/13/2025 9:10 AM EST us Kennedy Monroy MD LAB BLOOD BKR ORDERABLES Terri l Result [facility] [address] [place], [place] [id number] * DIABETES EYE EXAM FOR RESULT ENTRY ONLY (08/09/2025 9:54 AM EST) us Historical Provider HEALTH MAINTENANCE Final Result from Last 3 Months Insurance MEDICARE PART A & B Member Subscriber Plan / Payer (Ef fective 2005-Present) Name:Margarito Mehta Member ID:[id number] Relation to Subscriber:Self Name:Margarito Mehta Subscriber ID:[id number] Payer ID:[id number] Group ID:Not on file Type:Medicare Address: [employer] [facility] [place] [phone] [facility] MEDICARE SUPPLEMENT MEDICARE PART A & B [facility] [employer] MEDICARE SUPPLEMENT MEDICARE PART A & B Member Subscriber Plan / Payer ( fective 2005-Present) Name:Margarito Mehta Member ID:[id number] Relation to Subscriber:Self Name:Margarito Mehta Subscriber ID:[id number] Payer ID:[id number] Group ID:Not on file Type:Medicare Address: [employer] [address] [place] [phone] [facility] [employer] MEDICARE SUPPLEMENT MEDICARE PART A & B Member Subscriber Plan / Payer (Ef fective 2005-Present) Name:Margarito Mehta Member ID:[id number] Relation to Subscriber:Self Name:Margarito Mehta Subscriber ID:[id number] Payer ID:[id number] Group ID:Not on file Type:Medicare Address: [employer] [address] [place] [phone] [place] [address] [place] [address] MEDICARE PART A & B [facility] [place] [phone] MEDICARE PART A & B [employer] MEDICARE SUPPLEMENT MEDICARE PART A & B [employer] MEDICARE SUPPLEMENT MEDICARE PART A & B [facility] MEDICARE SUPPLEMENT MEDICARE PART A & B [facility] [employer] MEDICARE SUPPLEMENT Care Teams Patient Transporter Relationship Specialty Start Date End Date Kennedy Monroy MD [address] [place] [address] PCP - General 07/07/17 Kennedy Monroy MD [address] [place] [address] Insurance Assigned Provider 12/24/23 Yury Whyte MD [address] [place] [address] Orthopedic Surgery 06/30/20 Song Bloom MD [address] [place] [address] [email or web address].[email or web address] [employer] Nephrology 09/20/23 Kumar Nunez MD [address] [place] [address], [address] [place] [address] [email or web address] Ophthalmology 07/11/24 Additional Source Comments The information contained in this document represents components of the legal health record. It is not the complete legal health record.[facility]
== END 2025-09-16 13:45 | disposition home or self-care (01) ==
PROVIDERS: PCP Internal Medicine; Visit Provider Internal Medicine Medical Oncology
DX: Z79.01 Long term (current) use of anticoagulants (principal)

== ENCOUNTER → 2025-09-16 12:00 | Outpatient (BNVA) | payer MEDICARE, OTHER, SELFPAY | PROVIDERS: PCP Internal Medicine; Visit Provider Internal Medicine Medical Oncology | DX: I82.401 Acute embolism and thrombosis of unspecified deep veins of right lower extremity (principal); Z51.81 Encounter for therapeutic drug level monitoring; Z79.01 Long term (current) use of anticoagulants | CPT/HCPCS: 85610; 99211 ==